=== PATIENT | female | born 1930 | race Caucasian/White ===

== ENCOUNTER 2016-12-19 20:35 | Emergency (ER) | payer OTHER ==
[~2016-12-19] VITALS: Ht 152.4 cm; Wt 74.2 kg
[~2016-12-19 20:35] MED LIST: AMLO10TA4 PO; CALCTAB7 PO; CHLO10CA6 PO; DTRSR10 PO; LISI20TA3 PO; NVLGI7030 SC; NVLGI7030 SQ; PANT40TA PO; SUCR5SUS PO; TIMO0.5S2 OPL; TRIA0.1C55 TD; ZCRUNK PO
[2016-12-19 20:40] VITALS: TEMP 36.7; Ht 152.4 cm; Wt 74.2 kg
[2016-12-19] MEDS ORDERED: XYLOCAINE 1%/SOD BICARB 20 ML VIAL INFIL STA (20:50)
[2016-12-19] MEDS ORDERED: OMEP40CA41 PO (21:28)
[2016-12-19] MEDS ORDERED: INSU70IN2 SQ (21:30)
[2016-12-19] MEDS ORDERED: SIMV10TA2 PO (21:31)
[2016-12-19] MEDS ORDERED: AMLO2.5T PO (21:32)
[2016-12-19] MEDS ORDERED: CARV6.252 PO (21:33)
[2016-12-19] MEDS ORDERED: FURO-85 PO (21:34)
[2016-12-19] MEDS ORDERED: CALC0.2510 PO (21:36)
[2016-12-19] MEDS ORDERED: DTRSR/10 PO (21:36)
[2016-12-19] MEDS ORDERED: ASPI81TA28 PO (21:37)
--- NOTE | 2016-12-19 21:37 | DIAGNOSTIC IMAGING REPORT ---
HEAD WITHOUT CONTRAST (CT) CLINICAL HISTORY: 86 years-old Female with Fall, right ear pain. Acute right or pain status post fall. Initial exam. TECHNIQUE: Multiple axial CT images of the head were obtained without contrast. A dose lowering technique was utilized adhering to the principles of ALARA. COMPARISON: CT cervical spine of same day. FINDINGS: No acute intracranial hemorrhage, midline shift, mass, large territorial ischemia or abnormal extra-axial collection. Moderate cerebral atrophy with ex vacuo ventriculomegaly. Patchy periventricular white matter low-attenuation suggests chronic microvascular ischemic changes. The calvarium is intact. Mastoid air cells are clear. 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 There are postsurgical changes of the bilateral globes. IMPRESSION: 1. No acute intracranial abnormality identified. 2. Atrophy with background chronic microvascular ischemic changes. 3. 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 The above report was generated using voice recognition software. It may contain grammatical, syntax or spelling errors. Electronically signed by: Desmond Jovel M.D. 12/19/2016 9:35 PM Dictated Date/Time: 12/19/2016 9:32 PM
[2016-12-19] MEDS ORDERED: CHOL1000 PO (21:38)
--- NOTE | 2016-12-19 22:00 | DIAGNOSTIC IMAGING REPORT ---
CERVICAL SPINE W/O CT DOSE: 1082.91 mGy.cm CLINICAL HISTORY: 86 years-old Female with Fall, right ear pain. Acute right or pain status post fall. Initial exam. COMPARISON: CT head of same day. TECHNIQUE: Multiple axial CT images of the cervical spine were obtained without contrast. A dose lowering technique was utilized adhering to the principles of ALARA. FINDINGS: There is no acute cervical spine fracture or subluxation identified. Bones are moderately demineralized with severe multilevel degenerative changes including advanced facet arthropathy, intervertebral disc space narrowing and exuberant marginal endplate spurring. Posterior disc osteophyte complex formation is seen at several levels, most prominently at C4-C5, C5-C6 and C6-C7. 2 mm anterolisthesis C2 on C3 and 3 mm anterolisthesis C3 on C4 likely on a degenerative basis secondary to severe facet disease. Calcifications adjacent to the posterior epidural space noted at C4-C5 may be from remote injury. Central canal stenosis is moderate at C5-C6 with severe right foraminal narrowing also seen at this interspace. Central canal and foramina are not well assessed by CT. There is straightening of the normal cervical lordosis. There is convex left curvature of the cervical spine. Thyroid is heterogeneous with an apparent partially calcified 1.9 x 1.3 cm left thyroid nodule. No pneumothorax. There is atherosclerotic plaquing of the bilateral carotid bulbs, extensive. IMPRESSION: 1. No acute cervical spine fracture or subluxation. 2. 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 3. Partially calcified left thyroid nodule, 1.9 cm. The above report was generated using voice recognition software. It may contain grammatical, syntax or spelling errors. Electronically signed by: Desmond Jovel M.D. 12/19/2016 9:58 PM Dictated Date/Time: 12/19/2016 9:51 PM
--- NOTE | 2016-12-19 22:26 | EMERGENCY ROOM VISIT NOTE ---
ED Visit Note First contact with patient: 20:45 Chief Complaint: "Fall, laceration to right ear". History of Present Illness: This patient is a 86-year-old female who presents to the Emergency Department via private vehicle for evaluation of their right earlobe laceration. Patient sustained the laceration while standing from a sitting position today, when she notes she lost her balance and fell backwards. She denies any dizziness, but feels as though she may have stood up and started to walk too quickly. They report a minimal amount of bleeding initially. They report no loss of consciousness. They deny any headache, visual disturbance, nausea, vomiting, or neck pain. Patient rates her current discomfort as a 0/10. Patient's Tetanus status is believed to the currently up- to-date. Medications: As noted below Allergies: None PMH: No pertinent SHx: Patient lives locally ROS: All pertinent positive and negative review of systems are appropriately documented in the History of Present Illness. Physical Exam: VITAL SIGNS - Vital signs and nursing notes were reviewed. Stable. Hypertensive. GENERAL -86-year-old female appearing her stated age. Communicates well with provider and answers questions appropriately. SKIN - There is a 3 cm laceration noted to the inferior earlobe. The edges gape apart with traction. There is minimal active bleeding appreciated. No deep structures including vessels, musculature, or bony structures are appreciated. HEAD - Normocephalic. No Cho's Sign or Raccoon's Eyes. No depressed skull fractures palpable. EYES - PERRL with EOMI bilaterally. Without subconjunctival hemorrhage. No hyphema EARS - No deformities of external structures noted on gross examination bilaterally. No hemotympanum present. No tympanic perforation noted. NOSE - Midline and without cyanosis. No epistaxis or clear watery discharge noted. Septum midline without deviation. No septal hematoma noted. No overlying ecchymosis noted. MOUTH/OROPHARYNX - Without perioral cyanosis. Tongue midline with equal elevation of palate bilaterally. No blood noted in the oropharynx. No tonsillar hypertrophy, erythema, or exudates noted. No dental fractures noted. NECK - FROM assessed. No tenderness to palpation over the cervical spinous processes. No cervical paraspinal muscle tenderness noted. LUNGS - Chest wall symmetric without accessory muscle use, intercostals retractions, or central cyanosis. Normal vesicular breath sounds CTA B/L. No wheezes, rales, or rhonchi appreciated. CARDIAC - RRR with S1/S2. No murmur, rubs, or gallops appreciated. EXTREMITIES - No gross deformities noted of the extremities. +5/5 strength noted in UE/LE bilaterally. NEUROLOGIC - Cranial nerves II through XII grossly intact. Sensory intact to light touch throughout. PSYCH - A&O, and cooperates fully with examiner. Pt is very pleasant and interacts well with examiner. IMAGING: HEAD WITHOUT CONTRAST (CT) CLINICAL HISTORY: 86 years-old Female with Fall, right ear pain. Acute right or pain status post fall. Initial exam. TECHNIQUE: Multiple axial CT images of the head were obtained without contrast. A dose lowering technique was utilized adhering to the principles of ALARA. COMPARISON: CT cervical spine of same day. FINDINGS: No acute intracranial hemorrhage, midline shift, mass, large territorial ischemia or abnormal extra-axial collection. Moderate cerebral atrophy with ex vacuo ventriculomegaly. Patchy periventricular white matter low-attenuation suggests chronic microvascular ischemic changes. The calvarium is intact. Mastoid air cells are clear. 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 There are postsurgical changes of the bilateral globes. IMPRESSION: 1. No acute intracranial abnormality identified. 2. Atrophy with background chronic microvascular ischemic changes. 3. 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 The above report was generated using voice recognition software. It may contain grammatical, syntax or spelling errors. Electronically signed by: Desmond Jovel M.D. 12/19/2016 9:35 PM Dictated Date/Time: 12/19/2016 9:32 PM CERVICAL SPINE W/O CT DOSE: 1082.91 mGy.cm CLINICAL HISTORY: 86 years-old Female with Fall, right ear pain. Acute right or pain status post fall. Initial exam. COMPARISON: CT head of same day. TECHNIQUE: Multiple axial CT images of the cervical spine were obtained without contrast. A dose lowering technique was utilized adhering to the principles of ALARA. FINDINGS: There is no acute cervical spine fracture or subluxation identified. Bones are moderately demineralized with severe multilevel degenerative changes including advanced facet arthropathy, intervertebral disc space narrowing and exuberant marginal endplate spurring. Posterior disc osteophyte complex formation is seen at several levels, most prominently at C4-C5, C5-C6 and C6-C7. 2 mm anterolisthesis C2 on C3 and 3 mm anterolisthesis C3 on C4 likely on a degenerative basis secondary to severe facet disease. Calcifications adjacent to the posterior epidural space noted at C4-C5 may be from remote injury. Central canal stenosis is moderate at C5-C6 with severe right foraminal narrowing also seen at this interspace. Central canal and foramina are not well assessed by CT. There is straightening of the normal cervical lordosis. There is convex left curvature of the cervical spine. Thyroid is heterogeneous with an apparent partially calcified 1.9 x 1.3 cm left thyroid nodule. No pneumothorax. There is atherosclerotic plaquing of the bilateral carotid bulbs, extensive. IMPRESSION: 1. No acute cervical spine fracture or subluxation. 2. 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 3. Partially calcified left thyroid nodule, 1.9 cm. The above report was generated using voice recognition software. It may contain grammatical, syntax or spelling errors. Electronically signed by: Desmond Jovel M.D. 12/19/2016 9:58 PM Dictated Date/Time: 12/19/2016 9:51 PM ED Course: Patient was seen and evaluated by myself as well as attending physician. Patient had no focal neurological deficits. Patient's exam is otherwise unremarkable. Patient reports no headaches, visual disturbances, nausea, vomiting, or over-lethargy. Unfortunately, the patient's mechanism of injury is concerning for intracranial abnormality, therefore CT the head and C-spine were obtained. Results as above. These are negative. Risks and benefits of performing primary wound closure versus no repair were discussed with the patient who verbalizes understanding. Verbal consent was obtained prior to performing the procedure. 4 cc of 1% buffered lidocaine was used to anesthetize the right earlobe laceration. The wound was cleansed and prepped in the typical sterile fashion utilizing normal saline.. The wound was sterilely draped. Once proper anesthetization was established, the wound was further examined and demonstrated no deep involvement. The ear is still vascularized well. The wound was copiously irrigated with normal saline.. The wound was closed using 7 simple, 6-0 nylon sutures with the wound edges being well approximated. Patient tolerated the procedure well. No complications were met. The wound was cleansed and dressed with a Bacitracin dressing. She is to follow -up regarding the CT scan incidental findings. These were copied into her discharge instructions. Patient educated on worrisome symptoms for return visit to the Emergency Department. Patient discharged to home in good condition. In the evaluation and treatment of this patient, the following differential diagnoses were considered: Concussion, Contrecoup Injury, Brain Tumor, Depression, Encephalitis, Hypothyroidism, Meningitis, CVA, TIA, Migraine, Cluster Headache, Intracranial Abnormality, Intracranial Hemorrhage, Subdural Hematoma, Subarachnoid Hemorrhage, Hydrocephalus. Current/Historical Medications Scheduled Amlodipine (Norvasc), 2.5 MG PO DAILY Aspirin (Aspirin Ec), 81 MG PO DAILY Calcitriol (Rocaltrol Cap), 0.25 MCG PO 2XWK Carvedilol (Coreg), 6.25 MG PO BID Cholecalciferol (Vitamin D3), 1,000 UNITS PO DAILY Furosemide (Lasix), 20 MG PO BID Insulin Aspart 70/30 (Novolog Mix 70/30), 24 UNITS SQ QAM Insulin Isophan/Regular (Novolin 70/30), 12 UNITS SQ QPM Omeprazole (Prilosec), 40 MG PO QAM Oxybutynin Chloride (Oxybutynin Chloride ER), 10 MG PO DAILY Simvastatin (Zocor), 10 MG PO QPM Timolol Maleate (Ophth) (Timoptic-Xe 0.5% Oph), 1 DROP OPL DAILY Allergies Coded Allergies: No Known Allergies (Unverified , 06/11/10) Vital Signs Date Time Temp Pulse Resp B/P (MAP) Pulse Ox O2 Delivery O2 Flow Rate FiO2 12/19/16 22:45 82 20 138/78 98 12/19/16 20:40 36.7 86 16 184/75 98 Room Air Departure Information Impression Primary Impression: Fall Additional Impression: Ear lobe laceration Dispostion Home / Self-Care Condition GOOD Referrals Nilo Parks M.D. (PCP) Patient Instructions My [facility] Additional Instructions Discharge Instructions: You have received 7 sutures on your ear. These sutures are NOT dissolvable and WILL need to be removed by a health care provider in 7 days. You can return to the Emergency Department or contact your Primary Care Provider to have the sutures removed. Proper wound care is essential for adequate wound healing and infection prevention. You can shower and clean the wound with soap and water. Do not scour over the wound, pat dry with a towel. Do not submerse the wound (i.e. bathe or dish wash) until the sutures have been removed. You can use an antibiotic ointment with a dressing over the wound for the next 2-3 days. After this time you may leave the wound dry and open to the air. If crust develops over the wound you can use a Q-tip to apply a 1:1 peroxide:water solution to clean the wound. Look for signs of infection of the wound including: increased pain, swelling, foul discharge, streaking, or increased temperature. If any of these are noticed you should return to the Emergency Department for further assessment and treatment. As with any laceration you may have received nerve damage to the surrounding tissues. This damage may or may not be permanent. You should keep the area covered with sunscreen for the first 6 months to 1 year when at risk for exposure to help minimize scarring. You can also use scar reducing creams or Vitamin E oil to help minimize scarring. For pain control, you can use the following sbsz-ecp-buyaitr medicines: - Regular strength (325mg/tab) Tylenol (acetaminophen) 2 tabs every 4-6 hours as needed. Do not exceed 12 tablets in a 24 hour period. Avoid taking more than 3 grams (3000 mg) of Tylenol per day. This includes any other sources of acetaminophen you may take on a regular basis. Return to the emergency department if your symptoms worsen despite treatment course outlined above. Please follow up with your family doctor regarding the results of your scans. HEAD WITHOUT CONTRAST (CT) CLINICAL HISTORY: 86 years-old Female with Fall, right ear pain. Acute right or pain status post fall. Initial exam. TECHNIQUE: Multiple axial CT images of the head were obtained without contrast. A dose lowering technique was utilized adhering to the principles of ALARA. COMPARISON: CT cervical spine of same day. FINDINGS: No acute intracranial hemorrhage, midline shift, mass, large territorial ischemia or abnormal extra-axial collection. Moderate cerebral atrophy with ex vacuo ventriculomegaly. Patchy periventricular white matter low-attenuation suggests chronic microvascular ischemic changes. The calvarium is intact. Mastoid air cells are clear. 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 There are postsurgical changes of the bilateral globes. IMPRESSION: 1. No acute intracranial abnormality identified. 2. Atrophy with background chronic microvascular ischemic changes. 3. 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 The above report was generated using voice recognition software. It may contain grammatical, syntax or spelling errors. Electronically signed by: Desmond Jovel M.D. 12/19/2016 9:35 PM Dictated Date/Time: 12/19/2016 9:32 PM CERVICAL SPINE W/O CT DOSE: 1082.91 mGy.cm CLINICAL HISTORY: 86 years-old Female with Fall, right ear pain. Acute right or pain status post fall. Initial exam. COMPARISON: CT head of same day. TECHNIQUE: Multiple axial CT images of the cervical spine were obtained without contrast. A dose lowering technique was utilized adhering to the principles of ALARA. FINDINGS: There is no acute cervical spine fracture or subluxation identified. Bones are moderately demineralized with severe multilevel degenerative changes including advanced facet arthropathy, intervertebral disc space narrowing and exuberant marginal endplate spurring. Posterior disc osteophyte complex formation is seen at several levels, most prominently at C4-C5, C5-C6 and C6-C7. 2 mm anterolisthesis C2 on C3 and 3 mm anterolisthesis C3 on C4 likely on a degenerative basis secondary to severe facet disease. Calcifications adjacent to the posterior epidural space noted at C4-C5 may be from remote injury. Central canal stenosis is moderate at C5-C6 with severe right foraminal narrowing also seen at this interspace. Central canal and foramina are not well assessed by CT. There is straightening of the normal cervical lordosis. There is convex left curvature of the cervical spine. Thyroid is heterogeneous with an apparent partially calcified 1.9 x 1.3 cm left thyroid nodule. No pneumothorax. There is atherosclerotic plaquing of the bilateral carotid bulbs, extensive. IMPRESSION: 1. No acute cervical spine fracture or subluxation. 2. 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 3. Partially calcified left thyroid nodule, 1.9 cm. The above report was generated using voice recognition software. It may contain grammatical, syntax or spelling errors. Electronically signed by: Desmond Jovel M.D. 12/19/2016 9:58 PM Dictated Date/Time: 12/19/2016 9:51 PM Problem Qualifiers
[2016-12-19 22:45] VITALS: BP 138/78; PULSE 82; O2SAT 98
== END 2016-12-19 22:45 | disposition home or self-care (01) ==
LOC: C.EDB 20:36 → C.EDD 22:45
DX: S01.311A Laceration without foreign body of right ear, initial encounter (principal); W01.0XXA Fall on same level from slipping, tripping and stumbling without subsequent striking against object, initial encounter; Z79.4 Long term (current) use of insulin; Z79.82 Long term (current) use of aspirin; Z79.899 Other long term (current) drug therapy

== ENCOUNTER 2017-04-12 14:24 | Inpatient (IN) | payer OTHER ==
[~2017-04-12] VITALS: Ht 152.4 cm; Wt 77.5 kg
[~2017-04-12 14:24] MED LIST changes: -AMLO10TA4 PO; +AMLO2.5T PO; -CALCTAB7 PO; +CARV6.252 PO; -CHLO10CA6 PO; -DTRSR10 PO; +FURO-85 PO; -LISI20TA3 PO; -NVLGI7030 SC; -PANT40TA PO; -SUCR5SUS PO; -TIMO0.5S2 OPL; -TRIA0.1C55 TD; -ZCRUNK PO
--- NOTE | 2017-04-12 15:56 | EMERGENCY ROOM VISIT NOTE ---
History Report prepared by Sonido: Camilo Garces Under the Supervision of: Merced EscalonaO. First contact with patient: 15:36 Chief Complaint: COUGH Stated Complaint: COUGH,FLUID,DIZZY,SOB Nursing Triage Summary: cough, shortness of breath for the past couple months. 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 She notes clear sputum. She notes new leg swelling and lightheadedness. She notes intermittent chest pain and mild shortness of breath. She notes a history of CHF and kidney problems. She takes a diuretic daily. She regularly sees her PCP. She has a history of arrhythmia. She denies any history of asthma. She denies any fevers. nausea, vomiting, diarrhea, urinary symptoms, and abdominal pain. Pt states she has seen her PCP twice in the last several weeks regarding her worsening symptoms. Denies any change in her diuretic dosing. 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 Review of Systems See above for pertinent positives & negatives. A total of 10 systems reviewed and were otherwise negative. Past Medical & Surgical Medical Problems: (1) Atrial fibrillation (2) CKD (chronic kidney disease), stage III (3) DM type 2 (diabetes mellitus, type 2) (4) Dyslipidemia (5) Ear lobe laceration (6) Fall (7) GERD (gastroesophageal reflux disease) (8) Glaucoma (9) Heart disease (10) HTN (hypertension) (11) Kidney disease Surgical Problems: (1) Hx of tubal ligation Family History Diabetes mellitus Social History Smoking Status: Never Smoker Smokeless Tobacco Use: No Alcohol Use: none Drug Use: none Housing Status: lives with family Occupation Status: unemployed Current/Historical Medications Scheduled Aspirin (Aspirin Ec), 81 MG PO DAILY Calcitriol (Rocaltrol Cap), 0.25 MCG PO 2XWK Cholecalciferol (Vitamin D3), 1,000 UNITS PO DAILY Furosemide (Lasix), 20 MG PO BID Insulin Human Isophan/Regular (Novolin 70/30), 24 UNITS SC UD Insulin Isophan/Regular (Novolin 70/30), 12 UNITS SQ QPM Metoprolol Tartrate (Lopressor) (Lopressor), 37.5 MG PO BID Omeprazole (Prilosec), 40 MG PO QAM Oxybutynin Chloride (Oxybutynin Chloride ER), 10 MG PO DAILY Potassium Ext Rel (Klor-Con), 20 MEQ PO QAM Simvastatin (Zocor), 10 MG PO QPM Timolol Maleate (Ophth) (Timoptic-Xe 0.5% Oph), 1 DROP OPL DAILY Warfarin Sod (Coumadin), 1.25 MG PO QPM Scheduled PRN Chlordiazepoxide (Librium), 5 MG PO Q6 PRN for Anxiety Allergies Coded Allergies: No Known Allergies (Unverified , 04/12/17) Physical Exam Vital Signs Date Time Temp Pulse Resp B/P (MAP) Pulse Ox O2 Delivery O2 Flow Rate FiO2 04/12/17 19:02 Room Air 04/12/17 19:01 104 21 95 04/12/17 19:00 04/12/17 18:31 94 21 04/12/17 18:30 123/101 04/12/17 17:56 154/88 04/12/17 17:26 99 20 163/100 99 Room Air 04/12/17 16:42 97 Room Air 04/12/17 16:42 97 20 137/94 100 Room Air 04/12/17 14:30 36.4 97 18 130/88 97 Room Air Physical Exam GENERAL: alert, well appearing, well nourished, no distress, non-toxic EYE EXAM: normal conjunctiva, PERRL and EOM's grossly intact OROPHARYNX: no exudate, no erythema, lips, buccal mucosa, and tongue normal and mucous membranes are moist NECK: supple, no nuchal rigidity, no adenopathy, non-tender LUNGS: Diminished breath sounds. No wheezes, rales, or rhonchi. Normal chest wall mechanics HEART: Heart beat irregular. no murmurs, S1 normal and S2 normal ABDOMEN: abdomen soft, non-tender, normo-active bowel sounds, no masses, no rebound or guarding. BACK: Back is symmetrical on inspection and there is no deformity, no midline tenderness, no CVA tenderness. SKIN: no rashes and no bruising UPPER EXTREMITIES: upper extremities are grossly normal. LOWER EXTREMITIES: 2+ bilateral edema. NEURO EXAM: Normal sensorium, cranial nerves II-XII grossly intact, normal speech, no gross weakness of arms, no gross weakness of legs. Medical Decision & Procedures ER Provider Diagnostic Interpretation: Radiology results have been interpreted by the radiologist and reviewed by me. CHEST 2 VIEWS ROUTINE CLINICAL HISTORY: Shortness of breath. COMPARISON STUDY: Chest radiograph June 25, 2011. FINDINGS: Lung volumes are normal. There is no pneumothorax. Small right pleural effusion is noted with a trace left pleural effusion. Mild bibasilar opacities are present. Mild cardiomegaly is noted. There is pulmonary vascular congestion with suspected mild pulmonary edema. IMPRESSION: 1. Small right and trace left pleural effusions with bibasilar opacities which favor atelectasis. Radiographic follow-up is recommended. 2. Pulmonary vascular congestion with suspected mild pulmonary edema. Electronically signed by: Michele Sanders M.D. 04/12/2017 6:22 PM Dictated Date/Time: 04/12/2017 6:20 PM Laboratory Results Test 04/12/17 16:32 Immature Granulocyte % (Auto) 0.2 % White Blood Count 8.85 K/uL (4.8-10.8) Red Blood Count 4.11 M/uL (4.2-5.4) Hemoglobin 10.1 g/dL (12.0-16.0) Hematocrit 31.7 % (37-47) Mean Corpuscular Volume 77.1 fL (80-100) Mean Corpuscular Hemoglobin 24.6 pg (25-34) Mean Corpuscular Hemoglobin Concent 31.9 g/dl (32-36) Platelet Count 272 K/uL (130-400) Mean Platelet Volume 9.6 fL (7.4-10.4) Neutrophils (%) (Auto) 80.1 % Lymphocytes (%) (Auto) 9.9 % Monocytes (%) (Auto) 8.1 % Eosinophils (%) (Auto) 1.4 % Basophils (%) (Auto) 0.3 % Neutrophils # (Auto) 7.08 K/uL (1.4-6.5) Lymphocytes # (Auto) 0.88 K/uL (1.2-3.4) Monocytes # (Auto) 0.72 K/uL (0.11-0.59) Eosinophils # (Auto) 0.12 K/uL (0-0.5) Basophils # (Auto) 0.03 K/uL (0-0.2) Immature Granulocyte # (Auto) 0.02 K/uL (0.00-0.02) Total Bilirubin 1.5 mg/dl (0.2-1) Aspartate Amino Transf (AST/SGOT) 14 U/L (15-37) Alanine Aminotransferase (ALT/SGPT) 31 U/L (12-78) Alkaline Phosphatase 96 U/L (45-117) Pro-B-Type Natriuretic Peptide 3623 pg/ml (0-1800) Total Protein 7.0 gm/dl (6.4-8.2) Albumin 3.3 gm/dl (3.4-5.0) Globulin 3.7 gm/dl (2.5-4.0) Albumin/Globulin Ratio 0.9 (0.9-2) Beta-Hydroxybutyric Acid 1.45 mg/dL (0.2-2.81) Laboratory results per my review. Medications Administered Medications (Trade) Dose Ordered Sig/Gustavo Route Start Time Stop Time Status Last Admin Dose Admin Furosemide (Lasix Inj) 40 mg NOW STAT IV 04/12/17 17:43 04/12/17 17:45 DC 04/12/17 17:54 40 MG Insulin Human Regular (novoLIN-R U-100 PER UNIT) 6 units NOW STAT SC 04/12/17 17:58 04/12/17 17:59 DC 04/12/17 18:18 6 UNITS ECG Indication: other (cough) Rate (beats per minute): 92 Rhythm: atrial fibrillation Findings: no acute ischemic change, other (Normal axis. Normal QRS/QTC.) ED Course 1540: The patient was evaluated in room A10. A complete history and physical exam was performed. 1743: Ordered Furosemide 40 mg IV 1758: Ordered Insulin Human Regular 6 units SC 1831: I spoke with Ness Zaldivar PA-C. We discussed the patients case. The patient will be evaluated by the [facility] for further management. 1835: I reassessed the patient at this time. She is resting comfortably. I discussed the results and treatment plan with the patient. I answered all pertaining questions that she had. She expressed understanding and verbalized agreement. The patient will be further evaluated. Medical Decision Prior records/ancillary studies reviewed. Triage Nursing notes reviewed. Additional history obtained from the family. The patient's history was concerning for respiratory difficulties. Differential diagnosis: Etiologies such as infections, reactive airway disease, pneumonia, pneumothorax , COPD, CHF, cardiac ischemia, pulmonary embolism, musculoskeletal, gastrointestinal, as well as others were entertained. Pt likely with worsening acute on chronic CHF. Given additional dose of diuretic here. Pt will need careful diuresis due to CKD. No overt hypoxia, no increased WOB while at rest, other VS stable. Discussed all results with pt and family and they were agreeable with plan. Medication Reconcilliation Current Medication List: was personally reviewed by me Blood Pressure Screening Patient's blood pressure: Elevated blood pressure Blood pressure disposition: Elevated BP felt to be situational Consults Time Called: 1824 Consulting Physician: Ness Zaldivar PA-C Returned Call: 1831 I spoke with Ness Zaldivar PA-C. We discussed the patients case. The patient will be evaluated by the [facility] for further management. Impression Primary Impression: Dyspnea Additional Impressions: CHF (congestive heart failure) Chronic kidney disease Hyperglycemia Lower extremity edema Scribe Attestation The scribe's documentation has been prepared under my direction and personally reviewed by me in its entirety. I confirm that the note above accurately reflects all work, treatment, procedures, and medical decision making performed by me. Departure Information Dispostion Being Evaluated By Hospitalist Referrals Nilo Parks M.D. (PCP) Patient Instructions My [facility] Problem Qualifiers Primary Impression: Dyspnea Dyspnea type: dyspnea on exertion Qualified Codes: R06.09 - Other forms of dyspnea Additional Impressions: CHF (congestive heart failure) Congestive heart failure type: combined Congestive heart failure chronicity: acute on chronic Qualified Codes: I50.43 - Acute on chronic combined systolic (congestive) and diastolic (congestive) heart failure Chronic kidney disease Chronic kidney disease stage: unspecified stage Qualified Codes: N18.9 - Chronic kidney disease, unspecified
[2017-04-12] MEDS ORDERED: METO25TA56 PO (16:00)
[2017-04-12] MEDS ORDERED: CMD25 PO (16:00)
[2017-04-12] MEDS ORDERED: CHLO5CAP19 PO (16:00)
[2017-04-12 16:53] LABS: BASO % 0.3 %; BASO ABS # 0.03 K/uL (0-0.2); EOS % 1.4 %; EOS ABS # 0.12 K/uL (0-0.5); HEMATOCRIT 31.7 % (37-47); HEMOGLOBIN 10.1 g/dL (12.0-16.0); IG# 0.02 K/uL (0.00-0.02); LYMPH % 9.9 %; LYMPH ABS # 0.88 K/uL (1.2-3.4); MEAN CELL VOLUME 77.1 fL (80-100); MEAN CORPUSCULAR HEMOGLOBIN 24.6 pg (25-34); MEAN CORPUSCULAR HGB CONC 31.9 g/dl (32-36); MEAN PLATELET VOLUME 9.6 fL (7.4-10.4); MONO % 8.1 %; MONO ABS # 0.72 K/uL (0.11-0.59); NEUT % 80.1 %; NEUT ABS # 7.08 K/uL (1.4-6.5); PLATELET COUNT 272 K/uL (130-400); RED CELL DISTRIBUTION WIDTH CV 16.4 % (11.5-14.5); RED CELL DISTRIBUTION WIDTH SD 46.3 fL (36.4-46.3); WHITE BLOOD COUNT 8.85 K/uL (4.8-10.8)
[2017-04-12 17:34] LABS: ALBUMIN 3.3 gm/dl (3.4-5.0); ALKALINE PHOSPHATASE 96 U/L (45-117); ALT/SGPT 31 U/L (12-78); AST/SGOT 14 U/L (15-37); BLOOD UREA NITROGEN 34 mg/dl (7-18); CARBON DIOXIDE 24 mmol/L (21-32); CREATININE 1.76 mg/dl (0.60-1.20); GLUCOSE 357 mg/dl (70-99); POTASSIUM 4.4 mmol/L (3.5-5.1); SODIUM 133 mmol/L (136-145)
[2017-04-12] MEDS ORDERED: FUROSEMIDE 40 MG/4 ML VIAL IV STA (17:43)
[2017-04-12] MEDS ORDERED: NovoLIN-R INSULIN PER UNIT CHARGE SC STA (17:58)
--- NOTE | 2017-04-12 18:23 | DIAGNOSTIC IMAGING REPORT ---
CHEST 2 VIEWS ROUTINE CLINICAL HISTORY: Shortness of breath. COMPARISON STUDY: Chest radiograph June 25, 2011. FINDINGS: Lung volumes are normal. There is no pneumothorax. Small right pleural effusion is noted with a trace left pleural effusion. Mild bibasilar opacities are present. Mild cardiomegaly is noted. There is pulmonary vascular congestion with suspected mild pulmonary edema. IMPRESSION: 1. Small right and trace left pleural effusions with bibasilar opacities which favor atelectasis. Radiographic follow-up is recommended. 2. Pulmonary vascular congestion with suspected mild pulmonary edema. Electronically signed by: Michele Sanders M.D. 04/12/2017 6:22 PM Dictated Date/Time: 04/12/2017 6:20 PM
[2017-04-12 18:56] LABS: INR 4.7 (0.9-1.1)
--- NOTE | 2017-04-12 19:11 | NUR ---
admission database completed in ED room A10 with Pt DTR Barbra Chatterjee assisting in answering questions. call ledbetter in reach. awaiting bed assignment.
[2017-04-12] MEDS ORDERED: ONDANSETRON INJ 2 MG/ML 2 ML VIAL IV PRN (19:45)
[2017-04-12] MEDS ORDERED: ACETAMINOPHEN 325 MG TAB PO PRN (19:45)
[2017-04-12] MEDS ORDERED: NITROGLYCERIN 0.4 MG SL PER TAB CHARGE SL PRN (19:45)
--- NOTE | 2017-04-12 20:20 | NUR ---
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
[2017-04-12] MEDS ORDERED: GLUCAGON FOR INJ 1 MG VIAL SQ PRN (21:00)
[2017-04-12] MEDS ORDERED: DEXTROSE 50% 50 ML SYR IV PRN (21:00)
[2017-04-12] MEDS ORDERED: GLUCOSE 10 TABS/TUBE PO PRN (21:00)
[2017-04-12] MEDS ORDERED: GLUCOSE 40% GEL 15 GM TUBE PO PRN (21:00)
[2017-04-12 21:04] VITALS: BP 138/93; PULSE 116; TEMP 36.7; O2SAT 97; BMI 33.4
--- NOTE | 2017-04-12 21:13 | History and Physical ---
History & Physical Date & Time of Service: Apr 12, 2017 at 20:08 Chief Complaint: Cough,Fluid,Dizzy,Sob Primary Care Physician: Nilo Parks M.D. History of Present Illness Source: patient, family, clinic records, hospital records Pt is 86 y/o F with PMH HTN, hypertensive heart disease, hyperlipidemia, insulin dependent DM II, GERD, CKD III presented to ER with c/o increased LE edema, SOB with exertion, non-productive cough x several weeks. Seen by PCP and found to be in a-fib. Her carvedilol was increased to 12.5mg BID, amlodipine was held and lasix 20mg BID and started on coumadin. Pt reports had f /u visit on 04/05 and carvedilol stopped and metoprolol 25mg 1.5 tab BID started. 04/07/17 - INR: 2.7 and is being managed by coumadin clinic. Pt states past couple of days with increased SOB with exertion and increased LE edema. Denies orthopnea or PND. Uses one pillow. Success dizzy this morning. Pt reports intermittent palpitations over past couple of months. She is unsure how long symptoms last. typically occurs with sitting, unsure if associated CP or SOB or dizziness. Intermittent mid chest discomfort x months described as aching occurs typically when sitting, reports usually "relaxes" and pain resolves. Denies associated SOB, dizziness with this. Denies fever/chills, diaphoresis, N/ V/D/C, CHANDLER, syncope, neck pain, hemoptysis, sore throat, choking, otalgia, rhinorrhea, abdominal pain, paresthesias, weakness, extremity weakness, rashes, urinary symptoms. In ER pt afebrile, without leukocytosis, hgb: 10.1 (~baseline), Cr: 1.7 ( baseline ~1.2). Glucose: 357 pt given insulin 6 units. INR: 4.7. BNP: 3623, negative troponin. CXR: small pleural effusions, pulmonary vascular congestion with suspected pulmonary edema. Pt given lasix 40mg IV. Hx echo 06/16/16: EF: 60-64%, normal LV wall motion, mild pulmonary HTN, mild tricuspid regurg, mitral stenosis, aortic regurg, aortic stenosis, moderate mitral regurg. Past Medical/Surgical History Medical Problems: (1) CKD (chronic kidney disease), stage III Status: Chronic (2) DM type 2 (diabetes mellitus, type 2) Status: Chronic (3) Dyslipidemia Status: Chronic (4) Ear lobe laceration Status: Resolved (5) Fall Status: Resolved (6) GERD (gastroesophageal reflux disease) Status: Chronic (7) Glaucoma Status: Chronic (8) Heart disease Status: Chronic (9) HTN (hypertension) Status: Chronic (10) Kidney disease Status: Chronic Surgical Problems: (1) Hx of tubal ligation Status: Resolved Family History Diabetes mellitus Social History Smoking Status: Never Smoker Smokeless Tobacco Use: No Alcohol Use: none Drug Use: none Housing status: lives with family Occupational Status: unemployed Immunizations History of Influenza Vaccine: Yes History of Tetanus Vaccine?: Yes History of Pneumococcal: Yes History of Hepatitis B Vaccine: No Multi-Drug Resistant Organisms History of MDRO: No Allergies Coded Allergies: No Known Allergies (Unverified , 04/12/17) Home Medications Scheduled Aspirin (Aspirin Ec), 81 MG PO DAILY Calcitriol (Rocaltrol Cap), 0.25 MCG PO 2XWK Cholecalciferol (Vitamin D3), 1,000 UNITS PO DAILY Furosemide (Lasix), 20 MG PO BID Insulin Human Isophan/Regular (Novolin 70/30), 24 UNITS SC UD Insulin Isophan/Regular (Novolin 70/30), 12 UNITS SQ QPM Metoprolol Tartrate (Lopressor) (Lopressor), 37.5 MG PO BID Omeprazole (Prilosec), 40 MG PO QAM Oxybutynin Chloride (Oxybutynin Chloride ER), 10 MG PO DAILY Potassium Ext Rel (Klor-Con), 20 MEQ PO QAM Simvastatin (Zocor), 10 MG PO QPM Timolol Maleate (Ophth) (Timoptic-Xe 0.5% Oph), 1 DROP OPL DAILY Warfarin Sod (Coumadin), 1.25 MG PO QPM Scheduled PRN Chlordiazepoxide (Librium), 5 MG PO Q6 PRN for Anxiety Review of Systems Constitutional: No fever, No chills, No sweats, No weight loss, No weakness Eyes: No eye pain, No redness, No discharge ENT: + hearing loss (hard of hearing), No unusual epistaxis, No nasal symptoms , No sore throat, No tinnitus, No trouble swallowing Respiratory: + cough, No sputum, No wheezing, No dyspnea at rest, No hemoptysis Cardiovascular: + problem reported (see HPI) Abdomen: No pain, No nausea, No vomiting, No diarrhea, No constipation, No GI bleeding Musculoskeletal: No joint pain, No muscle pain, No calf pain Genitourinary - Female: No dysuria, No urinary frequency, No urinary urgency, No urinary incontinence, No urinary retention, No hematuria Neurologic: No paralysis, No numbness/tingling Psychiatric: No depression symptoms, No anxiety Endocrine: No excessive thirst, No excessive urination Hematologic / Lymphatic: No abnormal bleeding/bruising, No clotting problems, No night sweats Integumentary: No rash, No itch Physical Exam Vital Signs Date Time Temp Pulse Resp B/P (MAP) Pulse Ox O2 Delivery O2 Flow Rate FiO2 04/12/17 19:54 105 153/84 97 Room Air 04/12/17 19:02 Room Air 04/12/17 19:01 104 21 95 04/12/17 19:00 04/12/17 18:31 94 21 04/12/17 18:30 123/101 04/12/17 17:56 154/88 04/12/17 17:26 99 20 163/100 99 Room Air 04/12/17 16:42 97 Room Air 04/12/17 16:42 97 20 137/94 100 Room Air 04/12/17 14:30 36.4 97 18 130/88 97 Room Air General Appearance: WD/WN, no apparent distress Head: normocephalic, atraumatic Eyes: normal inspection, PERRL, EOMI, sclerae normal ENT: pharynx normal, + pertinent finding (hard of hearing, mucous membranes moist) Neck: supple, no JVD, trachea midline Respiratory/Chest: chest non-tender, no respiratory distress, no accessory muscle use, + crackles (bases) Cardiovascular: + systolic murmur, + irregularly irregular (rate 90's-112) Abdomen/GI: normal bowel sounds, non tender, soft Back: no CVA tenderness Extremities/Musculoskelatal: no calf tenderness, normal capillary refill, non- tender, + pedal edema (2-3+bilaterally) Neurologic/Psych: alert, normal mood/affect, oriented x 3 Skin: normal color, warm/dry, no rash Diagnostics Laboratory Results Results Past 24 Hours Test 04/12/17 16:32 Range/Units White Blood Count 8.85 4.8-10.8 K/uL Red Blood Count 4.11 4.2-5.4 M/uL Hemoglobin 10.1 12.0-16.0 g/dL Hematocrit 31.7 37-47 % Mean Corpuscular Volume 77.1 80-100 fL Mean Corpuscular Hemoglobin 24.6 25-34 pg Mean Corpuscular Hemoglobin Concent 31.9 32-36 g/dl Platelet Count 272 130-400 K/uL Mean Platelet Volume 9.6 7.4-10.4 fL Neutrophils (%) (Auto) 80.1 % Lymphocytes (%) (Auto) 9.9 % Monocytes (%) (Auto) 8.1 % Eosinophils (%) (Auto) 1.4 % Basophils (%) (Auto) 0.3 % Neutrophils # (Auto) 7.08 1.4-6.5 K/uL Lymphocytes # (Auto) 0.88 1.2-3.4 K/uL Monocytes # (Auto) 0.72 0.11-0.59 K/uL Eosinophils # (Auto) 0.12 0-0.5 K/uL Basophils # (Auto) 0.03 0-0.2 K/uL RDW Standard Deviation 46.3 36.4-46.3 fL RDW Coefficient of Variation 16.4 11.5-14.5 % Immature Granulocyte % (Auto) 0.2 % Immature Granulocyte # (Auto) 0.02 0.00-0.02 K/uL Prothrombin Time 47.9 9.0-12.0 SECONDS Prothromb Time International Ratio 4.7 0.9-1.1 Sodium Level 133 136-145 mmol/L Potassium Level 4.4 3.5-5.1 mmol/L Chloride Level 103 98-107 mmol/L Carbon Dioxide Level 24 21-32 mmol/L Anion Gap 6.0 3-11 mmol/L Blood Urea Nitrogen 34 7-18 mg/dl Creatinine 1.76 0.60-1.20 mg/dl Estimated GFR () 30.0 Estimated GFR (Non- 25.9 BUN/Creatinine Ratio 19.3 10-20 Random Glucose 357 70-99 mg/dl Calcium Level 9.0 8.5-10.1 mg/dl Total Bilirubin 1.5 0.2-1 mg/dl Aspartate Amino Transf (AST/SGOT) 14 15-37 U/L Alanine Aminotransferase (ALT/SGPT) 31 12-78 U/L Alkaline Phosphatase 96 45-117 U/L Troponin I < 0.015 0-0.045 ng/ml Pro-B-Type Natriuretic Peptide 3623 0-1800 pg/ml Total Protein 7.0 6.4-8.2 gm/dl Albumin 3.3 3.4-5.0 gm/dl Globulin 3.7 2.5-4.0 gm/dl Albumin/Globulin Ratio 0.9 0.9-2 Beta-Hydroxybutyric Acid 1.45 0.2-2.81 mg/dL Diagnostic Radiology CXR: IMPRESSION: 1. Small right and trace left pleural effusions with bibasilar opacities which favor atelectasis. Radiographic follow-up is recommended. 2. Pulmonary vascular congestion with suspected mild pulmonary edema. EKG EKG: atrial fibrillation, rate 92 Impression Assessment and Plan ACUTE DIASTOLIC HEART FAILURE Pt with increased LE, exertional SOB, cough. CXR: small bilateral pleural effusions, pulmonary vascular congestion. Pt given lasix 40mg IV in ER. Echo 06/2016: EF: 60-64% -lasix 40mg IV -continue po potassium -continue to monitor -echo -cardiology consult -cbc, prp in am ATRIAL FIBRILLATION rate 90's-low 100's. Started on coumadin 03/30/17 by PCP for a-fib with RVR. INR: 4.7 today -hold coumadin tonight -repeat INR tomorrow -continue metoprolol -continue to monitor -trend cardiac enzymes -EKG in am -echo -cardiology consult INSULIN DEPENDENT DM II HA1c 7.4 in 08/2016 -Ha1c in am -hold home 70/30 insulin -NovoLog sliding scale -lantus 7U BID DYSLIPIDEMIA -lipid panel in am -continue simvastatin GERD -continue PPI GLAUCOMA -continue timolol drops DVT PROPHYLAXIS -Coumadin DISPOSITION -admit tele -Full Code as per discussion with pt -Follows with Dr Parks for routine care Pt was seen with Dr Milian. See addendum Attending Addendum: The patient was seen and examined by me in ER Recent SOB,Leg swelling and occasional palpitation Recently diagnosed AF on Coumadin and BB No Chest pain on presentation today O/E No acute distress Hemodynamically stable Chest-occasional crackles at the bases Heart-irregular Abdomen-benign Extremities-2+ edema bilaterally Labs ,EKG and Imaging Studies noted Has CHF -IV Lasix,ECHO,and Cardiology evaluation. Agree with the Assessment and plan. DR Sophia milian Level of Care Telemetry Advanced Directives Existing Living Will: Yes Existing Power of Audio Visual Production Specialist: Yes Resuscitation Status FULL RESUSCITATION VTE Prophylaxis VTE Risk Assessment Done? Y/N: Yes Risk Level: Moderate Given or contraindicated: Warfarin (Coumadin) Additional Copies To Nilo Parks M.D.
[2017-04-12] MEDS: METOPROLOL TARTRATE 25 MG TAB PO SCH (21:35)
[2017-04-12] MEDS: SIMVASTATIN 10 MG TAB PO SCH (21:36)
[2017-04-12] MEDS: INSULIN GLARGINE SOLOSTAR 100 UNITS/ML 3 ML PEN SC SCH (22:19)
[2017-04-12] MEDS: INSULIN ASPART 100 UNITS/ML 3 ML PEN SC SCH (22:20)
[2017-04-12 22:55] LABS: CKMB 1.4 ng/ml (0.5-3.6)
[2017-04-13] VITALS (8 sets, daily range): BP systolic 123–159; BP diastolic 64–97; PULSE 71–120; TEMP 36.3–36.7; O2SAT 92–97; Ht 152.4 cm; Wt 77.5 kg
--- NOTE | 2017-04-13 01:04 | NUR ---
Pt is Alert and Oriented. Asleep in bed at this time. Room air with oxygen saturation of 98%. No Shortness of breath at this time. Pt is A-fib on monitor. Bilateral Lower Extremity Edema with +2 Pitting. Legs elevated. Pt denies any pain at this time. Monitor in place. Call ledbetter within reach. Will continue to monitor.
[2017-04-13 03:57] LABS: HEMATOCRIT 30.2 % (37-47); HEMOGLOBIN 9.9 g/dL (12.0-16.0); MEAN CELL VOLUME 75.9 fL (80-100); MEAN CORPUSCULAR HEMOGLOBIN 24.9 pg (25-34); MEAN CORPUSCULAR HGB CONC 32.8 g/dl (32-36); MEAN PLATELET VOLUME 9.6 fL (7.4-10.4); PLATELET COUNT 243 K/uL (130-400); RED CELL DISTRIBUTION WIDTH CV 16.1 % (11.5-14.5); RED CELL DISTRIBUTION WIDTH SD 45.2 fL (36.4-46.3); WHITE BLOOD COUNT 8.66 K/uL (4.8-10.8)
--- NOTE | 2017-04-13 04:00 | NUR ---
Pt is Alert and Oriented. Asleep in bed at this time. Room air with oxygen saturation of 98%. No Shortness of breath at this time. Pt is A-fib on monitor. CKMB increased from 3.7 to 5.0, BUN decreased from 34 to 32, K decreased from 4.4 to 3.5, and INR decreased from 4.7 to 4.4. Bilateral Lower Extremity Edema with +2 Pitting. Legs elevated. Pt denies any pain at this time. Monitor in place. Call ledbetter within reach. Will continue to monitor.
[2017-04-13 04:12] LABS: INR 4.4 (0.9-1.1)
[2017-04-13 04:22] LABS: CKMB 1.7 ng/ml (0.5-3.6); CREATININE 1.55 mg/dl (0.60-1.20); POTASSIUM 3.5 mmol/L (3.5-5.1)
[2017-04-13 05:09] LABS: HEMOGLOBIN A1C 8.9 % (4.5-5.6)
[2017-04-13] MEDS: INSULIN ASPART 100 UNITS/ML 3 ML PEN SC SCH ×4 (06:28→21:20)
[2017-04-13] MEDS ORDERED: PERFLUTREN LIPID MICROSPHERE (DEFINITY) IV ONE (07:52)
--- NOTE | 2017-04-13 08:00 | NUR ---
A: Resting quietly in bed in no acute distress with eyes closed. Awakens easily for routine nursing care. Initial assessment completed, refer to EMR for details. Remains a-fib on cardiac technologist. Assisted out of bed to high back chair. tolerated well. Appetite good. Discharge remains uncertain. Call ledbetter within easy reach. Will continue to monitor.l
[2017-04-13] MEDS: FUROSEMIDE INJ 40 MG in SYRINGE 0 ML IV SCH (08:30)
[2017-04-13] MEDS ORDERED: OXYBUTYNIN CHLORIDE 5 MG TAB PO SCH (09:00)
[2017-04-13] MEDS: TIMOLOL GFS 0.5% OPH SOLN 74 DROPS/5 ML BTL OPL SCH (09:00)
[2017-04-13] MEDS: METOPROLOL TARTRATE 25 MG TAB PO SCH ×2 (09:00→21:17)
[2017-04-13] MEDS: PANTOprazole SOD 40 MG TAB PO SCH (09:00)
[2017-04-13] MEDS: CHOLECALCIFEROL 1000 INTER.UNIT TAB PO SCH (09:00)
[2017-04-13] MEDS: POTASSIUM CHLORIDE 20 MEQ TABCR PO SCH (09:00)
[2017-04-13] MEDS: OXYBUTYNIN CHLORIDE 5 MG TABCR PO SCH (09:00)
[2017-04-13] MEDS: INSULIN GLARGINE SOLOSTAR 100 UNITS/ML 3 ML PEN SC SCH ×2 (09:00→21:20)
[2017-04-13] MEDS: ASPIRIN 81 MG ECTAB PO SCH (09:00)
--- NOTE | 2017-04-13 11:45 | NUR ---
a: Lantus 7 units administered by Brandie Medina and Charo Domínguez at 0830, not captured by [employer].
--- NOTE | 2017-04-13 12:00 | NUR ---
A: OOB for meals. Tolerates well. Denies any complaints. Will continue to monitor.
--- NOTE | 2017-04-13 12:04 | NUR ---
DIABETES: Pt seen for elevated A1c 8.9%. Case discussed w/ RN Brandie. See [employer] interventions. Addendum: 04/13/17 at 1205 by Jovana Manzano RN Amended: Links added.
[2017-04-13] MEDS ORDERED: COUGH DROP (SUGAR FREE) LOZ 24 LOZ/1 BOX ONE (12:40)
--- NOTE | 2017-04-13 16:00 | NUR ---
A: Offers no complaints. HR reaches 130's when oob to bathroom but then returns to NSR with rest. Asymptomatic. Assessment completed, refer to EMR for details. Dr. Downing visits with pt. New orders noted. Call ledbetter within easy reach. Will continue to monitor.
--- NOTE | 2017-04-13 18:21 | Progress Note ---
Medicine Progress Note Date & Time of Visit: Apr 13, 2017 at 18:08. Subjective Patient doing ok, still has some INGRAM and LE swelling but feels it is slightly improved. No overnight events noted. Tolerating PO. Ambulating in the room without difficulty. No other complaints noted. Objective Last 8 Hrs Date Time Temp Pulse Resp B/P (MAP) Pulse Ox O2 Delivery O2 Flow Rate FiO2 04/13/17 16:00 Room Air 04/13/17 15:40 36.3 95 20 159/79 (105) 95 Room Air 04/13/17 12:00 Room Air 04/13/17 11:21 36.5 88 20 145/83 (103) 95 Room Air Physical Exam: GENERAL: Patient is in no acute distress. HEENT: No acute trauma, normocephalic, mucous membranes moist, no nasal congestion, no scleral icterus, conjunctivae clear. NECK: No stridor, trachea is midline. LUNGS: Clear to auscultation bilaterally, no wheeze, no rhonchi, mild basilar crackles noted HEART: Without murmurs gallops or rubs, irregularly irregular, S1 and S2 auscultated ABDOMEN: Soft, nontender, bowel sounds positive, no hepatosplenomegaly EXTREMITIES: No cyanosis; pitting edema in B/L LE, moving all 4 extremities without difficulty NEUROLOGIC: Oriented x 3, no acute motor or sensory deficits, no focal weakness. SKIN: No rash, no jaundice, no diaphoresis. Laboratory Results: Last 24 Hours Test 04/12/17 19:05 04/12/17 20:54 04/12/17 22:09 04/13/17 03:46 Bedside Glucose 327 mg/dl 299 mg/dl Total Creatine Kinase 38 U/L 34 U/L Creatine Kinase MB 1.4 ng/ml 1.7 ng/ml Creatine Kinase MB Ratio 3.7 5.0 Troponin I < 0.015 ng/ml 0.016 ng/ml Thyroid Stimulating Hormone (TSH) 4.360 uIu/ml White Blood Count 8.66 K/uL Red Blood Count 3.98 M/uL Hemoglobin 9.9 g/dL Hematocrit 30.2 % Mean Corpuscular Volume 75.9 fL Mean Corpuscular Hemoglobin 24.9 pg Mean Corpuscular Hemoglobin Concent 32.8 g/dl RDW Standard Deviation 45.2 fL RDW Coefficient of Variation 16.1 % Platelet Count 243 K/uL Mean Platelet Volume 9.6 fL Prothrombin Time 45.0 SECONDS Prothromb Time International Ratio 4.4 Sodium Level 137 mmol/L Potassium Level 3.5 mmol/L Chloride Level 104 mmol/L Carbon Dioxide Level 26 mmol/L Anion Gap 7.0 mmol/L Blood Urea Nitrogen 32 mg/dl Creatinine 1.55 mg/dl Est Creatinine Clear Calc Drug Dose 24.4 ml/min Estimated GFR () 35.0 Estimated GFR (Non- 30.2 BUN/Creatinine Ratio 20.7 Random Glucose 187 mg/dl Estimated Average Glucose 209 mg/dl Hemoglobin A1c 8.9 % Calcium Level 9.0 mg/dl Triglycerides Level 79 mg/dl Cholesterol Level 75 mg/dl HDL Cholesterol 38 mg/dl LDL Cholesterol, Calculated 21 mg/dl VLDL Cholesterol, Calculated 16 mg/dl Cholesterol/HDL Ratio 2.0 Test 04/13/17 06:21 04/13/17 07:56 04/13/17 11:06 04/13/17 16:17 Bedside Glucose 220 mg/dl 169 mg/dl 263 mg/dl 292 mg/dl Assessment & Plan ACUTE DIASTOLIC HEART FAILURE: -pt presented with increased LE edema, INGRAM, dry cough -CXR: small bilateral pleural effusions, pulmonary vascular congestion -patient was given lasix 40mg IV in ER and this was continued daily Echo 06/2016: EF: 60-64%; repeat pending -monitor and continue potassium supplement -Cardiology consulted -I's and O's, daily weights ATRIAL FIBRILLATION: -rate remains 90's to low 100's -recently diagnosed, started on coumadin and metoprolol 03/30/17 by PCP for a- fib with RVR. -supratherapeutic INR: 4.4 -hold coumadin tonight -repeat INR tomorrow -continue metoprolol -cardiac enzymes negative -TTE: -Cardiology consulted DM TYPE II: INSULIN DEPENDENT -HBA1c: 8.9% -hold home 70/30 insulin -on lantus + novolog correction scale DYSLIPIDEMIA: -lipid panel:Trigly: 79, Total: 75, LDL: 21, HDL: 38 -continue simvastatin GERD: -continue PPI GLAUCOMA: -continue timolol drops Current Inpatient Medications: Current Inpatient Medications Medications (Trade) Dose Ordered Sig/Gustavo Route Start Time Stop Time Status Last Admin Dose Admin Acetaminophen (Tylenol Tab) 650 mg Q4H PRN PO 04/12/17 19:45 05/12/17 19:44 Ondansetron HCl (Zofran Inj) 4 mg Q6H PRN IV 04/12/17 19:45 05/12/17 19:44 Nitroglycerin (Nitrostat Tab) 0.4 mg UD PRN SL 04/12/17 19:45 05/12/17 19:44 Furosemide 40 mg/ Syringe 4 ml @ 4 mls/min DAILY@0900 IV 04/13/17 09:00 05/13/17 08:59 04/13/17 08:30 4 MLS/MIN Aspirin (Ecotrin Tab) 81 mg DAILY PO 04/13/17 09:00 05/13/17 08:59 04/13/17 09:00 81 MG Cholecalciferol (Vitamin D Tab) 1,000 inter.unit DAILY PO 04/13/17 09:00 05/13/17 08:59 04/13/17 09:00 1,000 INTER.UNIT Potassium Chloride (Klor-Con Tab) 20 meq QAM PO 04/13/17 09:00 05/13/17 08:59 04/13/17 09:00 20 MEQ Simvastatin (Zocor Tab) 10 mg QPM PO 04/12/17 21:00 05/12/17 20:59 04/12/17 21:36 10 MG Timolol Maleate (Timoptic-Xe 0.5% Oph Soln) 1 drops DAILY OPL 04/13/17 09:00 05/13/17 08:59 04/13/17 09:00 1 DROPS Pantoprazole Sodium (Protonix Tab) 40 mg QAM PO 04/13/17 09:00 05/13/17 08:59 04/13/17 09:00 40 MG Oxybutynin Chloride (Ditropan-Xl Tab) 10 mg DAILY PO 04/13/17 09:00 05/13/17 08:59 04/13/17 09:00 10 MG Insulin Glargine (Lantus Solostar Pen) 7 units Q12 SC 04/12/17 21:00 05/12/17 20:59 04/12/17 22:19 7 UNITS Insulin Aspart (novoLOG ASPART) SLIDING SCALE If C... ACHS SC 04/12/17 21:00 05/12/17 20:59 04/13/17 16:57 8 UNITS Glucose (Glucose 40% Gel) 15-30 GRAMS 15 GRAMS... UD PRN PO 04/12/17 21:00 05/12/17 20:59 Glucose (Glucose Chew Tab) 4-8 Tablets 4 Tabl... UD PRN PO 04/12/17 21:00 05/12/17 20:59 Dextrose (Dextrose 50% 50ML Syringe) 25-50ML OF 50% DW IV FOR... UD PRN IV 04/12/17 21:00 05/12/17 20:59 Glucagon (Glucagon Inj) 1 mg UD PRN SQ 04/12/17 21:00 05/12/17 20:59 Metoprolol Tartrate (Lopressor Tab) 50 mg BID PO 04/13/17 21:00 05/12/17 20:59
--- NOTE | 2017-04-13 19:26 | CARDIOLOGY CONSULTATION ---
DATE OF CONSULTATION: 04/13/2017 CONSULTATION FOR: [facility]. REASON FOR CONSULTATION: Atrial fibrillation. HISTORY OF PRESENT ILLNESS: This is an elderly 86-year-old female who usually follows with Dr. Yepez through our office. She has a history of hypertension with hypertensive heart disease, paroxysmal atrial fibrillation and chronic diastolic heart failure. Over the holidays here, she has been feeling weak and fatigued. She states that she has noticed some increased lower extremity edema. She became concerned and came to the Emergency Department. She has been given diuresis with a diuretic and she has found improvement after being given the Lasix. She is now in a persistent atrial fibrillation with controlled heart rates. She denies chest pain. She has no orthopnea. ALLERGIES: No known medical allergies. PAST MEDICAL HISTORY: As outlined above, the patient has a history of hypertension with hypertensive heart disease. She has been treated for paroxysmal atrial arrhythmias. She has mild aortic stenosis on her most recent echocardiogram with evidence of left ventricular hypertrophy and an estimated left ventricular ejection fraction of 60%. She is a type 2 diabetic with a history of dyslipidemia. She also has a history of GERD. FAMILY MEDICAL HISTORY: Significant for diabetes. SOCIAL HISTORY: She has a never smoker. REVIEW OF SYSTEMS: A 10-point review of systems is negative except for the history of chief complaint. PHYSICAL EXAMINATION: GENERAL: She is alert and oriented. She is very comfortable lying flat in the bed. VITAL SIGNS: Blood pressure is 150/80, pulse is irregular at 105 beats per minute. She is afebrile. HEENT: She is normocephalic. Pupils are equal and reactive to light. Extraocular muscles are intact bilaterally. NECK: The neck veins are flat. Carotids have good upstrokes bilaterally without bruits. Thyroid is nonpalpable. RESPIRATORY: Breath sounds equal bilaterally and clear to auscultation. CARDIOVASCULAR: Heart has irregular rhythm. Normal S1, S2, no S3, S4. No cardiac rubs or murmurs. GASTROINTESTINAL: Abdomen is soft, nontender without organomegaly. EXTREMITIES: Have minimal edema around the ankles. NEUROLOGIC: Grossly intact. SKIN: Warm to touch. LYMPH NODES: Negative to palpation. LABORATORY DATA: Cardiac markers are negative. IMPRESSION: 1. Acute on chronic diastolic heart failure. 2. Persistent atrial fibrillation. 3. Hypertension. RECOMMENDATIONS: The patient has done well with diuretics. An echocardiogram is pending. I would increase her metoprolol to 50 mg twice daily as her heart rates remain high. We will follow along with you during her hospital stay.
--- NOTE | 2017-04-13 20:00 | NUR ---
A/ID: Patient is alert and oriented x4. Denies pain or SOB. Afib on monitor rate 90-110s. Saline lock intact. VSS. Please see EMR for further assessment documentation. All needs met, call ledbetter within reach before leaving room.
[2017-04-13] MEDS: SIMVASTATIN 10 MG TAB PO SCH (21:17)
[2017-04-14] VITALS (12 sets, daily range): BP systolic 105–153; BP diastolic 59–108; PULSE 97–133; TEMP 36.3–36.9; O2SAT 94–97
--- NOTE | 2017-04-14 00:15 | NUR ---
A: Heart rate sustaining 120-140s, rhythm is afib. Patient is asymptomatic. BP stable. Dr. Flores made aware. Orders received. Otherwise, assessment remains unchanged. Please see EMR for further assessment documentation. All needs met, call ledbetter within reach before leaving room.
[2017-04-14] MEDS ORDERED: METOPROLOL TARTRATE 1 MG/ML VIAL ONE (00:43)
[2017-04-14] MEDS: METOPROLOL TARTRATE 1 MG/ML VIAL IV PRN ×2 (00:54→07:14)
[2017-04-14 01:15] LABS: CALCIUM 8.7 mg/dl (8.5-10.1); CREATININE 1.79 mg/dl (0.60-1.20); POTASSIUM 3.8 mmol/L (3.5-5.1)
--- NOTE | 2017-04-14 04:00 | NUR ---
A: Assessment unchanged. VSS. Please see EMR for further assessment documentation. All needs met, call ledbetter within reach before leaving room.
[2017-04-14 06:11] LABS: HEMATOCRIT 30.5 % (37-47); HEMOGLOBIN 9.5 g/dL (12.0-16.0); MEAN CELL VOLUME 76.8 fL (80-100); MEAN CORPUSCULAR HEMOGLOBIN 23.9 pg (25-34); MEAN CORPUSCULAR HGB CONC 31.1 g/dl (32-36); MEAN PLATELET VOLUME 9.6 fL (7.4-10.4); PLATELET COUNT 242 K/uL (130-400); RED CELL DISTRIBUTION WIDTH CV 16.3 % (11.5-14.5); RED CELL DISTRIBUTION WIDTH SD 45.5 fL (36.4-46.3); WHITE BLOOD COUNT 7.39 K/uL (4.8-10.8)
[2017-04-14 06:20] LABS: INR 2.9 (0.9-1.1)
[2017-04-14 06:48] LABS: CALCIUM 8.9 mg/dl (8.5-10.1); CREATININE 1.67 mg/dl (0.60-1.20); POTASSIUM 4.2 mmol/L (3.5-5.1)
--- NOTE | 2017-04-14 08:00 | NUR ---
Patient alert and oriented sitting in chair eating breakfast. Over night patient was incontinent of two large voids. Patient was bathed this morning bu [employer]. Around 0730 Patient went into afib RVR and was given 2.5mg of IV Lopressor. PO Lopressor given with morning meds. Patient currently back to controlled afib in the 90s. Patient remains asymptomatic with increased HR. BP stable. Patient denies any CP or SOB. VSS. Patient denies any needs at this time. Will continue to monitor.
[2017-04-14] MEDS: OXYBUTYNIN CHLORIDE 5 MG TABCR PO SCH (08:14)
[2017-04-14] MEDS: PANTOprazole SOD 40 MG TAB PO SCH (08:14)
[2017-04-14] MEDS: METOPROLOL TARTRATE 25 MG TAB PO SCH ×2 (08:14→20:41)
[2017-04-14] MEDS: CHOLECALCIFEROL 1000 INTER.UNIT TAB PO SCH (08:15)
[2017-04-14] MEDS: FUROSEMIDE INJ 40 MG in SYRINGE 0 ML IV SCH (08:15)
[2017-04-14] MEDS: ASPIRIN 81 MG ECTAB PO SCH (08:15)
[2017-04-14] MEDS: POTASSIUM CHLORIDE 20 MEQ TABCR PO SCH (08:15)
[2017-04-14] MEDS: INSULIN ASPART 100 UNITS/ML 3 ML PEN SC SCH ×4 (08:22→20:43)
[2017-04-14] MEDS: TIMOLOL GFS 0.5% OPH SOLN 74 DROPS/5 ML BTL OPL SCH (08:23)
[2017-04-14] MEDS: INSULIN GLARGINE SOLOSTAR 100 UNITS/ML 3 ML PEN SC SCH ×2 (08:26→20:44)
--- NOTE | 2017-04-14 08:46 | ECHOCARDIOGRAM REPORT ---
*NOTICE TO RECEIVING REPUBLICAN AGENCY This information is strictly Confidential and protected under [place] law. [place] law prohibits you from making any further disclosure of this information unless further disclosure is expressly permitted by the written consent of the person to whom it pertains or is authorized by law. A general authorization for the release of medical or other information is not sufficient for this purpose. Hospital accepts no responsibility if the information is made available to any other person, INCLUDING THE PATIENT. Interpretation Summary * Name: LAURA PARADA Study Date: 04/13/2017 07:17 AM BP: 155/97 mmHg * Patient Location: [id number].2E\S\E207\S\1 HR: 108 * : 1930 (M/d/yyyy) Gender: Female Height: 60 in * Age: 86 yrs Ethnicity: [place] Weight: 165 lb * Ordering Physician: Ese Donaldson * Referring Physician: Self, Referred * Performed By: Jovana Linton RCS * * Reason For Study: A-FIB * BSA: 1.7 m2 * -- Conclusions -- * The left ventricular cavity is small. * There is severe concentric left ventricular hypertrophy. * Ejection Fraction = 60-65%. * The right ventricular systolic function is normal. * The left atrium is severely dilated. * The right atrium is severely dilated. * Mild to moderate valvular aortic stenosis. * There is severe mitral annular calcification. * There is mild to moderate mitral regurgitation. * There is moderate tricuspid regurgitation. Procedure Details * A complete two-dimensional transthoracic echocardiogram was performed (2D, M-mode, Doppler and color flow Doppler). * The study was technically difficult. * A contrast injection of Definity was performed to improve assessment of LV function. * Contrast was injected into an intravenous site in the right arm. * One vial of Definity ultrasound contrast was diluted in normal saline to a total volume of 10 ml. A total of '2' ml of solution was administered during imaging. * Lot # [id number] of Definity utilized for procedure. * Expiration date 1 JUN 05. * The attending nurse who injected the contrast agent was ANH LEON RN. Left Ventricle * The left ventricular cavity is small. * There is severe concentric left ventricular hypertrophy. * Left ventricular systolic function is normal. * Ejection Fraction = 60-65%. * The left ventricular wall motion is normal. Right Ventricle * The right ventricle is not well visualized. * The right ventricle is grossly normal size. * The right ventricular systolic function is normal. Atria * The left atrium is severely dilated. * The right atrium is severely dilated. * There is no evidence of atrial septal defect, but resolution does not allow assessment for a patent foramen ovale. Mitral Valve * There is severe mitral annular calcification. * The mitral valve leaflets appear thickened, but open well. * There is mild to moderate mitral regurgitation. Tricuspid Valve * The tricuspid valve is not well visualized, but is grossly normal. * There is moderate tricuspid regurgitation. Aortic Valve * The aortic valve is tricuspid. The leaflet thickness if normal. There is no aortic stenosis, and no significant insufficiency. * Mild to moderate valvular aortic stenosis. * There is no significant aortic regurgitation. Pulmonic Valve * The pulmonic valve is not well visualized. Great Vessels * The aortic root and proximal ascending aorta are normal sized. Pericardium/Pleural * There is no pericardial effusion. MMode 2D Measurements and Calculations IVSd 1.2 cm IVSs 1.4 cm LVIDd 3.7 cm LVIDs 2.7 cm LVPWd 1.0 cm LVPWs 1.5 cm IVS/LVPW 1.2 FS 27.7 % EDV(Teich) 58.6 ml ESV(Teich) 26.6 ml EF(Teich) 54.5 % EDV(cubed) 51.2 ml ESV(cubed) 19.3 ml EF(cubed) 62.2 % % IVS thick 16.8 % % LVPW thick 44.9 % LV mass(C)d 134.9 grams LV mass(C)dI 78.5 grams/m\S\2 LV mass(C)s 131.7 grams LV mass(C)sI 76.6 grams/m\S\2 SV(Teich) 32.0 ml SI(Teich) 18.6 ml/m\S\2 SV(cubed) 31.8 ml SI(cubed) 18.5 ml/m\S\2 Ao root diam 2.0 cm Ao root area 3.1 cm\S\2 LA dimension 4.8 cm LA/Ao 2.4 LVOT diam 1.7 cm LVOT area 2.4 cm\S\2 LVAd ap4 24.1 cm\S\2 LVLd ap4 7.2 cm EDV(MOD-sp4) 65.5 ml EDV(sp4-el) 68.8 ml LVAs ap4 14.7 cm\S\2 LVLs ap4 5.4 cm ESV(MOD-sp4) 34.1 ml ESV(sp4-el) 34.3 ml EF(MOD-sp4) 47.9 % EF(sp4-el) 50.2 % LVAd ap2 21.3 cm\S\2 LVLd ap2 6.7 cm EDV(MOD-sp2) 54.1 ml EDV(sp2-el) 57.8 ml LVAs ap2 14.5 cm\S\2 LVLs ap2 5.8 cm ESV(MOD-sp2) 29.8 ml ESV(sp2-el) 30.4 ml EF(MOD-sp2) 44.9 % EF(sp2-el) 47.4 % LVLd %diff -7.37 % EDV(MOD-bp) 61.7 ml LVLs %diff 8.4 % ESV(MOD-bp) 32.6 ml EF(MOD-bp) 47.2 % SV(MOD-sp4) 31.3 ml SI(MOD-sp4) 18.2 ml/m\S\2 SV(MOD-sp2) 24.3 ml SI(MOD-sp2) 14.1 ml/m\S\2 SV(MOD-bp) 29.1 ml SI(MOD-bp) 16.9 ml/m\S\2 SV(sp4-el) 34.5 ml SI(sp4-el) 20.1 ml/m\S\2 SV(sp2-el) 27.4 ml SI(sp2-el) 15.9 ml/m\S\2 Doppler Measurements and Calculations MV E max mireya 186.4 cm/sec MV P1/2t max mireya 212.9 cm/sec MV P1/2t 84.9 msec MVA(P1/2t) 2.6 cm\S\2 MV dec slope 734.4 cm/sec\S\2 MV dec time 0.36 sec Ao V2 max 192.6 cm/sec Ao max PG 14.8 mmHg Ao max PG (full) 11.9 mmHg ATIF(V,A) 1.1 cm\S\2 ATIF(V,D) 1.1 cm\S\2 LV V1 max PG 2.9 mmHg LV V1 max 85.2 cm/sec MR max mireya 550.0 cm/sec MR max PG 121.0 mmHg PA V2 max 84.6 cm/sec PA max PG 2.9 mmHg TR max mireya 318.2 cm/sec
--- NOTE | 2017-04-14 12:00 | NUR ---
Previous assessment unchanged unless noted. Patient resting in bed eating lunch. Insulin sliding scale adjusted per BSG. Patient placed on a fluid restriction of 1500cc/24hr per Dr. Downing. Patient verbalized understanding. PT also ordered for patient. Plans to get the patient up and moving today. VS remain stable. Patient refuses any further needs at this time. Will continue to monitor.
--- NOTE | 2017-04-14 12:22 | PROGRESS NOTE ---
DATE: 04/14/2017 FOLLOWUP VISIT SUBJECTIVE: The patient is an 86-year-old female who usually follows with Dr. Yepez through our office. She has a history of hypertension and hypertensive heart disease with paroxysmal atrial fibrillation and chronic diastolic heart failure. She presented with weakness and fatigue over the holidays. She is in a persistent atrial fibrillation with heart rates in the low 100s. She has been receiving diuresis and feels improvement; however, her I and O indicate that she is consuming a large amount of oral intake. OBJECTIVE: GENERAL: She is alert and oriented. VITAL SIGNS: Blood pressure is 129/76, pulse is irregular at 105 beats per minute. She is afebrile. HEENT: She is normocephalic. Pupils are equal and reactive to light. Extraocular muscles are intact bilaterally. NECK: The neck veins are flat. Carotids have good upstrokes bilaterally without bruits. Thyroid is nonpalpable. RESPIRATORY: Breath sounds equal bilaterally and clear to auscultation. CARDIOVASCULAR: Heart has an irregular rhythm. Normal S1, S2. No S3, S4. No cardiac rubs or murmurs. GASTROINTESTINAL: Abdomen is soft, nontender without organomegaly. EXTREMITIES: Have minimal edema around the ankles. NEUROLOGIC: Grossly intact. SKIN: Warm to touch. LYMPH NODES: Negative to palpation. IMPRESSION: 1. Acute on chronic diastolic heart failure. 2. Persistent atrial fibrillation. 3. Hypertension. RECOMMENDATIONS: The patient should remain on diuretics. I have added a fluid restriction. She remains in persistent atrial fibrillation with elevated heart rates. I will give her a dose of digoxin today. She does have some renal insufficiency and we may have to switch her either to diltiazem or to an every other day dose of the digoxin.
[2017-04-14] MEDS ORDERED: DIGOXIN 0.25 MG TAB PO ONE (12:30)
--- NOTE | 2017-04-14 16:00 | NUR ---
A: Patient resting in bed. Denies any pain or SOB. Afib on the monitor. HR is in the 90's. Low 100's with exertion. One assist with a walker. Call ledbetter is in reach. Family members are at the bedside.
[2017-04-14] MEDS: WARFARIN SOD 1 MG TAB PO SCH (16:03)
--- NOTE | 2017-04-14 17:55 | Progress Note ---
Medicine Progress Note Date & Time of Visit: Apr 14, 2017 at 17:54. Subjective Patient is doing better overall, denies any new complaints, is anxious to go home. Has not been very physically active. HR has remained elevated in 100's. No overnight events noted. Tolerating diuresis. Tolerating PO. Family at the bedside and updated. Objective Last 8 Hrs Date Time Temp Pulse Resp B/P (MAP) Pulse Ox O2 Delivery O2 Flow Rate FiO2 04/14/17 16:00 97 Room Air 04/14/17 15:37 36.9 108 18 105/59 (74) 97 04/14/17 14:26 99 97 04/14/17 12:30 106 04/14/17 12:00 95 Room Air 04/14/17 11:45 36.5 107 19 129/76 (93) 95 Room Air Physical Exam: GENERAL: Patient is in no acute distress. HEENT: No acute trauma, normocephalic, mucous membranes moist, no nasal congestion, no scleral icterus, conjunctivae clear. NECK: No stridor, trachea is midline. LUNGS: Clear to auscultation bilaterally, no wheeze, no rhonchi, mild basilar crackles noted HEART: Without murmurs gallops or rubs, irregularly irregular, S1 and S2 auscultated ABDOMEN: Soft, nontender, bowel sounds positive, no hepatosplenomegaly EXTREMITIES: No cyanosis; pitting edema in B/L LE, moving all 4 extremities without difficulty NEUROLOGIC: Oriented x 3, no acute motor or sensory deficits, no focal weakness. SKIN: No rash, no jaundice, no diaphoresis. Laboratory Results: Last 24 Hours Test 04/13/17 20:20 04/14/17 00:33 04/14/17 05:42 04/14/17 06:54 Bedside Glucose 255 mg/dl 265 mg/dl Sodium Level 135 mmol/L 135 mmol/L Potassium Level 3.8 mmol/L 4.2 mmol/L Chloride Level 102 mmol/L 101 mmol/L Carbon Dioxide Level 28 mmol/L 27 mmol/L Anion Gap 5.0 mmol/L 7.0 mmol/L Blood Urea Nitrogen 31 mg/dl 31 mg/dl Creatinine 1.79 mg/dl 1.67 mg/dl Est Creatinine Clear Calc Drug Dose 21.2 ml/min 22.6 ml/min Estimated GFR () 29.4 32.0 Estimated GFR (Non- 25.4 27.6 BUN/Creatinine Ratio 17.4 18.5 Random Glucose 237 mg/dl 243 mg/dl Calcium Level 8.7 mg/dl 8.9 mg/dl Magnesium Level 1.8 mg/dl White Blood Count 7.39 K/uL Red Blood Count 3.97 M/uL Hemoglobin 9.5 g/dL Hematocrit 30.5 % Mean Corpuscular Volume 76.8 fL Mean Corpuscular Hemoglobin 23.9 pg Mean Corpuscular Hemoglobin Concent 31.1 g/dl RDW Standard Deviation 45.5 fL RDW Coefficient of Variation 16.3 % Platelet Count 242 K/uL Mean Platelet Volume 9.6 fL Prothrombin Time 29.9 SECONDS Prothromb Time International Ratio 2.9 Test 04/14/17 11:26 04/14/17 16:14 Bedside Glucose 332 mg/dl 201 mg/dl Assessment & Plan ACUTE DIASTOLIC HEART FAILURE: -pt presented with increased LE edema, INGRAM, dry cough -CXR: small bilateral pleural effusions, pulmonary vascular congestion -patient was given lasix 40mg IV in ER and this was continued daily -TTE: Report: * -- Conclusions -- * The left ventricular cavity is small. * There is severe concentric left ventricular hypertrophy. * Ejection Fraction = 60-65%. * The right ventricular systolic function is normal. * The left atrium is severely dilated. * The right atrium is severely dilated. * Mild to moderate valvular aortic stenosis. * There is severe mitral annular calcification. * There is mild to moderate mitral regurgitation. * There is moderate tricuspid regurgitation. -monitor and continue potassium supplement -Cardiology consulted -continue I's and O's, daily weights ATRIAL FIBRILLATION: -rate remains 90's to low 100's -recently diagnosed, started on coumadin and metoprolol 03/30/17 by PCP for a- fib with RVR. -supratherapeutic INR: 4.4-->2.9 -will resume coumadin today at lower dose -repeat INR tomorrow -continue metoprolol -cardiac enzymes negative -TTE: as above -Cardiology consulted, patient was given a dose of digoxin today DM TYPE II: INSULIN DEPENDENT -HBA1c: 8.9% -hold home 70/30 insulin -on lantus + novolog correction scale DYSLIPIDEMIA: -lipid panel:Trigly: 79, Total: 75, LDL: 21, HDL: 38 -continue simvastatin GERD: -continue PPI GLAUCOMA: -continue timolol drops Current Inpatient Medications: Current Inpatient Medications Medications (Trade) Dose Ordered Sig/Gustavo Route Start Time Stop Time Status Last Admin Dose Admin Acetaminophen (Tylenol Tab) 650 mg Q4H PRN PO 04/12/17 19:45 05/12/17 19:44 Ondansetron HCl (Zofran Inj) 4 mg Q6H PRN IV 04/12/17 19:45 05/12/17 19:44 Nitroglycerin (Nitrostat Tab) 0.4 mg UD PRN SL 04/12/17 19:45 05/12/17 19:44 Furosemide 40 mg/ Syringe 4 ml @ 4 mls/min DAILY@0900 IV 04/13/17 09:00 05/13/17 08:59 04/14/17 08:15 4 MLS/MIN Aspirin (Ecotrin Tab) 81 mg DAILY PO 04/13/17 09:00 05/13/17 08:59 04/14/17 08:15 81 MG Cholecalciferol (Vitamin D Tab) 1,000 inter.unit DAILY PO 04/13/17 09:00 05/13/17 08:59 04/14/17 08:15 1,000 INTER.UNIT Potassium Chloride (Klor-Con Tab) 20 meq QAM PO 04/13/17 09:00 05/13/17 08:59 04/14/17 08:15 20 MEQ Simvastatin (Zocor Tab) 10 mg QPM PO 04/12/17 21:00 05/12/17 20:59 04/13/17 21:17 10 MG Timolol Maleate (Timoptic-Xe 0.5% Oph Soln) 1 drops DAILY OPL 04/13/17 09:00 05/13/17 08:59 04/14/17 08:23 1 DROPS Pantoprazole Sodium (Protonix Tab) 40 mg QAM PO 04/13/17 09:00 05/13/17 08:59 04/14/17 08:14 40 MG Oxybutynin Chloride (Ditropan-Xl Tab) 10 mg DAILY PO 04/13/17 09:00 05/13/17 08:59 04/14/17 08:14 10 MG Insulin Aspart (novoLOG ASPART) SLIDING SCALE If C... ACHS SC 04/12/17 21:00 05/12/17 20:59 04/14/17 17:00 9 UNITS Glucose (Glucose 40% Gel) 15-30 GRAMS 15 GRAMS... UD PRN PO 04/12/17 21:00 05/12/17 20:59 Glucose (Glucose Chew Tab) 4-8 Tablets 4 Tabl... UD PRN PO 04/12/17 21:00 05/12/17 20:59 Dextrose (Dextrose 50% 50ML Syringe) 25-50ML OF 50% DW IV FOR... UD PRN IV 04/12/17 21:00 05/12/17 20:59 Glucagon (Glucagon Inj) 1 mg UD PRN SQ 04/12/17 21:00 05/12/17 20:59 Metoprolol Tartrate (Lopressor Tab) 50 mg BID PO 04/13/17 21:00 05/12/17 20:59 04/14/17 08:14 50 MG Metoprolol Tartrate (Lopressor Iv) 2.5 mg Q4 PRN IV 04/14/17 00:15 05/14/17 00:14 04/14/17 07:14 2.5 MG Warfarin Sodium (Coumadin Tab) 1 mg DAILY@16 PO 04/14/17 16:00 05/14/17 15:59 04/14/17 16:03 1 MG Insulin Glargine (Lantus Solostar Pen) 11 units Q12 SC 04/14/17 21:00 05/12/17 20:59
--- NOTE | 2017-04-14 20:00 | NUR ---
A: Patient resting in bed. Denies any pain or SOB. Afib on the monitor. HR is controlled. One assist with activity. Call ledbetter is in reach.
[2017-04-14] MEDS: SIMVASTATIN 10 MG TAB PO SCH (20:41)
--- NOTE | 2017-04-14 23:40 | NUR ---
A/ID: Patient is alert and oriented x4. Denies pain or shortness of breath. Bilateral upper lobes are clear, bilateral bases have fine crackles. Room air. VSS. Afib on monitor rate is 90-100s. Radial and pedal pulses palpable bilaterally. +1 bilateral lower extremity edema. Normoactive bowel sounds. Voiding in toilet with periods of stress incontinence reported. Urine has a foul odor. Saline lock intact. Skin intact. Please see EMR for further assessment documentation. Resting comfortably in bed at this time. All needs met before leaving room, call ledbetter in reach.
[2017-04-15] VITALS (9 sets, daily range): BP systolic 139–156; BP diastolic 67–101; PULSE 76–107; TEMP 36.4–37; O2SAT 93–97
--- NOTE | 2017-04-15 04:00 | NUR ---
A: Assessment unchanged. Please see EMR for further assessment documentation. Patient resting comfortably in bed. Call ledbetter in reach.
[2017-04-15 06:14] LABS: INR 2.3 (0.9-1.1)
[2017-04-15] MEDS: METOPROLOL TARTRATE 1 MG/ML VIAL IV PRN (06:20)
[2017-04-15 06:35] LABS: CALCIUM 8.7 mg/dl (8.5-10.1); CREATININE 1.49 mg/dl (0.60-1.20); POTASSIUM 3.6 mmol/L (3.5-5.1)
--- NOTE | 2017-04-15 08:00 | NUR ---
A: Assessment completed. Patient is alert and oriented. Patient oob to chair with assist/walker. Denies any pain or resp issues at rest, does have some shortness of breath with activity. Saline lock wnl. Denies any any needs or concerns at this time. Telemetry in place, afib. Patient does get tachy with ambulation, recovers well at this time. Call ledbetter in reach.Will continue to monitor. See emr assessment
[2017-04-15] MEDS: INSULIN ASPART 100 UNITS/ML 3 ML PEN SC SCH ×4 (08:07→21:28)
[2017-04-15] MEDS: INSULIN GLARGINE SOLOSTAR 100 UNITS/ML 3 ML PEN SC SCH ×2 (08:08→21:29)
[2017-04-15] MEDS: PANTOprazole SOD 40 MG TAB PO SCH (08:09)
[2017-04-15] MEDS: METOPROLOL TARTRATE 25 MG TAB PO SCH ×2 (08:09→21:25)
[2017-04-15] MEDS: CHOLECALCIFEROL 1000 INTER.UNIT TAB PO SCH (08:09)
[2017-04-15] MEDS: OXYBUTYNIN CHLORIDE 5 MG TABCR PO SCH (08:09)
[2017-04-15] MEDS: FUROSEMIDE INJ 40 MG in SYRINGE 0 ML IV SCH (08:09)
[2017-04-15] MEDS: ASPIRIN 81 MG ECTAB PO SCH (08:10)
[2017-04-15] MEDS: POTASSIUM CHLORIDE 20 MEQ TABCR PO SCH (08:10)
[2017-04-15] MEDS: TIMOLOL GFS 0.5% OPH SOLN 74 DROPS/5 ML BTL OPL SCH (08:10)
--- NOTE | 2017-04-15 13:00 | NUR ---
A: Assessment completed. Patient oob all this am for meal. Denies any needs or concerns. Call ledbetter in reach. Will continue to monitor. See emr assessment
[2017-04-15] MEDS ORDERED: BENZONATATE 100MG CAP PO PRN (15:15)
[2017-04-15] MEDS: WARFARIN SOD 1 MG TAB PO SCH (15:53)
--- NOTE | 2017-04-15 16:03 | NUR ---
A: Assessment completed. Patient oob to chair and family at bedside. Denies any needs or concerns. Call ledbetter in reach. Will continue to monitor. See emr assessment
--- NOTE | 2017-04-15 17:14 | DIAGNOSTIC IMAGING REPORT ---
CHEST ONE VIEW PORTABLE CLINICAL HISTORY: 86 years-old Female presenting with worsening cough. TECHNIQUE: Portable upright AP view of the chest was obtained. COMPARISON: 04/12/2017. FINDINGS: Atherosclerosis of aortic arch. Cardiac silhouette mildly enlarged. Persistent bibasilar opacities, right greater than left. Persistent small to moderate right and small left pleural effusions. No pneumothorax. Degenerative changes of the thoracic spine. Overlying external leads degrade evaluation of the right upper quadrant. IMPRESSION: 1. Persistent bibasilar opacities and pleural effusions, right greater than left. This could represent passive atelectasis in the setting of effusions. A component of pulmonary edema cannot be excluded. Electronically signed by: Joe Velásquez M.D. 04/15/2017 5:12 PM Dictated Date/Time: 04/15/2017 5:11 PM
--- NOTE | 2017-04-15 19:22 | Progress Note ---
Medicine Progress Note Date & Time of Visit: Apr 15, 2017 at 19:22. Subjective Patient states she feels ok, just anxious about getting out of the hospital. Her daughter was at the bedside and updated. No overnight events noted. Tolerating PO. States she has a persistent cough which does not seem to be changing and denies any sputum. Objective Last 8 Hrs Date Time Temp Pulse Resp B/P (MAP) Pulse Ox O2 Delivery O2 Flow Rate FiO2 04/15/17 16:00 Room Air 04/15/17 15:21 36.5 96 21 156/75 (102) 97 Room Air 04/15/17 12:00 Room Air 04/15/17 11:52 37.0 90 20 155/67 (96) 96 Room Air Physical Exam: GENERAL: Patient is in no acute distress. HEENT: No acute trauma, normocephalic, mucous membranes moist, no nasal congestion, no scleral icterus, conjunctivae clear. NECK: No stridor, trachea is midline. LUNGS: No wheeze, no rhonchi, mild basilar crackles noted bilaterally HEART: Without murmurs gallops or rubs, irregularly irregular, S1 and S2 auscultated ABDOMEN: Soft, nontender, bowel sounds positive, no hepatosplenomegaly EXTREMITIES: No cyanosis; pitting edema in B/L LE, moving all 4 extremities without difficulty NEUROLOGIC: Oriented x 3, no acute motor or sensory deficits, no focal weakness. SKIN: No rash, no jaundice, no diaphoresis. Laboratory Results: Last 24 Hours Test 04/14/17 20:28 04/15/17 05:42 04/15/17 07:24 04/15/17 11:15 Bedside Glucose 333 mg/dl 310 mg/dl 179 mg/dl Prothrombin Time 23.5 SECONDS Prothromb Time International Ratio 2.3 Sodium Level 135 mmol/L Potassium Level 3.6 mmol/L Chloride Level 101 mmol/L Carbon Dioxide Level 28 mmol/L Anion Gap 6.0 mmol/L Blood Urea Nitrogen 30 mg/dl Creatinine 1.49 mg/dl Est Creatinine Clear Calc Drug Dose 25.3 ml/min Estimated GFR () 36.7 Estimated GFR (Non- 31.7 BUN/Creatinine Ratio 19.8 Random Glucose 282 mg/dl Calcium Level 8.7 mg/dl Test 04/15/17 16:35 Bedside Glucose 87 mg/dl Assessment & Plan ACUTE DIASTOLIC HEART FAILURE: -pt presented with increased LE edema, INGRAM, dry cough -CXR: small bilateral pleural effusions, pulmonary vascular congestion; repeat CXR today shows the same findings -patient was given lasix 40mg IV in ER and this has been continued daily -TTE: Report: * -- Conclusions -- * The left ventricular cavity is small. * There is severe concentric left ventricular hypertrophy. * Ejection Fraction = 60-65%. * The right ventricular systolic function is normal. * The left atrium is severely dilated. * The right atrium is severely dilated. * Mild to moderate valvular aortic stenosis. * There is severe mitral annular calcification. * There is mild to moderate mitral regurgitation. * There is moderate tricuspid regurgitation. -monitor and continue potassium supplement -Cardiology consulted -continue I's and O's, daily weights ATRIAL FIBRILLATION: -rate remains 90's to low 100's which is an improvement over the last few days -recently diagnosed, started on coumadin and metoprolol 03/30/17 by PCP for a- fib with RVR. -supratherapeutic INR: 4.4-->2.9-->2.3 -resumed coumadin at lower than home med dose -repeat INR -continue metoprolol -cardiac enzymes negative -TTE: as above -Cardiology consulted, patient was given a dose of digoxin yesterday DM TYPE II: INSULIN DEPENDENT -HBA1c: 8.9% -hold home 70/30 insulin -on lantus + novolog correction scale DYSLIPIDEMIA: -lipid panel:Trigly: 79, Total: 75, LDL: 21, HDL: 38 -continue simvastatin GERD: -continue PPI GLAUCOMA: -continue timolol drops Current Inpatient Medications: Current Inpatient Medications Medications (Trade) Dose Ordered Sig/Gustavo Route Start Time Stop Time Status Last Admin Dose Admin Acetaminophen (Tylenol Tab) 650 mg Q4H PRN PO 04/12/17 19:45 05/12/17 19:44 Ondansetron HCl (Zofran Inj) 4 mg Q6H PRN IV 04/12/17 19:45 05/12/17 19:44 Nitroglycerin (Nitrostat Tab) 0.4 mg UD PRN SL 04/12/17 19:45 05/12/17 19:44 Furosemide 40 mg/ Syringe 4 ml @ 4 mls/min DAILY@0900 IV 04/13/17 09:00 05/13/17 08:59 04/15/17 08:09 4 MLS/MIN Aspirin (Ecotrin Tab) 81 mg DAILY PO 04/13/17 09:00 05/13/17 08:59 04/15/17 08:10 81 MG Cholecalciferol (Vitamin D Tab) 1,000 inter.unit DAILY PO 04/13/17 09:00 05/13/17 08:59 04/15/17 08:09 1,000 INTER.UNIT Potassium Chloride (Klor-Con Tab) 20 meq QAM PO 04/13/17 09:00 05/13/17 08:59 04/15/17 08:10 20 MEQ Simvastatin (Zocor Tab) 10 mg QPM PO 04/12/17 21:00 05/12/17 20:59 04/14/17 20:41 10 MG Timolol Maleate (Timoptic-Xe 0.5% Oph Soln) 1 drops DAILY OPL 04/13/17 09:00 05/13/17 08:59 04/15/17 08:10 1 DROPS Pantoprazole Sodium (Protonix Tab) 40 mg QAM PO 04/13/17 09:00 05/13/17 08:59 04/15/17 08:09 40 MG Oxybutynin Chloride (Ditropan-Xl Tab) 10 mg DAILY PO 04/13/17 09:00 05/13/17 08:59 04/15/17 08:09 10 MG Insulin Aspart (novoLOG ASPART) SLIDING SCALE If C... ACHS SC 04/12/17 21:00 05/12/17 20:59 04/15/17 16:59 2 UNITS Glucose (Glucose 40% Gel) 15-30 GRAMS 15 GRAMS... UD PRN PO 04/12/17 21:00 05/12/17 20:59 Glucose (Glucose Chew Tab) 4-8 Tablets 4 Tabl... UD PRN PO 04/12/17 21:00 05/12/17 20:59 Dextrose (Dextrose 50% 50ML Syringe) 25-50ML OF 50% DW IV FOR... UD PRN IV 04/12/17 21:00 05/12/17 20:59 Glucagon (Glucagon Inj) 1 mg UD PRN SQ 04/12/17 21:00 05/12/17 20:59 Metoprolol Tartrate (Lopressor Tab) 50 mg BID PO 04/13/17 21:00 05/12/17 20:59 04/15/17 08:09 50 MG Metoprolol Tartrate (Lopressor Iv) 2.5 mg Q4 PRN IV 04/14/17 00:15 05/14/17 00:14 04/15/17 06:20 2.5 MG Warfarin Sodium (Coumadin Tab) 1 mg DAILY@16 PO 04/14/17 16:00 05/14/17 15:59 04/15/17 15:53 1 MG Insulin Glargine (Lantus Solostar Pen) 11 units Q12 SC 04/14/17 21:00 05/12/17 20:59 04/15/17 08:08 11 UNITS Benzonatate (Tessalon Perles Cap) 100 mg TID PRN PO 04/15/17 15:15 05/15/17 15:14
--- NOTE | 2017-04-15 19:36 | NUR ---
A-PT IS AAOX4, SITTING IN CHAIR, MONITOR AFIB, RATE 90-100'S. RESP REG AND EASY, SPO2 96% ON RA, LUNGS W/ FINE CRACKLES IN BASES. EDEMA IN LEGS, CALL BROWN IN REACH.
[2017-04-15] MEDS: SIMVASTATIN 10 MG TAB PO SCH (21:24)
--- NOTE | 2017-04-15 23:27 | NUR ---
A- PT HAS RTB. RESP REG AND EASY. NO CHANGE IN PT STATUS.
[2017-04-16] VITALS (9 sets, daily range): BP systolic 128–169; BP diastolic 65–87; PULSE 86–110; TEMP 36.3–37.1; O2SAT 94–99
--- NOTE | 2017-04-16 04:00 | NUR ---
A- NO CHANGE IN PT STATUS. PT HAS BEEN SLEEPING. MONITOR AFIB. CALL BROWN IN REACH.
[2017-04-16 06:35] LABS: HEMATOCRIT 29.3 % (37-47); HEMOGLOBIN 9.4 g/dL (12.0-16.0); MEAN CELL VOLUME 76.5 fL (80-100); MEAN CORPUSCULAR HEMOGLOBIN 24.5 pg (25-34); MEAN CORPUSCULAR HGB CONC 32.1 g/dl (32-36); MEAN PLATELET VOLUME 9.8 fL (7.4-10.4); PLATELET COUNT 235 K/uL (130-400); RED CELL DISTRIBUTION WIDTH CV 16.1 % (11.5-14.5); RED CELL DISTRIBUTION WIDTH SD 45.2 fL (36.4-46.3); WHITE BLOOD COUNT 8.97 K/uL (4.8-10.8)
[2017-04-16 06:41] LABS: INR 2.5 (0.9-1.1)
[2017-04-16 07:15] LABS: CALCIUM 8.5 mg/dl (8.5-10.1); CREATININE 1.46 mg/dl (0.60-1.20); POTASSIUM 3.1 mmol/L (3.5-5.1)
[2017-04-16] MEDS ORDERED: POTASSIUM CHLORIDE 20 MEQ TABCR PO STA (07:30)
[2017-04-16] MEDS: OXYBUTYNIN CHLORIDE 5 MG TABCR PO SCH (07:36)
[2017-04-16] MEDS: FUROSEMIDE INJ 40 MG in SYRINGE 0 ML IV SCH (07:36)
[2017-04-16] MEDS: TIMOLOL GFS 0.5% OPH SOLN 74 DROPS/5 ML BTL OPL SCH (07:36)
[2017-04-16] MEDS: ASPIRIN 81 MG ECTAB PO SCH (07:36)
[2017-04-16] MEDS: POTASSIUM CHLORIDE 20 MEQ TABCR PO SCH (07:37)
[2017-04-16] MEDS: METOPROLOL TARTRATE 25 MG TAB PO SCH ×2 (07:37→21:59)
[2017-04-16] MEDS: CHOLECALCIFEROL 1000 INTER.UNIT TAB PO SCH (07:38)
[2017-04-16] MEDS: PANTOprazole SOD 40 MG TAB PO SCH (07:38)
[2017-04-16] MEDS: INSULIN GLARGINE SOLOSTAR 100 UNITS/ML 3 ML PEN SC SCH ×2 (07:41→22:03)
--- NOTE | 2017-04-16 08:00 | NUR ---
A: Awake, alert and oriented X4 resting in bed with eyes open. Assisted out of bed to bedside chair without difficulty. Remains a-fib on cafeteria monitor. Feeds self independently. Discharge remains uncertain. Call ledbetter within easy reach. Will continue to monitor.
[2017-04-16] MEDS: INSULIN ASPART 100 UNITS/ML 3 ML PEN SC SCH ×4 (08:24→22:02)
--- NOTE | 2017-04-16 12:00 | NUR ---
A: Ambulates with minimal assist to bathroom. Denies any complaints. Will continue to monitor.
[2017-04-16] MEDS: WARFARIN SOD 1 MG TAB PO SCH (17:23)
--- NOTE | 2017-04-16 18:41 | Progress Note ---
Medicine Progress Note Date & Time of Visit: Apr 16, 2017 at 18:41. Subjective Patient doing ok, complains of a cough that has been ongoing for the last 4-6 weeks following a URI; states the cough is slightly productive but has not changed in weeks. No overnight events noted. Has soreness on her right inner thigh from urine incontinence. No other complaints. Objective Last 8 Hrs Date Time Temp Pulse Resp B/P (MAP) Pulse Ox O2 Delivery O2 Flow Rate FiO2 04/16/17 16:00 Room Air 04/16/17 15:55 36.3 100 22 131/73 (92) 98 Room Air 04/16/17 12: 37.0 110 20 136/80 (98) 94 Room Air 04/16/17 12:00 Room Air Physical Exam: GENERAL: Patient is in no acute distress. HEENT: No acute trauma, normocephalic, mucous membranes moist, no nasal congestion, no scleral icterus, conjunctivae clear. NECK: No stridor, trachea is midline. LUNGS: No wheeze, no rhonchi, mild basilar crackles noted bilaterally HEART: Without murmurs gallops or rubs, irregularly irregular, S1 and S2 auscultated ABDOMEN: Soft, nontender, bowel sounds positive, no hepatosplenomegaly EXTREMITIES: No cyanosis; pitting edema in B/L LE, moving all 4 extremities without difficulty NEUROLOGIC: Oriented x 3, no acute motor or sensory deficits, no focal weakness. SKIN: No jaundice, no diaphoresis. Right inner thigh with red excoriations, no surrounding erythema or drainage Laboratory Results: Last 24 Hours Test 04/15/17 21:09 04/16/17 06:02 04/16/17 06:48 04/16/17 11:48 Bedside Glucose 245 mg/dl 116 mg/dl 192 mg/dl White Blood Count 8.97 K/uL Red Blood Count 3.83 M/uL Hemoglobin 9.4 g/dL Hematocrit 29.3 % Mean Corpuscular Volume 76.5 fL Mean Corpuscular Hemoglobin 24.5 pg Mean Corpuscular Hemoglobin Concent 32.1 g/dl RDW Standard Deviation 45.2 fL RDW Coefficient of Variation 16.1 % Platelet Count 235 K/uL Mean Platelet Volume 9.8 fL Prothrombin Time 25.4 SECONDS Prothromb Time International Ratio 2.5 Sodium Level 136 mmol/L Potassium Level 3.1 mmol/L Chloride Level 100 mmol/L Carbon Dioxide Level 30 mmol/L Anion Gap 6.0 mmol/L Blood Urea Nitrogen 30 mg/dl Creatinine 1.46 mg/dl Est Creatinine Clear Calc Drug Dose 25.7 ml/min Estimated GFR () 37.6 Estimated GFR (Non- 32.5 BUN/Creatinine Ratio 20.8 Random Glucose 97 mg/dl Calcium Level 8.5 mg/dl Test 04/16/17 16:35 Bedside Glucose 120 mg/dl Assessment & Plan ACUTE DIASTOLIC HEART FAILURE: -pt presented with increased LE edema, INGRAM, dry cough -CXR: small bilateral pleural effusions, pulmonary vascular congestion; repeat CXR shows the same findings and mentions possible atelectasis -patient was given lasix 40mg IV in ER and this has been continued daily -TTE: Report: * -- Conclusions -- * The left ventricular cavity is small. * There is severe concentric left ventricular hypertrophy. * Ejection Fraction = 60-65%. * The right ventricular systolic function is normal. * The left atrium is severely dilated. * The right atrium is severely dilated. * Mild to moderate valvular aortic stenosis. * There is severe mitral annular calcification. * There is mild to moderate mitral regurgitation. * There is moderate tricuspid regurgitation. -monitor and continue potassium supplement -Cardiology consulted -continue I's and O's, daily weights ATRIAL FIBRILLATION: -rate remains 90's to low 100's which is an improvement over the last few days -recently diagnosed, started on coumadin and metoprolol 03/30/17 by PCP for a- fib with RVR. -supratherapeutic INR: 4.4-->2.9-->2.3-->2.5 -resumed coumadin at lower than home med dose -monitor INR -continue metoprolol -cardiac enzymes negative -TTE: as above -Cardiology consulted, patient was given a dose of digoxin x1, but overall HR better controlled and thus no plans to continue the digoxin for now DM TYPE II: INSULIN DEPENDENT -HBA1c: 8.9% -hold home 70/30 insulin -on lantus + novolog correction scale DYSLIPIDEMIA: -lipid panel:Trigly: 79, Total: 75, LDL: 21, HDL: 38 -continue simvastatin GERD: -continue PPI GLAUCOMA: -continue timolol drops Current Inpatient Medications: Current Inpatient Medications Medications (Trade) Dose Ordered Sig/Gustavo Route Start Time Stop Time Status Last Admin Dose Admin Acetaminophen (Tylenol Tab) 650 mg Q4H PRN PO 04/12/17 19:45 05/12/17 19:44 Ondansetron HCl (Zofran Inj) 4 mg Q6H PRN IV 04/12/17 19:45 05/12/17 19:44 Nitroglycerin (Nitrostat Tab) 0.4 mg UD PRN SL 04/12/17 19:45 05/12/17 19:44 Aspirin (Ecotrin Tab) 81 mg DAILY PO 04/13/17 09:00 05/13/17 08:59 04/16/17 07:36 81 MG Cholecalciferol (Vitamin D Tab) 1,000 inter.unit DAILY PO 04/13/17 09:00 05/13/17 08:59 04/16/17 07:38 1,000 INTER.UNIT Potassium Chloride (Klor-Con Tab) 20 meq QAM PO 04/13/17 09:00 05/13/17 08:59 04/16/17 07:37 20 MEQ Simvastatin (Zocor Tab) 10 mg QPM PO 04/12/17 21:00 05/12/17 20:59 04/15/17 21:24 10 MG Timolol Maleate (Timoptic-Xe 0.5% Oph Soln) 1 drops DAILY OPL 04/13/17 09:00 05/13/17 08:59 04/16/17 07:36 1 DROPS Pantoprazole Sodium (Protonix Tab) 40 mg QAM PO 04/13/17 09:00 05/13/17 08:59 04/16/17 07:38 40 MG Oxybutynin Chloride (Ditropan-Xl Tab) 10 mg DAILY PO 04/13/17 09:00 05/13/17 08:59 04/16/17 07:36 10 MG Insulin Aspart (novoLOG ASPART) SLIDING SCALE If C... ACHS SC 04/12/17 21:00 05/12/17 20:59 04/16/17 17:25 6 UNITS Glucose (Glucose 40% Gel) 15-30 GRAMS 15 GRAMS... UD PRN PO 04/12/17 21:00 05/12/17 20:59 Glucose (Glucose Chew Tab) 4-8 Tablets 4 Tabl... UD PRN PO 04/12/17 21:00 05/12/17 20:59 Dextrose (Dextrose 50% 50ML Syringe) 25-50ML OF 50% DW IV FOR... UD PRN IV 04/12/17 21:00 05/12/17 20:59 Glucagon (Glucagon Inj) 1 mg UD PRN SQ 04/12/17 21:00 05/12/17 20:59 Metoprolol Tartrate (Lopressor Tab) 50 mg BID PO 04/13/17 21:00 05/12/17 20:59 04/16/17 07:37 50 MG Metoprolol Tartrate (Lopressor Iv) 2.5 mg Q4 PRN IV 04/14/17 00:15 05/14/17 00:14 04/15/17 06:20 2.5 MG Warfarin Sodium (Coumadin Tab) 1 mg DAILY@16 PO 04/14/17 16:00 05/14/17 15:59 04/16/17 17:23 1 MG Insulin Glargine (Lantus Solostar Pen) 11 units Q12 SC 04/14/17 21:00 05/12/17 20:59 04/16/17 07:41 11 UNITS Benzonatate (Tessalon Perles Cap) 100 mg TID PRN PO 04/15/17 15:15 05/15/17 15:14 04/16/17 07:37 100 MG Furosemide (Lasix Tab) 40 mg QAM PO 04/17/17 09:00 05/17/17 08:59
--- NOTE | 2017-04-16 20:00 | NUR ---
A- PT IN CHAIR, 1 ASSIST W/ WALKER TO BED. PT IS AAOX4. MONITOR AFIB. RESP REG AND EASY. NO C/O SOB. SPO2 99% ON RA. ABD IS SOFT W/ + BS. JAMIE CARE DONE AND DEPENDS CHANGED. PT HAS STONG ODOR. INC OF URINE. PT EXCORIATED B/T LEGS - PROTECTIVE #3 OINTMENT APPLIED. CALL BROWN IN REACH.
[2017-04-16] MEDS: SIMVASTATIN 10 MG TAB PO SCH (21:58)
[2017-04-17] VITALS (7 sets, daily range): BP systolic 124–155; BP diastolic 63–86; PULSE 89–121; TEMP 36.6–37.1; O2SAT 94–99
--- NOTE | 2017-04-17 05:33 | NUR ---
A- 0001 NO CHANGE IN PT STATUS. PT HAS BEEN RESTING QUIETLY. MONITOR AFIB, [id number]. RESP REG AND EASY. CALL BROWN IN REACH. 0500 PT UP TO BR W/ 1 ASSIST AND WALKER. MONITOR AFIB. RESP REG AND EASY. DEPENDS CHANGED. SKIN CARE DONE. URINE VERY STRONG SMELLING. CALL BROWN IN REACH.
[2017-04-17 07:00] LABS: CALCIUM 8.5 mg/dl (8.5-10.1); CREATININE 1.6 mg/dl (0.60-1.20); POTASSIUM 4.4 mmol/L (3.5-5.1)
[2017-04-17] MEDS: CHOLECALCIFEROL 1000 INTER.UNIT TAB PO SCH (07:51)
[2017-04-17] MEDS: ASPIRIN 81 MG ECTAB PO SCH (07:51)
[2017-04-17] MEDS: PANTOprazole SOD 40 MG TAB PO SCH (07:51)
[2017-04-17] MEDS: OXYBUTYNIN CHLORIDE 5 MG TABCR PO SCH (07:51)
[2017-04-17] MEDS: FUROSEMIDE 40 MG TAB PO SCH (07:52)
[2017-04-17] MEDS: POTASSIUM CHLORIDE 20 MEQ TABCR PO SCH (07:52)
[2017-04-17] MEDS: METOPROLOL TARTRATE 25 MG TAB PO SCH ×2 (07:52→22:11)
[2017-04-17] MEDS: TIMOLOL GFS 0.5% OPH SOLN 74 DROPS/5 ML BTL OPL SCH (07:53)
[2017-04-17] MEDS: INSULIN ASPART 100 UNITS/ML 3 ML PEN SC SCH ×4 (07:56→22:15)
[2017-04-17] MEDS: INSULIN GLARGINE SOLOSTAR 100 UNITS/ML 3 ML PEN SC SCH ×2 (07:56→22:15)
[2017-04-17] MEDS: WARFARIN SOD 1 MG TAB PO SCH (16:35)
--- NOTE | 2017-04-17 18:09 | Progress Note ---
Medicine Progress Note Date & Time of Visit: Apr 17, 2017 at 18:06. Subjective Patient denies any new complaints; reports her right inner thigh is still swollen and sore. She denies worsening cough or SOB. She states she has been able to ambulate in her room without difficulty. No overnight events noted. Anxious to go home. Objective Last 8 Hrs Date Time Temp Pulse Resp B/P (MAP) Pulse Ox O2 Delivery O2 Flow Rate FiO2 04/17/17 16:00 Room Air 04/17/17 15:21 36.6 99 16 131/63 (85) 94 Room Air 04/17/17 12:00 Room Air 04/17/17 11:10 36.6 89 20 138/78 (98) 98 Room Air Physical Exam: GENERAL: Patient is in no acute distress. HEENT: No acute trauma, normocephalic, mucous membranes moist, no nasal congestion, no scleral icterus, conjunctivae clear. NECK: No stridor, trachea is midline. LUNGS: No wheeze, no rhonchi, mild basilar crackles noted bilaterally worse on the left HEART: Without murmurs gallops or rubs, irregularly irregular, S1 and S2 auscultated ABDOMEN: Soft, nontender, bowel sounds positive, no hepatosplenomegaly EXTREMITIES: No cyanosis; pitting edema in B/L LE, moving all 4 extremities without difficulty NEUROLOGIC: Oriented x 3, no acute motor or sensory deficits, no focal weakness. SKIN: No jaundice, no diaphoresis. Right inner thigh with red excoriations, + surrounding erythema, no drainage Laboratory Results: Last 24 Hours Test 04/16/17 21:18 04/17/17 06:08 04/17/17 06:24 04/17/17 11:54 Bedside Glucose 210 mg/dl 132 mg/dl 208 mg/dl Sodium Level 136 mmol/L Potassium Level 4.4 mmol/L Chloride Level 102 mmol/L Carbon Dioxide Level 31 mmol/L Anion Gap 3.0 mmol/L Blood Urea Nitrogen 29 mg/dl Creatinine 1.60 mg/dl Est Creatinine Clear Calc Drug Dose 23.5 ml/min Estimated GFR () 33.7 Estimated GFR (Non- 29.1 BUN/Creatinine Ratio 17.9 Random Glucose 134 mg/dl Calcium Level 8.5 mg/dl Test 04/17/17 16:31 Bedside Glucose 113 mg/dl Assessment & Plan ACUTE DIASTOLIC HEART FAILURE: -pt presented with increased LE edema, INGRAM, dry cough -CXR: small bilateral pleural effusions, pulmonary vascular congestion; repeat CXR shows the same findings and mentions possible atelectasis -patient was given lasix 40mg IV in ER and this has been continued daily and today was switched to PO -TTE: Report: * -- Conclusions -- * The left ventricular cavity is small. * There is severe concentric left ventricular hypertrophy. * Ejection Fraction = 60-65%. * The right ventricular systolic function is normal. * The left atrium is severely dilated. * The right atrium is severely dilated. * Mild to moderate valvular aortic stenosis. * There is severe mitral annular calcification. * There is mild to moderate mitral regurgitation. * There is moderate tricuspid regurgitation. -monitor and continue potassium supplement -Cardiology consulted -continue I's and O's, daily weights ATRIAL FIBRILLATION: -rate remains 90's to low 100's which is an improvement over the last few days -recently diagnosed, started on coumadin and metoprolol 03/30/17 by PCP for a- fib with RVR. -supratherapeutic INR: 4.4-->2.9-->2.3-->2.5 -resumed coumadin at lower than home med dose -monitor INR -continue metoprolol -cardiac enzymes negative -TTE: as above -Cardiology consulted, patient was given a dose of digoxin x1, but overall HR better controlled and thus no plans to continue the digoxin for now DM TYPE II: INSULIN DEPENDENT -HBA1c: 8.9% -hold home 70/30 insulin -on lantus + novolog correction scale DYSLIPIDEMIA: -lipid panel:Trigly: 79, Total: 75, LDL: 21, HDL: 38 -continue simvastatin RIGHT THIGH CELLULITIS: -will start patient on doxycycline -possibly worse from irritation from urine GERD: -continue PPI GLAUCOMA: -continue timolol drops Current Inpatient Medications: Current Inpatient Medications Medications (Trade) Dose Ordered Sig/Gustavo Route Start Time Stop Time Status Last Admin Dose Admin Acetaminophen (Tylenol Tab) 650 mg Q4H PRN PO 04/12/17 19:45 05/12/17 19:44 Ondansetron HCl (Zofran Inj) 4 mg Q6H PRN IV 04/12/17 19:45 05/12/17 19:44 Nitroglycerin (Nitrostat Tab) 0.4 mg UD PRN SL 04/12/17 19:45 05/12/17 19:44 Aspirin (Ecotrin Tab) 81 mg DAILY PO 04/13/17 09:00 05/13/17 08:59 04/17/17 07:51 81 MG Cholecalciferol (Vitamin D Tab) 1,000 inter.unit DAILY PO 04/13/17 09:00 05/13/17 08:59 04/17/17 07:51 1,000 INTER.UNIT Potassium Chloride (Klor-Con Tab) 20 meq QAM PO 04/13/17 09:00 05/13/17 08:59 04/17/17 07:52 20 MEQ Simvastatin (Zocor Tab) 10 mg QPM PO 04/12/17 21:00 05/12/17 20:59 04/16/17 21:58 10 MG Timolol Maleate (Timoptic-Xe 0.5% Oph Soln) 1 drops DAILY OPL 04/13/17 09:00 05/13/17 08:59 04/17/17 07:53 1 DROPS Pantoprazole Sodium (Protonix Tab) 40 mg QAM PO 04/13/17 09:00 05/13/17 08:59 04/17/17 07:51 40 MG Oxybutynin Chloride (Ditropan-Xl Tab) 10 mg DAILY PO 04/13/17 09:00 05/13/17 08:59 04/17/17 07:51 10 MG Insulin Aspart (novoLOG ASPART) SLIDING SCALE If C... ACHS SC 04/12/17 21:00 05/12/17 20:59 04/17/17 12:30 10 UNITS Glucose (Glucose 40% Gel) 15-30 GRAMS 15 GRAMS... UD PRN PO 04/12/17 21:00 05/12/17 20:59 Glucose (Glucose Chew Tab) 4-8 Tablets 4 Tabl... UD PRN PO 04/12/17 21:00 05/12/17 20:59 Dextrose (Dextrose 50% 50ML Syringe) 25-50ML OF 50% DW IV FOR... UD PRN IV 04/12/17 21:00 05/12/17 20:59 Glucagon (Glucagon Inj) 1 mg UD PRN SQ 04/12/17 21:00 05/12/17 20:59 Metoprolol Tartrate (Lopressor Tab) 50 mg BID PO 04/13/17 21:00 05/12/17 20:59 04/17/17 07:52 50 MG Metoprolol Tartrate (Lopressor Iv) 2.5 mg Q4 PRN IV 04/14/17 00:15 05/14/17 00:14 04/15/17 06:20 2.5 MG Warfarin Sodium (Coumadin Tab) 1 mg DAILY@16 PO 04/14/17 16:00 05/14/17 15:59 04/17/17 16:35 1 MG Insulin Glargine (Lantus Solostar Pen) 11 units Q12 SC 04/14/17 21:00 05/12/17 20:59 04/17/17 07:56 11 UNITS Benzonatate (Tessalon Perles Cap) 100 mg TID PRN PO 04/15/17 15:15 05/15/17 15:14 04/16/17 07:37 100 MG Furosemide (Lasix Tab) 40 mg QAM PO 04/17/17 09:00 05/17/17 08:59 04/17/17 07:52 40 MG Doxycycline Hyclate (Vibramycin Cap) 100 mg BID PO 04/17/17 21:00 04/27/17 20:59
--- NOTE | 2017-04-17 18:09 | NUR ---
Pt is resting quietly with no complaints. A-fib on monitor. Rates in the low 100's. Call ledbetter within reach. Will continue to monitor.
[2017-04-17] MEDS: SIMVASTATIN 10 MG TAB PO SCH (22:11)
[2017-04-17] MEDS: DOXYCYCLINE HYCLATE 100 MG CAP PO SCH (22:12)
[2017-04-18] VITALS (7 sets, daily range): BP systolic 117–171; BP diastolic 76–106; PULSE 97–133; TEMP 36.4–37.3; O2SAT 93–98
--- NOTE | 2017-04-18 00:25 | NUR ---
A: Nursing assessment complete along with recent VS check. Incont of large amt strong smelling urine. Pericare provided and sensicare applied to right upper thigh. Fine crackles heard right lower lung field. O2 sat 93% on RA. Encouraged use of triflo and pt demonstrates up to 500. A-fib on the monitor with HR in the 120-130's. BP 138/106. IV lopressor 2.5 admin per prn order. Callbell is within reach and bed alarm activated for safety.
[2017-04-18] MEDS: METOPROLOL TARTRATE 1 MG/ML VIAL IV PRN (00:36)
--- NOTE | 2017-04-18 01:30 | NUR ---
A: HR now in the 100's. BP check with manual cuff is now 144/78.
[2017-04-18 06:35] LABS: HEMATOCRIT 30.6 % (37-47); HEMOGLOBIN 9.7 g/dL (12.0-16.0); MEAN CELL VOLUME 76.7 fL (80-100); MEAN CORPUSCULAR HEMOGLOBIN 24.3 pg (25-34); MEAN CORPUSCULAR HGB CONC 31.7 g/dl (32-36); MEAN PLATELET VOLUME 9.5 fL (7.4-10.4); PLATELET COUNT 259 K/uL (130-400); RED CELL DISTRIBUTION WIDTH CV 16.2 % (11.5-14.5); RED CELL DISTRIBUTION WIDTH SD 45.3 fL (36.4-46.3); WHITE BLOOD COUNT 7.34 K/uL (4.8-10.8)
[2017-04-18 06:44] LABS: INR 1.7 (0.9-1.1)
[2017-04-18 07:08] LABS: CALCIUM 8.7 mg/dl (8.5-10.1); CREATININE 1.51 mg/dl (0.60-1.20); POTASSIUM 3.8 mmol/L (3.5-5.1)
[2017-04-18] MEDS: OXYBUTYNIN CHLORIDE 5 MG TABCR PO SCH (07:47)
[2017-04-18] MEDS: CHOLECALCIFEROL 1000 INTER.UNIT TAB PO SCH (07:47)
[2017-04-18] MEDS: ASPIRIN 81 MG ECTAB PO SCH (07:48)
[2017-04-18] MEDS: POTASSIUM CHLORIDE 20 MEQ TABCR PO SCH (07:48)
[2017-04-18] MEDS: DOXYCYCLINE HYCLATE 100 MG CAP PO SCH (07:48)
[2017-04-18] MEDS: PANTOprazole SOD 40 MG TAB PO SCH (07:48)
[2017-04-18] MEDS: METOPROLOL TARTRATE 25 MG TAB PO SCH (07:48)
[2017-04-18] MEDS: TIMOLOL GFS 0.5% OPH SOLN 74 DROPS/5 ML BTL OPL SCH (07:49)
[2017-04-18] MEDS: FUROSEMIDE 40 MG TAB PO SCH (07:49)
[2017-04-18] MEDS: INSULIN ASPART 100 UNITS/ML 3 ML PEN SC SCH ×2 (07:52→11:39)
[2017-04-18] MEDS: INSULIN GLARGINE SOLOSTAR 100 UNITS/ML 3 ML PEN SC SCH (07:53)
--- NOTE | 2017-04-18 08:00 | NUR ---
A/ID: Patient sitting in chair at bedside. Denies c/o pain. Awake, alert, and oriented x4. Assessment complete, see EMR for details. Patient is admitted from home. Discharge plan is uncertain at present, but plan is likely to return home upon discharge. PT/OT are following, though patient has refused both services over the past several days. Patient ambulates in the room with a rolling walker and supervision assist. Case Management following for discharge needs. Atrial fibrillation on monitor. Hypertensive BP of 171/105 this morning. Medicated with ordered morning medications. Vital signs otherwise stable. Call ledbetter in reach.
[2017-04-18] MEDS ORDERED: CEFTRIAXONE SOD INJ 1 GM in DEXTROSE 5% ADD-VANTAGE 50ML 50 ML IV ONE (10:00)
[2017-04-18] MEDS ORDERED: DXY100 PO (11:49)
[2017-04-18] MEDS ORDERED: BENZ100C7 PO (11:49)
[2017-04-18] MEDS ORDERED: LPR25 PO (11:49)
--- NOTE | 2017-04-18 11:56 | NUR ---
case management note. social service for D/C planning LOS >5 days. met with pt at bedside. pt is A&O and states she lives with her son, Mando in a 2 story house. She states there are 12 BLUE. She uses a cane and walker with ambulation. she does not drive and her children provide transportation. She is independent with ADl's. Role of caser in explained. pt states she is planning to return home at D/C. She states she might be interested in having a nurse visit her to help with her medications. offered to set up HH services for pt but pt states she needs to talk with her family about it first. offered to call pts family to discuss HH but pt states "no". She states she will talk with them and let CM know if she has any needs. case management to follow. Addendum: 04/18/17 at 1418 by Phuong Velázquez SERV received a call from physician stating pt is for D/C today and she would like pt to have for nursing and therapy. spoke with pt again at bedside and she is agreeable to HH and gives permission to talk with Mando or Carey regarding D/C planning. call to Mando at number provided by pt, [phone], but no answer and mailbox is full. call to Carey to discuss D/C planning. She is agreeable with HH. list of options provided and she would like a referral to [facility]. with permission referral completed and info with D/C instructions faxed by assistant field hockey coach/
--- NOTE | 2017-04-18 12:00 | NUR ---
A: Patient sitting in chair at bedside. Physical assessment unchanged. Patient to be discharged this afternoon per conversation with Dr. Brantley. Patient verbalizes understanding and agreement with this. Atrial fibrillation on monitor. VSS. Side rails up x2, call ledbetter in reach.
--- NOTE | 2017-04-18 12:02 | Discharge Instructions ---
Discharge Instructions Date of Service Apr 18, 2017. Admission Reason for Admission: Atrial Fibrillation, Chf Discharge Discharge Diagnosis / Problem: Atrial fibrillation, CHF exacerbation, UTI Discharge Goals Goal(s): Therapeutic intervention Activity Recommendations Activity Limitations: resume your previous activity . Instructions / Follow-Up Instructions / Follow-Up Please see Dr. Hayes on April 25 at 1:05PM (were unable to get an appointment with Dr. Parks due to his full schedule) Current Hospital Diet Patient's current hospital diet: Diabetes Type 2 Diet, AHA Diet (Heart Healthy) Discharge Diet Recommended Diet: AHA Diet (Heart Healthy), Diabetes Type 2 Diet Pending Studies Studies pending at discharge: yes List of pending studies: Urine culture Laboratory Results Hemoglobin A1c Test 04/13/17 03:46 Range/Units Estimated Average Glucose 209 mg/dl Hemoglobin A1c 8.9 H 4.5-5.6 % Lipid Panel Test 04/13/17 03:46 Range/Units Triglycerides Level 79 0-150 mg/dl Cholesterol Level 75 0-200 mg/dl HDL Cholesterol 38 mg/dl Cholesterol/HDL Ratio 2.0 LDL Cholesterol, Calculated 21 mg/dl Medical Emergencies . Who to Call and When: Medical Emergencies: If at any time you feel your situation is an emergency, please call 911 immediately. . Non-Emergent Contact Non-Emergency issues call your: Primary Care Provider . . "Provider Documentation" section prepared by Sophie Brantley. . VTE Core Measure Inpt VTE Proph given/why not?: Warfarin (Coumadin)
[2017-04-18] MEDS ORDERED: CEFP200T14 PO (12:04)
--- NOTE | 2017-04-18 12:18 | Discharge Summary ---
Discharge Summary Date of Service Apr 18, 2017. Discharge Summary Admission Date: Apr 12, 2017 at 19:34 Discharge Date: Apr 18, 2017 Discharge Disposition: Home with services Principal Diagnosis: CHF exacerbation, UTI, A fib with RVR Consultations: Cardiology Medication Reconciliation New Medications: Benzonatate (Benzonatate) 100 Mg Cap 100 MG PO TID PRN for Cough, #30 CAP Doxycycline Hyclate (Doxycycline Hyclate) 100 Mg Cap 100 MG PO BID for 10 Days, #20 CAP Metoprolol Tartrate (Lopressor) 25 Mg Tab 50 MG PO BID, #60 TAB Continued Medications: Aspirin (Aspirin Ec) 81 Mg Tab 81 MG PO DAILY Calcitriol (Rocaltrol Cap) 0.25 Mcg Cap 0.25 MCG PO 2XWK Chlordiazepoxide (Librium) 5 Mg Cap 5 MG PO Q6 PRN for Anxiety, CAP Cholecalciferol (Vitamin D3) 1,000 Unit Tab 1000 UNITS PO DAILY Furosemide (Lasix) 20 Mg Tab 20 MG PO BID Insulin Human Isophan/Regular (Novolin 70/30) Inj 24 UNITS SC UD, BTL inject 24 units SC prior to breakfast Insulin Isophan/Regular (Novolin 70/30) Susp 12 UNITS SQ QPM Omeprazole (Prilosec) 40 Mg Cap 40 MG PO QAM Oxybutynin Chloride (Oxybutynin Chloride ER) 10 Mg Tabcr 10 MG PO DAILY Potassium Ext Rel (Klor-Con) 20 Meq Tabcr 20 MEQ PO QAM, TAB Simvastatin (Zocor) 10 Mg Tab 10 MG PO QPM Timolol Maleate (Ophth) (Timoptic-Xe 0.5% Oph) 0.5 % Piedad 1 DROP OPL DAILY Warfarin Sod (Coumadin) 2.5 Mg Tab 1.25 MG PO QPM Discontinued Medications: Metoprolol Tartrate (Lopressor) (Lopressor) 25 Mg Tab 37.5 MG PO BID, TAB Admission Information HPI (per Admitting provider): Pt is 86 y/o F with PMH HTN, hypertensive heart disease, hyperlipidemia, insulin dependent DM II, GERD, CKD III presented to ER with c/o increased LE edema, SOB with exertion, non-productive cough x several weeks. Seen by PCP and found to be in a-fib. Her carvedilol was increased to 12.5mg BID, amlodipine was held and lasix 20mg BID and started on coumadin. Pt reports had f /u visit on 04/05 and carvedilol stopped and metoprolol 25mg 1.5 tab BID started. 04/07/17 - INR: 2.7 and is being managed by coumadin clinic. Pt states past couple of days with increased SOB with exertion and increased LE edema. Denies orthopnea or PND. Uses one pillow. [place] dizzy this morning. Pt reports intermittent palpitations over past couple of months. She is unsure how long symptoms last. typically occurs with sitting, unsure if associated CP or SOB or dizziness. Intermittent mid chest discomfort x months described as aching occurs typically when sitting, reports usually "relaxes" and pain resolves. Denies associated SOB, dizziness with this. Denies fever/chills, diaphoresis, N/ V/D/C, CHANDLER, syncope, neck pain, hemoptysis, sore throat, choking, otalgia, rhinorrhea, abdominal pain, paresthesias, weakness, extremity weakness, rashes, urinary symptoms. In ER pt afebrile, without leukocytosis, hgb: 10.1 (~baseline), Cr: 1.7 ( baseline ~1.2). Glucose: 357 pt given insulin 6 units. INR: 4.7. BNP: 3623, negative troponin. CXR: small pleural effusions, pulmonary vascular congestion with suspected pulmonary edema. Pt given lasix 40mg IV. Hx echo 06/16/16: EF: 60-64%, normal LV wall motion, mild pulmonary HTN, mild tricuspid regurg, mitral stenosis, aortic regurg, aortic stenosis, moderate mitral regurg. Physical Exam (per Admitting): General Appearance: WD/WN, no apparent distress Head: normocephalic, atraumatic Eyes: normal inspection, PERRL, EOMI, sclerae normal ENT: pharynx normal, + pertinent finding Neck: supple, no JVD, trachea midline Respiratory/Chest: chest non-tender, no respiratory distress, no accessory muscle use, + crackles Cardiovascular: + systolic murmur, + irregularly irregular Abdomen/GI: normal bowel sounds, non tender, soft Back: no CVA tenderness Extremities/Musculoskelatal: no calf tenderness, normal capillary refill, non-tender, + pedal edema Neurologic/Psych: alert, normal mood/affect, oriented x 3 Skin: normal color, warm/dry, no rash Hospital Course ACUTE DIASTOLIC HEART FAILURE: -pt presented with increased LE edema, INGRAM, dry cough -CXR: small bilateral pleural effusions, pulmonary vascular congestion; repeat CXR shows the same findings and mentions possible atelectasis -patient was given lasix 40mg IV in ER and this has been continued daily and today was switched to PO yesterday -TTE: Report: * -- Conclusions -- * The left ventricular cavity is small. * There is severe concentric left ventricular hypertrophy. * Ejection Fraction = 60-65%. * The right ventricular systolic function is normal. * The left atrium is severely dilated. * The right atrium is severely dilated. * Mild to moderate valvular aortic stenosis. * There is severe mitral annular calcification. * There is mild to moderate mitral regurgitation. * There is moderate tricuspid regurgitation. -monitor and continue potassium supplement -Cardiology consulted -continue I's and O's, daily weights ATRIAL FIBRILLATION: -rate remains 90's to low 100's which is an improvement over the last few days -recently diagnosed, started on coumadin and metoprolol 03/30/17 by PCP for a- fib with RVR. -supratherapeutic INR: 4.4-->2.9-->2.3-->2.5--> now 1.7 -resumed coumadin at lower than home med dose, will resume home dose at discharge -monitor INR -continue metoprolol -cardiac enzymes negative -TTE: as above -Cardiology consulted, patient was given a dose of digoxin x1, but overall HR better controlled and thus no plans to continue the digoxin for now DM TYPE II: INSULIN DEPENDENT -HBA1c: 8.9% -hold home 70/30 insulin -on lantus + novolog correction scale DYSLIPIDEMIA: -lipid panel:Trigly: 79, Total: 75, LDL: 21, HDL: 38 -continue simvastatin RIGHT THIGH CELLULITIS: -will start patient on doxycycline -possibly worse from irritation from urine GERD: -continue PPI GLAUCOMA: -continue timolol drops UTI: -start ceftriaxone -asymptomatic, afebrile PHYSICAL EXAM: GENERAL: Patient is in no acute distress. HEENT: No acute trauma, normocephalic, mucous membranes moist, no nasal congestion, no scleral icterus, conjunctivae clear. NECK: No stridor, trachea is midline. LUNGS: No wheeze, no rhonchi, mild basilar crackles noted bilaterally worse on the left HEART: Without murmurs gallops or rubs, irregularly irregular, S1 and S2 auscultated ABDOMEN: Soft, nontender, bowel sounds positive, no hepatosplenomegaly EXTREMITIES: No cyanosis; pitting edema in B/L LE, moving all 4 extremities without difficulty NEUROLOGIC: Oriented x 3, no acute motor or sensory deficits, no focal weakness. SKIN: No jaundice, no diaphoresis. Right inner thigh with red excoriations, decreased erythema, no drainage Total time spent on discharge = 37 This includes examination of the patient, discharge planning, medication reconciliation, and communication with other providers. Discharge Instructions See patient instructions
--- NOTE | 2017-04-18 15:25 | NUR ---
A: Patient discharged to home with her son at this time. Plan is for discharge to home with home health services. Discharge teaching and instructions provided. All questions answered. Patient and family verbalize understanding of discharge instructions. Prescriptions were transmitted to pharmacy by the provider. Saline lock discontinued, tip intact. 2x2 and pressure dressing applied. Telemetry discontinued. Patient denies any complaints and verbalizes readiness to be discharged. Patient stable at time of discharge.
[2017-06-10] MEDS ORDERED: POTA-639 PO (16:00)
[2017-06-16] MEDS ORDERED: METO-551 PO (15:56)
[2017-06-16] MEDS ORDERED: CEFD300C3 PO (15:56)
[2017-06-18] MEDS ORDERED: AMOX875T PO (01:27)
[2017-06-19] MEDS ORDERED: INSU100I SQ (01:40)
[2017-06-22] MEDS ORDERED: LORA-741 PO (01:34)
[2017-06-24] MEDS ORDERED: IPRA-64 INH (01:35)
[2017-06-30] MEDS ORDERED: LSX40 PO (13:22)
[2017-06-30] MEDS ORDERED: TPRSR50 PO (13:22)
[2017-06-30] MEDS ORDERED: MCRK20 PO (13:22)
[2017-07-27] MEDS ORDERED: LORA-741 PO ×2 (22:25→23:34)
[2017-07-27] MEDS ORDERED: METO50TA8 PO ×2 (22:25→23:26)
[2017-08-15] MEDS ORDERED: KFL/250 PO (14:03)
[2017-08-29] MEDS ORDERED: DOXY-300 PO (14:57)
[2017-08-31] MEDS ORDERED: METO50TA8 PO (13:38)
[2017-09-10] MEDS ORDERED: ELQ25 PO ×2 (11:24→11:26)
[2017-09-10] MEDS ORDERED: SNTO30 EXT ×2 (11:24→11:26)
[2017-09-10] MEDS ORDERED: LINE1TAB2 PO ×2 (11:24→11:26)
[2017-09-10] MEDS ORDERED: LCTX PO ×2 (11:24→11:26)
[2017-09-10] MEDS ORDERED: FRRS300 PO ×2 (11:24→11:26)
[2017-09-10] MEDS ORDERED: CPR500 PO ×2 (11:24→11:26)
[2017-09-10] MEDS ORDERED: RISP-99 PO ×2 (11:24→11:26)
[2017-09-10] MEDS ORDERED: WARF1TAB PO (12:57)
[2017-09-10] MEDS ORDERED: LPT40 PO (13:03)
[2017-09-15] MEDS ORDERED: METO-217 PO ×2 (13:38→16:14)
[2017-09-15] MEDS ORDERED: ATOR-24 PO (16:14)
[2017-09-15] MEDS ORDERED: FERR1TAB62 PO (16:14)
[2017-09-15] MEDS ORDERED: SNTONWC EXT (16:14)
[2017-09-15] MEDS ORDERED: LCTX PO (16:14)
[2017-09-15] MEDS ORDERED: NUTR-7 PO (16:14)
[2017-09-15] MEDS ORDERED: RISP0.5T10 PO (16:17)
[2017-09-15] MEDS ORDERED: WARF4TAB44 PO (16:18)
[2017-09-15] MEDS ORDERED: OXYC-57 PO (17:33)
[2017-09-15] MEDS ORDERED: OMEP40CA41 PO (21:28)
[2017-09-15] MEDS ORDERED: CALC0.2510 PO (21:36)
[2017-09-15] MEDS ORDERED: DTRSR/10 PO (21:36)
[2017-09-15] MEDS ORDERED: CHOL1000 PO (21:38)
[2017-09-15] MEDS ORDERED: MCRK20 PO (22:25)
[2017-09-15] MEDS ORDERED: INSDGI SQ (22:25)
[2017-09-15] MEDS ORDERED: TIMO0.5S2 OPL (22:25)
[2017-09-15] MEDS ORDERED: ACET-1256 PO (22:25)
[2017-09-15] MEDS ORDERED: FURO80TA63 PO (22:25)
[2017-09-15] MEDS ORDERED: FRS/40 PO (22:25)
[2017-09-15] MEDS ORDERED: CALC500T72 PO (22:25)
[2017-09-15] MEDS ORDERED: LORA-741 PO (23:43)
[2017-09-21] MEDS ORDERED: CPR500 PO (13:06)
[2017-09-21] MEDS ORDERED: LINE1TAB2 PO (13:06)
[2017-10-11] MEDS ORDERED: RXNS10 PO (15:44)
[2017-10-11] MEDS ORDERED: DRGTP25 TD (15:52)
[2017-10-11] MEDS ORDERED: LORA-741 PO (15:52)
== END 2017-04-18 15:30 | disposition home health service (06) | DRG 292 ==
LOC: C.EDB 14:25 → C.2E 19:34 → ENRESERV 19:43 → CANRESERV 19:43 → ENRESERV 19:52
PROVIDERS: ADMIT Internal Medicine; ATTEND Internal Medicine
DX: I50.31 Acute diastolic (congestive) heart failure (principal); I13.0 Hypertensive heart and chronic kidney disease with heart failure and stage 1 through stage 4 chronic kidney disease, or unspecified chronic kidney disease; L03.115 Cellulitis of right lower limb; Z83.3 Family history of diabetes mellitus; Z79.82 Long term (current) use of aspirin; E78.5 Hyperlipidemia, unspecified; E11.22 Type 2 diabetes mellitus with diabetic chronic kidney disease; N18.3 Chronic kidney disease, stage 3 (moderate); Z79.4 Long term (current) use of insulin; Z79.01 Long term (current) use of anticoagulants; I48.91 Unspecified atrial fibrillation; K21.9 Gastro-esophageal reflux disease without esophagitis; H40.9 Unspecified glaucoma

== ENCOUNTER 2017-04-30 22:55 | Emergency (ER) | payer OTHER ==
[~2017-04-30] VITALS: Ht 152.4 cm; Wt 68.0 kg
[~2017-04-30 22:55] MED LIST changes: -AMLO2.5T PO; +ASPI81TA28 PO; +BENZ100C7 PO; +CALC0.2510 PO; -CARV6.252 PO; +CHLO5CAP19 PO; +CHOL1000 PO; +CMD25 PO; +DTRSR/10 PO; +DXY100 PO; +INSU70IN2 SC; +INSU70IN2 SQ; +LPR25 PO; -NVLGI7030 SQ; +OMEP40CA41 PO; +POTA20TA16 PO; +SIMV10TA2 PO; +TIMO0.5S2 OPL
[2017-04-30 23:04] VITALS: TEMP 36.3; Ht 152.4 cm; Wt 68.0 kg
[2017-04-30] MEDS ORDERED: OXYMETAZOLINE HCL 0.05% NA SPR 15 ML BTL ONE (23:15)
--- NOTE | 2017-04-30 23:37 | EMERGENCY ROOM VISIT NOTE ---
History Report prepared by Sonido: Kiara Kimball Under the Supervision of: Merced EscalonaO. First contact with patient: 23:23 Chief Complaint: NOSE BLEED (MINOR) Stated Complaint: NOSE BLEED History of Present Illness The patient is a 86 year old female who presents to the Emergency Room with complaints of an episode of a nose bleed beginning this morning. The patient reports her bleeding stopped this afternoon. She states her nose started bleeding again this evening after she took a shower. She denies having a nose bleed like this before. She denies tasting any blood or blowing her nose more often. The patient is on a Coumadin. The patient is receiving in home nursing care. Per family, the patient was supposed to have her blood thinner reduced by in home nursing because they report her "level was too high". The patient was put on Coumadin two weeks ago for atrial fibrillation. She denies any other bleeding. The patient has oil heat at her home. Pt denies headache, change in vision, fevers, chest pain, shortness of breath, nausea, vomiting, diarrhea, pain with urination, and melena. Results obtained from outpatient labs on April 27: INR 3.7 Source of History: patient Onset: this morning Position: nose Quality: other (bleed) Timing: other (episode) Associated Symptoms: No nausea, No abdominal pain Review of Systems See HPI for pertinent positives & negatives. A total of 10 systems reviewed and were otherwise negative. Past Medical & Surgical Medical Problems: (1) Atrial fibrillation (2) CKD (chronic kidney disease), stage III (3) DM type 2 (diabetes mellitus, type 2) (4) Dyslipidemia (5) Ear lobe laceration (6) Fall (7) GERD (gastroesophageal reflux disease) (8) Glaucoma (9) Heart disease (10) HTN (hypertension) (11) Kidney disease Surgical Problems: (1) Hx of tubal ligation Family History Diabetes mellitus Social History Smoking Status: Never Smoker Alcohol Use: none Drug Use: none Housing Status: lives with family Occupation Status: unemployed Current/Historical Medications Scheduled Aspirin (Aspirin Ec), 81 MG PO DAILY Calcitriol (Rocaltrol Cap), 0.25 MCG PO 2XWK Cholecalciferol (Vitamin D3), 1,000 UNITS PO DAILY Furosemide (Lasix), 20 MG PO BID Insulin Human Isophan/Regular (Novolin 70/30), 24 UNITS SC UD Insulin Isophan/Regular (Novolin 70/30), 12 UNITS SQ QPM Metoprolol Tartrate (Lopressor), 50 MG PO BID Omeprazole (Prilosec), 40 MG PO QAM Oxybutynin Chloride (Oxybutynin Chloride ER), 10 MG PO DAILY Potassium Ext Rel (Klor-Con), 20 MEQ PO QAM Simvastatin (Zocor), 10 MG PO QPM Timolol Maleate (Ophth) (Timoptic-Xe 0.5% Oph), 1 DROP OPL DAILY Warfarin Sod (Coumadin), 1.25 MG PO QPM Scheduled PRN Chlordiazepoxide (Librium), 5 MG PO Q6 PRN for Anxiety Allergies Coded Allergies: No Known Allergies (Unverified , 05/01/17) Physical Exam Vital Signs Date Time Temp Pulse Resp B/P (MAP) Pulse Ox O2 Delivery O2 Flow Rate FiO2 05/01/17 00:55 82 16 158/95 100 04/30/17 23:04 36.3 92 18 124/69 96 Room Air Physical Exam GENERAL: alert, well appearing, well nourished, no distress, non-toxic EYE EXAM: normal conjunctiva, PERRL and EOM's grossly intact OROPHARYNX: Scant blood in posterior pharynx, no exudate, no erythema, lips, buccal mucosa, and tongue normal and mucous membranes are moist NECK: supple, no nuchal rigidity, no adenopathy, non-tender LUNGS: Clear to auscultation. Normal chest wall mechanics HEART: irregular rhythm, no murmurs, S1 normal and S2 normal ABDOMEN: abdomen soft, non-tender, normo-active bowel sounds, no masses, no rebound or guarding. BACK: Back is symmetrical on inspection and there is no deformity, no midline tenderness, no CVA tenderness. SKIN: no rashes and no bruising UPPER EXTREMITIES: upper extremities are grossly normal. LOWER EXTREMITIES: No pitting edema. NEURO EXAM: Normal sensorium, cranial nerves II-XII grossly intact, normal speech, no gross weakness of arms, no gross weakness of legs. Medical Decision & Procedures Medications Administered Medications (Trade) Dose Ordered Sig/Gustavo Route Start Time Stop Time Status Last Admin Dose Admin Oxymetazoline HCl (Afrin 0.05% Nasal [place]) 75 sprays STK-MED ONCE .ROUTE 04/30/17 23:15 04/30/17 23:16 DC 04/30/17 23:22 75 SPRAYS ED Course 2315: Ordered Oxymetazoline HCl 75 sprays .ROUTE. 2328: The patient was evaluated in room C8. A complete history and physical exam was performed. 0004: Right nare medial mucosa wall small area of persistent oozing noted silver nitrate stick was used to perform chemical cautery 0034: The patient is resting comfortably. She has no more active bleeding. 0047: Upon reevaluation, the patient is feeling better. I discussed the findings and the treatment plan with the patient. She verbalizes agreement and understanding. The patient was discharged home. Medical Decision Differential diagnosis: Etiologies such as anterior epistaxis, coagulopathy, traumatic injury, fracture , septal hematoma, posterior epistaxis as well as other pathologies were entertained. Patient well-appearing here despite complaints. Epistaxis controlled, no orthostatic symptoms and vital signs stable. Likely given dry heat, as well as recent initiation of Coumadin led to increased risk of a nosebleed. Discussed with patient her recent INR, they were already given recommendations to adjust Coumadin dosing. Discussed close follow-up regarding a repeat INR. Discussed symptoms to watch and return for, she verbalized understanding was agreeable with plan. Medication Reconcilliation Current Medication List: was personally reviewed by me Blood Pressure Screening Patient's blood pressure: Normal blood pressure Impression Primary Impression: Epistaxis Additional Impression: Supratherapeutic INR Scribe Attestation The scribe's documentation has been prepared under my direction and personally reviewed by me in its entirety. I confirm that the note above accurately reflects all work, treatment, procedures, and medical decision making performed by me. Departure Information Dispostion Home / Self-Care Referrals Nilo Parks M.D. (PCP) Forms HOME CARE DOCUMENTATION FORM, IMPORTANT VISIT INFORMATION, WORK / SCHOOL INSTRUCTIONS Patient Instructions [facility] [employer] Additional Instructions Please avoid blowing your nose for at least 24 hours. If your nose bleeds again , please use the nasal clamp, sit upright, you may try an ice pack to the bridge of your nose also. Please take your medicines as prescribed. Your INR ( coumadin number) tonight was 3.7. This is slightly elevated as they want your number to be between 2 and 3. Please make the changes recommended to you regarding your coumadin dosing. If you have any recurrent bleeding that doesn' t stop, develop headaches, dizziness, vomiting, notice blood from any other source, or you have any other new or concerning symptoms, please return to the emergency room. Problem Qualifiers
[2017-05-01 00:55] VITALS: BP 158/95; PULSE 82; O2SAT 100
== END 2017-05-01 00:55 | disposition home or self-care (01) ==
LOC: C.EDB 22:56 → C.EDC 05-01 00:55
DX: R04.0 Epistaxis (principal); R79.1 Abnormal coagulation profile; I48.91 Unspecified atrial fibrillation; I12.9 Hypertensive chronic kidney disease with stage 1 through stage 4 chronic kidney disease, or unspecified chronic kidney disease; E11.22 Type 2 diabetes mellitus with diabetic chronic kidney disease; N18.3 Chronic kidney disease, stage 3 (moderate); E78.5 Hyperlipidemia, unspecified; K21.9 Gastro-esophageal reflux disease without esophagitis; H40.9 Unspecified glaucoma; Z79.01 Long term (current) use of anticoagulants; Z79.82 Long term (current) use of aspirin; Z79.4 Long term (current) use of insulin; Z83.3 Family history of diabetes mellitus

== ENCOUNTER 2017-06-10 16:08 | Inpatient (IN) | payer OTHER ==
[~2017-06-10] VITALS: Ht 162.6 cm; Wt 82.4 kg
[~2017-06-10 16:08] MED LIST changes: -ASPI81TA28 PO; -BENZ100C7 PO; -CALC0.2510 PO; -CHOL1000 PO; -DTRSR/10 PO; -DXY100 PO; -INSU70IN2 SC; -INSU70IN2 SQ; -OMEP40CA41 PO; -SIMV10TA2 PO; -TIMO0.5S2 OPL
[2017-06-10] MEDS ORDERED: SODIUM CHLORIDE 0.9% 1000ML 1,000 ML IV ONE (16:30)
[2017-06-10] MEDS ORDERED: PIPERACILLIN/TAZOBACTAM 4.5 GM/100ML D5W IV STA (16:46)
[2017-06-10] MEDS ORDERED: DAPTOmycin IV 500 MG in SODIUM CHLORIDE 0.9% 50ML 50 ML IV STA (16:46)
--- NOTE | 2017-06-10 16:58 | EMERGENCY ROOM VISIT NOTE ---
ED Visit Note First contact with patient: 16:12 The patient was seen and examined with Valentin Rojas PA-C. I agree with the history, physical and findings. Please see the note for disposition and details. The patient has a right leg cellulitis. Ultrasound did not reveal any deep tissue. She does not have any pulmonary symptoms. Head CT was unremarkable. Chest x-ray showed some question of atelectasis. The patient's blood work shows a leukocytosis and lactic acidosis. She was hydrated with normal saline. She did well with this. The patient Zosyn and daptomycin for sepsis coverage from a skin source. She was given supplemental oxygen. Her blood pressure improved. She will need Further management in the hospital. [facility] The patient was evaluated in the Emergency Room for further management.
[2017-06-10] MEDS ORDERED: SODIUM CHLORIDE 0.9% 1000ML 1,000 ML IV STA (17:15)
[2017-06-10] MEDS ORDERED: METO-551 PO ×2 (17:42)
[2017-06-10] MEDS ORDERED: FURO-85 PO ×2 (17:42)
[2017-06-10] MEDS ORDERED: FERRTAB18 PO (17:42)
[2017-06-10 18:04] LABS: BASO % 0.1 %; BASO ABS # 0.01 K/uL (0-0.2); EOS % 0.2 %; EOS ABS # 0.02 K/uL (0-0.5); HEMATOCRIT 34.4 % (37-47); HEMOGLOBIN 10.9 g/dL (12.0-16.0); IG# 0.05 K/uL (0.00-0.02); LYMPH % 5.3 %; MEAN CELL VOLUME 70.3 fL (80-100); MEAN CORPUSCULAR HEMOGLOBIN 22.3 pg (25-34); MEAN CORPUSCULAR HGB CONC 31.7 g/dl (32-36); MEAN PLATELET VOLUME 9.5 fL (7.4-10.4); MONO % 8.7 %; MONO ABS # 1.14 K/uL (0.11-0.59); NEUT % 85.3 %; NEUT ABS # 11.25 K/uL (1.4-6.5); PLATELET COUNT 278 K/uL (130-400); RED CELL DISTRIBUTION WIDTH CV 20.3 % (11.5-14.5); RED CELL DISTRIBUTION WIDTH SD 47.1 fL (36.4-46.3); WHITE BLOOD COUNT 13.17 K/uL (4.8-10.8)
[2017-06-10] MEDS ORDERED: WARF4TAB44 PO (18:16)
[2017-06-10 18:25] LABS: PTT PATIENT 41.9 SECONDS (21.0-31.0)
--- NOTE | 2017-06-10 18:27 | DIAGNOSTIC IMAGING REPORT ---
CT HEAD WITHOUT CONTRAST (CT) CLINICAL HISTORY: Weakness, sepsis. COMPARISON STUDY: 12/19/2016 TECHNIQUE: Axial CT of the brain is performed from the vertex to the skull base. IV contrast was not administered for this examination. A dose lowering technique was utilized adhering to the principles of ALARA. CT DOSE: 537.48 mGy.cm FINDINGS: No intra or extra-axial mass lesions are visualized. There is no CT evidence of acute cortical infarction. There is no evidence of midline shift. There is no acute hemorrhage. No calvarial fractures are visualized. There are patchy white matter hypodensities likely on a small vessel basis. There is mild ventricular dilatation, finding which is felt to be secondary to volume loss There is no evidence of acute sinusitis. 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 IMPRESSION: No acute intracranial findings Electronically signed by: Martínez Layton M.D. 06/10/2017 6:25 PM Dictated Date/Time: 06/10/2017 6:24 PM
[2017-06-10 18:32] LABS: ALBUMIN 2.3 gm/dl (3.4-5.0); CALCIUM 8.6 mg/dl (8.5-10.1); CREATININE 2.3 mg/dl (0.60-1.20)
[2017-06-10 18:34] LABS: PHOSPHORUS 3.8 mg/dl (2.5-4.9); TOTAL PROTEIN 6.7 gm/dl (6.4-8.2)
[2017-06-10 18:39] LABS: INR 3.6 (0.9-1.1)
[2017-06-10 18:41] LABS: INFLUENZA A PCR Neg for Influ A (NEG); INFLUENZA B PCR Neg for Influ B (NEG)
--- NOTE | 2017-06-10 18:44 | DIAGNOSTIC IMAGING REPORT ---
CHEST ONE VIEW PORTABLE CLINICAL HISTORY: Sepsis COMPARISON STUDY: 04/15/2017 FINDINGS: The heart is mildly enlarged. There are persistent but decreasing bilateral pleural effusions. There are persistent right basilar airspace opacities.[ IMPRESSION: Persistent but decreasing bilateral pleural effusions. Associated right basilar airspace opacities, likely atelectatic although a superimposed pneumonia could appear similar. Electronically signed by: Martínez Layton M.D. 06/10/2017 6:43 PM Dictated Date/Time: 06/10/2017 6:42 PM
--- NOTE | 2017-06-10 19:26 | DIAGNOSTIC IMAGING REPORT ---
ULTRASOUND R VENOUS DOPP LOWER EXT UNILAT CLINICAL HISTORY: RLE pain, cellulitis, wound inner thigh/inguinal fold COMPARISON STUDY: No previous studies for comparison. FINDINGS: Real-time and color flow Doppler imaging were performed. Flow was seen within the femoral, popliteal and calf veins with no intraluminal thrombus demonstrated. The saphenous vein is patent. IMPRESSION: No evidence of right lower extremity DVT. Electronically signed by: Martínez Layton M.D. 06/10/2017 7:25 PM Dictated Date/Time: 06/10/2017 7:24 PM
[2017-06-10] MEDS ORDERED: VANCOMYCIN INJ 1,000 MG in SODIUM CHLORIDE 0.9% 250ML 250 ML IV STA (19:33)
[2017-06-10] MEDS ORDERED: DEXTROSE 50% 50 ML SYR IV PRN (19:45)
[2017-06-10] MEDS ORDERED: ACETAMINOPHEN 325 MG TAB PO PRN (19:45)
[2017-06-10] MEDS ORDERED: GLUCOSE 10 TABS/TUBE PO PRN (19:45)
[2017-06-10] MEDS ORDERED: POLYETHYLENE (MIRALAX) 17 GM PACK PO PRN (19:45)
[2017-06-10] MEDS ORDERED: GLUCOSE 40% GEL 15 GM TUBE PO PRN (19:45)
[2017-06-10] MEDS ORDERED: GLUCAGON FOR INJ 1 MG VIAL SQ PRN (19:45)
[2017-06-10] MEDS ORDERED: VANCOMYCIN CONSULT ACTIVE PRN (19:45)
[2017-06-10] MEDS ORDERED: ONDANSETRON INJ 2 MG/ML 2 ML VIAL IV PRN (19:45)
[2017-06-10] MEDS ORDERED: ACETAMINOPHEN 500 MG TAB PO STA (19:59)
[2017-06-10] MEDS ORDERED: PIPERACILL/TAZOBAC CONSULT ACTIVE PRN (20:00)
[2017-06-10] MEDS ORDERED: INSU70IN2 SC (20:03)
--- NOTE | 2017-06-10 20:33 | History and Physical ---
History & Physical Date & Time of Service: Jun 10, 2017 at 20:10 Chief Complaint: R Knee Pain Primary Care Physician: Nilo Parks M.D. History of Present Illness Source: patient, family, clinic records, hospital records 87 yo diabetic F with chronic R knee pain presents with worsening pain in her R leg, generalized weakness and malaise. Per family she was mobile and more independent until around one month ago when she underwent a physical therapy, became very tired, and began to appear more weak. The patient is alert and appropriate and is not in respiratory distress. she denies any coughing, fevers , or chills. She denies abdominal pain, diarrhea, painful urination. She has been reportedly eating and drinking well per family members who have been trying to care for her. Today they were trying to help clean her up and her daughter reported that she slid nontraumatically to the floor and was unable to be moved both because she was heavy but also because her R leg was hurting her too much. The patient and family both deny any redness in her R leg until today and state there is some swelling present. On exam there is a small coin- sized area of epidermal skin loss without any drainage. This area is in her medial upper thigh and is erythematous and painful to the touch. She also has some erythema in her inguinal regions bilaterally within the skin folds. Workup in the ER includes a normal head CT, CXR revealing persistent pleural effusions that have improved from prior imaging studies and a possible superimposed infiltrate, and there is no DVT in her leg on ultrasound. EKG revealed afib with RVR in the 130s with her heart rate improving after 2L of IVF. She also had a BP in the 60s systolic which also responded well to IVF. She was given broad spectrum antibiotics. Her WBC count was 13K, lactate was around 6 and she was found to have an MARGOT on labs. Past Medical/Surgical History Medical Problems: (1) Afib Status: Chronic (2) Anticoagulated on warfarin Status: Chronic (3) Aortic stenosis Status: Chronic (4) Bacon esophagus Status: Chronic (5) Chronic diastolic (congestive) heart failure Status: Chronic (6) CKD (chronic kidney disease), stage III Status: Chronic (7) DM type 2 (diabetes mellitus, type 2) Status: Chronic (8) Dyslipidemia Status: Chronic (9) Ear lobe laceration Status: Resolved (10) Fall Status: Resolved (11) GERD (gastroesophageal reflux disease) Status: Chronic (12) Glaucoma Status: Chronic (13) Heart disease Status: Chronic (14) HTN (hypertension) Status: Chronic (15) Kidney disease Status: Chronic (16) T2DM (type 2 diabetes mellitus) Status: Chronic Surgical Problems: (1) Hx of tubal ligation Status: Resolved Family History Diabetes mellitus Social History Smoking Status: Never Smoker Smokeless Tobacco Use: No Alcohol Use: none Drug Use: none Housing status: lives with family Occupational Status: unemployed Immunizations History of Influenza Vaccine: Yes History of Tetanus Vaccine?: Yes History of Pneumococcal: Yes History of Hepatitis B Vaccine: No Multi-Drug Resistant Organisms History of MDRO: No Allergies Coded Allergies: No Known Allergies (Unverified , 05/01/17) Home Medications Scheduled Aspirin (Aspirin Ec), 81 MG PO DAILY Calcitriol (Rocaltrol Cap), 0.25 MCG PO 2XWK Cholecalciferol (Vitamin D3), 1,000 INTER.UNIT PO DAILY Furosemide (Lasix), 40 MG PO QAM Furosemide (Lasix), 20 MG PO AFTERNOON Insulin Human Isophan/Regular (Novolin 70/30), 24 UNITS SC QAM Insulin Isophan/Regular (Novolin 70/30), 12 UNITS SQ QPM Iron-Vitamin C (Vitron-C), 1 TAB PO DAILY Metoprolol Tartrate (Lopressor), 75 MG PO QAM Metoprolol Tartrate (Lopressor), 50 MG PO QPM Omeprazole (Prilosec), 40 MG PO QAM Oxybutynin Chloride (Oxybutynin Chloride ER), 10 MG PO DAILY Potassium Ext Rel (Klor-Con), 20 MEQ PO QAM Simvastatin (Zocor), 10 MG PO HS Timolol Maleate (Ophth) (Timoptic-Xe 0.5% Oph), 1 DROP OPL DAILY Warfarin Sodium (Warfarin Sodium), 1 MG PO QPM Review of Systems At least ten systems were reviewed and negative except as indicated in HPI Physical Exam Vital Signs Date Time Temp Pulse Resp B/P (MAP) Pulse Ox O2 Delivery O2 Flow Rate FiO2 06/10/17 19:59 85 Non-Rebreather 15.0 06/10/17 19:57 97 20 93/56 75 Room Air 06/10/17 18:38 108 18 94/73 2/24/18 18:15 108/61 06/10/17 17:03 117 98/76 06/10/17 16:59 118 104/70 Room Air 06/10/17 16:52 126 06/10/17 16:47 104/70 06/10/17 16:30 114 28 57/38 06/10/17 16:15 36.4 128 32 87/69 Room Air General Appearance: + mild distress (from pain), + obese Head: normocephalic, atraumatic, + pertinent finding (missing teeth) Eyes: normal inspection, sclerae normal ENT: hearing grossly normal Neck: no JVD, trachea midline Respiratory/Chest: lungs clear, normal breath sounds, no respiratory distress, no accessory muscle use Cardiovascular: no edema, no murmur, normal peripheral pulses, + tachycardia, + irregularly irregular Abdomen/GI: normal bowel sounds, non tender, soft Genitourinary - Female: + pertinent finding (inguinal area seen to have erythema in skin folds, but pt would not allow full evaluation 2/2 pain) Back: + pertinent finding (could not evaluate her back as she was in too much pain) Extremities/Musculoskelatal: no pedal edema, + pertinent finding (restriction flexion/extension of her knees, no knee effusions, medial upper R thigh erythematous with small epidermal level abrasion like a rug burn, RLE with warmth and erythema to mid calhoun, skin normal on LLE.) Neurologic/Psych: 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, alert, normal mood/affect, oriented x 3 Skin: normal color, + pertinent finding (skin findings as above) Diagnostics Laboratory Results 06/10/17 17:48 Red Blood Count 4.89, Mean Corpuscular Volume 70.3, Mean Corpuscular Hemoglobin 22.3, Mean Corpuscular Hemoglobin Concent 31.7, Mean Platelet Volume 9.5, Neutrophils (%) (Auto) 85.3, Lymphocytes (%) (Auto) 5.3, Monocytes (%) (Auto) 8.7, Eosinophils (%) (Auto) 0.2, Basophils (%) (Auto) 0.1, Neutrophils # (Auto) 11.25, Lymphocytes # (Auto) 0.70, Monocytes # (Auto) 1.14, Eosinophils # (Auto) 0.02, Basophils # (Auto) 0.01 06/10/17 17:48 Test 06/10/17 17:06 06/10/17 17:45 06/10/17 17:48 06/10/17 19:43 Bedside Lactic Acid Venous 6.84 mmol/L (0.90-1.70) Influenza Type A (RT-PCR) Neg for Influ A (NEG) Influenza Type B (RT-PCR) Neg for Influ B (NEG) White Blood Count 13.17 K/uL (4.8-10.8) Red Blood Count 4.89 M/uL (4.2-5.4) Hemoglobin 10.9 g/dL (12.0-16.0) Hematocrit 34.4 % (37-47) Mean Corpuscular Volume 70.3 fL (80-100) Mean Corpuscular Hemoglobin 22.3 pg (25-34) Mean Corpuscular Hemoglobin Concent 31.7 g/dl (32-36) Platelet Count 278 K/uL (130-400) Mean Platelet Volume 9.5 fL (7.4-10.4) Neutrophils (%) (Auto) 85.3 % Lymphocytes (%) (Auto) 5.3 % Monocytes (%) (Auto) 8.7 % Eosinophils (%) (Auto) 0.2 % Basophils (%) (Auto) 0.1 % Neutrophils # (Auto) 11.25 K/uL (1.4-6.5) Lymphocytes # (Auto) 0.70 K/uL (1.2-3.4) Monocytes # (Auto) 1.14 K/uL (0.11-0.59) Eosinophils # (Auto) 0.02 K/uL (0-0.5) Basophils # (Auto) 0.01 K/uL (0-0.2) RDW Standard Deviation 47.1 fL (36.4-46.3) RDW Coefficient of Variation 20.3 % (11.5-14.5) Immature Granulocyte % (Auto) 0.4 % Immature Granulocyte # (Auto) 0.05 K/uL (0.00-0.02) Hypochromasia PRESENT Anisocytosis PRESENT Echinocytes 1+ Erythrocyte Sedimentation Rate 57 mm/hr (0-21) Prothrombin Time 36.9 SECONDS (9.0-12.0) Prothromb Time International Ratio 3.6 (0.9-1.1) Activated Partial Thromboplast Time 41.9 SECONDS (21.0-31.0) Partial Thromboplastin Ratio 1.6 Anion Gap 11.0 mmol/L (3-11) Est Creatinine Clear Calc Drug Dose 18.3 ml/min Estimated GFR () 21.6 Estimated GFR (Non- 18.6 BUN/Creatinine Ratio 22.7 (10-20) Calcium Level 8.6 mg/dl (8.5-10.1) Phosphorus Level 3.8 mg/dl (2.5-4.9) Magnesium Level 2.4 mg/dl (1.8-2.4) Total Bilirubin 1.7 mg/dl (0.2-1) Aspartate Amino Transf (AST/SGOT) 33 U/L (15-37) Alanine Aminotransferase (ALT/SGPT) 21 U/L (12-78) Alkaline Phosphatase 114 U/L (45-117) C-Reactive Protein 15.50 mg/dl (0-0.29) Total Protein 6.7 gm/dl (6.4-8.2) Albumin 2.3 gm/dl (3.4-5.0) Globulin 4.4 gm/dl (2.5-4.0) Albumin/Globulin Ratio 0.5 (0.9-2) Procalcitonin 3.10 ng/ml (0-0.5) Test 06/10/17 20:02 Date/Time Source Procedure Growth Status 06/10/17 17:18 Blood Blood Culture Pending Received 06/10/17 16:40 Ulcer Thigh , Right Gram Stain Pending Received 06/10/17 16:40 Ulcer Thigh , Right Wound Culture Pending Received Results Past 24 Hours Test 06/10/17 17:06 06/10/17 17:45 06/10/17 17:48 06/10/17 19:43 Range/Units Bedside Lactic Acid Venous 6.84 0.90-1.70 mmol/L Influenza Type A (RT-PCR) Neg for Influ A NEG Influenza Type B (RT-PCR) Neg for Influ B NEG White Blood Count 13.17 4.8-10.8 K/uL Red Blood Count 4.89 4.2-5.4 M/uL Hemoglobin 10.9 12.0-16.0 g/dL Hematocrit 34.4 37-47 % Mean Corpuscular Volume 70.3 80-100 fL Mean Corpuscular Hemoglobin 22.3 25-34 pg Mean Corpuscular Hemoglobin Concent 31.7 32-36 g/dl Platelet Count 278 130-400 K/uL Mean Platelet Volume 9.5 7.4-10.4 fL Neutrophils (%) (Auto) 85.3 % Lymphocytes (%) (Auto) 5.3 % Monocytes (%) (Auto) 8.7 % Eosinophils (%) (Auto) 0.2 % Basophils (%) (Auto) 0.1 % Neutrophils # (Auto) 11.25 1.4-6.5 K/uL Lymphocytes # (Auto) 0.70 1.2-3.4 K/uL Monocytes # (Auto) 1.14 0.11-0.59 K/uL Eosinophils # (Auto) 0.02 0-0.5 K/uL Basophils # (Auto) 0.01 0-0.2 K/uL RDW Standard Deviation 47.1 36.4-46.3 fL RDW Coefficient of Variation 20.3 11.5-14.5 % Immature Granulocyte % (Auto) 0.4 % Immature Granulocyte # (Auto) 0.05 0.00-0.02 K/uL Hypochromasia PRESENT Anisocytosis PRESENT Echinocytes 1+ Erythrocyte Sedimentation Rate 57 0-21 mm/hr Prothrombin Time 36.9 9.0-12.0 SECONDS Prothromb Time International Ratio 3.6 0.9-1.1 Activated Partial Thromboplast Time 41.9 21.0-31.0 SECONDS Partial Thromboplastin Ratio 1.6 Sodium Level 130 136-145 mmol/L Potassium Level 5.0 3.5-5.1 mmol/L Chloride Level 100 98-107 mmol/L Carbon Dioxide Level 19 21-32 mmol/L Anion Gap 11.0 3-11 mmol/L Blood Urea Nitrogen 52 7-18 mg/dl Creatinine 2.30 0.60-1.20 mg/dl Est Creatinine Clear Calc Drug Dose 18.3 ml/min Estimated GFR () 21.6 Estimated GFR (Non- 18.6 BUN/Creatinine Ratio 22.7 10-20 Random Glucose 138 70-99 mg/dl Calcium Level 8.6 8.5-10.1 mg/dl Phosphorus Level 3.8 2.5-4.9 mg/dl Magnesium Level 2.4 1.8-2.4 mg/dl Total Bilirubin 1.7 0.2-1 mg/dl Aspartate Amino Transf (AST/SGOT) 33 15-37 U/L Alanine Aminotransferase (ALT/SGPT) 21 12-78 U/L Alkaline Phosphatase 114 45-117 U/L C-Reactive Protein 15.50 0-0.29 mg/dl Total Protein 6.7 6.4-8.2 gm/dl Albumin 2.3 3.4-5.0 gm/dl Globulin 4.4 2.5-4.0 gm/dl Albumin/Globulin Ratio 0.5 0.9-2 Procalcitonin 3.10 0-0.5 ng/ml Test 06/10/17 20:02 Range/Units Microbiology Results 06/10/17 Blood Culture, Received Pending 06/10/17 Blood Culture, Received Pending 06/10/17 Gram Stain, Received Pending 06/10/17 Wound Culture, Received Pending Diagnostic Radiology ULTRASOUND R VENOUS DOPP LOWER EXT UNILAT CLINICAL HISTORY: RLE pain, cellulitis, wound inner thigh/inguinal fold COMPARISON STUDY: No previous studies for comparison. FINDINGS: Real-time and color flow Doppler imaging were performed. Flow was seen within the femoral, popliteal and calf veins with no intraluminal thrombus demonstrated. The saphenous vein is patent. IMPRESSION: No evidence of right lower extremity DVT. CHEST ONE VIEW PORTABLE CLINICAL HISTORY: Sepsis COMPARISON STUDY: 04/15/2017 FINDINGS: The heart is mildly enlarged. There are persistent but decreasing bilateral pleural effusions. There are persistent right basilar airspace opacities.[ IMPRESSION: Persistent but decreasing bilateral pleural effusions. Associated right basilar airspace opacities, likely atelectatic although a superimposed pneumonia could appear similar. CT HEAD WITHOUT CONTRAST (CT) CLINICAL HISTORY: Weakness, sepsis. COMPARISON STUDY: 12/19/2016 TECHNIQUE: Axial CT of the brain is performed from the vertex to the skull base. IV contrast was not administered for this examination. A dose lowering technique was utilized adhering to the principles of ALARA. CT DOSE: 537.48 mGy.cm FINDINGS: No intra or extra-axial mass lesions are visualized. There is no CT evidence of acute cortical infarction. There is no evidence of midline shift. There is no acute hemorrhage. No calvarial fractures are visualized. There are patchy white matter hypodensities likely on a small vessel basis. There is mild ventricular dilatation, finding which is felt to be secondary to volume loss There is no evidence of acute sinusitis. 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 IMPRESSION: No acute intracranial findings EKG afib w RVR, 126 Impression Assessment and Plan 87 yo F with apparent sepsis 2/2 cellulitis of the R leg. 1. Sepsis 2/2 RLE cellulitis. Workup not complete for other sources including urine. Responded well to IVF resuscitation. Received broad spectrum abx in the ER. HR came down and BP improved to the one-teens. Continuing with Vanc and Zosyn. Holding on further IVF in the setting of known bilateral pleural effusions, h/o CHF and aortic stenosis. Repeat labwork in a few hours. Pt already starting to appear improved. Will monitor closely on telemetry. 2. DMII-ISS/glargine with carb coverage 3. Atrial fibrillation with RVR-HR improved with IVF. Will cont home dose metoprolol, coumadin on hold with supretherapeutic INR at 3.6. 4. MARGOT in CKD III-cont calcitriol twice weekly per home regimen. Reassess after IVF 5. Chronic diastolic heart failure-compensated, holding diuretic in setting of sepsis 6. Hyponatremia-reassess after IVF 7. Anemia-stable at her baseline. No evidence of bleeding or need for transfusion at this time. 9. Leukocytosis likely 2/2 stress or infection 10. Lactic acidosis-likely 2/2 sepsis. Reassess after initial resuscitation efforts. DVT proph-coumadin Full Code per my discussion with her on admission. Family was present including her daughter who is POA. All questions and concerns by family were addressed. Dispo-to telemetry. DO Ness [facility] Hospitalist Level of Care Telemetry Resuscitation Status FULL RESUSCITATION VTE Prophylaxis Given or contraindicated: Warfarin (Coumadin)
[2017-06-10] MEDS ORDERED: TIMO0.5S2 OPL (20:55)
[2017-06-10] MEDS ORDERED: OMEP40CA41 PO (21:28)
[2017-06-10] MEDS ORDERED: INSU70IN2 SQ (21:30)
[2017-06-10] MEDS ORDERED: SIMV10TA2 PO (21:31)
[2017-06-10] MEDS ORDERED: DTRSR/10 PO (21:36)
[2017-06-10] MEDS ORDERED: CALC0.2510 PO (21:36)
[2017-06-10] MEDS ORDERED: ASPI81TA28 PO (21:37)
[2017-06-10] MEDS ORDERED: CHOL1000 PO (21:38)
[2017-06-10] MEDS ORDERED: NURSING DECISION MEDICATION ORDER SCH (22:00)
[2017-06-10] MEDS ORDERED: MICONAZOLE NITRATE POWDER 43 GM EXT PRN (22:00)
[2017-06-10 22:35] VITALS: BP 97/67; PULSE 87; TEMP 36.5; O2SAT 95; BMI 31.2
[2017-06-10 23:02] LABS: CALCIUM 8.5 mg/dl (8.5-10.1); CREATININE 2.25 mg/dl (0.60-1.20); POTASSIUM 4.6 mmol/L (3.5-5.1)
[2017-06-10 23:59] VITALS: BP 98/64; PULSE 90; TEMP 36.3; O2SAT 93
[2017-06-11] VITALS (13 sets, daily range): BP systolic 96–104; BP diastolic 52–65; PULSE 86–97; TEMP 34.5–36.4; O2SAT 94–100; BMI 31.2
[2017-06-11] MEDS ORDERED: PIPERACILL/TAZOBAC IV 4.5 GM in DEXTROSE 5% 100ML 100 ML IV SCH ×2
[2017-06-11] MEDS ORDERED: VANCOMYCIN INJ 1,750 MG in SODIUM CHLORIDE 0.9% 500ML 500 ML IV SCH ×2
[2017-06-11] MEDS: METOPROLOL TARTRATE 50 MG TAB PO SCH ×3 (00:09→21:09)
[2017-06-11] MEDS: INSULIN ASPART 100 UNITS/ML 3 ML PEN SC SCH ×5 (00:11→21:00)
[2017-06-11] MEDS: PIPERACILL/TAZOBAC IV 3.375 GM in DEXTROSE 5% 100ML IV SCH ×3 (00:11→23:53)
[2017-06-11] MEDS: INSULIN GLARGINE SOLOSTAR 100 UNITS/ML 3 ML PEN SC SCH ×3 (00:13→21:08)
--- NOTE | 2017-06-11 00:46 | EMERGENCY ROOM VISIT NOTE ---
History First contact with patient: 16:12 Chief Complaint: KNEEPAIN Stated Complaint: R KNEE PAIN History of Present Illness The patient is a 87 year old female who presents to the Emergency Room via ambulance for evaluation of right lower extremity pain and skin wounds of the medial right thigh and right groin region. The patient has a history of diabetes, atrial fibrillation on Coumadin, and lymphadenopathy. The patient lives with her son, and the son reports that she has been complaining or right lower extremity pain for the past month. As the family was bathing her this morning, she slid out of her chair. The family then noticed redness of her right inner thigh and right groin region. They applied Vaseline to both wounds. When they were unable to get her diaper back on and off of the floor, they called 911. The patient currently rates her pain a 10 out of 10. The son does not feel that she is altered. The family denies any other recent illnesses with the patient. PCP is Dr. Parks. Review of Systems HEENT: Denies dizziness, visual problems, hearing loss, tinnitus. Denies difficulty swallowing or oral lesions. PULMONARY: Denies cough, shortness of breath, sputum production or hemoptysis. CARDIOVASCULAR: Denies chest pain, palpitations, dyspnea on exertion, orthopnea or peripheral edema. GASTROINTESTINAL: Denies diarrhea, constipation, nausea, vomiting, or abdominal pain. GENITOURINARY: Denies dysuria, frequency, urgency or nocturia. NEUROLOGIC: Denies history of epilepsy, CVA, TIA or chronic headaches. MUSCULOSKELETAL: Reports history of right knee arthritis. SKIN: History of lymphedema. PSYCHIATRIC: Denies history of depression or mental illness. ENDOCRINE: History of diabetes. Past Medical/Surgical History Medical Problems: (1) Afib (2) Anticoagulated on warfarin (3) Aortic stenosis (4) Atrial fibrillation (5) Bacon esophagus (6) Chronic diastolic (congestive) heart failure (7) CKD (chronic kidney disease), stage III (8) DM type 2 (diabetes mellitus, type 2) (9) Dyslipidemia (10) Ear lobe laceration (11) Fall (12) GERD (gastroesophageal reflux disease) (13) Glaucoma (14) Heart disease (15) HTN (hypertension) (16) Kidney disease (17) Sepsis (18) T2DM (type 2 diabetes mellitus) Surgical Problems: (1) Hx of tubal ligation Family History Diabetes mellitus Social History Smoking Status: Never Smoker Alcohol Use: none Drug Use: none Housing Status: lives with family Occupation Status: unemployed Current/Historical Medications Scheduled Aspirin (Aspirin Ec), 81 MG PO DAILY Calcitriol (Rocaltrol Cap), 0.25 MCG PO 2XWK Cholecalciferol (Vitamin D3), 1,000 INTER.UNIT PO DAILY Furosemide (Lasix), 40 MG PO QAM Furosemide (Lasix), 20 MG PO AFTERNOON Insulin Human Isophan/Regular (Novolin 70/30), 24 UNITS SC QAM Insulin Isophan/Regular (Novolin 70/30), 12 UNITS SQ QPM Iron-Vitamin C (Vitron-C), 1 TAB PO DAILY Metoprolol Tartrate (Lopressor), 75 MG PO QAM Metoprolol Tartrate (Lopressor), 50 MG PO QPM Omeprazole (Prilosec), 40 MG PO QAM Oxybutynin Chloride (Oxybutynin Chloride ER), 10 MG PO DAILY Potassium Ext Rel (Klor-Con), 20 MEQ PO QAM Simvastatin (Zocor), 10 MG PO HS Timolol Maleate (Ophth) (Timoptic-Xe 0.5% Oph), 1 DROP OPL DAILY Warfarin Sodium (Warfarin Sodium), 1 MG PO QPM Physical Exam Vital Signs Date Time Temp Pulse Resp B/P (MAP) Pulse Ox O2 Delivery O2 Flow Rate FiO2 06/10/17 20:50 100 06/10/17 20:42 96 17 107/53 100 Nasal Cannula 5.0 06/10/17 19:59 85 Non-Rebreather 15.0 06/10/17 19:57 97 20 93/56 75 Room Air 06/10/17 18:38 108 18 94/73 06/10/17 18:15 108/61 06/10/17 17:03 117 98/76 06/10/17 16:59 118 104/70 Room Air 06/10/17 16:52 126 06/10/17 16:47 104/70 06/10/17 16:30 114 28 57/38 06/10/17 16:15 36.4 128 32 87/69 Room Air Physical Exam CONSTITUTIONAL: Healthy and well nourished. Alert and oriented X 3 with positive affect. Patient appears in moderate discomfort. HEENT: Normocephalic, atraumatic. Pupils equal, round and reactive. Ears and nares are clear. No scleral icterus or conjunctival injection/pallor. OROPHARYNX: Mucous membranes are dry. No tonsillar hypertrophy or exudates. NECK: Full active range of motion without discomfort. No nuchal rigidity or meningeal signs. RESPIRATORY: Clear to auscultation bilaterally with no wheezing, crackles, rhonchi or stridor. CARDIOVASCULAR: The cardiac with no murmurs, rubs or gallops. GASTROINTESTINAL: Bowel sounds present in all quadrants. Soft and nontender to palpation. MUSCULOSKELETAL: Full range of motion of all joints without discomfort. Examination of the lower extremity shows moderate edema bilaterally. Patient has a negative logroll of the right hip. She has no other focal tenderness to palpation through the medial or lateral joint lines of the knee. Further range of motion of the knee was deferred because of patient discomfort. INTEGUMENTARY: Examination shows open draining wounds over the right medial thigh and right inguinal region. No purulence or underlying fluctuance noted. HEMATOLOGIC: No ecchymosis or petechiae noted. NEUROLOGIC: No focal neurologic deficits noted. Medical Decision & Procedures ER Provider Diagnostic Interpretation: My interpretation of an ECG shows atrial fibrillation with a ventricular rate of 126 bpm. Left axis deviation and low voltage QRS is noted. My interpretation of a portable chest x-ray shows pleural effusions without pneumothorax. Radiologist report is as follows: CHEST ONE VIEW PORTABLE CLINICAL HISTORY: Sepsis COMPARISON STUDY: 04/15/2017 FINDINGS: The heart is mildly enlarged. There are persistent but decreasing bilateral pleural effusions. There are persistent right basilar airspace opacities.[ IMPRESSION: Persistent but decreasing bilateral pleural effusions. Associated right basilar airspace opacities, likely atelectatic although a superimposed pneumonia could appear similar. Venous ultrasound of the right lower extremity is negative for deep vein thrombosis. Radiologist report is as follows: ULTRASOUND R VENOUS DOPP LOWER EXT UNILAT CLINICAL HISTORY: RLE pain, cellulitis, wound inner thigh/inguinal fold COMPARISON STUDY: No previous studies for comparison. FINDINGS: Real-time and color flow Doppler imaging were performed. Flow was seen within the femoral, popliteal and calf veins with no intraluminal thrombus demonstrated. The saphenous vein is patent. IMPRESSION: No evidence of right lower extremity DVT. Laboratory Results 06/10/17 17:48 Red Blood Count 4.89, Mean Corpuscular Volume 70.3, Mean Corpuscular Hemoglobin 22.3, Mean Corpuscular Hemoglobin Concent 31.7, Mean Platelet Volume 9.5, Neutrophils (%) (Auto) 85.3, Lymphocytes (%) (Auto) 5.3, Monocytes (%) (Auto) 8.7, Eosinophils (%) (Auto) 0.2, Basophils (%) (Auto) 0.1, Neutrophils # (Auto) 11.25, Lymphocytes # (Auto) 0.70, Monocytes # (Auto) 1.14, Eosinophils # (Auto) 0.02, Basophils # (Auto) 0.01 Test 06/10/17 17:06 06/10/17 17:45 06/10/17 17:48 06/10/17 20:29 Bedside Lactic Acid Venous 6.84 mmol/L (0.90-1.70) Influenza Type A (RT-PCR) Neg for Influ A (NEG) Influenza Type B (RT-PCR) Neg for Influ B (NEG) White Blood Count 13.17 K/uL (4.8-10.8) Red Blood Count 4.89 M/uL (4.2-5.4) Hemoglobin 10.9 g/dL (12.0-16.0) Hematocrit 34.4 % (37-47) Mean Corpuscular Volume 70.3 fL (80-100) Mean Corpuscular Hemoglobin 22.3 pg (25-34) Mean Corpuscular Hemoglobin Concent 31.7 g/dl (32-36) Platelet Count 278 K/uL (130-400) Mean Platelet Volume 9.5 fL (7.4-10.4) Neutrophils (%) (Auto) 85.3 % Lymphocytes (%) (Auto) 5.3 % Monocytes (%) (Auto) 8.7 % Eosinophils (%) (Auto) 0.2 % Basophils (%) (Auto) 0.1 % Neutrophils # (Auto) 11.25 K/uL (1.4-6.5) Lymphocytes # (Auto) 0.70 K/uL (1.2-3.4) Monocytes # (Auto) 1.14 K/uL (0.11-0.59) Eosinophils # (Auto) 0.02 K/uL (0-0.5) Basophils # (Auto) 0.01 K/uL (0-0.2) RDW Standard Deviation 47.1 fL (36.4-46.3) RDW Coefficient of Variation 20.3 % (11.5-14.5) Immature Granulocyte % (Auto) 0.4 % Immature Granulocyte # (Auto) 0.05 K/uL (0.00-0.02) Hypochromasia PRESENT Anisocytosis PRESENT Echinocytes 1+ Erythrocyte Sedimentation Rate 57 mm/hr (0-21) Prothrombin Time 36.9 SECONDS (9.0-12.0) Prothromb Time International Ratio 3.6 (0.9-1.1) Activated Partial Thromboplast Time 41.9 SECONDS (21.0-31.0) Partial Thromboplastin Ratio 1.6 Phosphorus Level 3.8 mg/dl (2.5-4.9) Total Bilirubin 1.7 mg/dl (0.2-1) Aspartate Amino Transf (AST/SGOT) 33 U/L (15-37) Alanine Aminotransferase (ALT/SGPT) 21 U/L (12-78) Alkaline Phosphatase 114 U/L (45-117) C-Reactive Protein 15.50 mg/dl (0-0.29) Total Protein 6.7 gm/dl (6.4-8.2) Albumin 2.3 gm/dl (3.4-5.0) Globulin 4.4 gm/dl (2.5-4.0) Albumin/Globulin Ratio 0.5 (0.9-2) Procalcitonin 3.10 ng/ml (0-0.5) Lactic Acid Level 3.6 mmol/L (0.4-2.0) The above labs were reviewed. Bedside lactate is markedly elevated at 6.84. The CBC is 0.17 sodium is 1:30. Creatinine 2.3. Influenza screen is negative. INR is 3.6. Sedimentation rate and CRP are elevated. LFTs are normal. Pro calcitonin is 3.1. Blood cultures 2 were collected and are pending. Surface wound cultures and gram stains were also ordered and pending. Medications Administered Medications (Trade) Dose Ordered Sig/Gustavo Route Start Time Stop Time Status Last Admin Dose Admin Sodium Chloride 1,000 ml @ 999 mls/hr Q1H1M ONCE IV 06/10/17 16:30 06/10/17 17:30 DC 06/10/17 16:30 999 MLS/HR Piperacillin Sod/ Tazobactam Sod (Zosyn Iv) 4.5 gm ONE STAT IV 06/10/17 16:46 06/10/17 16:50 DC 06/10/17 17:28 4.5 GM Daptomycin 500 mg/ Sodium Chloride 60 ml @ 100 mls/hr ONE STAT IV 06/10/17 16:46 06/10/17 17:21 DC 06/10/17 17:28 100 MLS/HR Sodium Chloride 1,000 ml @ 999 mls/hr Q1H1M STAT IV 06/10/17 17:15 06/10/17 18:15 DC 06/10/17 17:15 999 MLS/HR Insulin Glargine (Lantus Solostar Pen) 14 units Q12 SC 06/10/17 21:00 07/10/17 20:59 06/11/17 00:13 14 UNITS Acetaminophen (Tylenol Tab) 1,000 mg NOW STAT PO 06/10/17 19:59 06/10/17 20:00 DC 06/10/17 20:16 1,000 MG ED Course Patient history and physical exam were performed. Nurse's notes were reviewed. History was collected through 2 daughters and son who were present. Vital signs were reviewed. The patient was initially afebrile. She was hypotensive and tachycardic with a blood pressure of 87/69 and pulse rate of 128. Respiratory rate was 32. Initial oral temperature was difficult with capillary refill greater than 3 seconds of bilateral fingers as well. Upon recheck of vital signs, her blood pressure was 57/38. Recheck in 15 minutes showed a rebounding pressure 104/70. In the meantime, IV access was established, and the patient was ordered 2 L of normal saline per sepsis protocol. The patient was placed on ec teacher. The patient was initially administered O2 via nonrebreather, then was initially switched to nasal cannula. ECG shows atrial fibrillation with a rapid ventricular response. Portable chest x-ray shows bibasilar atelectasis, although pneumonia cannot be ruled out. Venous ultrasound of the right lower extremity was also normal. Bedside lactate was elevated at 6.84. The patient was administered IV Zosyn and daptomycin as quickly as possible once lactate level was collected. Labs were reviewed to also show hyponatremia and acute kidney injury. The patient does have a history of stage III chronic kidney disease. The patient was also seen and examined by Dr. Willis, ED attending physician , who agrees with hospitalist consultation and admission. The case was then discussed with Dr. Hernandez, [facility] hospitalist. Please see their dictation for further treatment and final disposition. Medical Decision I suspect the patient is septic secondary to right lower extremity cellulitis. Further workup to rule out urinary tract infection and blood cultures are currently pending. The patient was treated with Dermabond spectrum antibiotics. The patient was also aggressively hydrated with IV fluids. The patient did have improvement of her tachycardia and hypotension with IV hydration. The patient will need to be hydrated carefully with her history of CHF. [place] Drug Monitoring Program Search Results: patient reviewed within database Medication Reconcilliation Current Medication List: was personally reviewed by nm Blood Pressure Screening Patient's blood pressure: Low blood pressure Impression Primary Impression: Sepsis Additional Impressions: Cellulitis of right lower extremity Acute kidney injury superimposed on CKD Atrial fibrillation with rapid ventricular response Critical Care I have personally spent greater than 30 minutes of critical care time in the direct management of this patient. This includes bedside care, interpretation of diagnostic studies, and testing, discussion with consultants, patient, and family members, and other required patient management activities. This 30 minutes is in excess of all separately billable procedures. Blood pressure was labile while in the emergency department. The patient was aggressively hydrated with normal saline. The patient did not require further aggressive O2 supplementation. She had no adverse events while in the emergency department. Departure Information Referrals Nilo Parks M.D. (PCP) Patient Instructions My [facility] Problem Qualifiers Primary Impression: Sepsis Sepsis type: sepsis due to unspecified organism Qualified Codes: A41.9 - Sepsis, unspecified organism
[2017-06-11 07:00] LABS: BASO % 0.2 %; BASO ABS # 0.02 K/uL (0-0.2); EOS % 0.2 %; EOS ABS # 0.02 K/uL (0-0.5); HEMATOCRIT 30.6 % (37-47); HEMOGLOBIN 9.5 g/dL (12.0-16.0); IG# 0.05 K/uL (0.00-0.02); LYMPH % 6.7 %; LYMPH ABS # 0.85 K/uL (1.2-3.4); MEAN CORPUSCULAR HEMOGLOBIN 21.7 pg (25-34); MEAN PLATELET VOLUME 9.2 fL (7.4-10.4); MONO ABS # 0.76 K/uL (0.11-0.59); NEUT % 86.5 %; NEUT ABS # 10.93 K/uL (1.4-6.5); PLATELET COUNT 218 K/uL (130-400); RED CELL DISTRIBUTION WIDTH SD 47.5 fL (36.4-46.3); WHITE BLOOD COUNT 12.63 K/uL (4.8-10.8)
[2017-06-11 07:19] LABS: INR 3.6 (0.9-1.1)
--- NOTE | 2017-06-11 07:32 | DIAGNOSTIC IMAGING REPORT ---
CHEST ONE VIEW PORTABLE CLINICAL HISTORY: sepsis, poss developing pneumonia on initial CXR COMPARISON STUDY: 06/10/2017 FINDINGS: The cardiac and mediastinal contours remain stable. There is calcification within the mitral valve annulus. There is elevation of the interstitium consistent with mild pulmonary vascular congestion/fluid overload. There is a small right pleural effusion. Right basilar airspace opacities, are likely atelectatic.[ A trace left pleural effusion is also suspected IMPRESSION: 1. Radiographic evidence of mild pulmonary vascular congestion/fluid overload 2. Small bilateral pleural effusions right greater than left 3. Stable right basal airspace opacities, likely atelectatic Electronically signed by: Martínez Layton M.D. 06/11/2017 7:31 AM Dictated Date/Time: 06/11/2017 7:29 AM
[2017-06-11 07:34] LABS: CREATININE 2.35 mg/dl (0.60-1.20); POTASSIUM 5.1 mmol/L (3.5-5.1)
[2017-06-11] MEDS: ASPIRIN 81 MG ECTAB PO SCH (07:58)
[2017-06-11] MEDS: CHOLECALCIFEROL 1000 INTER.UNIT TAB PO SCH (08:01)
[2017-06-11] MEDS: PANTOprazole SOD 40 MG TAB PO SCH (08:02)
[2017-06-11] MEDS ORDERED: SODIUM CHLORIDE 0.9% 1000ML 1,000 ML IV SCH (08:15)
[2017-06-11] MEDS ORDERED: SODIUM CHLORIDE 0.9% 500ML 500 ML IV ONE (09:00)
--- NOTE | 2017-06-11 12:29 | Pharmacy Progress Note ---
Pharmacy Antibiotic Consult Date of Service: Jun 11, 2017. Pharmacy Dosing Scope Pharmacy is consulted to initiate Vancomycin and Zosyn IV dosing therapy, order appropriate labs and adjust drug dose/frequency. Subjective The patient is a 87 year old female admitted on Jun 10, 2017 at 21:19. Objective Height (Feet): 5 Height (Inches): 4.00 Weight (Kilograms): 82.400 Lab Results (24hrs): Test 06/10/17 17:06 06/10/17 17:45 06/10/17 17:48 06/10/17 22:24 Bedside Lactic Acid Venous 6.84 mmol/L (0.90-1.70) Influenza Type A (RT-PCR) Neg for Influ A (NEG) Influenza Type B (RT-PCR) Neg for Influ B (NEG) White Blood Count 13.17 K/uL (4.8-10.8) Red Blood Count 4.89 M/uL (4.2-5.4) Hemoglobin 10.9 g/dL (12.0-16.0) Hematocrit 34.4 % (37-47) Mean Corpuscular Volume 70.3 fL (80-100) Mean Corpuscular Hemoglobin 22.3 pg (25-34) Mean Corpuscular Hemoglobin Concent 31.7 g/dl (32-36) Platelet Count 278 K/uL (130-400) Mean Platelet Volume 9.5 fL (7.4-10.4) Neutrophils (%) (Auto) 85.3 % Lymphocytes (%) (Auto) 5.3 % Monocytes (%) (Auto) 8.7 % Eosinophils (%) (Auto) 0.2 % Basophils (%) (Auto) 0.1 % Neutrophils # (Auto) 11.25 K/uL (1.4-6.5) Lymphocytes # (Auto) 0.70 K/uL (1.2-3.4) Monocytes # (Auto) 1.14 K/uL (0.11-0.59) Eosinophils # (Auto) 0.02 K/uL (0-0.5) Basophils # (Auto) 0.01 K/uL (0-0.2) RDW Standard Deviation 47.1 fL (36.4-46.3) RDW Coefficient of Variation 20.3 % (11.5-14.5) Immature Granulocyte % (Auto) 0.4 % Immature Granulocyte # (Auto) 0.05 K/uL (0.00-0.02) Hypochromasia PRESENT Anisocytosis PRESENT Echinocytes 1+ Erythrocyte Sedimentation Rate 57 mm/hr (0-21) Prothrombin Time 36.9 SECONDS (9.0-12.0) Prothromb Time International Ratio 3.6 (0.9-1.1) Activated Partial Thromboplast Time 41.9 SECONDS (21.0-31.0) Partial Thromboplastin Ratio 1.6 Phosphorus Level 3.8 mg/dl (2.5-4.9) Magnesium Level 2.4 mg/dl (1.8-2.4) 2.1 mg/dl (1.8-2.4) Total Bilirubin 1.7 mg/dl (0.2-1) Aspartate Amino Transf (AST/SGOT) 33 U/L (15-37) Alanine Aminotransferase (ALT/SGPT) 21 U/L (12-78) Alkaline Phosphatase 114 U/L (45-117) C-Reactive Protein 15.50 mg/dl (0-0.29) Total Protein 6.7 gm/dl (6.4-8.2) Albumin 2.3 gm/dl (3.4-5.0) Globulin 4.4 gm/dl (2.5-4.0) Albumin/Globulin Ratio 0.5 (0.9-2) Procalcitonin 3.10 ng/ml (0-0.5) Venous Blood pH 7.36 (7.36-7.41) Venous Blood Partial Pressure CO2 36 mmHg (38.0-50.0) Venous Blood Partial Pressure O2 40 mmHg Venous Blood HCO3 20 mmol/L Venous Blood Oxygen Saturation 68.7 % Venous Blood Base Excess -5.1 mEq/L Sodium Level 133 mmol/L (136-145) Potassium Level 4.6 mmol/L (3.5-5.1) Chloride Level 102 mmol/L (98-107) Carbon Dioxide Level 21 mmol/L (21-32) Anion Gap 10.0 mmol/L (3-11) Blood Urea Nitrogen 54 mg/dl (7-18) Creatinine 2.25 mg/dl (0.60-1.20) Est Creatinine Clear Calc Drug Dose 18.6 ml/min Estimated GFR () 22.2 Estimated GFR (Non- 19.1 BUN/Creatinine Ratio 24.0 (10-20) Random Glucose 147 mg/dl (70-99) Calcium Level 8.5 mg/dl (8.5-10.1) Test 06/10/17 23:20 06/11/17 06:41 06/11/17 07:11 06/11/17 11:09 Urine Color DK YELLOW Urine Appearance CLOUDY (CLEAR) Urine pH 5.0 (4.5-7.5) Urine Specific [place] 1.015 (1.000-1.030) Urine Protein TRACE (NEG) Urine Glucose (UA) NEG (NEG) Urine Ketones NEG (NEG) Urine Occult Blood NEG (NEG) Urine Nitrite NEG (NEG) Urine Bilirubin NEG (NEG) Urine Urobilinogen NEG (NEG) Urine Leukocyte Esterase MODERATE (NEG) Urine WBC (Auto) 5-10 /hpf (0-5) Urine RBC (Auto) 0-4 /hpf (0-4) Urine Hyaline Casts (Auto) 10-30 /lpf (0-5) Urine Epithelial Cells (Auto) >30 /lpf (0-5) Urine Bacteria (Auto) 3+ (NEG) Urine Renal Epithelial Cells /lpf (0-5) White Blood Count 12.63 K/uL (4.8-10.8) Red Blood Count 4.37 M/uL (4.2-5.4) Hemoglobin 9.5 g/dL (12.0-16.0) Hematocrit 30.6 % (37-47) Mean Corpuscular Volume 70.0 fL (80-100) Mean Corpuscular Hemoglobin 21.7 pg (25-34) Mean Corpuscular Hemoglobin Concent 31.0 g/dl (32-36) Platelet Count 218 K/uL (130-400) Mean Platelet Volume 9.2 fL (7.4-10.4) Neutrophils (%) (Auto) 86.5 % Lymphocytes (%) (Auto) 6.7 % Monocytes (%) (Auto) 6.0 % Eosinophils (%) (Auto) 0.2 % Basophils (%) (Auto) 0.2 % Neutrophils # (Auto) 10.93 K/uL (1.4-6.5) Lymphocytes # (Auto) 0.85 K/uL (1.2-3.4) Monocytes # (Auto) 0.76 K/uL (0.11-0.59) Eosinophils # (Auto) 0.02 K/uL (0-0.5) Basophils # (Auto) 0.02 K/uL (0-0.2) RDW Standard Deviation 47.5 fL (36.4-46.3) RDW Coefficient of Variation 20.0 % (11.5-14.5) Immature Granulocyte % (Auto) 0.4 % Immature Granulocyte # (Auto) 0.05 K/uL (0.00-0.02) Hypochromasia PRESENT Anisocytosis PRESENT Microcytosis PRESENT Echinocytes 1+ Prothrombin Time 36.7 SECONDS (9.0-12.0) Prothromb Time International Ratio 3.6 (0.9-1.1) Sodium Level 134 mmol/L (136-145) Potassium Level 5.1 mmol/L (3.5-5.1) Chloride Level 103 mmol/L (98-107) Carbon Dioxide Level 23 mmol/L (21-32) Anion Gap 8.0 mmol/L (3-11) Blood Urea Nitrogen 57 mg/dl (7-18) Creatinine 2.35 mg/dl (0.60-1.20) Est Creatinine Clear Calc Drug Dose 17.9 ml/min Estimated GFR () 21.0 Estimated GFR (Non- 18.1 BUN/Creatinine Ratio 24.3 (10-20) Random Glucose 187 mg/dl (70-99) Lactic Acid Level 2.6 mmol/L (0.4-2.0) Calcium Level 8.0 mg/dl (8.5-10.1) Bedside Glucose 202 mg/dl (70-90) 183 mg/dl (70-90) Test 06/11/17 11:41 Lactic Acid Level 2.0 mmol/L (0.4-2.0) Assessment & Plan Assessment 87 year old female with sepsis secondary to cellulitis of R leg. PMH: CKD stage III, DM, HTN, A fib, Bacon's esophagus * Recent admission in 05/04: treated with doxycycline for cellulitis and Rocephin for UTI. * Blood and urine cultures pending * Ulcer culture growing Gram + bacilli, preliminary * Baseline Scr ~1.5, currently at 2.3 Plan Vancomycin * Loading dose of 1750mg (21mg/kg) x 1. * Estimated T1/2 of 38 hours * Random level ordered for 06/12 with am labs. * Goal trough level for sepsis/cellulitis: 15-20 mcg/mL Zosyn * 4.5 gm loading dose in ER * 3.375 gm IV q 12 hours for crcl less than 20 mL/min Also received daptomycin 500mg IV x 1 in the ER on 06/10. Pharmacy will continue to follow and will adjust dose/frequency as necessary. Thank you
--- NOTE | 2017-06-11 15:06 | Progress Note ---
Medicine Progress Note Date & Time of Visit: Jun 11, 2017 at 12:09. Subjective 87 yo F with apparent sepsis 2/2 cellulitis of the R leg. On further exam she was found to have multiple areas of Stg II ulcerations on her sacral region when cleaned up on admission-these wounds reportedly had fecal matter and urine around them. She was also found to have a possible UTI. She has been resuscitated with a normal lactate and improvement in her hemodynamic stability , and is clinically better overall. She denies any pain in her legs and states that she doesn't feel weak or in pain,however, she has not been out of bed yet to test her strength. She denies any SOB or chest pain and reports eating very well today and is still hungry. Wilson catheter remains in place for now. Family was at bedside and all questions and concerns were answered. They request an inpatient Ortho consult to address her knee issues. Objective Last 8 Hrs Date Time Temp Pulse Resp B/P (MAP) Pulse Ox O2 Delivery O2 Flow Rate FiO2 06/11/17 11:39 35.7 92 19 99/52 (68) 94 Nasal Cannula 2.0 06/11/17 08:00 Nasal Cannula 3.0 06/11/17 07:46 36.3 89 19 98/61 (73) 94 Nasal Cannula 3.0 06/11/17 06:39 35.5 06/11/17 06:07 35.1 06/11/17 05:40 35.0 06/11/17 05:18 35.0 06/11/17 04:45 34.9 Physical Exam: GEN: obese, in no acute distress, alert and appropriate. Wilson in place. HEENT: NC/AT, normal sclerae, MMM, NC in place. CARDIO: reg rate, S1/2 heard without m/g/r LUNGS: CTA bilaterally, no crackles, rales or wheezes, good diaphragmatic excursion ABD: soft, non-tender, non-distended, no rebound or guarding, +BS BACK: sacral decub Stg II with multiple spots for breakdown and surrounding boggy and ecchymotic coloring to surrounding tissue. EXTREMITY: RP and DP palpable 2+ bilat, no LE swelling or edema, extremities are warm and well-perfused. LLE with improved redness and pain. Knees are not swollen or tender but have decreased ROM. NEURO: CN 2-12 grossly intact, sensation intact throughout MUSC: moves all extremities equally, limited exam as patient has limited ability to move around bed 2/2 weakness. SKIN: warm and dry and wounds as above including a small superficial abrasion on upper medial thigh on L. Laboratory Results: 06/11/17 06:41 Red Blood Count 4.37, Mean Corpuscular Volume 70.0, Mean Corpuscular Hemoglobin 21.7, Mean Corpuscular Hemoglobin Concent 31.0, Mean Platelet Volume 9.2, Neutrophils (%) (Auto) 86.5, Lymphocytes (%) (Auto) 6.7, Monocytes (%) (Auto) 6.0, Eosinophils (%) (Auto) 0.2, Basophils (%) (Auto) 0.2, Neutrophils # (Auto) 10.93, Lymphocytes # (Auto) 0.85, Monocytes # (Auto) 0.76, Eosinophils # (Auto) 0.02, Basophils # (Auto) 0.02 06/11/17 06:41 Test 06/10/17 17:06 06/10/17 17:45 06/10/17 17:48 06/10/17 22:24 Bedside Lactic Acid Venous 6.84 mmol/L (0.90-1.70) Influenza Type A (RT-PCR) Neg for Influ A (NEG) Influenza Type B (RT-PCR) Neg for Influ B (NEG) Erythrocyte Sedimentation Rate 57 mm/hr (0-21) Activated Partial Thromboplast Time 41.9 SECONDS (21.0-31.0) Partial Thromboplastin Ratio 1.6 Phosphorus Level 3.8 mg/dl (2.5-4.9) Total Bilirubin 1.7 mg/dl (0.2-1) Aspartate Amino Transf (AST/SGOT) 33 U/L (15-37) Alanine Aminotransferase (ALT/SGPT) 21 U/L (12-78) Alkaline Phosphatase 114 U/L (45-117) C-Reactive Protein 15.50 mg/dl (0-0.29) Total Protein 6.7 gm/dl (6.4-8.2) Albumin 2.3 gm/dl (3.4-5.0) Globulin 4.4 gm/dl (2.5-4.0) Albumin/Globulin Ratio 0.5 (0.9-2) Procalcitonin 3.10 ng/ml (0-0.5) Venous Blood pH 7.36 (7.36-7.41) Venous Blood Partial Pressure CO2 36 mmHg (38.0-50.0) Venous Blood Partial Pressure O2 40 mmHg Venous Blood HCO3 20 mmol/L Venous Blood Oxygen Saturation 68.7 % Venous Blood Base Excess -5.1 mEq/L Magnesium Level 2.1 mg/dl (1.8-2.4) Test 06/10/17 23:20 06/11/17 06:41 06/11/17 11:09 06/11/17 11:41 Urine Color DK YELLOW Urine Appearance CLOUDY (CLEAR) Urine pH 5.0 (4.5-7.5) Urine Specific [place] 1.015 (1.000-1.030) Urine Protein TRACE (NEG) Urine Glucose (UA) NEG (NEG) Urine Ketones NEG (NEG) Urine Occult Blood NEG (NEG) Urine Nitrite NEG (NEG) Urine Bilirubin NEG (NEG) Urine Urobilinogen NEG (NEG) Urine Leukocyte Esterase MODERATE (NEG) Urine WBC (Auto) 5-10 /hpf (0-5) Urine RBC (Auto) 0-4 /hpf (0-4) Urine Hyaline Casts (Auto) 10-30 /lpf (0-5) Urine Epithelial Cells (Auto) >30 /lpf (0-5) Urine Bacteria (Auto) 3+ (NEG) Urine Renal Epithelial Cells /lpf (0-5) White Blood Count 12.63 K/uL (4.8-10.8) Red Blood Count 4.37 M/uL (4.2-5.4) Hemoglobin 9.5 g/dL (12.0-16.0) Hematocrit 30.6 % (37-47) Mean Corpuscular Volume 70.0 fL (80-100) Mean Corpuscular Hemoglobin 21.7 pg (25-34) Mean Corpuscular Hemoglobin Concent 31.0 g/dl (32-36) Platelet Count 218 K/uL (130-400) Mean Platelet Volume 9.2 fL (7.4-10.4) Neutrophils (%) (Auto) 86.5 % Lymphocytes (%) (Auto) 6.7 % Monocytes (%) (Auto) 6.0 % Eosinophils (%) (Auto) 0.2 % Basophils (%) (Auto) 0.2 % Neutrophils # (Auto) 10.93 K/uL (1.4-6.5) Lymphocytes # (Auto) 0.85 K/uL (1.2-3.4) Monocytes # (Auto) 0.76 K/uL (0.11-0.59) Eosinophils # (Auto) 0.02 K/uL (0-0.5) Basophils # (Auto) 0.02 K/uL (0-0.2) RDW Standard Deviation 47.5 fL (36.4-46.3) RDW Coefficient of Variation 20.0 % (11.5-14.5) Immature Granulocyte % (Auto) 0.4 % Immature Granulocyte # (Auto) 0.05 K/uL (0.00-0.02) Hypochromasia PRESENT Anisocytosis PRESENT Microcytosis PRESENT Echinocytes 1+ Prothrombin Time 36.7 SECONDS (9.0-12.0) Prothromb Time International Ratio 3.6 (0.9-1.1) Anion Gap 8.0 mmol/L (3-11) Est Creatinine Clear Calc Drug Dose 17.9 ml/min Estimated GFR () 21.0 Estimated GFR (Non- 18.1 BUN/Creatinine Ratio 24.3 (10-20) Calcium Level 8.0 mg/dl (8.5-10.1) Bedside Glucose 183 mg/dl (70-90) Lactic Acid Level 2.0 mmol/L (0.4-2.0) Date/Time Source Procedure Growth Status 06/10/17 17:18 Blood Blood Culture Pending Received 06/10/17 23:20 Urine,Catheterized Urine Culture Pending Received 06/10/17 16:40 Ulcer Thigh , Right Gram Stain - Final Resulted 06/10/17 16:40 Ulcer Thigh , Right Wound Culture - Preliminary PIN-POINT GROWTH PRESENT, REINCUBATING. Resulted Last 24 Hours Test 06/10/17 17:06 06/10/17 17:45 06/10/17 17:48 06/10/17 20:29 Bedside Lactic Acid Venous 6.84 mmol/L Influenza Type A (RT-PCR) Neg for Influ A Influenza Type B (RT-PCR) Neg for Influ B White Blood Count 13.17 K/uL Red Blood Count 4.89 M/uL Hemoglobin 10.9 g/dL Hematocrit 34.4 % Mean Corpuscular Volume 70.3 fL Mean Corpuscular Hemoglobin 22.3 pg Mean Corpuscular Hemoglobin Concent 31.7 g/dl Platelet Count 278 K/uL Mean Platelet Volume 9.5 fL Neutrophils (%) (Auto) 85.3 % Lymphocytes (%) (Auto) 5.3 % Monocytes (%) (Auto) 8.7 % Eosinophils (%) (Auto) 0.2 % Basophils (%) (Auto) 0.1 % Neutrophils # (Auto) 11.25 K/uL Lymphocytes # (Auto) 0.70 K/uL Monocytes # (Auto) 1.14 K/uL Eosinophils # (Auto) 0.02 K/uL Basophils # (Auto) 0.01 K/uL RDW Standard Deviation 47.1 fL RDW Coefficient of Variation 20.3 % Immature Granulocyte % (Auto) 0.4 % Immature Granulocyte # (Auto) 0.05 K/uL Hypochromasia PRESENT Anisocytosis PRESENT Echinocytes 1+ Erythrocyte Sedimentation Rate 57 mm/hr Prothrombin Time 36.9 SECONDS Prothromb Time International Ratio 3.6 Activated Partial Thromboplast Time 41.9 SECONDS Partial Thromboplastin Ratio 1.6 Sodium Level 130 mmol/L Potassium Level 5.0 mmol/L Chloride Level 100 mmol/L Carbon Dioxide Level 19 mmol/L Anion Gap 11.0 mmol/L Blood Urea Nitrogen 52 mg/dl Creatinine 2.30 mg/dl Est Creatinine Clear Calc Drug Dose 18.3 ml/min Estimated GFR () 21.6 Estimated GFR (Non- 18.6 BUN/Creatinine Ratio 22.7 Random Glucose 138 mg/dl Calcium Level 8.6 mg/dl Phosphorus Level 3.8 mg/dl Magnesium Level 2.4 mg/dl Total Bilirubin 1.7 mg/dl Aspartate Amino Transf (AST/SGOT) 33 U/L Alanine Aminotransferase (ALT/SGPT) 21 U/L Alkaline Phosphatase 114 U/L C-Reactive Protein 15.50 mg/dl Total Protein 6.7 gm/dl Albumin 2.3 gm/dl Globulin 4.4 gm/dl Albumin/Globulin Ratio 0.5 Procalcitonin 3.10 ng/ml Lactic Acid Level 3.6 mmol/L Test 06/10/17 22:24 06/10/17 22:26 06/10/17 23:20 06/11/17 06:41 Venous Blood pH 7.36 Venous Blood Partial Pressure CO2 36 mmHg Venous Blood Partial Pressure O2 40 mmHg Venous Blood HCO3 20 mmol/L Venous Blood Oxygen Saturation 68.7 % Venous Blood Base Excess -5.1 mEq/L Sodium Level 133 mmol/L 134 mmol/L Potassium Level 4.6 mmol/L 5.1 mmol/L Chloride Level 102 mmol/L 103 mmol/L Carbon Dioxide Level 21 mmol/L 23 mmol/L Anion Gap 10.0 mmol/L 8.0 mmol/L Blood Urea Nitrogen 54 mg/dl 57 mg/dl Creatinine 2.25 mg/dl 2.35 mg/dl Est Creatinine Clear Calc Drug Dose 18.6 ml/min 17.9 ml/min Estimated GFR () 22.2 21.0 Estimated GFR (Non- 19.1 18.1 BUN/Creatinine Ratio 24.0 24.3 Random Glucose 147 mg/dl 187 mg/dl Calcium Level 8.5 mg/dl 8.0 mg/dl Magnesium Level 2.1 mg/dl Bedside Glucose 138 mg/dl Urine Color DK YELLOW Urine Appearance CLOUDY Urine pH 5.0 Urine Specific [place] 1.015 Urine Protein TRACE Urine Glucose (UA) NEG Urine Ketones NEG Urine Occult Blood NEG Urine Nitrite NEG Urine Bilirubin NEG Urine Urobilinogen NEG Urine Leukocyte Esterase MODERATE Urine WBC (Auto) 5-10 /hpf Urine RBC (Auto) 0-4 /hpf Urine Hyaline Casts (Auto) 10-30 /lpf Urine Epithelial Cells (Auto) >30 /lpf Urine Bacteria (Auto) 3+ Urine Renal Epithelial Cells /lpf White Blood Count 12.63 K/uL Red Blood Count 4.37 M/uL Hemoglobin 9.5 g/dL Hematocrit 30.6 % Mean Corpuscular Volume 70.0 fL Mean Corpuscular Hemoglobin 21.7 pg Mean Corpuscular Hemoglobin Concent 31.0 g/dl Platelet Count 218 K/uL Mean Platelet Volume 9.2 fL Neutrophils (%) (Auto) 86.5 % Lymphocytes (%) (Auto) 6.7 % Monocytes (%) (Auto) 6.0 % Eosinophils (%) (Auto) 0.2 % Basophils (%) (Auto) 0.2 % Neutrophils # (Auto) 10.93 K/uL Lymphocytes # (Auto) 0.85 K/uL Monocytes # (Auto) 0.76 K/uL Eosinophils # (Auto) 0.02 K/uL Basophils # (Auto) 0.02 K/uL RDW Standard Deviation 47.5 fL RDW Coefficient of Variation 20.0 % Immature Granulocyte % (Auto) 0.4 % Immature Granulocyte # (Auto) 0.05 K/uL Hypochromasia PRESENT Anisocytosis PRESENT Microcytosis PRESENT Echinocytes 1+ Prothrombin Time 36.7 SECONDS Prothromb Time International Ratio 3.6 Lactic Acid Level 2.6 mmol/L Test 06/11/17 07:11 06/11/17 11:09 06/11/17 11:41 Bedside Glucose 202 mg/dl 183 mg/dl Date/Time Source Procedure Growth Status 06/10/17 17:18 Blood Blood Culture Pending Received 06/10/17 16:59 Blood Blood Culture Pending Received 06/10/17 23:20 Urine,Catheterized Urine Culture Pending Received 06/10/17 16:40 Ulcer Thigh , Right Gram Stain - Final Resulted 06/10/17 16:40 Ulcer Thigh , Right Wound Culture Pending Resulted Assessment & Plan 87 yo F with apparent sepsis 2/2 cellulitis of the R leg. On further exam she was found to have multiple areas of Stg II ulcerations on her sacral region when cleaned up on admission-these wounds reportedly had fecal matter and urine around them. She was also found to have a possible UTI. She has been resuscitated with a normal lactate and improvement in her hemodynamic stability , and is clinically better overall. She denies any pain in her legs and states that she doesn't feel weak or in pain,however, she has not been out of bed yet to test her strength. She denies any SOB or chest pain and reports eating very well today and is still hungry. Wilson catheter remains in place for now. Family was at bedside and all questions and concerns were answered. They request an inpatient Ortho consult to address her knee issues. 1. Sepsis-etiologies include but are not limited to UTI, infected sacral wound or LLE cellulitis. Resuscitated. Cont broad spectrum abx until cultures return tomorrow. Awaiting wound care nurse evaluation and recs for sacral decub as well as PT/OT evaluations. Telemetry reviewed and afib overnight with normal heart rate in the 80s. 2. DMII-ISS/glargine with carb coverage. At goal. Cont current coverage. 3. Atrial fibrillation with RVR-HR stable overnight. Will cont home dose metoprolol, coumadin on hold with supratherapeutic INR at 3.6. 4. MARGOT in CKD III-cont calcitriol twice weekly per home regimen. Persistently elevated creatinine. Cont to monitor PRP and treat UTI. 5. Chronic diastolic heart failure-compensated, holding diuretic in setting of sepsis. Some IVF given this morning. Will consider restarting diuretic in am based on volume assessment. 6. Hyponatremia-improved with IVF resuscitation. 7. Anemia-stable at her baseline. No evidence of bleeding or need for transfusion at this time. Poss some hemodilution effect from IVF administration overnight. 9. Leukocytosis likely 2/2 stress or infection-not increased, cont to monitor. 10. Lactic acidosis-likely 2/2 sepsis. resolved. 11. Stage II sacral decubiti-POA. Covered with Optifoam, wound care consulted. 12. L knee pain-family requesting Ortho evaluation of knee while admitted. Pt not yet assessed by PT/OT but this is pending. Denies pain in the knee at this time. DVT proph-coumadin Full Code per my discussion with her on admission. Family was present including her daughter who is POA. All questions and concerns by family were addressed. Dispo-cont telemetry monitoring. She will need senior living wound care for her sacral decub and PT/OT assessment to ensure that she is safe to go home. Ofelia Sims DO [facility] Hospitalist Current Inpatient Medications: Current Inpatient Medications Medications (Trade) Dose Ordered Sig/Gustavo Route Start Time Stop Time Status Last Admin Dose Admin Miscellaneous Information (Consult) 1 ea UD PRN N/A 06/10/17 19:45 07/10/17 19:44 Acetaminophen (Tylenol Tab) 650 mg Q4H PRN PO 06/10/17 19:45 07/10/17 19:44 Ondansetron HCl (Zofran Inj) 4 mg Q6H PRN IV 06/10/17 19:45 07/10/17 19:44 Polyethylene (Miralax Powder Packet) 17 gm DAILY PRN PO 06/10/17 19:45 07/10/17 19:44 Insulin Glargine (Lantus Solostar Pen) 14 units Q12 SC 06/10/17 21:00 07/10/17 20:59 06/11/17 08:05 14 UNITS Insulin Aspart (novoLOG ASPART) SLIDING SCALE If C... ACHS SC 06/10/17 21:00 07/10/17 20:59 06/11/17 08:00 4 UNITS Glucose (Glucose 40% Gel) 15-30 GRAMS 15 GRAMS... UD PRN PO 06/10/17 19:45 07/10/17 19:44 Glucose (Glucose Chew Tab) 4-8 Tablets 4 Tabl... UD PRN PO 06/10/17 19:45 07/10/17 19:44 Dextrose (Dextrose 50% 50ML Syringe) 25-50ML OF 50% DW IV FOR... UD PRN IV 06/10/17 19:45 07/10/17 19:44 Glucagon (Glucagon Inj) 1 mg UD PRN SQ 06/10/17 19:45 07/10/17 19:44 Miscellaneous Information (Consult) 1 ea UD PRN N/A 06/10/17 20:00 07/10/17 19:59 Aspirin (Ecotrin Tab) 81 mg DAILY PO 06/11/17 09:00 07/11/17 08:59 06/11/17 07:58 81 MG Calcitriol (Rocaltrol Cap) 0.25 mcg MoTh@0900 PO 06/12/17 09:00 07/12/17 08:59 Cholecalciferol (Vitamin D Tab) 1,000 inter.unit DAILY PO 06/11/17 09:00 07/11/17 08:59 06/11/17 08:01 1,000 INTER.UNIT Metoprolol Tartrate (Lopressor Tab) 50 mg QPM PO 06/10/17 21:00 07/10/17 20:59 Metoprolol Tartrate (Lopressor Tab) 75 mg QAM PO 06/11/17 09:00 07/11/17 08:59 06/11/17 08:01 75 MG Pantoprazole Sodium (Protonix Tab) 40 mg QAM PO 06/11/17 09:00 07/11/17 08:59 06/11/17 08:02 40 MG Piperacillin Sod/ Tazobactam Sod 3.375 gm/Dextrose 115 ml @ 28.75 mls/ hr Q12H IV 06/11/17 00:00 06/25/17 00:00 06/11/17 00:11 28.75 MLS/HR Miconazole Nitrate (Desenex Powder) 1 appln PRN PRN EXT 06/10/17 22:00 07/10/17 21:59 Sodium Chloride 500 ml @ 125 mls/hr Q4H ONCE IV 06/11/17 09:00 06/11/17 12:59 06/11/17 10:13 125 MLS/HR
[2017-06-12 00:02] VITALS: BP 90/62; PULSE 92; TEMP 36.3; O2SAT 97
[2017-06-12 04:16] VITALS: BP 111/72; PULSE 88; TEMP 36.4; O2SAT 98
[2017-06-12 07:08] LABS: HEMOGLOBIN A1C 10.3 % (4.5-5.6)
[2017-06-12 07:25] VITALS: BP 93/49; PULSE 101; TEMP 36.3; O2SAT 100
[2017-06-12] MEDS: METOPROLOL TARTRATE 50 MG TAB PO SCH ×2 (07:39→20:54)
[2017-06-12] MEDS: PANTOprazole SOD 40 MG TAB PO SCH (07:40)
[2017-06-12] MEDS: CHOLECALCIFEROL 1000 INTER.UNIT TAB PO SCH (07:40)
[2017-06-12] MEDS: CALCITRIOL 0.25 MCG CAP PO SCH (07:40)
[2017-06-12] MEDS: ASPIRIN 81 MG ECTAB PO SCH (07:40)
[2017-06-12 07:49] LABS: HEMATOCRIT 31.7 % (37-47); HEMOGLOBIN 9.8 g/dL (12.0-16.0); MEAN CELL VOLUME 70.9 fL (80-100); MEAN CORPUSCULAR HEMOGLOBIN 21.9 pg (25-34); MEAN CORPUSCULAR HGB CONC 30.9 g/dl (32-36); MEAN PLATELET VOLUME 9.3 fL (7.4-10.4); PLATELET COUNT 246 K/uL (130-400); RED CELL DISTRIBUTION WIDTH CV 20.5 % (11.5-14.5); RED CELL DISTRIBUTION WIDTH SD 48.8 fL (36.4-46.3); WHITE BLOOD COUNT 9.92 K/uL (4.8-10.8)
[2017-06-12 07:56] LABS: INR 3.1 (0.9-1.1)
[2017-06-12 08:16] LABS: CALCIUM 8.2 mg/dl (8.5-10.1); CREATININE 2.04 mg/dl (0.60-1.20); POTASSIUM 4.5 mmol/L (3.5-5.1)
[2017-06-12] MEDS: INSULIN GLARGINE SOLOSTAR 100 UNITS/ML 3 ML PEN SC SCH ×2 (08:39→20:57)
[2017-06-12] MEDS: INSULIN ASPART 100 UNITS/ML 3 ML PEN SC SCH ×4 (08:39→20:55)
[2017-06-12] MEDS ORDERED: VANCOMYCIN INJ 1,250 MG in SODIUM CHLORIDE 0.9% 250ML 250 ML IV SCH (10:00)
[2017-06-12 11:42] VITALS: BP 105/61; PULSE 51; TEMP 36.3; O2SAT 93
--- NOTE | 2017-06-12 12:01 | Clinical Documentation Query ---
CLINICAL DOCUMENTATION QUERY In your clinical opinion is this patient being managed for: (x ) Acute hypoxic respiratory failure in setting of severe sepsis treated and resolved with O2 and fluid resuscitation. ( ) Not Agree ( ) Other explanation of clinical findings (Please Explain) ( ) Unable to determine (Please Define) ( ) Need to Discuss The medical record reflects the following clinical findings, treatment, and risk factors. Clinical Indicators: Moderate distress per ED assessment. Presented tachycardic 128, tachypneic 32, and hypoxic 75% on RA. Treatment: O2 via NRM, multiple IV boluses, IV Vanco, IV Zosyn, IV Daptomycin, Risk Factors: Age, sepsis, Please clarify and document your clinical opinion in the progress notes and discharge summary. Terms such as "probable", "suspected", "likely", "questionable", "possible", or "still to be ruled out" are acceptable. IF IN AGREEMENT, YOU MUST DOCUMENT ABOVE DIAGNOSTIC STATEMENT IN DAILY PROGRESS NOTES AND DISCHARGE SUMMARY. This document is not part of the patient's record. Thank You, Marcus Mackay, RN [phone]
[2017-06-12 12:45] VITALS: Ht 162.6 cm; Wt 82.4 kg
[2017-06-12] MEDS: PIPERACILL/TAZOBAC IV 3.375 GM in DEXTROSE 5% 100ML IV SCH ×2 (12:51→23:29)
--- NOTE | 2017-06-12 14:47 | DIAGNOSTIC IMAGING REPORT ---
R KNEE 1 OR 2 VIEWS ROUTINE HISTORY: 87 years-old Female right knee pain acute right-sided knee pain COMPARISON: Right knee radiographs 06/11/2010 TECHNIQUE: 2 views of the right knee FINDINGS: There is progressively worsened degenerative changes about the medial compartment where there is now severe joint space narrowing. Mild to moderate lateral compartment with moderate patellofemoral osteoarthritis. Hechf-jf-bvipenrv joint effusion. Marginal spurring involves the tibial spines. No acute fracture or dislocation. Peripheral vascular disease. IMPRESSION: 1. Progressively worsened degenerative changes about the medial compartment where there is now severe disease. 2. Ycndk-[id number] joint effusion without acute fracture or dislocation. 3. Peripheral vascular disease. The above report was generated using voice recognition software. It may contain grammatical, syntax or spelling errors. Electronically signed by: Desmond Jovel M.D. 06/12/2017 2:45 PM Dictated Date/Time: 06/12/2017 2:43 PM
[2017-06-12 15:09] VITALS: BP 107/72; PULSE 87; TEMP 36.3; O2SAT 97
--- NOTE | 2017-06-12 15:57 | Orthopedic Consultation ---
Orthopedic Consultation Date of Consultation: Jun 12, 2017. Attending Physician: Ofelia Sims DO Reason for Consultation: Chronic right knee pain History of Present Illness Patient here for diagnosis of sepsis and we are consult for chronic right knee pain. Patient has had an injection in the past doesn't remember who. Patient tells me she really has no pain this point in time but when she is walking she does have pain but again has been going on for years nothing new. Past Medical/Surgical History Medical Problems: (1) Acute kidney injury superimposed on CKD Status: Acute (2) Atrial fibrillation with rapid ventricular response Status: Acute (3) Cellulitis of right lower extremity Status: Acute (4) CHF (congestive heart failure) Status: Acute (5) Chronic kidney disease Status: Acute (6) Dyspnea Status: Acute (7) Epistaxis Status: Acute (8) Fall Status: Acute (9) Hyperglycemia Status: Acute (10) Lower extremity edema Status: Acute (11) Supratherapeutic INR Status: Acute Family History Diabetes mellitus Social History Smoking Status: Never Smoker Smokeless Tobacco Use: No Alcohol Use: none Drug Use: none Housing Status: lives with family Occupation Status: unemployed Allergies Coded Allergies: No Known Allergies (Unverified , 05/01/17) Home Medications Scheduled Aspirin (Aspirin Ec), 81 MG PO DAILY Calcitriol (Rocaltrol Cap), 0.25 MCG PO 2XWK Cholecalciferol (Vitamin D3), 1,000 INTER.UNIT PO DAILY Furosemide (Lasix), 40 MG PO QAM Furosemide (Lasix), 20 MG PO AFTERNOON Insulin Human Isophan/Regular (Novolin 70/30), 24 UNITS SC QAM Insulin Isophan/Regular (Novolin 70/30), 12 UNITS SQ QPM Iron-Vitamin C (Vitron-C), 1 TAB PO DAILY Metoprolol Tartrate (Lopressor), 75 MG PO QAM Metoprolol Tartrate (Lopressor), 50 MG PO QPM Omeprazole (Prilosec), 40 MG PO QAM Oxybutynin Chloride (Oxybutynin Chloride ER), 10 MG PO DAILY Potassium Ext Rel (Klor-Con), 20 MEQ PO QAM Simvastatin (Zocor), 10 MG PO HS Timolol Maleate (Ophth) (Timoptic-Xe 0.5% Oph), 1 DROP OPL DAILY Warfarin Sodium (Warfarin Sodium), 1 MG PO QPM Current Inpatient Medications Current Inpatient Medications Medications (Trade) Dose Ordered Sig/Gustavo Route Start Time Stop Time Status Last Admin Dose Admin Miscellaneous Information (Consult) 1 ea UD PRN N/A 06/10/17 19:45 07/10/17 19:44 Acetaminophen (Tylenol Tab) 650 mg Q4H PRN PO 06/10/17 19:45 07/10/17 19:44 Ondansetron HCl (Zofran Inj) 4 mg Q6H PRN IV 06/10/17 19:45 07/10/17 19:44 Polyethylene (Miralax Powder Packet) 17 gm DAILY PRN PO 06/10/17 19:45 07/10/17 19:44 Insulin Glargine (Lantus Solostar Pen) 14 units Q12 SC 06/10/17 21:00 07/10/17 20:59 06/12/17 08:39 14 UNITS Insulin Aspart (novoLOG ASPART) SLIDING SCALE If C... ACHS SC 06/10/17 21:00 07/10/17 20:59 06/12/17 12:56 1 UNITS Glucose (Glucose 40% Gel) 15-30 GRAMS 15 GRAMS... UD PRN PO 06/10/17 19:45 07/10/17 19:44 Glucose (Glucose Chew Tab) 4-8 Tablets 4 Tabl... UD PRN PO 06/10/17 19:45 07/10/17 19:44 Dextrose (Dextrose 50% 50ML Syringe) 25-50ML OF 50% DW IV FOR... UD PRN IV 06/10/17 19:45 07/10/17 19:44 Glucagon (Glucagon Inj) 1 mg UD PRN SQ 06/10/17 19:45 07/10/17 19:44 Miscellaneous Information (Consult) 1 ea UD PRN N/A 06/10/17 20:00 07/10/17 19:59 Aspirin (Ecotrin Tab) 81 mg DAILY PO 06/11/17 09:00 07/11/17 08:59 06/12/17 07:40 81 MG Calcitriol (Rocaltrol Cap) 0.25 mcg MoTh@0900 PO 06/12/17 09:00 07/12/17 08:59 06/12/17 07:40 0.25 MCG Cholecalciferol (Vitamin D Tab) 1,000 inter.unit DAILY PO 06/11/17 09:00 07/11/17 08:59 06/12/17 07:40 1,000 INTER.UNIT Metoprolol Tartrate (Lopressor Tab) 50 mg QPM PO 06/10/17 21:00 07/10/17 20:59 06/11/17 21:09 50 MG Metoprolol Tartrate (Lopressor Tab) 75 mg QAM PO 06/11/17 09:00 07/11/17 08:59 06/12/17 07:39 75 MG Pantoprazole Sodium (Protonix Tab) 40 mg QAM PO 06/11/17 09:00 07/11/17 08:59 06/12/17 07:40 40 MG Piperacillin Sod/ Tazobactam Sod 3.375 gm/Dextrose 115 ml @ 28.75 mls/ hr Q12H IV 06/11/17 00:00 06/25/17 00:00 06/12/17 12:51 28.75 MLS/HR Miconazole Nitrate (Desenex Powder) 1 appln PRN PRN EXT 06/10/17 22:00 07/10/17 21:59 Physical Exam Date Time Temp Pulse Resp B/P (MAP) Pulse Ox O2 Delivery O2 Flow Rate FiO2 06/12/17 15:09 36.3 87 18 107/72 (84) 97 Room Air 06/12/17 12:00 Room Air 06/12/17 11:42 36.3 51 18 105/61 (76) 93 Nasal Cannula 2.0 06/12/17 08:00 Room Air 06/12/17 07:25 36.3 101 19 93/49 (64) 100 06/12/17 04:16 36.4 88 16 111/72 (85) 98 06/12/17 04:00 Room Air 06/12/17 00:02 36.3 92 18 90/62 (71) 97 Room Air 06/11/17 23:59 Room Air 06/11/17 20:00 98 Room Air 06/11/17 19:24 36.3 97 21 104/65 (78) 98 Nasal Cannula 2.0 General Appearance: WD/WN, no apparent distress Extremities/Musculoskelatal: + pertinent finding (pain with range of motion of the right knee and crepitation.) Laboratory Results Last 24 Hours Test 06/11/17 16:05 06/11/17 19:47 06/12/17 06:52 06/12/17 07:05 Bedside Glucose 170 mg/dl 152 mg/dl 79 mg/dl White Blood Count 9.92 K/uL Red Blood Count 4.47 M/uL Hemoglobin 9.8 g/dL Hematocrit 31.7 % Mean Corpuscular Volume 70.9 fL Mean Corpuscular Hemoglobin 21.9 pg Mean Corpuscular Hemoglobin Concent 30.9 g/dl RDW Standard Deviation 48.8 fL RDW Coefficient of Variation 20.5 % Platelet Count 246 K/uL Mean Platelet Volume 9.3 fL Prothrombin Time 31.5 SECONDS Prothromb Time International Ratio 3.1 Sodium Level 132 mmol/L Potassium Level 4.5 mmol/L Chloride Level 101 mmol/L Carbon Dioxide Level 22 mmol/L Anion Gap 8.0 mmol/L Blood Urea Nitrogen 51 mg/dl Creatinine 2.04 mg/dl Est Creatinine Clear Calc Drug Dose 20.6 ml/min Estimated GFR () 25.0 Estimated GFR (Non- 21.5 BUN/Creatinine Ratio 24.9 Random Glucose 68 mg/dl Calcium Level 8.2 mg/dl Random Vancomycin Level 11.7 mcg/ml Test 06/12/17 11:15 Bedside Glucose 133 mg/dl Assessment & Plan #1 patient with severe osteoarthritis right knee. Patient will be a great candidate for a knee injection however not while she is in the hospital with sepsis. She can follow up her office in about 2 weeks for possible injection. We will sign off for now.
[2017-06-12 16:30] VITALS: BP 107/72; PULSE 87; TEMP 36.3; O2SAT 97
--- NOTE | 2017-06-12 17:46 | Pharmacy Progress Note ---
Pharmacy Abx Dose Short Note Date of Service Jun 12, 2017. Assessment & Plan Assessment 87 year old female receiving vancomycin and Zosyn for treatment of sepsis secondary to cellulitis of right leg. Day # 3 of antimicrobial therapy. Plan Vancomycin * Trough level of 11.7 mcg/mL following a 21mg/kg load is subtherapeutic, indicating that another dose is warranted. * CrCl~20ml/min so am hesitant to order scheduled dosing. Ordered 1 dose of 1250mg this AM with another random tomorrow am. * Goal trough level : 15 to 20 mcg/mL * Trough or random level ordered for: 06/13 with am labs. If Creatinine clearance is steady or improves tomorrow, will advance Zosyn to q 8 hour dosing. Pharmacy will continue to follow and will adjust dose/frequency as necessary. Thank you.
[2017-06-12] MEDS ORDERED: WARFARIN SOD 1 MG TAB PO ONE (18:31)
--- NOTE | 2017-06-12 18:36 | Progress Note ---
Medicine Progress Note Date & Time of Visit: Jun 12, 2017 at 12:06. Subjective 87 yo F with apparent sepsis 2/2 cellulitis of the R leg. On further exam she was found to have multiple areas of Stg II ulcerations on her sacral region when cleaned up on admission-these wounds reportedly had fecal matter and urine around them. She was also found to have a UTI. She has been resuscitated with a normal lactate and improvement in her hemodynamic stability, and is clinically better overall. She denies any pain in her legs and states that she doesn't feel weak or in pain, however, her L knee is painful to touch. She denies any SOB or chest pain and reports eating very well today and is still hungry. Wilson catheter remains in place for now. No other complaints Objective Last 8 Hrs Date Time Temp Pulse Resp B/P (MAP) Pulse Ox O2 Delivery O2 Flow Rate FiO2 06/12/17 11:42 36.3 51 18 105/61 (76) 93 Nasal Cannula 2.0 06/12/17 08:00 Room Air 06/12/17 07:25 36.3 101 19 93/49 (64) 100 06/12/17 04:16 36.4 88 16 111/72 (85) 98 Physical Exam: GEN: obese, in no acute distress, alert and appropriate. Wilson in place. HEENT: NC/AT, normal sclerae, MMM, NC in place. CARDIO: reg rate, S1/2 heard without m/g/r LUNGS: CTA bilaterally, no crackles, rales or wheezes, good diaphragmatic excursion ABD: soft, non-tender, non-distended, no rebound or guarding, +BS BACK: sacral decub Stg II with multiple spots for breakdown and surrounding boggy and ecchymotic coloring to surrounding tissue (not seen today by me) EXTREMITY: RP and DP palpable 2+ bilat, no LE swelling or edema, extremities are warm and well-perfused. LLE with improved redness and pain. Knees are not swollen or tender but have decreased ROM. NEURO: CN 2-12 grossly intact, sensation intact throughout MUSC: moves all extremities equally, limited exam as patient has limited ability to move around bed 2/2 weakness. SKIN: warm and dry and wounds as above including a small superficial abrasion on upper medial thigh on L. Laboratory Results: 06/12/17 07:05 06/12/17 07:05 Test 06/10/17 17:06 06/10/17 17:45 06/10/17 17:48 06/10/17 22:24 Bedside Lactic Acid Venous 6.84 mmol/L (0.90-1.70) Influenza Type A (RT-PCR) Neg for Influ A (NEG) Influenza Type B (RT-PCR) Neg for Influ B (NEG) Erythrocyte Sedimentation Rate 57 mm/hr (0-21) Activated Partial Thromboplast Time 41.9 SECONDS (21.0-31.0) Partial Thromboplastin Ratio 1.6 Phosphorus Level 3.8 mg/dl (2.5-4.9) Total Bilirubin 1.7 mg/dl (0.2-1) Aspartate Amino Transf (AST/SGOT) 33 U/L (15-37) Alanine Aminotransferase (ALT/SGPT) 21 U/L (12-78) Alkaline Phosphatase 114 U/L (45-117) C-Reactive Protein 15.50 mg/dl (0-0.29) Total Protein 6.7 gm/dl (6.4-8.2) Albumin 2.3 gm/dl (3.4-5.0) Globulin 4.4 gm/dl (2.5-4.0) Albumin/Globulin Ratio 0.5 (0.9-2) Procalcitonin 3.10 ng/ml (0-0.5) Venous Blood pH 7.36 (7.36-7.41) Venous Blood Partial Pressure CO2 36 mmHg (38.0-50.0) Venous Blood Partial Pressure O2 40 mmHg Venous Blood HCO3 20 mmol/L Venous Blood Oxygen Saturation 68.7 % Venous Blood Base Excess -5.1 mEq/L Magnesium Level 2.1 mg/dl (1.8-2.4) Test 06/10/17 23:20 06/11/17 06:41 06/11/17 11:41 06/12/17 07:05 Urine Color DK YELLOW Urine Appearance CLOUDY (CLEAR) Urine pH 5.0 (4.5-7.5) Urine Specific [place] 1.015 (1.000-1.030) Urine Protein TRACE (NEG) Urine Glucose (UA) NEG (NEG) Urine Ketones NEG (NEG) Urine Occult Blood NEG (NEG) Urine Nitrite NEG (NEG) Urine Bilirubin NEG (NEG) Urine Urobilinogen NEG (NEG) Urine Leukocyte Esterase MODERATE (NEG) Urine WBC (Auto) 5-10 /hpf (0-5) Urine RBC (Auto) 0-4 /hpf (0-4) Urine Hyaline Casts (Auto) 10-30 /lpf (0-5) Urine Epithelial Cells (Auto) >30 /lpf (0-5) Urine Bacteria (Auto) 3+ (NEG) Urine Renal Epithelial Cells /lpf (0-5) Immature Granulocyte % (Auto) 0.4 % White Blood Count 12.63 K/uL (4.8-10.8) Red Blood Count 4.37 M/uL (4.2-5.4) 4.47 M/uL (4.2-5.4) Hemoglobin 9.5 g/dL (12.0-16.0) Hematocrit 30.6 % (37-47) Mean Corpuscular Volume 70.0 fL (80-100) 70.9 fL (80-100) Mean Corpuscular Hemoglobin 21.7 pg (25-34) 21.9 pg (25-34) Mean Corpuscular Hemoglobin Concent 31.0 g/dl (32-36) 30.9 g/dl (32-36) Platelet Count 218 K/uL (130-400) Mean Platelet Volume 9.2 fL (7.4-10.4) 9.3 fL (7.4-10.4) Neutrophils (%) (Auto) 86.5 % Lymphocytes (%) (Auto) 6.7 % Monocytes (%) (Auto) 6.0 % Eosinophils (%) (Auto) 0.2 % Basophils (%) (Auto) 0.2 % Neutrophils # (Auto) 10.93 K/uL (1.4-6.5) Lymphocytes # (Auto) 0.85 K/uL (1.2-3.4) Monocytes # (Auto) 0.76 K/uL (0.11-0.59) Eosinophils # (Auto) 0.02 K/uL (0-0.5) Basophils # (Auto) 0.02 K/uL (0-0.2) Immature Granulocyte # (Auto) 0.05 K/uL (0.00-0.02) Hypochromasia PRESENT Anisocytosis PRESENT Microcytosis PRESENT Echinocytes 1+ Estimated Average Glucose 249 mg/dl Hemoglobin A1c 10.3 % (4.5-5.6) Lactic Acid Level 2.0 mmol/L (0.4-2.0) RDW Standard Deviation 48.8 fL (36.4-46.3) RDW Coefficient of Variation 20.5 % (11.5-14.5) Prothrombin Time 31.5 SECONDS (9.0-12.0) Prothromb Time International Ratio 3.1 (0.9-1.1) Anion Gap 8.0 mmol/L (3-11) Est Creatinine Clear Calc Drug Dose 20.6 ml/min Estimated GFR () 25.0 Estimated GFR (Non- 21.5 BUN/Creatinine Ratio 24.9 (10-20) Calcium Level 8.2 mg/dl (8.5-10.1) Random Vancomycin Level 11.7 mcg/ml Test 06/12/17 16:08 Bedside Glucose 175 mg/dl (70-90) Date/Time Source Procedure Growth Status 06/10/17 17:18 Blood Blood Culture - Preliminary NO GROWTH TO DATE. Resulted 06/10/17 23:20 Urine,Catheterized Urine Culture - Preliminary Escherichia Coli Resulted 06/10/17 16:40 Ulcer Thigh , Right Gram Stain - Final Resulted 06/10/17 16:40 Wound Culture - Preliminary Group G Beta Strep Corynebacterium Species Coag Neg Staphylococcus Resulted Last 24 Hours Test 06/11/17 16:05 06/11/17 19:47 06/12/17 06:52 06/12/17 07:05 Bedside Glucose 170 mg/dl 152 mg/dl 79 mg/dl White Blood Count 9.92 K/uL Red Blood Count 4.47 M/uL Hemoglobin 9.8 g/dL Hematocrit 31.7 % Mean Corpuscular Volume 70.9 fL Mean Corpuscular Hemoglobin 21.9 pg Mean Corpuscular Hemoglobin Concent 30.9 g/dl RDW Standard Deviation 48.8 fL RDW Coefficient of Variation 20.5 % Platelet Count 246 K/uL Mean Platelet Volume 9.3 fL Prothrombin Time 31.5 SECONDS Prothromb Time International Ratio 3.1 Sodium Level 132 mmol/L Potassium Level 4.5 mmol/L Chloride Level 101 mmol/L Carbon Dioxide Level 22 mmol/L Anion Gap 8.0 mmol/L Blood Urea Nitrogen 51 mg/dl Creatinine 2.04 mg/dl Est Creatinine Clear Calc Drug Dose 20.6 ml/min Estimated GFR () 25.0 Estimated GFR (Non- 21.5 BUN/Creatinine Ratio 24.9 Random Glucose 68 mg/dl Calcium Level 8.2 mg/dl Random Vancomycin Level 11.7 mcg/ml Test 06/12/17 11:15 Bedside Glucose 133 mg/dl Assessment & Plan 87 yo F with apparent sepsis 2/2 cellulitis of the R leg. On further exam she was found to have multiple areas of Stg II ulcerations on her sacral region when cleaned up on admission-these wounds reportedly had fecal matter and urine around them. She was also found to have a UTI. She has been resuscitated with a normal lactate and improvement in her hemodynamic stability, and is clinically better overall. She denies any pain in her legs and states that she doesn't feel weak or in pain, however, her L knee is painful to touch. She denies any SOB or chest pain and reports eating very well today and is still hungry. Wilson catheter remains in place for now. No other complaints 1. Acute hypoxic respiratory failure in setting of severe sepsis treated and resolved with O2 and fluid resuscitation-etiologies include but are not limited to UTI, infected sacral wound or LLE cellulitis. Resuscitated with resolution of hypoxia. Cont broad spectrum abx until sensitivities return. Awaiting wound care nurse evaluation and recs for sacral decub as well as PT/OT evaluations. Telemetry reviewed and afib overnight with normal heart rate. 2. DMII-ISS/glargine with carb coverage. At goal. Cont current coverage. 3. Atrial fibrillation with RVR-HR stable overnight. Will cont home dose metoprolol, restarted coumadin today. Trend INR daily. 4. MARGOT in CKD III-cont calcitriol twice weekly per home regimen. Persistently elevated creatinine but improved-poss ATN post sepsis. Cont to monitor PRP and treat UTI. Cont to hold diuretics. 5. Chronic diastolic heart failure-compensated, holding diuretic in setting of MARGOT. 6. Hyponatremia-improved with IVF resuscitation. 7. Anemia-stable at her baseline. No evidence of bleeding or need for transfusion at this time. Poss some hemodilution effect from IVF administration this admission 8. Stage II sacral decubiti-POA. Covered with Optifoam, wound care consulted. 12. L knee pain 2/2 OA-family requesting Ortho evaluation of knee while admitted. Knee injection recommended as outpatient when sepsis and infections are cleared up. DVT proph-coumadin Full Code Dispo-transfer to med/surg. She will need exterminator wound care for her sacral decub and PT/OT assessment to ensure that she is safe to go home. Ofelia Sims DO [facility] Hospitalist Current Inpatient Medications: Current Inpatient Medications Medications (Trade) Dose Ordered Sig/Gustavo Route Start Time Stop Time Status Last Admin Dose Admin Miscellaneous Information (Consult) 1 ea UD PRN N/A 06/10/17 19:45 07/10/17 19:44 Acetaminophen (Tylenol Tab) 650 mg Q4H PRN PO 06/10/17 19:45 07/10/17 19:44 Ondansetron HCl (Zofran Inj) 4 mg Q6H PRN IV 06/10/17 19:45 07/10/17 19:44 Polyethylene (Miralax Powder Packet) 17 gm DAILY PRN PO 06/10/17 19:45 07/10/17 19:44 Insulin Glargine (Lantus Solostar Pen) 14 units Q12 SC 06/10/17 21:00 07/10/17 20:59 06/12/17 08:39 14 UNITS Insulin Aspart (novoLOG ASPART) SLIDING SCALE If C... ACHS SC 06/10/17 21:00 07/10/17 20:59 06/12/17 08:39 1 UNITS Glucose (Glucose 40% Gel) 15-30 GRAMS 15 GRAMS... UD PRN PO 06/10/17 19:45 07/10/17 19:44 Glucose (Glucose Chew Tab) 4-8 Tablets 4 Tabl... UD PRN PO 06/10/17 19:45 07/10/17 19:44 Dextrose (Dextrose 50% 50ML Syringe) 25-50ML OF 50% DW IV FOR... UD PRN IV 06/10/17 19:45 07/10/17 19:44 Glucagon (Glucagon Inj) 1 mg UD PRN SQ 06/10/17 19:45 07/10/17 19:44 Miscellaneous Information (Consult) 1 ea UD PRN N/A 06/10/17 20:00 07/10/17 19:59 Aspirin (Ecotrin Tab) 81 mg DAILY PO 06/11/17 09:00 07/11/17 08:59 06/12/17 07:40 81 MG Calcitriol (Rocaltrol Cap) 0.25 mcg MoTh@0900 PO 06/12/17 09:00 07/12/17 08:59 06/12/17 07:40 0.25 MCG Cholecalciferol (Vitamin D Tab) 1,000 inter.unit DAILY PO 06/11/17 09:00 07/11/17 08:59 06/12/17 07:40 1,000 INTER.UNIT Metoprolol Tartrate (Lopressor Tab) 50 mg QPM PO 06/10/17 21:00 07/10/17 20:59 06/11/17 21:09 50 MG Metoprolol Tartrate (Lopressor Tab) 75 mg QAM PO 06/11/17 09:00 07/11/17 08:59 06/12/17 07:39 75 MG Pantoprazole Sodium (Protonix Tab) 40 mg QAM PO 06/11/17 09:00 07/11/17 08:59 06/12/17 07:40 40 MG Piperacillin Sod/ Tazobactam Sod 3.375 gm/Dextrose 115 ml @ 28.75 mls/ hr Q12H IV 06/11/17 00:00 06/25/17 00:00 06/11/17 23:53 28.75 MLS/HR Miconazole Nitrate (Desenex Powder) 1 appln PRN PRN EXT 06/10/17 22:00 07/10/17 21:59 Vancomycin HCl 1250 mg/Sodium Chloride 275 ml @ 125 mls/hr TODAY@1000 IV 06/12/17 10:00 06/12/17 12:11 06/12/17 10:06 125 MLS/HR
[2017-06-13 00:14] VITALS: BP 128/77; PULSE 92; TEMP 36.3; O2SAT 93
[2017-06-13 07:00] LABS: INR 2.5 (0.9-1.1)
[2017-06-13 07:19] VITALS: BP 107/66; PULSE 69; TEMP 36.3; O2SAT 97
[2017-06-13 07:29] LABS: CREATININE 1.88 mg/dl (0.60-1.20)
[2017-06-13] MEDS: METOPROLOL TARTRATE 50 MG TAB PO SCH ×2 (08:27→20:25)
[2017-06-13] MEDS: CHOLECALCIFEROL 1000 INTER.UNIT TAB PO SCH (08:28)
[2017-06-13] MEDS: PANTOprazole SOD 40 MG TAB PO SCH (08:28)
[2017-06-13] MEDS: ASPIRIN 81 MG ECTAB PO SCH (08:28)
[2017-06-13] MEDS: INSULIN GLARGINE SOLOSTAR 100 UNITS/ML 3 ML PEN SC SCH ×2 (08:33→21:19)
[2017-06-13] MEDS: INSULIN ASPART 100 UNITS/ML 3 ML PEN SC SCH ×4 (08:33→20:17)
[2017-06-13] MEDS: PIPERACILL/TAZOBAC IV 3.375 GM in DEXTROSE 5% 100ML IV SCH ×2 (12:01→20:16)
[2017-06-13] MEDS ORDERED: VANCOMYCIN INJ 750 MG in SODIUM CHLORIDE 0.9% 250ML 250 ML IV STA (14:58)
--- NOTE | 2017-06-13 15:06 | Pharmacy Progress Note ---
Pharmacy Abx Dose Short Note Date of Service Jun 13, 2017. Assessment & Plan Assessment Ms. Ahmadi's random lvl came back therapeutic at 17.4 today. She is being treated with Vanco/Zosyn for multiple infectious sources. UTI vs sacral wound vs LLE cellulitis. Renal fxn approaching her baseline but t1/2 still close to 30hrs. Will hold off on de-escalating given the multiple infectious etiologies and clinical status of Ms. Ahmadi Plan * Will order Vanco 750mg X1 now and order a random lvl for 06/14/17 @ 0444 * Adjusted Zosyn dosing interval from q12-->q8, due to renal fxn improving. Pharmacy will continue to follow and will adjust dose/frequency as necessary. Thank you.
[2017-06-13] MEDS: WARFARIN SOD 1 MG TAB PO SCH (15:25)
[2017-06-13 16:09] VITALS: BP 117/80; PULSE 102; TEMP 36.2; O2SAT 97
--- NOTE | 2017-06-13 16:36 | Progress Note ---
Internal Med Progress Note Date of Service: Jun 13, 2017. Provider Documentation: SUBJECTIVE: Seen and examined at bedside Feels well Overall No complaints Family at bedside Leg erythema much improved OBJECTIVE: Vital Signs-as noted below Physical Exam: General Appearance:Moderately built and nourished, no apparent distress Head: normocephalic, Atraumatic Eyes: normal inspection, EOMI, PERRL Neck: supple, Trachea midline Respiratory/Chest: Normal breath sounds, Basal Creps Cardiovascular: S1, S2, No murmur Abdomen/GI:Soft, Non tender, Bowel sounds present Back:BACK: sacral decubitus ulcer Extremities/Musculoskelatal:normal inspection, B/L LE edema R > L Neurologic/Psych:grossly no focal neurological deficits Skin: normal color, warm Lab data as noted below. ASSESSMENT & PLAN: Patient is an 87 yr female with apparent sepsis 2/2 cellulitis of the R leg, multiple areas of Stage II ulcerations on her sacral region and UTI Acute hypoxic respiratory failure in setting of severe sepsis Resolved Sepsis: 2/2 UTI, infected sacral wound or LLE cellulitis. Continue broad spectrum antibiotics Follow up Cultures Continue wound care Needs follow up with wound clinic upon discharge PT/OT DM II Continue ISS, Lantus Monitor BGs Atrial fibrillation with RVR continue metoprolol Continue coumadin INR:2.5 today MARGOT in CKD III continue calcitriol twice weekly Cr levels slowly improving monitor renal function Plan to resume diuretics as able Chronic diastolic heart failure: compensated holding diuretic in setting of MARGOT Hyponatremia: S/P IVF monitor Anemia stable No acute bleeding issues Stage II sacral decubitus-POA Continue wound care L knee pain 2/2 OA Appreciate Ortho Input Need Knee injection as outpatient DVT pX: On coumadin Code Status: Full Code Disposition: Needs follow up with wound care and Orthopedics upon discharge PT/OT Vital Signs: Date Time Temp Pulse Resp B/P (MAP) Pulse Ox O2 Delivery O2 Flow Rate FiO2 06/13/17 16:09 36.2 102 18 117/80 (92) 97 Room Air 06/13/17 15:30 Room Air 06/13/17 07:19 36.3 69 16 107/66 (80) 97 Room Air 06/13/17 07:15 Room Air 06/13/17 00:14 36.3 92 16 128/77 (94) 93 Room Air 06/13/17 00:00 Room Air 06/12/17 19:00 Room Air Lab Results: Results Past 24 Hours Test 06/12/17 20:29 06/13/17 06:42 06/13/17 07:39 06/13/17 11:23 Range/Units Bedside Glucose 174 81 95 70-90 mg/dl Prothrombin Time 26.1 9.0-12.0 SECONDS Prothromb Time International Ratio 2.5 0.9-1.1 Creatinine 1.88 0.60-1.20 mg/dl Est Creatinine Clear Calc Drug Dose 22.3 ml/min Estimated GFR () 27.5 Estimated GFR (Non- 23.8 Random Vancomycin Level 17.4 mcg/ml Test 06/13/17 16:31 Range/Units Bedside Glucose 108 70-90 mg/dl
[2017-06-13 20:23] VITALS: BP 122/78; PULSE 97; TEMP 36.2; O2SAT 97
[2017-06-14] VITALS (8 sets, daily range): BP systolic 106–152; BP diastolic 71–90; PULSE 86–107; TEMP 31.9–36.7; O2SAT 91–97
[2017-06-14] MEDS: PIPERACILL/TAZOBAC IV 3.375 GM in DEXTROSE 5% 100ML IV SCH (05:25)
[2017-06-14 08:23] LABS: HEMATOCRIT 32.9 % (37-47); HEMOGLOBIN 10.3 g/dL (12.0-16.0); MEAN CELL VOLUME 71.2 fL (80-100); MEAN CORPUSCULAR HEMOGLOBIN 22.3 pg (25-34); MEAN CORPUSCULAR HGB CONC 31.3 g/dl (32-36); MEAN PLATELET VOLUME 9.3 fL (7.4-10.4); PLATELET COUNT 246 K/uL (130-400); RED CELL DISTRIBUTION WIDTH CV 21.5 % (11.5-14.5); RED CELL DISTRIBUTION WIDTH SD 50.9 fL (36.4-46.3); WHITE BLOOD COUNT 9.63 K/uL (4.8-10.8)
[2017-06-14] MEDS: ASPIRIN 81 MG ECTAB PO SCH (08:30)
[2017-06-14] MEDS: METOPROLOL TARTRATE 50 MG TAB PO SCH ×2 (08:32→21:06)
[2017-06-14] MEDS: PANTOprazole SOD 40 MG TAB PO SCH (08:36)
[2017-06-14] MEDS: CHOLECALCIFEROL 1000 INTER.UNIT TAB PO SCH (08:37)
[2017-06-14 08:39] LABS: INR 1.9 (0.9-1.1)
[2017-06-14 08:49] LABS: CALCIUM 8.3 mg/dl (8.5-10.1); CREATININE 1.86 mg/dl (0.60-1.20); POTASSIUM 4.3 mmol/L (3.5-5.1)
[2017-06-14] MEDS: INSULIN ASPART 100 UNITS/ML 3 ML PEN SC SCH ×4 (09:01→21:13)
[2017-06-14] MEDS: INSULIN GLARGINE SOLOSTAR 100 UNITS/ML 3 ML PEN SC SCH ×2 (09:02→21:14)
[2017-06-14] MEDS: CEFDINIR 300 MG CAP PO SCH (11:09)
--- NOTE | 2017-06-14 14:25 | Progress Note ---
Internal Med Progress Note Date of Service: Jun 14, 2017. Provider Documentation: SUBJECTIVE: Seen and examined at bedside No complaints Doing well Leg erythema much improved patient agreeable to rehab placement OBJECTIVE: Vital Signs-as noted below Physical Exam: General Appearance:Moderately built and nourished, no apparent distress Head: normocephalic, Atraumatic Eyes: normal inspection, EOMI, PERRL Neck: supple, Trachea midline Respiratory/Chest: Normal breath sounds, Basal Creps Cardiovascular: S1, S2, No murmur Abdomen/GI:Soft, Non tender, Bowel sounds present Back:BACK: sacral decubitus ulcer Extremities/Musculoskelatal:normal inspection, B/L LE edema R > L Neurologic/Psych:grossly no focal neurological deficits Skin: normal color, warm Lab data as noted below. ASSESSMENT & PLAN: Patient is an 87 yr female with apparent sepsis 2/2 cellulitis of the R leg, multiple areas of Stage II ulcerations on her sacral region and UTI Acute hypoxic respiratory failure in setting of severe sepsis Resolved Sepsis: 2/2 UTI, infected sacral wound or LLE cellulitis. Was on Vanco and Zosyn >> Omnicef Wound Culture: Group B Strep, Coag negative Staph Urine culture:E.coli Continue wound care Needs follow up with wound clinic upon discharge PT/OT DM II Continue ISS, Lantus Monitor BGs Atrial fibrillation with RVR continue metoprolol Continue coumadin INR:1.9 today MARGOT in CKD III continue calcitriol twice weekly Cr levels near baseline monitor renal function Resume diuretics Chronic diastolic heart failure: compensated Resume diuretics Hyponatremia: S/P IVF monitor Anemia stable No acute bleeding issues Stage II sacral decubitus-POA Continue wound care L knee pain 2/2 OA Appreciate Ortho Input Need Knee injection as outpatient DVT Px: On Coumadin Code Status: Full Code Disposition: Needs follow up with wound care and Orthopedics upon discharge PT/OT: Needs Rehab placement Vital Signs: Date Time Temp Pulse Resp B/P (MAP) Pulse Ox O2 Delivery O2 Flow Rate FiO2 06/14/17 11:56 36.2 105 16 124/80 (95) 91 Room Air 06/14/17 10:48 36.2 06/14/17 08:01 94 Room Air 06/14/17 08:00 94 Room Air 06/14/17 07:56 105 16 128/82 (97) 94 Room Air 06/14/17 00:15 Room Air 06/14/17 00:08 36.7 107 18 106/71 (83) 95 Room Air 06/13/17 20:23 36.2 97 18 122/78 (93) 97 Room Air 06/13/17 16:09 36.2 102 18 117/80 (92) 97 Room Air 06/13/17 15:30 Room Air Lab Results: Results Past 24 Hours Test 06/13/17 16:31 06/13/17 20:03 06/14/17 07:25 06/14/17 07:47 Range/Units Bedside Glucose 108 121 161 70-90 mg/dl White Blood Count 9.63 4.8-10.8 K/uL Red Blood Count 4.62 4.2-5.4 M/uL Hemoglobin 10.3 12.0-16.0 g/dL Hematocrit 32.9 37-47 % Mean Corpuscular Volume 71.2 80-100 fL Mean Corpuscular Hemoglobin 22.3 25-34 pg Mean Corpuscular Hemoglobin Concent 31.3 32-36 g/dl RDW Standard Deviation 50.9 36.4-46.3 fL RDW Coefficient of Variation 21.5 11.5-14.5 % Platelet Count 246 130-400 K/uL Mean Platelet Volume 9.3 7.4-10.4 fL Prothrombin Time 19.8 9.0-12.0 SECONDS Prothromb Time International Ratio 1.9 0.9-1.1 Sodium Level 132 136-145 mmol/L Potassium Level 4.3 3.5-5.1 mmol/L Chloride Level 100 98-107 mmol/L Carbon Dioxide Level 23 21-32 mmol/L Anion Gap 8.0 3-11 mmol/L Blood Urea Nitrogen 38 7-18 mg/dl Creatinine 1.86 0.60-1.20 mg/dl Est Creatinine Clear Calc Drug Dose 22.6 ml/min Estimated GFR () 27.9 Estimated GFR (Non- 24.1 BUN/Creatinine Ratio 20.2 10-20 Random Glucose 147 70-99 mg/dl Calcium Level 8.3 8.5-10.1 mg/dl Random Vancomycin Level 20.0 mcg/ml Test 06/14/17 11:22 Range/Units Bedside Glucose 190 70-90 mg/dl
[2017-06-14] MEDS ORDERED: FUROSEMIDE 20 MG TAB PO ONE (14:30)
[2017-06-14] MEDS: WARFARIN SOD 1 MG TAB PO SCH (15:59)
[2017-06-14] MEDS: FUROSEMIDE 20 MG TAB PO SCH (15:59)
[2017-06-15 00:20] VITALS: BP 139/79; PULSE 99; TEMP 36.2
[2017-06-15 07:12] VITALS: BP 102/66; PULSE 90; TEMP 36.3; O2SAT 95
[2017-06-15 08:08] LABS: INR 1.9 (0.9-1.1)
[2017-06-15 08:31] LABS: CALCIUM 8.2 mg/dl (8.5-10.1); CREATININE 1.69 mg/dl (0.60-1.20); POTASSIUM 4.1 mmol/L (3.5-5.1)
[2017-06-15] MEDS: CALCITRIOL 0.25 MCG CAP PO SCH ×2 (08:48→09:00)
[2017-06-15] MEDS: CHOLECALCIFEROL 1000 INTER.UNIT TAB PO SCH ×2 (08:48→09:00)
[2017-06-15] MEDS: CEFDINIR 300 MG CAP PO SCH ×2 (08:48→09:00)
[2017-06-15] MEDS: PANTOprazole SOD 40 MG TAB PO SCH ×2 (08:48→09:00)
[2017-06-15] MEDS: ASPIRIN 81 MG ECTAB PO SCH ×2 (08:49→09:00)
[2017-06-15] MEDS: METOPROLOL TARTRATE 50 MG TAB PO SCH ×3 (08:49→21:04)
[2017-06-15] MEDS: FUROSEMIDE 40 MG TAB PO SCH ×2 (08:50→09:00)
[2017-06-15] MEDS: INSULIN GLARGINE SOLOSTAR 100 UNITS/ML 3 ML PEN SC SCH ×2 (08:55→21:08)
[2017-06-15] MEDS: INSULIN ASPART 100 UNITS/ML 3 ML PEN SC SCH ×4 (08:55→21:09)
[2017-06-15 10:43] VITALS: O2SAT 95
--- NOTE | 2017-06-15 14:37 | Progress Note ---
Internal Med Progress Note Date of Service: Jun 15, 2017. Provider Documentation: SUBJECTIVE: Seen and examined at bedside Refused all medications this morning, she is upset with staff "I changed my mind" No other complaints, denies pain Daughter at bedside Will to take medications after counselling OBJECTIVE: Vital Signs-as noted below Physical Exam: General Appearance:Moderately built and nourished, no apparent distress Head: normocephalic, Atraumatic Eyes: normal inspection, EOMI, PERRL Neck: supple, Trachea midline Respiratory/Chest: Normal breath sounds, Basal Creps Cardiovascular: S1, S2, No murmur Abdomen/GI:Soft, Non tender, Bowel sounds present Back:BACK: sacral decubitus ulcer Extremities/Musculoskelatal:normal inspection, B/L LE edema R > L Neurologic/Psych:grossly no focal neurological deficits Skin: normal color, warm Lab data as noted below. ASSESSMENT & PLAN: Patient is an 87 yr female with apparent sepsis 2/2 cellulitis of the R leg, multiple areas of Stage II ulcerations on her sacral region and UTI Acute hypoxic respiratory failure in setting of severe sepsis Resolved Sepsis: 2/2 UTI, infected sacral wound or LLE cellulitis. Was on Vanco and Zosyn >> Omnicef Wound Culture: Group B Strep, Coag negative Staph Urine culture:E.coli Continue wound care Needs follow up with wound clinic upon discharge PT/OT DM II Continue ISS, Lantus Monitor BGs Atrial fibrillation with RVR continue metoprolol Continue coumadin INR:1.9 today MARGOT in CKD III continue calcitriol twice weekly Cr levels near baseline Cr:1.69 today monitor renal function Resumed diuretics Chronic diastolic heart failure: compensated Continue current medications Hyponatremia: S/P IVF monitor Anemia stable No acute bleeding issues Stage II sacral decubitus-POA Continue wound care L knee pain 2/2 OA Appreciate Ortho Input Need Knee injection as outpatient DVT Px: On Coumadin Code Status: Full Code Disposition: Needs follow up with wound care and Orthopedics upon discharge PT/OT: Needs Rehab placement donor services manager consulted Vital Signs: Date Time Temp Pulse Resp B/P (MAP) Pulse Ox O2 Delivery O2 Flow Rate FiO2 06/15/17 10:43 95 Room Air 06/15/17 07:12 36.3 90 18 102/66 (78) 95 Room Air 06/15/17 00:20 36.2 99 18 139/79 (99) Room Air 06/15/17 00:00 Room Air 06/14/17 21:01 97 129/90 (103) 06/14/17 15:45 Room Air 06/14/17 15:21 36.2 86 20 152/84 (106) 97 Room Air Lab Results: Results Past 24 Hours Test 06/14/17 16:33 06/14/17 20:01 06/15/17 07:24 06/15/17 07:29 Range/Units Bedside Glucose 216 197 143 70-90 mg/dl Prothrombin Time 19.7 9.0-12.0 SECONDS Prothromb Time International Ratio 1.9 0.9-1.1 Sodium Level 134 136-145 mmol/L Potassium Level 4.1 3.5-5.1 mmol/L Chloride Level 103 98-107 mmol/L Carbon Dioxide Level 22 21-32 mmol/L Anion Gap 8.0 3-11 mmol/L Blood Urea Nitrogen 41 7-18 mg/dl Creatinine 1.69 0.60-1.20 mg/dl Est Creatinine Clear Calc Drug Dose 24.8 ml/min Estimated GFR () 31.3 Estimated GFR (Non- 27.0 BUN/Creatinine Ratio 24.0 10-20 Random Glucose 127 70-99 mg/dl Calcium Level 8.2 8.5-10.1 mg/dl Magnesium Level 2.2 1.8-2.4 mg/dl Test 06/15/17 11:33 Range/Units Bedside Glucose 151 70-90 mg/dl
[2017-06-15 14:52] VITALS: BP 145/81; PULSE 87; TEMP 36.3
[2017-06-15 14:59] VITALS: O2SAT 100
[2017-06-15] MEDS: WARFARIN SOD 1 MG TAB PO SCH (16:49)
[2017-06-15] MEDS: FUROSEMIDE 20 MG TAB PO SCH (16:49)
[2017-06-16 00:59] VITALS: BP 134/62; PULSE 125; TEMP 36.5; O2SAT 95
[2017-06-16 07:25] VITALS: BP 104/63; PULSE 103; TEMP 36.9; O2SAT 97
[2017-06-16 08:25] LABS: HEMATOCRIT 31.3 % (37-47); HEMOGLOBIN 9.9 g/dL (12.0-16.0); MEAN CELL VOLUME 70.5 fL (80-100); MEAN CORPUSCULAR HEMOGLOBIN 22.3 pg (25-34); MEAN CORPUSCULAR HGB CONC 31.6 g/dl (32-36); MEAN PLATELET VOLUME 8.5 fL (7.4-10.4); PLATELET COUNT 235 K/uL (130-400); RED CELL DISTRIBUTION WIDTH CV 22.2 % (11.5-14.5); RED CELL DISTRIBUTION WIDTH SD 53.5 fL (36.4-46.3); WHITE BLOOD COUNT 6.57 K/uL (4.8-10.8)
[2017-06-16 08:31] LABS: INR 2.2 (0.9-1.1)
[2017-06-16 08:51] LABS: CALCIUM 8.7 mg/dl (8.5-10.1); CREATININE 1.49 mg/dl (0.60-1.20); POTASSIUM 3.9 mmol/L (3.5-5.1)
[2017-06-16] MEDS: METOPROLOL TARTRATE 50 MG TAB PO SCH (09:34)
[2017-06-16] MEDS: PANTOprazole SOD 40 MG TAB PO SCH (09:35)
[2017-06-16] MEDS: CEFDINIR 300 MG CAP PO SCH (09:35)
[2017-06-16] MEDS: CHOLECALCIFEROL 1000 INTER.UNIT TAB PO SCH (09:35)
[2017-06-16] MEDS: FUROSEMIDE 40 MG TAB PO SCH (09:35)
[2017-06-16] MEDS: ASPIRIN 81 MG ECTAB PO SCH (09:36)
[2017-06-16] MEDS: INSULIN GLARGINE SOLOSTAR 100 UNITS/ML 3 ML PEN SC SCH (09:39)
[2017-06-16] MEDS: INSULIN ASPART 100 UNITS/ML 3 ML PEN SC SCH ×2 (09:40→12:45)
--- NOTE | 2017-06-16 15:52 | Progress Note ---
Internal Med Progress Note Date of Service: Jun 16, 2017. Provider Documentation: SUBJECTIVE: Seen and examined at bedside Feels tired but otherwise doing well HR labile but asymptomatic No other complaints, denies pain OBJECTIVE: Vital Signs-as noted below Physical Exam: General Appearance:Moderately built and nourished, no apparent distress Head: normocephalic, Atraumatic Eyes: normal inspection, EOMI, PERRL Neck: supple, Trachea midline Respiratory/Chest: Normal breath sounds, CTA Cardiovascular: Irregularly irregular, No murmur Abdomen/GI:Soft, Non tender, Bowel sounds present Back:BACK: sacral decubitus ulcer Extremities/Musculoskelatal:normal inspection, B/L LE edema R > L Neurologic/Psych:grossly no focal neurological deficits Skin: normal color, warm Lab data as noted below. ASSESSMENT & PLAN: Patient is an 87 yr female with apparent sepsis 2/2 cellulitis of the R leg, multiple areas of Stage II ulcerations on her sacral region and UTI Acute hypoxic respiratory failure in setting of severe sepsis Resolved Sepsis: 2/2 UTI, infected sacral wound or LLE cellulitis. Was on Vanco and Zosyn >> Omnicef Day # 2 Wound Culture: Group B Strep, Coag negative Staph Urine culture:E.coli Continue wound care Needs follow up with wound clinic upon discharge PT/OT DM II Continue ISS, Lantus Monitor BGs Atrial fibrillation with RVR continue metoprolol Will increase BB to 75mg BID for better HR control Continue coumadin INR:1.9 today MARGOT in CKD III continue calcitriol twice weekly Cr levels near baseline Cr:1.49 today monitor renal function Resumed diuretics Chronic diastolic heart failure: compensated Continue current medications Hyponatremia: S/P IVF monitor Anemia stable No acute bleeding issues Stage II sacral decubitus-POA Continue wound care L knee pain 2/2 OA Appreciate Ortho Input Need Knee injection as outpatient DVT Px: On Coumadin Code Status: Full Code Disposition: Plan to discharge to SNF today Follow up with your PCP in 1 week after being discharged from rehab facility Follow up with your Orthopedic Surgeon (Sachin Lombardi DO) for possible Knee Injections in 2 weeks Follow up with wound clinic as advised Complete the antibiotic course as prescribed Continue to get Wound Care Seek immediate medical attention if your symptoms reoccur or worsen Vital Signs: Date Time Temp Pulse Resp B/P (MAP) Pulse Ox O2 Delivery O2 Flow Rate FiO2 06/16/17 08:00 Room Air 06/16/17 07:25 36.9 103 18 104/63 (77) 97 06/16/17 00:59 36.5 125 16 134/62 (86) 95 06/16/17 00:00 Room Air 06/15/17 17:18 Room Air Lab Results: Results Past 24 Hours Test 06/15/17 16:54 06/15/17 20:13 06/16/17 07:52 06/16/17 08:15 Range/Units Bedside Glucose 107 218 161 70-90 mg/dl White Blood Count 6.57 4.8-10.8 K/uL Red Blood Count 4.44 4.2-5.4 M/uL Hemoglobin 9.9 12.0-16.0 g/dL Hematocrit 31.3 37-47 % Mean Corpuscular Volume 70.5 80-100 fL Mean Corpuscular Hemoglobin 22.3 25-34 pg Mean Corpuscular Hemoglobin Concent 31.6 32-36 g/dl RDW Standard Deviation 53.5 36.4-46.3 fL RDW Coefficient of Variation 22.2 11.5-14.5 % Platelet Count 235 130-400 K/uL Mean Platelet Volume 8.5 7.4-10.4 fL Prothrombin Time 22.4 9.0-12.0 SECONDS Prothromb Time International Ratio 2.2 0.9-1.1 Sodium Level 133 136-145 mmol/L Potassium Level 3.9 3.5-5.1 mmol/L Chloride Level 103 98-107 mmol/L Carbon Dioxide Level 22 21-32 mmol/L Anion Gap 8.0 3-11 mmol/L Blood Urea Nitrogen 35 7-18 mg/dl Creatinine 1.49 0.60-1.20 mg/dl Est Creatinine Clear Calc Drug Dose 28.1 ml/min Estimated GFR () 36.5 Estimated GFR (Non- 31.5 BUN/Creatinine Ratio 23.2 10-20 Random Glucose 197 70-99 mg/dl Calcium Level 8.7 8.5-10.1 mg/dl Magnesium Level 2.2 1.8-2.4 mg/dl Test 06/16/17 11:34 Range/Units Bedside Glucose 215 70-90 mg/dl
[2017-06-16] MEDS: FUROSEMIDE 20 MG TAB PO SCH (15:55)
[2017-06-16] MEDS ORDERED: METO-551 PO (15:56)
[2017-06-16] MEDS: WARFARIN SOD 1 MG TAB PO SCH (15:56)
[2017-06-16] MEDS ORDERED: CEFD300C3 PO (15:56)
--- NOTE | 2017-06-16 15:58 | Discharge Summary ---
Discharge Summary Date of Service Jun 16, 2017. Discharge Summary Admission Date: Jun 10, 2017 at 21:19 Discharge Date: Jun 16, 2017 Discharge Disposition: assisted facility Principal Diagnosis: Sepsis, Sacral wounds, LE cellulitis, MARGOT Procedures: CT head: No acute intracranial findings CXR: Persistent but decreasing bilateral pleural effusions. Associated right basilar airspace opacities, likely atelectatic although a superimposed pneumonia could appear similar. LE doppler: No evidence of right lower extremity DVT. Consultations: Orthopedics Pending Studies/Follow-Up: Follow up with your PCP in 1 week after being discharged from rehab facility Follow up with your Orthopedic Surgeon (Sachin Lombardi DO) for possible Knee Injections in 2 weeks Follow up with wound clinic as advised Complete the antibiotic course as prescribed Continue to get Wound Care Seek immediate medical attention if your symptoms reoccur or worsen Medication Reconciliation New Medications: Cefdinir (Cefdinir) 300 Mg Cap 300 MG PO DAILY for 7 Days, #7 CAP Changed Medications: Metoprolol Tartrate (Lopressor) 50 Mg Tab 75 MG PO BID for 30 Days, #90 TAB (Changed from: QAM) Continued Medications: Aspirin (Aspirin Ec) 81 Mg Tab 81 MG PO DAILY Calcitriol (Rocaltrol Cap) 0.25 Mcg Cap 0.25 MCG PO 2XWK TAKE THIS MEDICATION EVERY MONDAY AND MONDAY Cholecalciferol (Vitamin D3) 1,000 Unit Tab 1000 INTER.UNIT PO DAILY Furosemide (Lasix) 20 Mg Tab 40 MG PO QAM, TAB Furosemide (Lasix) 20 Mg Tab 20 MG PO AFTERNOON, TAB ADDITIONAL 20 MG MAY BE TAKEN FOR INCREASED EDEMA Insulin Human Isophan/Regular (Novolin 70/30) Inj 24 UNITS SC QAM, BTL Insulin Isophan/Regular (Novolin 70/30) Susp 12 UNITS SQ QPM Iron-Vitamin C (Vitron-C) 1 Tab Tab 1 TAB PO DAILY Omeprazole (Prilosec) 40 Mg Cap 40 MG PO QAM TAKE THIS MEDICATION ONCE DAILY 30 MINUTES BEFORE BREAKFAST Oxybutynin Chloride (Oxybutynin Chloride ER) 10 Mg Tabcr 10 MG PO DAILY Potassium Ext Rel (Klor-Con) 20 Meq Tabcr 20 MEQ PO QAM, TAB Simvastatin (Zocor) 10 Mg Tab 10 MG PO HS Timolol Maleate (Ophth) (Timoptic-Xe 0.5% Oph) 0.5 % Piedad 1 DROP OPL DAILY Warfarin Sodium (Warfarin Sodium) 1 Mg Tab 1 MG PO QPM, TAB TAKE 1 MG EVERY DAY OR OTHERWISE DIRECTED TO TAKE BY ANTICOAGULATION CLINIC/MD Discontinued Medications: Metoprolol Tartrate (Lopressor) 50 Mg Tab 50 MG PO QPM, TAB Admission Information HPI (per Admitting provider): 87 yo diabetic F with chronic R knee pain presents with worsening pain in her R leg, generalized weakness and malaise. Per family she was mobile and more independent until around one month ago when she underwent a physical therapy, became very tired, and began to appear more weak. The patient is alert and appropriate and is not in respiratory distress. she denies any coughing, fevers , or chills. She denies abdominal pain, diarrhea, painful urination. She has been reportedly eating and drinking well per family members who have been trying to care for her. Today they were trying to help clean her up and her daughter reported that she slid nontraumatically to the floor and was unable to be moved both because she was heavy but also because her R leg was hurting her too much. The patient and family both deny any redness in her R leg until today and state there is some swelling present. On exam there is a small coin- sized area of epidermal skin loss without any drainage. This area is in her medial upper thigh and is erythematous and painful to the touch. She also has some erythema in her inguinal regions bilaterally within the skin folds. Workup in the ER includes a normal head CT, CXR revealing persistent pleural effusions that have improved from prior imaging studies and a possible superimposed infiltrate, and there is no DVT in her leg on ultrasound. EKG revealed afib with RVR in the 130s with her heart rate improving after 2L of IVF. She also had a BP in the 60s systolic which also responded well to IVF. She was given broad spectrum antibiotics. Her WBC count was 13K, lactate was around 6 and she was found to have an MARGOT on labs. Physical Exam (per Admitting): General Appearance: + mild distress (from pain), + obese Head: normocephalic, atraumatic, + pertinent finding (missing teeth) Eyes: normal inspection, sclerae normal ENT: hearing grossly normal Neck: no JVD, trachea midline Respiratory/Chest: lungs clear, normal breath sounds, no respiratory distress, no accessory muscle use Cardiovascular: no edema, no murmur, normal peripheral pulses, + tachycardia , + irregularly irregular Abdomen/GI: normal bowel sounds, non tender, soft Genitourinary - Female: + pertinent finding (inguinal area seen to have erythema in skin folds, but pt would not allow full evaluation 2/2 pain) Back: + pertinent finding (could not evaluate her back as she was in too much pain) Extremities/Musculoskelatal: no pedal edema, + pertinent finding ( restriction flexion/extension of her knees, no knee effusions, medial upper R thigh erythematous with small epidermal level abrasion like a rug burn, RLE with warmth and erythema to mid [place], skin normal on LLE.) 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 Was on Vanco and Zosyn >> Omnicef Day # 2 Wound Culture: Group B Strep, Coag negative Staph Urine culture:E.coli Continue wound care Needs follow up with wound clinic upon discharge PT/OT DM II Continue ISS, Lantus Monitor BGs Atrial fibrillation with RVR continue metoprolol Will increase BB to 75mg BID for better HR control Continue coumadin INR:1.9 today MARGOT in CKD III continue calcitriol twice weekly Cr levels near baseline Cr:1.49 today monitor renal function Resumed diuretics Chronic diastolic heart failure: compensated Continue current medications Hyponatremia: S/P IVF monitor Anemia stable No acute bleeding issues Stage II sacral decubitus-POA Continue wound care L knee pain 2/2 OA Appreciate Ortho Input Need Knee injection as outpatient DVT Px: On Coumadin Code Status: Full Code Disposition: Plan to discharge to SNF today Follow up with your PCP in 1 week after being discharged from rehab facility Follow up with your Orthopedic Surgeon (Sachin Lombardi DO) for possible Knee Injections in 2 weeks Follow up with wound clinic as advised Complete the antibiotic course as prescribed Continue to get Wound Care Seek immediate medical attention if your symptoms reoccur or worsen Total time spent on discharge = 37 minutes This includes examination of the patient, discharge planning, medication reconciliation, and communication with other providers. Discharge Instructions Discharge Instructions Date of Service Jun 16, 2017. Admission Reason for Admission: Sepsis Discharge Discharge Diagnosis / Problem: Sepsis, Sacral wounds, LE cellulitis, MARGOT Discharge Goals Goal(s): Decrease discomfort, Improve function Activity Recommendations Activity Limitations: resume your previous activity Exercise/Sports Limitations: as tolerated . Instructions / Follow-Up Instructions / Follow-Up Follow up with your PCP in 1 week after being discharged from rehab facility Follow up with your Orthopedic Surgeon (Sachin Lombardi DO) for possible Knee Injections in 2 weeks Follow up with wound clinic as advised Complete the antibiotic course as prescribed Continue to get Wound Care Seek immediate medical attention if your symptoms reoccur or worsen Current Hospital Diet Patient's current hospital diet: Diabetes Type 2 Diet Discharge Diet Recommended Diet: Diabetes Type 2 Diet Pending Studies Studies pending at discharge: no Laboratory Results Hemoglobin A1c Test 06/11/17 06:41 Range/Units Estimated Average Glucose 249 mg/dl Hemoglobin A1c 10.3 H 4.5-5.6 % Lipid Panel Test 04/13/17 03:46 Range/Units Triglycerides Level 79 0-150 mg/dl Cholesterol Level 75 0-200 mg/dl HDL Cholesterol 38 mg/dl Cholesterol/HDL Ratio 2.0 LDL Cholesterol, Calculated 21 mg/dl Medical Emergencies . Who to Call and When: Medical Emergencies: If at any time you feel your situation is an emergency, please call 911 immediately. . Non-Emergent Contact Non-Emergency issues call your: Primary Care Provider, Surgeon, Specialist ( Wound Clinic) Call Non-Emergent contact if: you have a fever, your pain is not controlled, your pain is worsening, your pain is unusual for you, your pain is concerning you, wound has increased drainage, wound has increased redness, wound has increased pain, you have any medication questions Seek immediate medical attention if your symptoms reoccur or worsen . . "Provider Documentation" section prepared by Errol Rowan. . <Electronically signed by Errol Rowan MD> Signed: 06/16/17 [id number] Signed: The status of this report is Signed * If report status is Draft, the document has not been finalized by the responsible provider.
[2017-06-16 16:12] VITALS: BP 104/63; PULSE 103; TEMP 36.9; O2SAT 97
[2017-06-16] MEDS ORDERED: METOPROLOL TARTRATE 50 MG TAB PO SCH (21:00)
== END 2017-06-16 17:40 | DRG 871 ==
LOC: EDBD 16:08 → C.EDD 16:10 → C.2T 21:19 → ENRESERV 21:28 → C.MS2W 06-12 16:28
PROVIDERS: ADMIT Hospitalist; ATTEND Internal Medicine
DX: A41.89 Other specified sepsis (principal); J96.01 Acute respiratory failure with hypoxia; L03.115 Cellulitis of right lower limb; N17.9 Acute kidney failure, unspecified; E87.1 Hypo-osmolality and hyponatremia; I50.32 Chronic diastolic (congestive) heart failure; N39.0 Urinary tract infection, site not specified; B96.20 Unspecified Escherichia coli [E. coli] as the cause of diseases classified elsewhere; L89.152 Pressure ulcer of sacral region, stage 2; L08.9 Local infection of the skin and subcutaneous tissue, unspecified; B95.1 Streptococcus, group B, as the cause of diseases classified elsewhere; B95.7 Other staphylococcus as the cause of diseases classified elsewhere; R79.1 Abnormal coagulation profile; M17.11 Unilateral primary osteoarthritis, right knee; I48.91 Unspecified atrial fibrillation; E11.22 Type 2 diabetes mellitus with diabetic chronic kidney disease; N18.3 Chronic kidney disease, stage 3 (moderate); D64.9 Anemia, unspecified; Z53.29 Procedure and treatment not carried out because of patient's decision for other reasons; Z79.82 Long term (current) use of aspirin; Z79.4 Long term (current) use of insulin; Z79.01 Long term (current) use of anticoagulants; Z79.899 Other long term (current) drug therapy

== ENCOUNTER → 2017-06-20 | Outpatient (CLI) | payer OTHER ==
[~2017-06-20] MED LIST changes: +ACET-1311 PO; +AMOX875T PO; +ASPI81TA28 PO; +CALC0.2510 PO; +CEFD300C3 PO; -CHLO5CAP19 PO; +CHOL1000 PO; -CMD25 PO; +DTRSR/10 PO; +FERRTAB18 PO; +INSU100I SQ; +INSU70IN2 SC; +INSU70IN2 SQ; +IPRASOL4 INH; +LORA-741 PO; -LPR25 PO; +MCRK20 PO; +METO-551 PO; +METO-722 PO; +OMEP40CA41 PO; +OXGN; +SIMV10TA2 PO; +TIMO0.5S2 OPL; +WARF4TAB44 PO
[2017-06-20 08:29] LABS: BLOOD UREA NITROGEN 52 mg/dl (7-18); CALCIUM 8.8 mg/dl (8.5-10.1); CARBON DIOXIDE 23 mmol/L (21-32); CREATININE 1.66 mg/dl (0.60-1.20); GLUCOSE 135 mg/dl (70-99); POTASSIUM 4.4 mmol/L (3.5-5.1); SODIUM 132 mmol/L (136-145)
[2017-06-20 08:30] LABS: INR 2.4 (0.9-1.1)
== END ==
LOC: C.LABCC 07:50
PROVIDERS: ATTEND Internal Medicine
DX: I48.91 Unspecified atrial fibrillation (principal); N18.3 Chronic kidney disease, stage 3 (moderate)

== ENCOUNTER 2017-06-23 23:41 | Inpatient (IN) | payer OTHER ==
[~2017-06-23] VITALS: Ht 162.6 cm; Wt 74.8 kg
[~2017-06-23 23:41] MED LIST changes: -ACET-1311 PO; -IPRASOL4 INH; -MCRK20 PO; -METO-722 PO; -OXGN
[2017-06-24] VITALS (9 sets, daily range): BP systolic 116–153; BP diastolic 61–79; PULSE 59–108; TEMP 36.3–36.8; O2SAT 91–100; BMI 31.5
--- NOTE | 2017-06-24 00:04 | EMERGENCY ROOM VISIT NOTE ---
History Report prepared by Sonido: Derek Thorpe Under the Supervision of: Dr. Fabrice Julian M.D. First contact with patient: 23:47 Chief Complaint: ALTERED MENTAL STATUS Stated Complaint: ALMS/Low O2 Saturation History of Present Illness The patient is a 87 year old female who presents to the Emergency Room with complaints of altered mental status that began 1 day ago. Per the daughter, the patient's blood sugar was low (58) after not eating the entire day. The daughter reports increased leg swelling and SOB (oxygen saturation in the 70's) . Per nursing staff, the patient has crackles in the lung romero. The patient was recently admitted to [facility] with sepsis. The patient's daughter denies nebulizer use, history of asthma, COPD, and wheezing. The patient was brought in by the daughter for her increased confusion. Of note, the patient has an irregular heart beat. 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 Review of Systems See HPI for pertinent positives & negatives. A total of 10 systems reviewed and were otherwise negative. Past Medical & Surgical Medical Problems: (1) Afib (2) Anticoagulated on warfarin (3) Aortic stenosis (4) Atrial fibrillation (5) Bacon esophagus (6) CHF exacerbation (7) Chronic diastolic (congestive) heart failure (8) CKD (chronic kidney disease), stage III (9) DM type 2 (diabetes mellitus, type 2) (10) Dyslipidemia (11) Ear lobe laceration (12) Fall (13) GERD (gastroesophageal reflux disease) (14) Glaucoma (15) Heart disease (16) HTN (hypertension) (17) Kidney disease (18) Mitral valve insufficiency (19) Sepsis (20) T2DM (type 2 diabetes mellitus) Surgical Problems: (1) Hx of tubal ligation Family History Diabetes mellitus Social History Smoking Status: Never Smoker Alcohol Use: none Drug Use: none Housing Status: lives with family Occupation Status: unemployed Current/Historical Medications Scheduled Amoxicillin & Pot Clavulanate (Augmentin 875-125 mg), 1 TAB PO BID Aspirin (Aspirin Ec), 81 MG PO DAILY Calcitriol (Rocaltrol Cap), 0.25 MCG PO 2XWK Cefdinir (Cefdinir), 300 MG PO DAILY Cholecalciferol (Vitamin D3), 1,000 INTER.UNIT PO DAILY Furosemide (Lasix), 40 MG PO QAM Furosemide (Lasix), 20 MG PO AFTERNOON Home O2 Therapy (Oxygen), 2 LITERS NA CONTINOUS Insulin Human Isophan/Regular (Novolin 70/30), 24 UNITS SC QAM Insulin Isophan/Regular (Novolin 70/30), 12 UNITS SQ QPM Insulin Lispro (Human) (Humalog), UNIT SQ ACHS Iron-Vitamin C (Vitron-C), 1 TAB PO DAILY Metoprolol Tartrate (Metoprolol Tartrate), 75 MG PO BID Omeprazole (Prilosec), 40 MG PO QAM Oxybutynin Chloride (Oxybutynin Chloride ER), 10 MG PO DAILY Potassium Chloride (Klor-Con M20), 20 MEQ PO QAM Simvastatin (Zocor), 10 MG PO HS Timolol Maleate (Ophth) (Timoptic-Xe 0.5% Oph), 1 DROP OPL DAILY Warfarin Sodium (Warfarin Sodium), 1 MG PO QPM Scheduled PRN Acetaminophen (Tylenol), 650 MG PO Q6H PRN for Mild Pain Acetaminophen (Tylenol), 650 MG PO Q6 PRN for TEMP>100 Ipratropium-Albuterol (Duoneb), 1 TREATMENT INH Q4H PRN for SOB/Wheezing Lorazepam (Ativan), 0.5 MG PO Q8 PRN for Anxiety Allergies Coded Allergies: No Known Allergies (Unverified , 06/24/17) Physical Exam Vital Signs Date Time Temp Pulse Resp B/P (MAP) Pulse Ox O2 Delivery O2 Flow Rate FiO2 06/24/17 01:25 36.9 107 23 06/24/17 01:03 153/141 06/24/17 00:55 28 06/24/17 00:25 94 20 06/23/17 23:57 98 06/23/17 23:55 100 24 06/23/17 23:50 77 Room Air 06/23/17 23:50 98 Nasal Cannula 4.0 06/23/17 23:50 85 24 117/93 98 Nasal Cannula 4.0 Physical Exam GENERAL: Patient is unwell and ill appearing and in moderate distress. EYES: No scleral icterus, unremarkable pupils. ENT: Mucous membranes moist, no nasal congestion. NECK: No masses appreciated, no meningismus, trachea is midline. RESPIRATORY: Dyspneic with labored breathing. Diffuse crackles and wet lung sounds. Mild wheezing through right lung. No rhonchi. CARDIOVASCULAR: Regular rate and rhythm. No murmurs, rubs, gallops appreciated. GASTROINTESTINAL: Abdomen soft, nontender, no peritonitis. Bowel sounds positive. No masses appreciated. BACK: No midline tenderness, no CVA tenderness EXTREMITIES: 3+ pitting edema of bilateral lower legs. Normal motion all extremities, no cyanosis. NEUROLOGIC: Tired, answers in yes or no. Oriented, no acute motor or sensory deficits, no focal weakness, cranial nerves grossly intact. SKIN: No rash, no jaundice, no diaphoresis. Medical Decision & Procedures ER Provider Diagnostic Interpretation: Radiology results and stated below per my review and interpretation: CHEST ONE VIEW Bilateral congestive findings, with right worse than left. Laboratory Results 06/24/17 00:48 Red Blood Count 4.94, Mean Corpuscular Volume 72.3, Mean Corpuscular Hemoglobin 22.5, Mean Corpuscular Hemoglobin Concent 31.1, Mean Platelet Volume 9.6, Neutrophils (%) (Auto) 69.5, Lymphocytes (%) (Auto) 15.3, Monocytes (%) (Auto) 13.4, Eosinophils (%) (Auto) 0.0, Basophils (%) (Auto) 0.9, Neutrophils # (Auto ) 4.78, Lymphocytes # (Auto) 1.05, Monocytes # (Auto) 0.92, Eosinophils # (Auto ) 0.00, Basophils # (Auto) 0.06 06/24/17 00:48 Test 06/24/17 00:45 06/24/17 00:48 06/24/17 01:05 Bedside Lactic Acid Venous 2.80 mmol/L (0.90-1.70) White Blood Count 6.87 K/uL (4.8-10.8) Red Blood Count 4.94 M/uL (4.2-5.4) Hemoglobin 11.1 g/dL (12.0-16.0) Hematocrit 35.7 % (37-47) Mean Corpuscular Volume 72.3 fL (80-100) Mean Corpuscular Hemoglobin 22.5 pg (25-34) Mean Corpuscular Hemoglobin Concent 31.1 g/dl (32-36) Platelet Count 347 K/uL (130-400) Mean Platelet Volume 9.6 fL (7.4-10.4) Neutrophils (%) (Auto) 69.5 % Lymphocytes (%) (Auto) 15.3 % Monocytes (%) (Auto) 13.4 % Eosinophils (%) (Auto) 0.0 % Basophils (%) (Auto) 0.9 % Neutrophils # (Auto) 4.78 K/uL (1.4-6.5) Lymphocytes # (Auto) 1.05 K/uL (1.2-3.4) Monocytes # (Auto) 0.92 K/uL (0.11-0.59) Eosinophils # (Auto) 0.00 K/uL (0-0.5) Basophils # (Auto) 0.06 K/uL (0-0.2) RDW Standard Deviation 57.5 fL (36.4-46.3) RDW Coefficient of Variation 23.2 % (11.5-14.5) Immature Granulocyte % (Auto) 0.9 % Immature Granulocyte # (Auto) 0.06 K/uL (0.00-0.02) Nucleated RBC Absolute Count (auto) 0.04 K/uL (0-0) Nucleated Red Blood Cells % 0.6 % Hypogranular Neutrophils 1+ Echinocytes 1+ Prothrombin Time 57.4 SECONDS (9.0-12.0) Prothromb Time International Ratio 5.7 (0.9-1.1) Anion Gap 8.0 mmol/L (3-11) Estimated GFR () 28.6 Estimated GFR (Non- 24.7 BUN/Creatinine Ratio 28.6 (10-20) Calcium Level 8.3 mg/dl (8.5-10.1) Magnesium Level 2.3 mg/dl (1.8-2.4) Total Bilirubin 0.9 mg/dl (0.2-1) Direct Bilirubin 0.4 mg/dl (0-0.2) Aspartate Amino Transf (AST/SGOT) 123 U/L (15-37) Alanine Aminotransferase (ALT/SGPT) 75 U/L (12-78) Alkaline Phosphatase 144 U/L (45-117) Total Creatine Kinase 41 U/L (26-192) Creatine Kinase MB 1.7 ng/ml (0.5-3.6) Creatine Kinase MB Ratio 4.1 (0-3.0) Pro-B-Type Natriuretic Peptide 9124 pg/ml (0-1800) Total Protein 7.1 gm/dl (6.4-8.2) Albumin 2.2 gm/dl (3.4-5.0) Urine Color YELLOW Urine Appearance CLEAR (CLEAR) Urine pH 5.0 (4.5-7.5) Urine Specific [place] 1.013 (1.000-1.030) Urine Protein NEG (NEG) Urine Glucose (UA) NEG (NEG) Urine Ketones NEG (NEG) Urine Occult Blood NEG (NEG) Urine Nitrite NEG (NEG) Urine Bilirubin NEG (NEG) Urine Urobilinogen NEG (NEG) Urine Leukocyte Esterase NEG (NEG) Urine WBC (Auto) 1-5 /hpf (0-5) Urine RBC (Auto) 0-4 /hpf (0-4) Urine Hyaline Casts (Auto) 1-5 /lpf (0-5) Urine Epithelial Cells (Auto) 10-20 /lpf (0-5) Urine Bacteria (Auto) NEG (NEG) Urine Yeast (Auto) BUDDING (NONE PRSENT) Laboratory results as reviewed by me. Medications Administered Medications (Trade) Dose Ordered Sig/Gustavo Route Start Time Stop Time Status Last Admin Dose Admin Albuterol/ Ipratropium (Duoneb) 3 ml NOW STAT INH 06/24/17 00:33 06/24/17 00:34 DC 06/24/17 01:08 3 ML Furosemide (Lasix Inj) 40 mg NOW STAT IV 06/24/17 01:34 06/24/17 01:35 DC 06/24/17 01:42 40 MG ECG Per My Interpretation Indication: altered mental status Rate (beats per minute): 89 Rhythm: atrial fibrillation Findings: no acute ischemic change, other (QTc of 467; poor baseline) ED Course 2347: The patient was evaluated in room A12. A complete history and physical exam was performed. 0134: I checked on the patient and she has very wet lung sounds. Her wheezing has improved. 0141: I discussed the patient's case with Dr. Sims. The patient will be evaluated for further treatment and disposition. 0150: Upon reevaluation, the patient is doing well. Discussed results and treatment plan with the patient. She verbalized understanding and agreement with the treatment plan. The patient will be evaluated for further management. Medical Decision Differential: Toxicological, Infectious, Stroke, SAH, Trauma, Electrolyte Abnormality, Hypoglycemia, Alcohol Intoxication, Drug Intoxication, Cardiac Abnormality, Sepsis, Meningitis/Encephalitis, Trauma, Excited Delirium, Serotonin Syndrome, Psychiatric, amongst other pathologies entertained. 87 yr old female arrives with worsening mental status over the last 12 hours. Arrives in quite poor respiratory status sating mid 70s on RA. Placed on 4L with good improvement. Some wheezing resolved with single neb. CXR with congestive failure, similar to previous. BNP bumped from previous baseline. Mild lactic acidosis likely secondary to hypoxia. Suspect hypoglycemia secondary to not eating all day. I feel with normal wbc, normal temp and just finished multiple rounds abx this is unlikely sepsis. Given IV lasix and unable to ambulate thus required stein. Will clearly need to come back in for her respiratory failure. Medication Reconcilliation Current Medication List: was personally reviewed by me Blood Pressure Screening Patient's blood pressure: Elevated blood pressure Blood pressure disposition: Elevated BP felt to be situational Consults Time Called: 0134 Consulting Physician: Dr. Sims Returned Call: [phone] Discussed the patient's case. The patient will be evaluated for further treatment and disposition. Impression Primary Impression: Acute congestive heart failure Additional Impression: Respiratory failure Scribe Attestation The scribe's documentation has been prepared under my direction and personally reviewed by me in its entirety. I confirm that the note above accurately reflects all work, treatment, procedures, and medical decision making performed by me. Departure Information Dispostion Being Evaluated By Hospitalist Referrals [place] (PCP) Patient Instructions My [facility] Problem Qualifiers
[2017-06-24] MEDS ORDERED: ALBUT/IPRATROP 3MG/0.5MG NEB 3 ML VIAL INH STA (00:33)
[2017-06-24 00:59] LABS: HEMATOCRIT 35.7 % (37-47); HEMOGLOBIN 11.1 g/dL (12.0-16.0); MEAN CELL VOLUME 72.3 fL (80-100); MEAN CORPUSCULAR HEMOGLOBIN 22.5 pg (25-34); MEAN CORPUSCULAR HGB CONC 31.1 g/dl (32-36); MEAN PLATELET VOLUME 9.6 fL (7.4-10.4); NUCLEATED RED BLOOD CELL ABS 0.04 K/uL (0-0); PLATELET COUNT 347 K/uL (130-400); RED CELL DISTRIBUTION WIDTH CV 23.2 % (11.5-14.5); RED CELL DISTRIBUTION WIDTH SD 57.5 fL (36.4-46.3); WHITE BLOOD COUNT 6.87 K/uL (4.8-10.8)
[2017-06-24 01:16] LABS: ALBUMIN 2.2 gm/dl (3.4-5.0); ALT/SGPT 75 U/L (12-78); AST/SGOT 123 U/L (15-37); BLOOD UREA NITROGEN 52 mg/dl (7-18); CALCIUM 8.3 mg/dl (8.5-10.1); CARBON DIOXIDE 23 mmol/L (21-32); CREATININE 1.82 mg/dl (0.60-1.20); GLUCOSE 111 mg/dl (70-99); POTASSIUM 4.3 mmol/L (3.5-5.1); SODIUM 136 mmol/L (136-145)
[2017-06-24 01:22] LABS: ALKALINE PHOSPHATASE 144 U/L (45-117); CKMB 1.7 ng/ml (0.5-3.6); TOTAL PROTEIN 7.1 gm/dl (6.4-8.2)
[2017-06-24 01:23] LABS: INR 5.7 (0.9-1.1)
[2017-06-24] MEDS ORDERED: MCRK20 PO (01:25)
[2017-06-24] MEDS ORDERED: OXGN (01:28)
[2017-06-24] MEDS ORDERED: METO-722 PO (01:31)
[2017-06-24] MEDS ORDERED: ACET-1311 PO ×2 (01:33)
[2017-06-24] MEDS ORDERED: FUROSEMIDE 40 MG/4 ML VIAL IV STA (01:34)
[2017-06-24] MEDS ORDERED: IPRASOL4 INH (01:35)
[2017-06-24 01:41] LABS: BASO % 0.9 %; BASO ABS # 0.06 K/uL (0-0.2); IG# 0.06 K/uL (0.00-0.02); LYMPH % 15.3 %; LYMPH ABS # 1.05 K/uL (1.2-3.4); MONO % 13.4 %; MONO ABS # 0.92 K/uL (0.11-0.59); NEUT % 69.5 %; NEUT ABS # 4.78 K/uL (1.4-6.5)
[2017-06-24] MEDS ORDERED: POLYETHYLENE (MIRALAX) 17 GM PACK PO PRN (06:00)
[2017-06-24] MEDS ORDERED: ALBUT/IPRATROP 3MG/0.5MG NEB 3 ML VIAL INH PRN (06:00)
[2017-06-24] MEDS ORDERED: ONDANSETRON INJ 2 MG/ML 2 ML VIAL IV PRN (06:00)
[2017-06-24] MEDS ORDERED: ACETAMINOPHEN 325 MG TAB PO PRN (06:00)
[2017-06-24] MEDS ORDERED: LORAZEPAM 0.5 MG TAB PO PRN (06:00)
--- NOTE | 2017-06-24 06:14 | History and Physical ---
History & Physical Date & Time of Service: Jun 24, 2017 at 06:00 Chief Complaint: Chf Exacerbation Primary Care Physician: Ian Churchill History of Present Illness Source: patient, clinic records, hospital records The patient is an 87-year-old female with history of aortic stenosis, atrial fibrillation and, chronic diastolic heart failure who presents with worsening shortness of breath and confusion per daughter the began 1 day ago. Daughter is not present at the time of this interview therefore, history is obtained from records. Patient unable to give a history at this time secondary to confusion and possible dementia. The daughter reported increased leg swelling and shortness of breath with an oxygen saturation in the 70s in the last day. The patient lives at [facility], and per nursing staff, the patient had crackles in the lung romero. She was notably recently admitted to [facility] with sepsis. Review of systems is unobtainable secondary to dementia and confusion. Past Medical/Surgical History Medical Problems: (1) Anticoagulated on warfarin Status: Chronic (2) Aortic stenosis Status: Chronic (3) Atrial fibrillation Status: Chronic (4) Bacon esophagus Status: Chronic (5) Chronic diastolic (congestive) heart failure Status: Chronic (6) CKD (chronic kidney disease), stage III Status: Chronic (7) DM type 2 (diabetes mellitus, type 2) Status: Chronic (8) Dyslipidemia Status: Chronic (9) GERD (gastroesophageal reflux disease) Status: Chronic (10) Glaucoma Status: Chronic (11) Heart disease Status: Chronic (12) HTN (hypertension) Status: Chronic (13) Mitral valve insufficiency Status: Chronic (14) T2DM (type 2 diabetes mellitus) Status: Chronic Surgical Problems: (1) Hx of tubal ligation Status: Resolved Family History Diabetes mellitus Social History Social history unobtainable secondary to dementia and altered mental status Smoking Status: Unknown if Ever Smoked Drug Use: none Housing status: lives with family Occupational Status: unemployed Immunizations History of Influenza Vaccine: Yes History of Tetanus Vaccine?: Yes History of Pneumococcal: Yes History of Hepatitis B Vaccine: No Allergies Coded Allergies: No Known Allergies (Unverified , 06/24/17) Home Medications Scheduled Amoxicillin & Pot Clavulanate (Augmentin 875-125 mg), 1 TAB PO BID Aspirin (Aspirin Ec), 81 MG PO DAILY Calcitriol (Rocaltrol Cap), 0.25 MCG PO 2XWK Cefdinir (Cefdinir), 300 MG PO DAILY Cholecalciferol (Vitamin D3), 1,000 INTER.UNIT PO DAILY Furosemide (Lasix), 40 MG PO QAM Furosemide (Lasix), 20 MG PO AFTERNOON Home O2 Therapy (Oxygen), 2 LITERS NA CONTINOUS Insulin Human Isophan/Regular (Novolin 70/30), 24 UNITS SC QAM Insulin Isophan/Regular (Novolin 70/30), 12 UNITS SQ QPM Insulin Lispro (Human) (Humalog), UNIT SQ ACHS Iron-Vitamin C (Vitron-C), 1 TAB PO DAILY Metoprolol Tartrate (Metoprolol Tartrate), 75 MG PO BID Omeprazole (Prilosec), 40 MG PO QAM Oxybutynin Chloride (Oxybutynin Chloride ER), 10 MG PO DAILY Potassium Chloride (Klor-Con M20), 20 MEQ PO QAM Simvastatin (Zocor), 10 MG PO HS Timolol Maleate (Ophth) (Timoptic-Xe 0.5% Oph), 1 DROP OPL DAILY Warfarin Sodium (Warfarin Sodium), 1 MG PO QPM Scheduled PRN Acetaminophen (Tylenol), 650 MG PO Q6H PRN for Mild Pain Acetaminophen (Tylenol), 650 MG PO Q6 PRN for TEMP>100 Ipratropium-Albuterol (Duoneb), 1 TREATMENT INH Q4H PRN for SOB/Wheezing Lorazepam (Ativan), 0.5 MG PO Q8 PRN for Anxiety Review of Systems Review of systems is unobtainable secondary to confusion, dementia, and fatigue. Physical Exam Vital Signs Date Time Temp Pulse Resp B/P (MAP) Pulse Ox O2 Delivery O2 Flow Rate FiO2 06/24/17 02:45 36.8 97 25 142/79 Nasal Cannula 4.0 06/24/17 02:15 100 23 92/63 94 06/24/17 01:25 36.9 107 23 06/24/17 01:03 153/141 06/24/17 00:55 28 06/24/17 00:25 94 20 06/23/17 23:57 98 06/23/17 23:55 100 24 06/23/17 23:50 77 Room Air 06/23/17 23:50 98 Nasal Cannula 4.0 06/23/17 23:50 85 24 117/93 98 Nasal Cannula 4.0 General Appearance: WD/WN, + mild distress (With movement, no distress at rest. ) Head: normocephalic, atraumatic Eyes: normal inspection, PERRL, sclerae normal ENT: pharynx normal Neck: trachea midline Respiratory/Chest: + respiratory distress (With movement), + accessory muscle use (With movement), + rhonchi, + pertinent finding (No wheezing) Cardiovascular: regular rate, rhythm, no edema, no JVD, normal peripheral pulses, + pertinent finding (Murmur difficult to appreciate secondary to adventitial sounds and lungs and patient trying to speak.) Abdomen/GI: normal bowel sounds, non tender, soft Extremities/Musculoskelatal: normal inspection, no calf tenderness, no pedal edema (.), normal range of motion, pelvis stable, + pertinent finding (Pain in lower legs especially on shins) Neurologic/Psych: + disoriented ( is demented confused and tired), + pertinent finding (Limited exam as patient) Skin: + pertinent finding (2 areas of breakdown on sacral area one area of breakdown on left medial thigh) Diagnostics Laboratory Results 06/24/17 00:48 Red Blood Count 4.94, Mean Corpuscular Volume 72.3, Mean Corpuscular Hemoglobin 22.5, Mean Corpuscular Hemoglobin Concent 31.1, Mean Platelet Volume 9.6, Neutrophils (%) (Auto) 69.5, Lymphocytes (%) (Auto) 15.3, Monocytes (%) (Auto) 13.4, Eosinophils (%) (Auto) 0.0, Basophils (%) (Auto) 0.9, Neutrophils # (Auto ) 4.78, Lymphocytes # (Auto) 1.05, Monocytes # (Auto) 0.92, Eosinophils # (Auto ) 0.00, Basophils # (Auto) 0.06 06/24/17 00:48 Test 06/24/17 00:45 06/24/17 00:48 06/24/17 01:05 06/24/17 01:45 Bedside Lactic Acid Venous 2.80 mmol/L (0.90-1.70) White Blood Count 6.87 K/uL (4.8-10.8) Red Blood Count 4.94 M/uL (4.2-5.4) Hemoglobin 11.1 g/dL (12.0-16.0) Hematocrit 35.7 % (37-47) Mean Corpuscular Volume 72.3 fL (80-100) Mean Corpuscular Hemoglobin 22.5 pg (25-34) Mean Corpuscular Hemoglobin Concent 31.1 g/dl (32-36) Platelet Count 347 K/uL (130-400) Mean Platelet Volume 9.6 fL (7.4-10.4) Neutrophils (%) (Auto) 69.5 % Lymphocytes (%) (Auto) 15.3 % Monocytes (%) (Auto) 13.4 % Eosinophils (%) (Auto) 0.0 % Basophils (%) (Auto) 0.9 % Neutrophils # (Auto) 4.78 K/uL (1.4-6.5) Lymphocytes # (Auto) 1.05 K/uL (1.2-3.4) Monocytes # (Auto) 0.92 K/uL (0.11-0.59) Eosinophils # (Auto) 0.00 K/uL (0-0.5) Basophils # (Auto) 0.06 K/uL (0-0.2) RDW Standard Deviation 57.5 fL (36.4-46.3) RDW Coefficient of Variation 23.2 % (11.5-14.5) Immature Granulocyte % (Auto) 0.9 % Immature Granulocyte # (Auto) 0.06 K/uL (0.00-0.02) Nucleated RBC Absolute Count (auto) 0.04 K/uL (0-0) Nucleated Red Blood Cells % 0.6 % Hypogranular Neutrophils 1+ Echinocytes 1+ Prothrombin Time 57.4 SECONDS (9.0-12.0) Prothromb Time International Ratio 5.7 (0.9-1.1) Anion Gap 8.0 mmol/L (3-11) Estimated GFR () 28.6 Estimated GFR (Non- 24.7 BUN/Creatinine Ratio 28.6 (10-20) Calcium Level 8.3 mg/dl (8.5-10.1) Magnesium Level 2.3 mg/dl (1.8-2.4) Total Bilirubin 0.9 mg/dl (0.2-1) Direct Bilirubin 0.4 mg/dl (0-0.2) Aspartate Amino Transf (AST/SGOT) 123 U/L (15-37) Alanine Aminotransferase (ALT/SGPT) 75 U/L (12-78) Alkaline Phosphatase 144 U/L (45-117) Total Creatine Kinase 41 U/L (26-192) Creatine Kinase MB 1.7 ng/ml (0.5-3.6) Creatine Kinase MB Ratio 4.1 (0-3.0) Pro-B-Type Natriuretic Peptide 9124 pg/ml (0-1800) Total Protein 7.1 gm/dl (6.4-8.2) Albumin 2.2 gm/dl (3.4-5.0) Urine Color YELLOW Urine Appearance CLEAR (CLEAR) Urine pH 5.0 (4.5-7.5) Urine Specific Be[place]ley 1.013 (1.000-1.030) Urine Protein NEG (NEG) Urine Glucose (UA) NEG (NEG) Urine Ketones NEG (NEG) Urine Occult Blood NEG (NEG) Urine Nitrite NEG (NEG) Urine Bilirubin NEG (NEG) Urine Urobilinogen NEG (NEG) Urine Leukocyte Esterase NEG (NEG) Urine WBC (Auto) 1-5 /hpf (0-5) Urine RBC (Auto) 0-4 /hpf (0-4) Urine Hyaline Casts (Auto) 1-5 /lpf (0-5) Urine Epithelial Cells (Auto) 10-20 /lpf (0-5) Urine Bacteria (Auto) NEG (NEG) Urine Yeast (Auto) BUDDING (NONE PRSENT) Bedside Glucose 78 mg/dl (70-90) Test 06/24/17 05:58 Date/Time Source Procedure Growth Status 06/24/17 00:48 Blood Blood Culture Pending Received 06/24/17 02:46 Nasal MRSA DNA Surveillance Screen Pending Received 06/24/17 01:05 Urine,Catheterized Urine Culture Pending Received Results Past 24 Hours Test 06/24/17 00:45 06/24/17 00:48 06/24/17 01:05 06/24/17 01:45 Range/Units Bedside Lactic Acid Venous 2.80 0.90-1.70 mmol/L White Blood Count 6.87 4.8-10.8 K/uL Red Blood Count 4.94 4.2-5.4 M/uL Hemoglobin 11.1 12.0-16.0 g/dL Hematocrit 35.7 37-47 % Mean Corpuscular Volume 72.3 80-100 fL Mean Corpuscular Hemoglobin 22.5 25-34 pg Mean Corpuscular Hemoglobin Concent 31.1 32-36 g/dl Platelet Count 347 130-400 K/uL Mean Platelet Volume 9.6 7.4-10.4 fL Neutrophils (%) (Auto) 69.5 % Lymphocytes (%) (Auto) 15.3 % Monocytes (%) (Auto) 13.4 % Eosinophils (%) (Auto) 0.0 % Basophils (%) (Auto) 0.9 % Neutrophils # (Auto) 4.78 1.4-6.5 K/uL Lymphocytes # (Auto) 1.05 1.2-3.4 K/uL Monocytes # (Auto) 0.92 0.11-0.59 K/uL Eosinophils # (Auto) 0.00 0-0.5 K/uL Basophils # (Auto) 0.06 0-0.2 K/uL RDW Standard Deviation 57.5 36.4-46.3 fL RDW Coefficient of Variation 23.2 11.5-14.5 % Immature Granulocyte % (Auto) 0.9 % Immature Granulocyte # (Auto) 0.06 0.00-0.02 K/uL Nucleated RBC Absolute Count (auto) 0.04 0-0 K/uL Nucleated Red Blood Cells % 0.6 % Hypogranular Neutrophils 1+ Echinocytes 1+ Prothrombin Time 57.4 9.0-12.0 SECONDS Prothromb Time International Ratio 5.7 0.9-1.1 Sodium Level 136 136-145 mmol/L Potassium Level 4.3 3.5-5.1 mmol/L Chloride Level 105 98-107 mmol/L Carbon Dioxide Level 23 21-32 mmol/L Anion Gap 8.0 3-11 mmol/L Blood Urea Nitrogen 52 7-18 mg/dl Creatinine 1.82 0.60-1.20 mg/dl Estimated GFR () 28.6 Estimated GFR (Non- 24.7 BUN/Creatinine Ratio 28.6 10-20 Random Glucose 111 70-99 mg/dl Calcium Level 8.3 8.5-10.1 mg/dl Magnesium Level 2.3 1.8-2.4 mg/dl Total Bilirubin 0.9 0.2-1 mg/dl Direct Bilirubin 0.4 0-0.2 mg/dl Aspartate Amino Transf (AST/SGOT) 123 15-37 U/L Alanine Aminotransferase (ALT/SGPT) 75 12-78 U/L Alkaline Phosphatase 144 45-117 U/L Total Creatine Kinase 41 26-192 U/L Creatine Kinase MB 1.7 0.5-3.6 ng/ml Creatine Kinase MB Ratio 4.1 0-3.0 Troponin I 0.032 0-0.045 ng/ml Pro-B-Type Natriuretic Peptide 9124 0-1800 pg/ml Total Protein 7.1 6.4-8.2 gm/dl Albumin 2.2 3.4-5.0 gm/dl Urine Color YELLOW Urine Appearance CLEAR CLEAR Urine pH 5.0 4.5-7.5 Urine Specific Be[place]ley 1.013 1.000-1.030 Urine Protein NEG NEG Urine Glucose (UA) NEG NEG Urine Ketones NEG NEG Urine Occult Blood NEG NEG Urine Nitrite NEG NEG Urine Bilirubin NEG NEG Urine Urobilinogen NEG NEG Urine Leukocyte Esterase NEG NEG Urine WBC (Auto) 1-5 0-5 /hpf Urine RBC (Auto) 0-4 0-4 /hpf Urine Hyaline Casts (Auto) 1-5 0-5 /lpf Urine Epithelial Cells (Auto) 10-20 0-5 /lpf Urine Bacteria (Auto) NEG NEG Urine Yeast (Auto) BUDDING NONE PRSENT Bedside Glucose 78 70-90 mg/dl Test 06/24/17 05:58 Range/Units Microbiology Results 06/24/17 Blood Culture, Received Pending 06/23/17 Blood Culture, Received Pending 06/24/17 MRSA DNA Surveillance Screen, Received Pending 06/24/17 Urine Culture, Received Pending Diagnostic Radiology Chest x-ray reveals venous congestion, pending read by radiology today. EKG Atrial fibrillation Impression Assessment and Plan 87-year-old female presents with CHF exacerbation 1. CHF diastolic exacerbation-known history of chronic diastolic congestive heart failure, clinical picture consistent with acute exacerbation. No current respiratory distress unless patient moves. Lasix was given in the ER 40 mg IV with 1200 cc output into Wilson bag. Lasix 20 IV twice daily was continued to be adjusted by cardiology as needed tomorrow. Consult cardiology. Defer to cardiology for repeat echocardiogram which was just performed 3 months ago. 2. Possible HCAP-patient recently discharged on 06/16 after treatment for sepsis secondary to pneumonia. Patient with excessive coughing and adventitial sounds on lung exam. Chest x-ray reveals pleural effusion with possible pneumonia. It is unclear if this is the same process as 7 days ago. Blood cultures sputum culture is pending. Empiric broad-spectrum antibiotic therapy begun with thank and Zosyn. Monitor for clinical progression. 3. Atrial fibrillation-anticoagulated on warfarin with a supratherapeutic INR, no bleeding. Rate control with metoprolol. Continue baby aspirin. Holding warfarin pending INR decrease. Trend INR daily. 4. Diabetes type 2-hold NPH. Continue insulin sliding scale. Patient hypoglycemic overnight. No carb coverage or Lantus at this time. Requested pharmacy inpatient glycemic consult. 5. Bacon's esophagus-continue PPI daily 6. CKD stage III-at baseline DVT prophylaxis-Coumadin, currently on hold with supratherapeutic INR Full code Dispo-telemetry Ofelia Sims DO [facility] Advanced Directives Existing Living Will: No Existing Power of Tie Inspector: No Resuscitation Status VTE Prophylaxis Will order VTE Prophylaxis: Yes
--- NOTE | 2017-06-24 06:26 | DIAGNOSTIC IMAGING REPORT ---
CHEST ONE VIEW PORTABLE HISTORY: 87 years-old Female fever acute fever COMPARISON: Chest radiograph 06/11/2017 TECHNIQUE: Portable AP view of the chest FINDINGS: Cardiac silhouette is again enlarged. Mitral annular calcifications are noted in addition to calcifications of the aorta. No pneumothorax. Small bilateral pleural effusions with bibasilar subsegmental opacities, right greater than left. Pulmonary vascular congestion with interstitial coarsening. No pneumothorax. Linear subsegmental opacity of the right midlung suggests fluid within the minor fissure, possibly with associated atelectasis/scarring. Degenerative changes noted within the shoulders and spine. IMPRESSION: 1. Cardiomegaly with mild pulmonary edema. 2. Small bilateral pleural effusions with right greater than left bibasilar opacities suggesting atelectasis or pneumonia. The above report was generated using voice recognition software. It may contain grammatical, syntax or spelling errors. Electronically signed by: Desmond Jovel M.D. 06/24/2017 6:25 AM Dictated Date/Time: 06/24/2017 6:23 AM
[2017-06-24] MEDS ORDERED: GLUCAGON FOR INJ 1 MG VIAL SQ PRN ×2 (07:45→08:45)
[2017-06-24] MEDS ORDERED: GLUCOSE 40% GEL 15 GM TUBE PO PRN ×2 (07:45→08:45)
[2017-06-24] MEDS ORDERED: DEXTROSE 50% 50 ML SYR IV PRN ×2 (07:45→08:45)
[2017-06-24] MEDS ORDERED: GLUCOSE 10 TABS/TUBE PO PRN ×2 (07:45→08:45)
[2017-06-24] MEDS: TIMOLOL GFS 0.5% OPH SOLN 74 DROPS/5 ML BTL OPL SCH (08:21)
[2017-06-24] MEDS: ASPIRIN 81 MG ECTAB PO SCH (08:21)
[2017-06-24] MEDS: POTASSIUM CHLORIDE 20 MEQ TABCR PO SCH (08:22)
[2017-06-24] MEDS: CHOLECALCIFEROL 1000 INTER.UNIT TAB PO SCH (08:22)
[2017-06-24] MEDS: METOPROLOL TARTRATE 25 MG TAB PO SCH ×2 (08:22→20:50)
[2017-06-24] MEDS: PANTOprazole SOD 40 MG TAB PO SCH (08:22)
[2017-06-24] MEDS ORDERED: FUROSEMIDE INJ 20 MG in SYRINGE 0 ML IV SCH (09:00)
[2017-06-24] MEDS ORDERED: POTASSIUM CHLORIDE 20 MEQ TABCR PO SCH (09:00)
[2017-06-24] MEDS ORDERED: VANCOMYCIN CONSULT ACTIVE PRN (09:15)
[2017-06-24] MEDS ORDERED: PIPERACILL/TAZOBAC CONSULT ACTIVE PRN (09:15)
[2017-06-24] MEDS ORDERED: PIPERACILL/TAZOBAC IV 3.375 GM in DEXTROSE 5% 100ML IV ONE (09:30)
[2017-06-24] MEDS ORDERED: PHARMACY GLYCEMIC MGMT CONSULT SCH (09:47)
[2017-06-24 09:51] LABS: HEMOGLOBIN A1C 9.4 % (4.5-5.6)
--- NOTE | 2017-06-24 11:42 | Pharmacy Progress Note ---
Glycemic Control Intl Consult Date of Service Jun 24, 2017. Scope Glycemic Pharmacist consulted by Dr Sims on 06/24/17 for glycemic control and to write orders per [facility] inpatient glycemic control protocol Objective Weight (Kilograms): 83.300 Accuchecks BSG (last 24hrs): Test 06/24/17 00:48 06/24/17 01:45 06/24/17 06:42 06/24/17 06:46 Random Glucose 111 mg/dl (70-99) Bedside Glucose 78 mg/dl (70-90) 62 mg/dl (70-90) 68 mg/dl (70-90) Test 06/24/17 07:10 06/24/17 08:15 06/24/17 09:33 Bedside Glucose 73 mg/dl (70-90) 86 mg/dl (70-90) 145 mg/dl (70-90) Laboratory Data (last 24hrs) Test 06/24/17 00:48 06/24/17 06:22 Anion Gap 8.0 mmol/L BUN/Creatinine Ratio 28.6 Blood Urea Nitrogen 52 mg/dl Creatinine 1.82 mg/dl Potassium Level 4.3 mmol/L Sodium Level 136 mmol/L White Blood Count 6.87 K/uL Red Blood Count 4.94 M/uL Hemoglobin 11.1 g/dL Hematocrit 35.7 % Mean Corpuscular Volume 72.3 fL Mean Corpuscular Hemoglobin 22.5 pg Mean Corpuscular Hemoglobin Concent 31.1 g/dl Platelet Count 347 K/uL Mean Platelet Volume 9.6 fL Neutrophils (%) (Auto) 69.5 % Lymphocytes (%) (Auto) 15.3 % Monocytes (%) (Auto) 13.4 % Eosinophils (%) (Auto) 0.0 % Basophils (%) (Auto) 0.9 % Neutrophils # (Auto) 4.78 K/uL Lymphocytes # (Auto) 1.05 K/uL Monocytes # (Auto) 0.92 K/uL Eosinophils # (Auto) 0.00 K/uL Basophils # (Auto) 0.06 K/uL Hemoglobin A1c 9.4 % HbA1c Test 06/24/17 06:22 Hemoglobin A1c 9.4 % (4.5-5.6) H Recent Pertinent Medications Outpatient Anti-diabetic Regimen: * Novolin 70/30 - 24 units QAM, 12 units QPM * Humalog Sliding scale * A1c = 9.4 % 06/24/17 Risk Factors for Insulin Resistance: * Infection: HCAP - IV Vancomycin and Zosyn * Diet: Type 2 DM Assessment & Plan ASSESSMENT: * 87 year old female type 2 diabetic admitted with CHF exacerbation and HCAP ( recent admission in May) * Uncontrolled DM per A1c, admitted with hypoglycemia * Outpatient regimen is premixed basal/prandial insulin of Novolin 70/30 mix insulin. * Pre-mixed insulin is difficult to titrate since it is already in a fixed distribution of basal:prandial insulin. Continuing pre-mixed insulin for admission typically lead to hypoglycemia d/t changing PO status but rapid acting insulin is unable to be held. * Home regimen will be held for admission per pharmacy consult. Will utilize recommended regimen of SQ basal bolus insulin regimen with Lantus + NovoLog (CF+ CR) * Due to hypoglycemia upon admission, start with lower doses of Lantus than basal dose at home and loose CR and CF and titrate to goal BSG * Will use a higher goal range for patient's age, A1c, and hypoglycemia on admission PLAN FOR INPATIENT GLYCEMIC CONTROL: * Basal insulin with LANTUS SQ daily * 5 units for BSG < 120mg/dl * 15 units for BSG 120-180mg/dl * 20 units for BSG > 180mg/dl * Correctional Insulin with NOVOLOG per scale ACHS or Q6hrs while NPO * Goal Range: Low 120 mg/dL - High 150 mg/dL * Correction Factor: 30 mg/dL/unit * Nutritional / Prandial insulin per carb ratio of 1 unit per 12 grams CHO consumed * Please note that the plan above was derived based on current level of insulin resistance and hospital stress. These recommendations are appropriate for inpatient admission only. Plan of care upon discharge will need to be reassessed to avoid potential outpatient hypo/hyperglycemia. Thank you.
[2017-06-24] MEDS: INSULIN ASPART 100 UNITS/ML 3 ML PEN SC SCH ×3 (12:33→20:54)
[2017-06-24] MEDS: PIPERACILL/TAZOBAC IV 3.375 GM in DEXTROSE 5% 100ML IV SCH ×2 (13:53→21:28)
[2017-06-24] MEDS: FUROSEMIDE INJ 60 MG in SYRINGE 0 ML IV SCH (17:10)
[2017-06-24] MEDS: INSULIN GLARGINE SOLOSTAR 100 UNITS/ML 3 ML PEN SC SCH (17:13)
--- NOTE | 2017-06-24 18:20 | Progress Note ---
Internal Med Progress Note Date of Service: Jun 24, 2017. Provider Documentation: SUBJECTIVE: Patient is very lethargic, somnolent Course breath sound Patient wakes up with verbal cue not oriented to time. Place and person pulse oximetry shows saturation 97% on 4 L via nasal cannula OBJECTIVE: Vital Signs-as noted below Exam: General-elderly female, lethargic Eyes-sclerae nonicteric ENT-moist oral mucosa Neck-no JVD noted Lungs- coarse breath sounds all over lung field, diffuse rales prominent at base Heart-irregular Abdomen-soft nontender Extremities-+1-2 bilateral pitting edema Neuro-advanced dementia, lethargy no focal neurological deficit noted Lab data as noted below. ASSESSMENT & PLAN: 1. Acute decompensated congestive heart failure/diastolic dysfunction -Presents with increased shortness of breath at, hypoxia, Requiring increased supplemental O2 Chest x-ray shows pulmonary congestion, increased bilateral lower extremity swelling, proBNP elevated more than 2000 Patient admitted to telemetry Continued with IV diuretics Lasix 60 mg twice daily Appreciate input from cardiology recent echocardiogram 03/2017 shows Stiff left ventricle with ejection fraction 60-65% grade 1 diastolic dysfunction 2. Increased somnolence lethargy/metabolic encephalopathy -Possible metabolic encephalopathy secondary to hypoxia/pneumonia infection Has baseline dementia Patient is continued with IV diuretics and empiric antibiotic with Zosyn for pneumonia Continue to monitor neuro continue to monitor neuro status Fall precaution Increase risk for sundowning Benzodiazepines and sedatives should be avoided as possible 3. Acute kidney kidney injury with underlying CKD stage 4 -Possibly due to dehydration poor p.o. intake, infection Patient is requiring excessive takes for decompensated CHF Continue to monitor renal function we will adjust Lasix dose as needed Avoid NSAIDs/nephrotoxins/contrast studies 4. Hyperlipidemia On statin 5. Left lower lobe pneumonia Empiric antibiotic with Zosyn AFIB : on Beta aydin INR elevated Coumadin on hold 6. Dementia Mental status is worsened secondary to metabolic encephalopathy Continue to provide supportive care CODE STATUS: Full code DVT PROPHYLAXIS INR is elevated DISPOSITION Expected to returned back to [facility] when medical stable Vital Signs: Date Time Temp Pulse Resp B/P (MAP) Pulse Ox O2 Delivery O2 Flow Rate FiO2 06/25/17 11:06 78 16 92 Room Air 06/25/17 08:00 Nasal Cannula 2.0 06/25/17 07:51 36.4 93 18 122/71 (88) 94 Room Air 06/25/17 07:13 87 16 96 Room Air 06/25/17 04:07 36.5 72 18 106/58 (74) 100 Nasal Cannula 2.0 06/25/17 04:00 100 Nasal Cannula 2.0 06/25/17 03:19 84 16 100 Nasal Cannula 2.0 06/25/17 00:00 100 Nasal Cannula 3.0 06/24/17 23:10 89 16 100 Nasal Cannula 2.0 06/24/17 23:03 36.7 93 18 116/76 (89) 100 Nasal Cannula 3.0 06/24/17 20:40 36.8 59 18 153/75 (101) 91 Nasal Cannula 4.0 06/24/17 20:29 88 16 100 Nasal Cannula 3.0 06/24/17 20:00 Nasal Cannula 3.0 98 06/24/17 16:43 36.3 86 20 119/63 (81) 95 Nasal Cannula 4.0 06/24/17 16:00 Nasal Cannula 4.0 06/24/17 15:51 108 16 94 Nasal Cannula 4.0 06/24/17 12:00 Nasal Cannula 4.0 06/24/17 11:37 36.8 72 20 119/61 (80) 100 Nasal Cannula 4.0 Lab Results: Results Past 24 Hours Test 06/24/17 11:48 06/24/17 16:14 06/24/17 20:05 06/25/17 05:33 Range/Units Troponin I 0.033 0-0.045 ng/ml Bedside Glucose 137 169 70-90 mg/dl White Blood Count 5.97 4.8-10.8 K/uL Red Blood Count 4.28 4.2-5.4 M/uL Hemoglobin 9.6 12.0-16.0 g/dL Hematocrit 30.9 37-47 % Mean Corpuscular Volume 72.2 80-100 fL Mean Corpuscular Hemoglobin 22.4 25-34 pg Mean Corpuscular Hemoglobin Concent 31.1 32-36 g/dl RDW Standard Deviation 57.2 36.4-46.3 fL RDW Coefficient of Variation 23.7 11.5-14.5 % Platelet Count 250 130-400 K/uL Mean Platelet Volume 8.9 7.4-10.4 fL Prothrombin Time 46.2 9.0-12.0 SECONDS Prothromb Time International Ratio 4.5 0.9-1.1 Sodium Level 140 136-145 mmol/L Potassium Level 3.1 3.5-5.1 mmol/L Chloride Level 105 98-107 mmol/L Carbon Dioxide Level 26 21-32 mmol/L Anion Gap 9.0 3-11 mmol/L Blood Urea Nitrogen 42 7-18 mg/dl Creatinine 1.58 0.60-1.20 mg/dl Est Creatinine Clear Calc Drug Dose 26.1 ml/min Estimated GFR () 34.0 Estimated GFR (Non- 29.3 BUN/Creatinine Ratio 26.3 10-20 Random Glucose 178 70-99 mg/dl Calcium Level 8.1 8.5-10.1 mg/dl Magnesium Level 1.9 1.8-2.4 mg/dl Test 06/25/17 05:54 Range/Units Bedside Glucose 169 70-90 mg/dl
--- NOTE | 2017-06-24 19:47 | CARDIOLOGY CONSULTATION ---
DATE OF CONSULTATION: 06/24/2017 CONSULTATION REQUESTED BY: Ofelia Sims DO REASON FOR CONSULTATION: Acute diastolic heart failure. HISTORY OF PRESENT ILLNESS: Mrs. Ahmadi is a very pleasant yet significantly demented 87-year-old woman who follows very closely in our cardiology clinic for history of diastolic heart failure with Dr. Yepez and Shabana Hamilton PA-C. She presented to [facility] late in the evening of 06/23/2017 with her daughter and the daughter reported patient has been having increasing lower extremity swelling and shortness of breath with oxygen saturations down in the 70s at the skilled nursing. Reportedly, the nursing staff at [facility] also reported hearing crackles in her lung romero. The patient is not able to provide her own history. She is not answering questions appropriately at this time and is significantly lethargic. History obtained through review of medical records, through both [facility] and [employer] systems. The patient was most recently seen in the cardiology clinic on 05/25/2017 in the CHF clinic with Shabana Hamilton PA-C, at which time patient was found to be diuresing well with relatively well controlled heart rates. It was noted that patient was having difficulty taking her afternoon and evening meds but was compliant with her morning meds without issue. PAST SURGICAL HISTORY: 1. Tubal ligation. 2. Laser eye surgery. MEDICAL ILLNESSES: 1. Persistent atrial fibrillation, on chronic anticoagulation. 2. Chronic diastolic heart failure. 3. Hypertensive heart disease. 4. Dyslipidemia. 5. Vkpn-po-ypsujzuj aortic stenosis. 6. Dementia. 7. Stage III chronic kidney disease. 8. Diabetes. 9. Anemia. FAMILY HISTORY: Noncontributory. SOCIAL HISTORY: No alcohol, tobacco or recreational drug use. She is currently residing at [facility]. REVIEW OF SYSTEMS: Unobtainable given patient's mental status. ALLERGIES: No known drug allergies. MEDICATIONS AN OUTPATIENT: 1. Metoprolol tartrate 75 mg b.i.d. 2. Aspirin 81 mg daily. 3. Coumadin 0.5 and 1 mg alternating doses as directed by the [facility]. 4. Simvastatin 10 mg daily. 5. Lasix 40 mg q.a.m., 20 mg q.p.m. 6. Insulin as directed. 7. Ditropan daily. PHYSICAL EXAMINATION: VITALS: Temperature 36.8, pulse 72, respiratory rate 12, blood pressure 119/61. GENERAL: Significantly lethargic, confused, not responding appropriately to questioning. HEENT: Normocephalic, atraumatic. Pupils equal, round, react to light and accommodation. Extraocular muscles intact. Anicteric sclerae. Moist mucous membranes. Poor dentition. NECK: No JVD, no bruit. CARDIOVASCULAR: Irregularly irregular with a 3/6 mid-to-late systolic ejection murmur greatest at the right sternal border second intercostal space without radiation, no rubs. PULMONARY: Scant bibasilar crackles. No rhonchi or wheezing. ABDOMEN: Bowel sounds x4, soft. No rebound, guarding, tenderness. No organomegaly. EXTREMITIES: No clubbing or cyanosis. +1 bilateral lower extremity pitting edema. +2 pedal pulses bilaterally. SKIN: Warm and dry. TEST RESULTS: A 12-lead EKG performed in the Emergency Department, independently reviewed at this time shows atrial fibrillation at 89 beats per minute, low voltage study. No signs of active ischemia. Most recent echocardiogram on 04/05/2017 showed small left ventricular cavity size with severe concentric LVH, EF 60% to 65%, severe biatrial enlargement, uvjk-sg-kwvjdeig aortic stenosis, severe mitral annular calcification with slqv-ez-lwtmuuta mitral regurgitation, moderate tricuspid regurgitation. IMPRESSION: 1. Acute decompensated diastolic heart failure. 2. Stage III chronic kidney disease. 3. Increasing lethargy, unclear if possible mental status change. 4. Severe underlying dementia. RECOMMENDATIONS: It was my pleasure to see Mrs. Ahmadi in consultation today. At this point, the patient does not examine as significantly as profoundly volume overloaded, but she does still have significant lower extremity edema. So at this point, I will increase her Lasix to 60 mg IV b.i.d. given her renal function and I will continue to follow her volume status clinically. Otherwise, she has been having difficulty taking her afternoon medications, so for ease of use I will change her metoprolol tartrate to metoprolol succinate 150 mg q.a.m. and we will follow her heart rates and adjust the medication as necessary.
[2017-06-24] MEDS ORDERED: LEVALBUTEROL/IPRATROPIUM NEB INH SCH (20:00)
[2017-06-24] MEDS: LEVALBUTEROL 1.25MG/0.5ML NEB INH SCH ×2 (20:25→23:10)
[2017-06-24] MEDS: IPRATROPIUM BROMIDE NEB SOLN 0.02% 2.5 ML VIAL INH SCH ×2 (20:26→23:10)
[2017-06-24] MEDS: GUAIFENESIN 600 MG TABCR PO SCH (20:49)
[2017-06-24] MEDS: SIMVASTATIN 10 MG TAB PO SCH (20:50)
--- NOTE | 2017-06-24 21:27 | DIAGNOSTIC IMAGING REPORT ---
CHEST ONE VIEW PORTABLE HISTORY: 87 years-old Female coarse breath sounds with hypoxia acute hypoxia COMPARISON: Chest radiograph 06/24/2017 at 12:48 AM, chest radiograph 06/11/2017 TECHNIQUE: Portable AP view of the chest FINDINGS: Cardiac silhouette is mildly enlarged. Mitral annular calcifications are noted in addition to calcifications of the aorta. No pneumothorax. Small bilateral pleural effusions with bibasilar subsegmental opacities, right greater than left. Pulmonary vascular congestion with interstitial coarsening. No pneumothorax. Hazy bibasilar opacities with mildly improved aeration of the lung bases. Degenerative changes noted within the shoulders and spine. IMPRESSION: 1. Cardiomegaly with mild pulmonary edema. 2. Small bilateral pleural effusions with subsegmental bibasilar opacities suggesting atelectasis or pneumonitis, mildly improved from comparison. The above report was generated using voice recognition software. It may contain grammatical, syntax or spelling errors. Electronically signed by: Desmond Jovel M.D. 06/24/2017 9:26 PM Dictated Date/Time: 06/24/2017 9:24 PM
[2017-06-25] VITALS (12 sets, daily range): BP systolic 106–122; BP diastolic 58–73; PULSE 72–95; TEMP 36.3–36.7; O2SAT 91–100
[2017-06-25] MEDS ORDERED: INSULIN ASPART 100 UNITS/ML 3 ML PEN SC SCH (02:00)
[2017-06-25] MEDS: LEVALBUTEROL 1.25MG/0.5ML NEB INH SCH ×6 (03:19→23:29)
[2017-06-25] MEDS: IPRATROPIUM BROMIDE NEB SOLN 0.02% 2.5 ML VIAL INH SCH ×6 (03:19→23:28)
[2017-06-25] MEDS: PIPERACILL/TAZOBAC IV 3.375 GM in DEXTROSE 5% 100ML IV SCH (06:02)
[2017-06-25 06:14] LABS: HEMATOCRIT 30.9 % (37-47); HEMOGLOBIN 9.6 g/dL (12.0-16.0); MEAN CELL VOLUME 72.2 fL (80-100); MEAN CORPUSCULAR HEMOGLOBIN 22.4 pg (25-34); MEAN CORPUSCULAR HGB CONC 31.1 g/dl (32-36); MEAN PLATELET VOLUME 8.9 fL (7.4-10.4); PLATELET COUNT 250 K/uL (130-400); RED CELL DISTRIBUTION WIDTH CV 23.7 % (11.5-14.5); RED CELL DISTRIBUTION WIDTH SD 57.2 fL (36.4-46.3); WHITE BLOOD COUNT 5.97 K/uL (4.8-10.8)
[2017-06-25 06:44] LABS: CALCIUM 8.1 mg/dl (8.5-10.1); CREATININE 1.58 mg/dl (0.60-1.20); POTASSIUM 3.1 mmol/L (3.5-5.1)
[2017-06-25 07:16] LABS: INR 4.5 (0.9-1.1)
[2017-06-25] MEDS: INSULIN ASPART 100 UNITS/ML 3 ML PEN SC SCH ×4 (08:08→20:23)
[2017-06-25] MEDS: INSULIN GLARGINE SOLOSTAR 100 UNITS/ML 3 ML PEN SC SCH (08:09)
[2017-06-25] MEDS: POTASSIUM CHLORIDE 20 MEQ TABCR PO SCH (08:36)
[2017-06-25] MEDS: GUAIFENESIN 600 MG TABCR PO SCH ×2 (08:36→20:23)
[2017-06-25] MEDS: TIMOLOL GFS 0.5% OPH SOLN 74 DROPS/5 ML BTL OPL SCH (08:36)
[2017-06-25] MEDS: ASPIRIN 81 MG ECTAB PO SCH (08:36)
[2017-06-25] MEDS: FUROSEMIDE INJ 60 MG in SYRINGE 0 ML IV SCH ×2 (08:36→17:19)
[2017-06-25] MEDS: CHOLECALCIFEROL 1000 INTER.UNIT TAB PO SCH (08:37)
[2017-06-25] MEDS: PANTOprazole SOD 40 MG TAB PO SCH (08:37)
[2017-06-25] MEDS: METOPROLOL SUCC 50MG EXT REL TAB PO SCH (08:37)
--- NOTE | 2017-06-25 08:48 | Progress Note ---
Internal Med Progress Note Date of Service: Jun 25, 2017. Provider Documentation: SUBJECTIVE: Patient is alert and awake today sitting up On bed finished breakfast No sign of respiratory distress, not requiring oxygen Able to answer questions appropriately OBJECTIVE: Vital Signs-as noted below Exam: General-elderly female, no sign of discomfort Eyes-sclerae nonicteric ENT-moist oral mucosa Neck-no JVD noted Lungs-improved auscultation from prior, positive rales at base Heart-irregular Abdomen-soft nontender Extremities-+1-2 bilateral pitting edema Neuro-awake and alert oriented to person only, no focal neurological deficit Lab data as noted below. ASSESSMENT & PLAN: 1. Acute decompensated congestive heart failure/diastolic dysfunction Clinical improvement noted, no orthopnea or respiratory distress -Resolution of hypoxia Adequate diuresis with IV Lasix 60 mg twice daily Chest x-ray improvement of congestion shows -Presented with increased shortness of breath at, hypoxia, Requiring increased supplemental O2 Chest x-ray showed pulmonary congestion, had increased bilateral lower extremity swelling, proBNP elevated more than 2000 Appreciate input from cardiology We will adjust diuretics as per cardiology recommendation Echo Most recent echocardiogram on 04/05/2017 showed small left ventricular cavity size with severe concentric LVH, EF 60% to 65%, severe biatrial enlargement, poql-kt-glrtsoiv aortic stenosis, severe mitral annular calcification with vhbr-cq-gjtcqdaf mitral regurgitation, moderate tricuspid regurgitation. 2. Increased somnolence lethargy/metabolic encephalopathy Resolved Mental status improved to approximate baseline Able to have conversation, oriented to place and person -Presented with metabolic encephalopathy secondary to hypoxia/pneumonia infection Has baseline dementia Patient Treated with IV diuretics and empiric antibiotic with Zosyn for pneumonia Fall precaution Increase risk for sundowning Benzodiazepines and sedatives should be avoided as possible 3. Acute kidney kidney injury with underlying CKD stage 20 Creatinine improved 1.8-1.5 -Possibly due to dehydration poor p.o. intake, infection Continue to monitor renal function , as patient is on diuretics Avoid NSAIDs/nephrotoxins/contrast studies Hypokalemia K-3.1 Due to IV Lasix -On replacement of 40 meq p.o.daily -Ordered for 20 meq one-time dose -Repeat PRP at 1400 4. Hyperlipidemia On statin 5. Left lower lobe pneumonia Empiric antibiotic with Zosyn -Transition to oral antibiotic 6. Dementia -Mental status improved to baseline Mental status is worsened secondary to metabolic encephalopathy Continue to provide supportive care CODE STATUS: Full code DVT PROPHYLAXIS INR is elevated Continue to hold Coumadin DISPOSITION PT OT evaluation Will need rehab on discharge from hospital Vital Signs: Date Time Temp Pulse Resp B/P (MAP) Pulse Ox O2 Delivery O2 Flow Rate FiO2 06/27/17 08:00 98 Room Air 96 06/27/17 07:36 36.5 86 20 129/80 (96) 98 Room Air 06/27/17 07:06 93 16 93 Room Air 06/27/17 04:00 97 Room Air 06/27/17 03:31 36.4 89 16 139/91 (107) 97 Room Air 06/26/17 23:59 100 Room Air 06/26/17 23:12 36.3 82 18 140/72 (94) 98 Room Air 06/26/17 20:30 36.4 84 18 134/77 (96) 100 Room Air 06/26/17 20:00 94 Room Air 06/26/17 19:28 88 16 94 Room Air 06/26/17 16:33 36.3 84 16 127/80 (96) 98 Room Air 06/26/17 16:00 Room Air Lab Results: Results Past 24 Hours Test 06/26/17 16:04 06/26/17 20:28 06/27/17 05:13 06/27/17 06:38 Range/Units Bedside Glucose 156 226 139 70-90 mg/dl Prothrombin Time 50.5 9.0-12.0 SECONDS Prothromb Time International Ratio 5.0 0.9-1.1 Sodium Level 141 136-145 mmol/L Potassium Level 2.9 3.5-5.1 mmol/L Chloride Level 101 98-107 mmol/L Carbon Dioxide Level 32 21-32 mmol/L Anion Gap 7.0 3-11 mmol/L Blood Urea Nitrogen 29 7-18 mg/dl Creatinine 1.32 0.60-1.20 mg/dl Est Creatinine Clear Calc Drug Dose 30.0 ml/min Estimated GFR () 42.2 Estimated GFR (Non- 36.4 BUN/Creatinine Ratio 21.7 10-20 Random Glucose 151 70-99 mg/dl Calcium Level 8.4 8.5-10.1 mg/dl Magnesium Level 1.6 1.8-2.4 mg/dl Test 06/27/17 11:46 06/27/17 12:00 Range/Units Bedside Glucose 137 70-90 mg/dl
[2017-06-25] MEDS ORDERED: POTASSIUM CHLORIDE 10 MEQ TABCR PO ONE (09:30)
--- NOTE | 2017-06-25 11:44 | Cardiology Follow-Up ---
Subjective Subjective Date of Service: Jun 25, 2017. Pt evaluation today including: conversation w/ patient, physical exam, chart review, lab review, review of studies, review of inpatient medication list Additional Details: Pt seen and examined, oob in chair, much more alert today. Responding to questions appropriately. Denies cp, sob, palpitations, lightheadedness or dizziness. Tele reviewed: atrial fibrillation, rate controlled. Problem List Medical Problems: (1) Acute congestive heart failure Status: Acute (2) Acute kidney injury superimposed on CKD Status: Acute (3) Atrial fibrillation with rapid ventricular response Status: Acute (4) Cellulitis of right lower extremity Status: Acute (5) CHF (congestive heart failure) Status: Acute (6) Chronic kidney disease Status: Acute (7) Dyspnea Status: Acute (8) Epistaxis Status: Acute (9) Fall Status: Acute (10) Hyperglycemia Status: Acute (11) Lower extremity edema Status: Acute (12) Respiratory failure Status: Acute (13) Supratherapeutic INR Status: Acute Review of Systems Respiratory: No see HPI, No cough, No sputum, No wheezing, No shortness of breath, No dyspnea on exertion, No dyspnea at rest, No hemoptysis, No problem reported Cardiac: No see HPI, No chest pain, No orthopnea, No PND, No edema, No claudication, No palpitations, No problem reported Endo: + see HPI Objective Vital Signs Last Vital Signs Documentation Date Time Temp Pulse Resp B/P (MAP) Pulse Ox O2 Delivery O2 Flow Rate FiO2 06/25/17 11:26 36.7 95 18 117/73 (88) 96 Room Air 06/25/17 08:00 2.0 06/24/17 20:00 98 Physical Exam: General Appearance: WD/WN, no apparent distress Eyes: bilateral eyes normal inspection, bilateral eyes PERRL, bilateral eyes EOMI ENT: normal ENT inspection, hearing grossly normal, pharynx normal Neck: supple, no adenopathy, thyroid normal, no JVD, no carotid bruits, trachea midline Respiratory/Chest: chest non-tender, normal breath sounds, no respiratory distress, no accessory muscle use, + rhonchi Cardiovascular: + irregularly irregular Abdomen: normal bowel sounds, non tender, soft, no organomegaly, no pulsatile mass Extremities: normal inspection, no calf tenderness, + pedal edema (+1 b/l pitting edema) Neurologic/Psychiatric: dog bather II-XII nml as tested, no motor/sensory deficits, alert, normal mood/affect Skin: normal color, warm/dry, no rash Lymphatic: no adenopathy Assessment and Plan 1. acute decompensated diastolic heart failure improved diuresed very well overnight still with lower extremity edema, unclear if chronic issue will give PM dose of lasix today and then hold for AM will assess volume status clinically and titrate diuretics as needed 2. atrial fibrillation persistent rates controlled INR supratherapeutic today, coumadin to be held 3. encephalopathy resolved unclear baseline cont to monitor on tele
--- NOTE | 2017-06-25 14:24 | Pharmacy Progress Note ---
Glycemic Control Progress Note Date of Service Jun 25, 2017. Scope Glycemic Pharmacist consulted for glycemic control to write orders per [facility] inpatient glycemic control protocol. Objective Accuchecks BSG (last 24hrs): Test 06/24/17 16:14 06/24/17 20:05 06/25/17 05:33 06/25/17 05:54 Bedside Glucose 137 mg/dl (70-90) 169 mg/dl (70-90) 169 mg/dl (70-90) Random Glucose 178 mg/dl (70-99) Test 06/25/17 11:42 06/25/17 14:01 Bedside Glucose 153 mg/dl (70-90) HbA1c: Test 06/24/17 06:22 Hemoglobin A1c 9.4 % (4.5-5.6) H Recent Pertinent Medications Outpatient Anti-diabetic Regimen: * Novolin 70/30 - 24 units QAM, 12 units QPM * Humalog Sliding scale * A1c = 9.4 % 06/24/17 Risk Factors for Insulin Resistance: * Infection: Doxycycline PO * Diet: Type 2 DM Assessment & Plan ASSESSMENT: 06/25/17 * Blood sugars at goal, no changes at this time * Of note, Patient only received 5 units of insulin yesterday, dose should have been 15 units, but correctional insulin brought blood sugar back into range. * IV antibiotics --> PO 06/24/17 * 87 year old female type 2 diabetic admitted with CHF exacerbation and HCAP ( recent admission in May) * Uncontrolled DM per A1c, admitted with hypoglycemia * Outpatient regimen is premixed basal/prandial insulin of Novolin 70/30 mix insulin. * Pre-mixed insulin is difficult to titrate since it is already in a fixed distribution of basal:prandial insulin. Continuing pre-mixed insulin for admission typically lead to hypoglycemia d/t changing PO status but rapid acting insulin is unable to be held. * Home regimen will be held for admission per pharmacy consult. Will utilize recommended regimen of SQ basal bolus insulin regimen with Lantus + NovoLog (CF+ CR) * Due to hypoglycemia upon admission, start with lower doses of Lantus than basal dose at home and loose CR and CF and titrate to goal BSG * Will use a higher goal range for patient's age, A1c, and hypoglycemia on admission PLAN FOR INPATIENT GLYCEMIC CONTROL: * Basal insulin with LANTUS SQ daily * 5 units for BSG < 120mg/dl * 15 units for BSG 120-180mg/dl * 20 units for BSG > 180mg/dl * Correctional Insulin with NOVOLOG per scale ACHS or Q6hrs while NPO * Goal Range: Low 120 mg/dL - High 150 mg/dL * Correction Factor: 30 mg/dL/unit * Nutritional / Prandial insulin per carb ratio of 1 unit per 12 grams CHO consumed * Please note that the plan above was derived based on current level of insulin resistance and hospital stress. These recommendations are appropriate for inpatient admission only. Plan of care upon discharge will need to be reassessed to avoid potential outpatient hypo/hyperglycemia. Thank you.
[2017-06-25 14:39] LABS: CALCIUM 8.4 mg/dl (8.5-10.1); CREATININE 1.74 mg/dl (0.60-1.20); POTASSIUM 3.7 mmol/L (3.5-5.1)
--- NOTE | 2017-06-25 17:47 | Progress Note ---
Progress Note Date of Service Jun 25, 2017. Progress Note 1400 lab reviewed: Hypokalemia adequately corrected to 3.7 Continue scheduled dose of 40 M EQ potassium tablet daily AK I on CKD stage III Creatinine elevated from 1.5-1.74 Secondary to diuresis- P.m. dose of Lasix will be given today and then hold for AM 60 milligrams IV Lasix-per cardiology Repeat-BMP in a.m.
[2017-06-25] MEDS: SIMVASTATIN 10 MG TAB PO SCH (20:23)
[2017-06-25] MEDS: DOXYCYCLINE HYCLATE 100 MG CAP PO SCH (20:23)
[2017-06-26] VITALS (12 sets, daily range): BP systolic 120–140; BP diastolic 62–80; PULSE 81–90; TEMP 36.3–36.5; O2SAT 94–100; Ht 162.6 cm; Wt 74.8 kg
[2017-06-26] MEDS: IPRATROPIUM BROMIDE NEB SOLN 0.02% 2.5 ML VIAL INH SCH ×6 (03:42→23:44)
[2017-06-26] MEDS: LEVALBUTEROL 1.25MG/0.5ML NEB INH SCH ×6 (03:42→23:44)
[2017-06-26 07:21] LABS: INR 4.9 (0.9-1.1)
[2017-06-26 08:21] LABS: CREATININE 1.54 mg/dl (0.60-1.20)
[2017-06-26 08:22] LABS: POTASSIUM 3.2 mmol/L (3.5-5.1)
[2017-06-26 08:23] LABS: CALCIUM 8.5 mg/dl (8.5-10.1)
[2017-06-26] MEDS: GUAIFENESIN 600 MG TABCR PO SCH ×2 (08:44→20:42)
[2017-06-26] MEDS: PANTOprazole SOD 40 MG TAB PO SCH (08:44)
[2017-06-26] MEDS: CALCITRIOL 0.25 MCG CAP PO SCH (08:44)
[2017-06-26] MEDS: CHOLECALCIFEROL 1000 INTER.UNIT TAB PO SCH (08:44)
[2017-06-26] MEDS: METOPROLOL SUCC 50MG EXT REL TAB PO SCH (08:45)
[2017-06-26] MEDS: ASPIRIN 81 MG ECTAB PO SCH (08:45)
[2017-06-26] MEDS: DOXYCYCLINE HYCLATE 100 MG CAP PO SCH ×2 (08:45→20:42)
[2017-06-26] MEDS: TIMOLOL GFS 0.5% OPH SOLN 74 DROPS/5 ML BTL OPL SCH (08:45)
[2017-06-26] MEDS: INSULIN ASPART 100 UNITS/ML 3 ML PEN SC SCH ×4 (08:48→20:44)
[2017-06-26] MEDS: INSULIN GLARGINE SOLOSTAR 100 UNITS/ML 3 ML PEN SC SCH (08:49)
[2017-06-26] MEDS ORDERED: POTASSIUM CHLORIDE 20 MEQ TABCR PO ONE (09:30)
--- NOTE | 2017-06-26 10:08 | DIAGNOSTIC IMAGING REPORT ---
CHEST ONE VIEW PORTABLE CLINICAL HISTORY: Congestive heart failure exacerbation. COMPARISON STUDY: Chest radiograph June 24, 2017 at 9:06 PM. FINDINGS: There is no pneumothorax. There are trace bilateral pleural effusions which have decreased since prior exam. Bibasilar opacities favor atelectasis. There is no evidence for pulmonary edema. Cardiomediastinal silhouette is stable. IMPRESSION: 1. Interval resolution of pulmonary edema and improvement in trace bilateral pleural effusions. 2. Mild bibasilar opacities which favor atelectasis. Electronically signed by: Michele Sanders M.D. 06/26/2017 10:06 AM Dictated Date/Time: 06/26/2017 10:05 AM
[2017-06-26] MEDS ORDERED: FUROSEMIDE INJ 60 MG in SYRINGE 0 ML IV ONE (10:50)
--- NOTE | 2017-06-26 11:17 | Pharmacy Progress Note ---
Pharmacy Glycemic Short Note 2 Date of Service Jun 26, 2017. OUTPATIENT ANTIDIABETIC REGIMEN: * Novolin 70/30 - 24 units QAM, 12 units QPM * Humalog Sliding scale * A1c = 9.4 % 06/24/17 Item Value Date Time Bedside Glucose 169 mg/dl H 06/25/17 0554 Bedside Glucose 153 mg/dl H 06/25/17 1142 Bedside Glucose 206 mg/dl H 06/25/17 1614 Bedside Glucose 303 mg/dl H 06/25/172003 Bedside Glucose 178 mg/dl H 06/26/17 0635 ASSESSMENT: * 87yo T2DM female with poor outpatient control per recent A1c of 9.4% on * Pt is maintained on pre-mixed insulin regimen as an outpatient. This was held on admission since premixed insulins are difficult to titrate for acute situations as they are already in a fixed basal:prandial ratio. Currently using SQ basal bolus insulin reigmen with Lantus + NovoLog * Pt has been receiving ~ 32 units of insulin per day with near adequate control * 15 units of basal insulin * 17 units of prandial/correctional insulin * AM Fasting BSG = 178 mg/dl therefore Basal insulin needs increased slightly * Post-prandial BSGs are elevated/BSGs rise throughout the day therefore Tighten CR PLAN FOR INPATIENT GLYCEMIC CONTROL: * Hold outpatient oral diabetes medications * Basal insulinL increase dosing slightly * Lantus 18 units SQ daily in AM * Bolus insulin * NovoLog per scale ACHS or Q6hrs while NPO * Goal Range: Low 120 mg/dL - High 150 mg/dL * Correction Factor: 30 mg/dL/unit * Nutritional / Prandial insulin per carb ratio of 1 unit per 9 grams CHO consumed PLAN FOR DISCHARGE: * Reasonable to continue outpatient insulin regimen but doses may need increased /titrated to achieve A1c of ~ 8.5%
--- NOTE | 2017-06-26 11:29 | Cardiology Follow-Up ---
Subjective General Date of Service: Jun 26, 2017. Chief Complaint: SOB Pt evaluation today including: conversation w/ patient, physical exam, chart review, lab review, review of studies, review of inpatient medication list History of Present Illness Patient feeling ok. Notes ongoing cough and dyspnea. Edema improving but not yet at baseline according to patient. Denies chest pain or dizziness. No syncope or near syncope. Slept well. No specific orthopnea. Allergies Coded Allergies: No Known Allergies (Unverified , 06/24/17) Social History Smoking Status: Unknown if Ever Smoked Hx Tobacco Use In Past Year?: No Hx Alcohol Use - Type And Amou: No Hx Substance Use - Type And Am: No Problem List Medical Problems: (1) Acute congestive heart failure Status: Acute (2) Acute kidney injury superimposed on CKD Status: Acute (3) Atrial fibrillation with rapid ventricular response Status: Acute (4) Cellulitis of right lower extremity Status: Acute (5) CHF (congestive heart failure) Status: Acute (6) Chronic kidney disease Status: Acute (7) Dyspnea Status: Acute (8) Epistaxis Status: Acute (9) Fall Status: Acute (10) Hyperglycemia Status: Acute (11) Lower extremity edema Status: Acute (12) Respiratory failure Status: Acute (13) Supratherapeutic INR Status: Acute Review of Systems Respiratory: + cough, + sputum, + dyspnea on exertion, + dyspnea at rest, No wheezing, No hemoptysis Cardiac: + edema, No chest pain, No orthopnea, No PND, No palpitations Physical Exam Vital Signs Last Vital Signs Documentation Date Time Temp Pulse Resp B/P (MAP) Pulse Ox O2 Delivery O2 Flow Rate FiO2 06/26/17 08:00 Room Air 06/26/17 07:51 36.5 90 18 120/75 (90) 98 06/25/17 16:00 2.0 06/24/17 20:00 98 Physical Exam Constitutional: General Apperance: obese Level of Distress: NAD, acutely ill, chronically ill Psychiatric: Mental Status: active & alert Orientation: to time, to place, to person Eyes: Pupils: PERRLA Neck: supple Lungs: Respiratory effort: no dyspnea Auscultation: wet rales/crackles (b/l at bases) Cardiovascular: Heart Auscultation: II/ ERICA, irregular rate rhythm Abdomen: Bowel Sounds: normal Inspection & Palpation: soft, non-distended Extremities: edema (2+ edema to knees. Chronic stasis changes. ) Assessment and Plan Assessment and Plan 1. acute decompensated diastolic heart failure -still with cough, bibasilar rales, but improving. -LE edema, ? chronic. -continue IV diuresis for one additional day. 2. atrial fibrillation persistent rates controlled INR supratherapeutic today, coumadin to be held 3. encephalopathy resolved unclear baseline 4. Hypokalemia -supplement. DVT proph - Coumadin on hold, INR elevated. Case discussed with Dr. Clarke. Will follow. CARDIOLOGY ATTENDING ADDENDUM: The patient was seen and personally examined. Agree with Shabana Hamilton PA-C's findings and plans as documented above. Subjective: Patient feeling improved Exam: Bibasilar Rales Extremities, 1-2+ ankle edema Impression: As above Plan. Continue IV furosemide. Hold Coumadin for INR 4.9. Recheck INR in morning. Laboratory Results Last 24 Hours Test 06/25/17 11:42 06/25/17 14:01 06/25/17 16:14 06/25/17 20:04 Bedside Glucose 153 mg/dl 206 mg/dl 303 mg/dl Sodium Level 139 mmol/L Potassium Level 3.7 mmol/L Chloride Level 102 mmol/L Carbon Dioxide Level 30 mmol/L Anion Gap 7.4 mmol/L Blood Urea Nitrogen 38 mg/dl Creatinine 1.74 mg/dl Est Creatinine Clear Calc Drug Dose 23.7 ml/min Estimated GFR () 30.2 Estimated GFR (Non- 26.1 BUN/Creatinine Ratio 21.6 Random Glucose 165 mg/dl Calcium Level 8.4 mg/dl Test 06/26/17 05:23 06/26/17 06:35 06/26/17 07:56 Prothrombin Time 49.8 SECONDS Prothromb Time International Ratio 4.9 Bedside Glucose 178 mg/dl Sodium Level 141 mmol/L Potassium Level 3.2 mmol/L Chloride Level 102 mmol/L Carbon Dioxide Level 31 mmol/L Anion Gap 8.0 mmol/L Blood Urea Nitrogen 31 mg/dl Creatinine 1.54 mg/dl Est Creatinine Clear Calc Drug Dose 26.5 ml/min Estimated GFR () 35.1 Estimated GFR (Non- 30.2 BUN/Creatinine Ratio 20.1 Random Glucose 166 mg/dl Calcium Level 8.5 mg/dl
[2017-06-26] MEDS: FUROSEMIDE INJ 60 MG in SYRINGE 0 ML IV SCH (17:35)
--- NOTE | 2017-06-26 19:08 | Progress Note ---
Internal Med Progress Note Date of Service: Jun 26, 2017. Provider Documentation: SUBJECTIVE: Patient appears to be comfortable, awake and alert Sitting on chair Improvement of cough No shortness of breath orthopnea Chest x-ray shows improvement of pulmonary congestion Persistent lower extremity edema noted per Family that has been chronic OBJECTIVE: Vital Signs-as noted below Exam: General-elderly female, no sign of discomfort Eyes-sclerae nonicteric ENT-moist oral mucosa Neck-no JVD noted Lungs-improved auscultation from prior, minimum rales at bases Heart-irregular Abdomen-soft nontender Extremities-+2 bilateral pitting edema Neuro-awake and alert oriented to person only, no focal neurological deficit Lab data as noted below. ASSESSMENT & PLAN: 1. Acute decompensated congestive heart failure/diastolic dysfunction -Patient appears to be compensated, volume was -No respiratory distress, hypoxia resolved in room air, chest x-ray shows improving pulmonary congestion -Appreciate input from cardiology -Presented with increased shortness of breath at, hypoxia, Requiring increased supplemental O2 Chest x-ray shows pulmonary congestion, increased bilateral lower extremity swelling, proBNP elevated more than 2000 Patient admitted to telemetry IV diuretics Lasix 60 mg twice daily Appreciate input from cardiology recent echocardiogram 03/2017 shows Stiff left ventricle with ejection fraction 60-65% grade 1 diastolic dysfunction 2. Increased somnolence lethargy/metabolic encephalopathy -Resolved mental status improved to baseline -Awake and alert, able to answer questions, participate in conversation, -Possible metabolic encephalopathy secondary to hypoxia/pneumonia infection Has baseline dementia Fall precaution Increase risk for sundowning Benzodiazepines and sedatives should be avoided as possible 3. Acute kidney kidney injury with underlying CKD stage 4 -Resolved Creatinine improved to approximately baseline of 1.3 Continue diuresis as per cardiology Monitor basic metabolic panel Avoid NSAIDs and contrast studies - 4. Hyperlipidemia On statin 5. Left lower lobe pneumonia Empiric antibiotic with Zosyn -Changed to p.o. doxycycline complete 7 days course AFIB : on Beta aydin INR elevated Coumadin on hold 6. Dementia -Improved to baseline Mental status was worsened secondary to metabolic encephalopathy Continue to provide supportive care CODE STATUS: Full code DVT PROPHYLAXIS INR is elevated DISPOSITION PT OT eval requested -Patient will need rehab -Family does not want patient to return back to [facility] -Case management aware, referral made to [facility]. Vital Signs: Date Time Temp Pulse Resp B/P (MAP) Pulse Ox O2 Delivery O2 Flow Rate FiO2 06/27/17 08:00 98 Room Air 96 06/27/17 07:36 36.5 86 20 129/80 (96) 98 Room Air 06/27/17 07:06 93 16 93 Room Air 06/27/17 04:00 97 Room Air 06/27/17 03:31 36.4 89 16 139/91 (107) 97 Room Air 06/26/17 23:59 100 Room Air 06/26/17 23:12 36.3 82 18 140/72 (94) 98 Room Air 06/26/17 20:30 36.4 84 18 134/77 (96) 100 Room Air 06/26/17 20:00 94 Room Air 06/26/17 19:28 88 16 94 Room Air 06/26/17 16:33 36.3 84 16 127/80 (96) 98 Room Air 06/26/17 16:00 Room Air Lab Results: Results Past 24 Hours Test 06/26/17 16:04 06/26/17 20:28 06/27/17 05:13 06/27/17 06:38 Range/Units Bedside Glucose 156 226 139 70-90 mg/dl Prothrombin Time 50.5 9.0-12.0 SECONDS Prothromb Time International Ratio 5.0 0.9-1.1 Sodium Level 141 136-145 mmol/L Potassium Level 2.9 3.5-5.1 mmol/L Chloride Level 101 98-107 mmol/L Carbon Dioxide Level 32 21-32 mmol/L Anion Gap 7.0 3-11 mmol/L Blood Urea Nitrogen 29 7-18 mg/dl Creatinine 1.32 0.60-1.20 mg/dl Est Creatinine Clear Calc Drug Dose 30.0 ml/min Estimated GFR () 42.2 Estimated GFR (Non- 36.4 BUN/Creatinine Ratio 21.7 10-20 Random Glucose 151 70-99 mg/dl Calcium Level 8.4 8.5-10.1 mg/dl Magnesium Level 1.6 1.8-2.4 mg/dl Test 06/27/17 11:46 06/27/17 12:00 Range/Units Bedside Glucose 137 70-90 mg/dl
[2017-06-26] MEDS: SIMVASTATIN 10 MG TAB PO SCH (20:42)
[2017-06-27] VITALS (12 sets, daily range): BP systolic 126–139; BP diastolic 75–91; PULSE 78–105; TEMP 36.4–36.6; O2SAT 93–98
[2017-06-27] MEDS: IPRATROPIUM BROMIDE NEB SOLN 0.02% 2.5 ML VIAL INH SCH ×6 (03:14→23:09)
[2017-06-27] MEDS: LEVALBUTEROL 1.25MG/0.5ML NEB INH SCH ×6 (03:14→23:09)
[2017-06-27 06:30] LABS: CALCIUM 8.4 mg/dl (8.5-10.1); CREATININE 1.32 mg/dl (0.60-1.20); POTASSIUM 2.9 mmol/L (3.5-5.1)
[2017-06-27] MEDS ORDERED: POTASSIUM CHLORIDE 20 MEQ TABCR PO ONE (07:30)
[2017-06-27] MEDS ORDERED: POTASSIUM CHLORIDE IV SCH (07:30)
[2017-06-27] MEDS ORDERED: MAG SULFATE IV SCH (07:30)
[2017-06-27] MEDS ORDERED: [UNRECOGNIZED DRUG - OTHER] IV SCH (07:30)
[2017-06-27] MEDS: FUROSEMIDE INJ 60 MG in SYRINGE 0 ML IV SCH (07:54)
[2017-06-27] MEDS: ASPIRIN 81 MG ECTAB PO SCH (07:55)
[2017-06-27] MEDS: GUAIFENESIN 600 MG TABCR PO SCH ×2 (07:55→21:04)
[2017-06-27] MEDS: PANTOprazole SOD 40 MG TAB PO SCH (07:55)
[2017-06-27] MEDS: DOXYCYCLINE HYCLATE 100 MG CAP PO SCH ×2 (07:55→21:04)
[2017-06-27] MEDS: CHOLECALCIFEROL 1000 INTER.UNIT TAB PO SCH (07:55)
[2017-06-27] MEDS: METOPROLOL SUCC 50MG EXT REL TAB PO SCH (07:55)
[2017-06-27] MEDS: TIMOLOL GFS 0.5% OPH SOLN 74 DROPS/5 ML BTL OPL SCH (07:56)
[2017-06-27] MEDS: INSULIN ASPART 100 UNITS/ML 3 ML PEN SC SCH ×4 (07:58→21:00)
[2017-06-27] MEDS: INSULIN GLARGINE SOLOSTAR 100 UNITS/ML 3 ML PEN SC SCH (07:59)
--- NOTE | 2017-06-27 09:15 | Pharmacy Progress Note ---
Pharmacy Glycemic Short Note 2 Date of Service Jun 27, 2017. OUTPATIENT ANTIDIABETIC REGIMEN: * Novolin 70/30 - 24 units QAM, 12 units QPM * Humalog Sliding scale * A1c = 9.4 % 06/24/17 Item Value Date Time Bedside Glucose 169 mg/dl H 06/25/17 0554 Bedside Glucose 153 mg/dl H 06/25/17 1142 Bedside Glucose 206 mg/dl H 06/25/17 1614 Bedside Glucose 303 mg/dl H 06/25/172003 Bedside Glucose 178 mg/dl H 06/26/17 0635 Bedside Glucose 147 mg/dl H 06/26/17 1125 Bedside Glucose 156 mg/dl H 06/26/17 1604 Bedside Glucose 226 mg/dl H 06/26/17 2028 Bedside Glucose 139 mg/dl H 06/27/17 0638 ASSESSMENT: * 87yo T2DM female with poor outpatient control per recent A1c of 9.4% on * Pt is maintained on pre-mixed insulin regimen as an outpatient. This was held on admission since premixed insulins are difficult to titrate for acute situations as they are already in a fixed basal:prandial ratio. Currently using SQ basal bolus insulin reigmen with Lantus + NovoLog * Pt has been receiving ~ 32 units of insulin per day with near adequate control * 18 units of basal insulin * 10-15 units of prandial/correctional insulin * AM Fasting BSG = 139 mg/dl. This is in goal range. No changes needed to basal insulin * Post-prandial BSGs are in goal range with tightened CR yesterday. However, HS BSG remains elevated. May consider tightening CR for dinner only. However, only 5g CHO documented as consumed at dinner. It is possible that all CHO from dinner were not covered (difficult to calcultate acula amount with minimal consumption). Will consider this change tomorrow if this pattern continues. PLAN FOR INPATIENT GLYCEMIC CONTROL: * Hold outpatient oral diabetes medications * Basal insulin: no change * Lantus 18 units SQ daily in AM * Bolus insulin: no change * NovoLog per scale ACHS or Q6hrs while NPO * Goal Range: Low 120 mg/dL - High 150 mg/dL * Correction Factor: 30 mg/dL/unit * Nutritional / Prandial insulin per carb ratio of 1 unit per 9 grams CHO consumed PLAN FOR DISCHARGE: * Reasonable to continue outpatient insulin regimen but doses may need increased /titrated to achieve A1c of ~ 8.5% * Suspect non-adherence to outpatient regimen since inpatient regimen is similar total daily dose as outpatient regimen but BSGs well controlled. * Pt will need f/u with PCP in the next 1-2 weeks for A1c >9%
--- NOTE | 2017-06-27 12:00 | Cardiology Follow-Up ---
Subjective General Date of Service: Jun 27, 2017. Chief Complaint: SOB Pt evaluation today including: conversation w/ patient, physical exam, chart review, lab review, review of studies, review of inpatient medication list History of Present Illness Patient feeling good. Offers no acute complaints. Denies chest pain. SOB improved. Cough improved. Edema improving, at baseline No orthopnea, PND. No dizziness. Allergies Coded Allergies: No Known Allergies (Unverified , 06/24/17) Social History Smoking Status: Unknown if Ever Smoked Hx Tobacco Use In Past Year?: No Hx Alcohol Use - Type And Amou: No Hx Substance Use - Type And Am: No Problem List Medical Problems: (1) Acute congestive heart failure Status: Acute (2) Acute kidney injury superimposed on CKD Status: Acute (3) Atrial fibrillation with rapid ventricular response Status: Acute (4) Cellulitis of right lower extremity Status: Acute (5) CHF (congestive heart failure) Status: Acute (6) Chronic kidney disease Status: Acute (7) Dyspnea Status: Acute (8) Epistaxis Status: Acute (9) Fall Status: Acute (10) Hyperglycemia Status: Acute (11) Lower extremity edema Status: Acute (12) Respiratory failure Status: Acute (13) Supratherapeutic INR Status: Acute Review of Systems Respiratory: + cough, + wheezing, No shortness of breath, No dyspnea at rest Cardiac: + edema, No chest pain, No orthopnea, No PND, No palpitations Physical Exam Vital Signs Last Vital Signs Documentation Date Time Temp Pulse Resp B/P (MAP) Pulse Ox O2 Delivery O2 Flow Rate FiO2 06/27/17 08:00 98 Room Air 96 06/27/17 07:36 36.5 86 20 129/80 (96) 06/25/17 16:00 2.0 Physical Exam Constitutional: General Apperance: obese Level of Distress: NAD, chronically ill Psychiatric: Mental Status: active & alert Orientation: to time, to place, to person Eyes: Pupils: PERRLA Neck: supple Lungs: Auscultation: deminished air movement, expiratory wheezing Cardiovascular: Heart Auscultation: II/ ERICA, irregular rate rhythm Abdomen: Bowel Sounds: normal Inspection & Palpation: soft, non-distended Extremities: edema (1+ edema to knees, chronic stasis changes. SCD's on hold) Assessment and Plan Assessment and Plan 1. acute decompensated diastolic heart failure -improved symptoms. Excellent diuresis overnight. -at baseline, transition to oral furosemide 40 mg BID (home dose) 2. atrial fibrillation persistent rates controlled INR remains supratherapeutic despite holding coumadin. monitor 3. encephalopathy resolved unclear baseline 4. Hypokalemia and hypomagnesia -supplement. -recheck at noon. DVT proph - Coumadin on hold, INR elevated. Case discussed with Dr. Clarke. CARDIOLOGY ATTENDING ADDENDUM: The patient was seen and personally examined. Agree with Shabana Hamilton PA-C's findings and plans as documented above with additions as noted below. Patient feeling improved. She has good appetite. Exam: Mild persistent lower extremity edema, likely chronic Data Potassium this morning was 2.9 and increased to 3.3 on repeat at 1430: Magnesium was 1.6 and she is received IV magnesium replacement. INR continues to be elevated off of Coumadin Impression: As noted above Plan: Administer additional potassium replacement, 20 mEq ordered. I am going to ask for the patient to receive a vitamin K rich snack. If her INR continues to trend upward tomorrow we will likely administer medical vitamin K. Transition oral diuretic therapy. Laboratory Results Last 24 Hours Test 06/26/17 16:04 06/26/17 20:28 06/27/17 05:13 06/27/17 06:38 Bedside Glucose 156 mg/dl 226 mg/dl 139 mg/dl Prothrombin Time 50.5 SECONDS Prothromb Time International Ratio 5.0 Sodium Level 141 mmol/L Potassium Level 2.9 mmol/L Chloride Level 101 mmol/L Carbon Dioxide Level 32 mmol/L Anion Gap 7.0 mmol/L Blood Urea Nitrogen 29 mg/dl Creatinine 1.32 mg/dl Est Creatinine Clear Calc Drug Dose 30.0 ml/min Estimated GFR () 42.2 Estimated GFR (Non- 36.4 BUN/Creatinine Ratio 21.7 Random Glucose 151 mg/dl Calcium Level 8.4 mg/dl Magnesium Level 1.6 mg/dl
--- NOTE | 2017-06-27 12:20 | Progress Note ---
Subjective Date of Service: Jun 27, 2017. Subjective Pt evaluation today including: conversation w/ patient, physical exam, lab review, review of studies, review of inpatient medication list Saw/examined the patient in room 230 she is awake, alert, answering questions appropriately she is oriented to person and place - tells me she is doing fine, denies chest pain/shortness of breath denies palpitations states she had leg swelling, which is now improving Problem List Medical Problems: (1) Acute congestive heart failure Status: Acute (2) Acute kidney injury superimposed on CKD Status: Acute (3) Atrial fibrillation with rapid ventricular response Status: Acute (4) Cellulitis of right lower extremity Status: Acute (5) CHF (congestive heart failure) Status: Acute (6) Chronic kidney disease Status: Acute (7) Dyspnea Status: Acute (8) Epistaxis Status: Acute (9) Fall Status: Acute (10) Hyperglycemia Status: Acute (11) Lower extremity edema Status: Acute (12) Respiratory failure Status: Acute (13) Supratherapeutic INR Status: Acute Review of Systems Respiratory: No cough, No sputum, No shortness of breath Cardiac: + edema, No chest pain, No palpitations Abdomen: No pain, No nausea, No vomiting, No diarrhea Medications Current Inpatient Medications Medications (Trade) Dose Ordered Sig/Gustavo Route Start Time Stop Time Status Last Admin Dose Admin Aspirin (Ecotrin Tab) 81 mg DAILY PO 06/24/17 09:00 07/24/17 08:59 06/27/17 07:55 81 MG Calcitriol (Rocaltrol Cap) 0.25 mcg MoTh@0900 PO 06/26/17 09:00 07/26/17 08:59 06/26/17 08:44 0.25 MCG Cholecalciferol (Vitamin D Tab) 1,000 inter.unit DAILY PO 06/24/17 09:00 07/24/17 08:59 06/27/17 07:55 1,000 INTER.UNIT Simvastatin (Zocor Tab) 10 mg HS PO 06/24/17 21:00 07/24/17 20:59 06/26/17 20:42 10 MG Timolol Maleate (Timoptic-Xe 0.5% Oph Soln) 1 drops DAILY OPL 06/24/17 09:00 07/24/17 08:59 06/27/17 07:56 1 DROPS Pantoprazole Sodium (Protonix Tab) 40 mg QAM PO 06/24/17 09:00 07/24/17 08:59 06/27/17 07:55 40 MG Acetaminophen (Tylenol Tab) 650 mg Q4H PRN PO 06/24/17 06:00 07/24/17 05:59 Ondansetron HCl (Zofran Inj) 4 mg Q6H PRN IV 06/24/17 06:00 07/24/17 05:59 Polyethylene (Miralax Powder Packet) 17 gm DAILY PRN PO 06/24/17 06:00 07/24/17 05:59 Glucose (Glucose 40% Gel) 15-30 GRAMS 15 GRAMS... UD PRN PO 06/24/17 07:45 07/24/17 07:44 Glucose (Glucose Chew Tab) 4-8 Tablets 4 Tabl... UD PRN PO 06/24/17 07:45 07/24/17 07:44 Dextrose (Dextrose 50% 50ML Syringe) 25-50ML OF 50% DW IV FOR... UD PRN IV 06/24/17 07:45 07/24/17 07:44 06/24/17 08:36 50 ML Glucagon (Glucagon Inj) 1 mg UD PRN SQ 06/24/17 07:45 07/24/17 07:44 Insulin Aspart (novoLOG ASPART) SLIDING SCALE If C... ACHS SC 06/24/17 11:00 07/24/17 10:59 06/27/17 07:58 6 UNITS Miscellaneous Information (Consult Glycemic Management Pharmacy) 1 ea UD N/A 06/24/17 09:47 07/24/17 09:46 Metoprolol Succinate (Toprol Xl Tab) 100 mg QAM PO 06/25/17 09:00 07/25/17 08:59 06/27/17 07:55 100 MG Guaifenesin (Mucinex Contr Rel Tab) 600 mg Q12 PO 06/24/17 19:46 07/24/17 19:45 06/27/17 07:55 600 MG Levalbuterol (Xopenex 1.25MG/ 0.5ML Neb) 1.25 mg Q4R INH 06/24/17 20:00 07/24/17 19:59 06/27/17 07:02 1.25 MG Ipratropium [place] (Atrovent 0.02% 0.5MG/2.5ML Neb) 0.5 mg Q4R INH 06/24/17 20:00 07/24/17 19:59 06/27/17 07:02 0.5 MG Doxycycline Hyclate (Vibramycin Cap) 100 mg BID PO 06/25/17 21:00 07/02/17 20:59 06/27/17 07:55 100 MG Furosemide 60 mg/ Syringe 6 ml @ 4 mls/min BID17 IV 06/26/17 17:00 07/26/17 16:59 06/27/17 07:54 4 MLS/MIN Insulin Glargine (Lantus Solostar Pen) 18 units DAILY SC 06/27/17 09:00 07/27/17 08:59 06/27/17 07:59 18 UNITS Objective Vital Signs Date Time Temp Pulse Resp B/P (MAP) Pulse Ox O2 Delivery O2 Flow Rate FiO2 06/27/17 08:00 98 Room Air 96 06/27/17 07:36 36.5 86 20 129/80 (96) 98 Room Air 06/27/17 07:06 93 16 93 Room Air 06/27/17 04:00 97 Room Air 06/27/17 03:31 36.4 89 16 139/91 (107) 97 Room Air 06/26/17 23:59 100 Room Air 06/26/17 23:12 36.3 82 18 140/72 (94) 98 Room Air 06/26/17 20:30 36.4 84 18 134/77 (96) 100 Room Air 06/26/17 20:00 94 Room Air 06/26/17 19:28 88 16 94 Room Air 06/26/17 16:33 36.3 84 16 127/80 (96) 98 Room Air 06/26/17 16:00 Room Air 06/26/17 12:00 Room Air Physical Exam General Appearance: no apparent distress Respiratory/Chest: no respiratory distress, no accessory muscle use, + decreased breath sounds, + rales Cardiovascular: + systolic murmur (+2/6 systolic murmur), + irregularly irregular Extremities: + swelling (+1 pitting edema b/l LE), + pertinent finding Neurologic/Psychiatric: no motor/sensory deficits, alert, normal mood/affect Laboratory Results Last 24 Hours Test 06/26/17 16:04 06/26/17 20:28 06/27/17 05:13 06/27/17 06:38 Bedside Glucose 156 mg/dl 226 mg/dl 139 mg/dl Prothrombin Time 50.5 SECONDS Prothromb Time International Ratio 5.0 Sodium Level 141 mmol/L Potassium Level 2.9 mmol/L Chloride Level 101 mmol/L Carbon Dioxide Level 32 mmol/L Anion Gap 7.0 mmol/L Blood Urea Nitrogen 29 mg/dl Creatinine 1.32 mg/dl Est Creatinine Clear Calc Drug Dose 30.0 ml/min Estimated GFR () 42.2 Estimated GFR (Non- 36.4 BUN/Creatinine Ratio 21.7 Random Glucose 151 mg/dl Calcium Level 8.4 mg/dl Magnesium Level 1.6 mg/dl Assessment and Plan This is an 87 year old female with a PMH of underlying dementia, atrial fibrillation on long-term anticoagulation, valvular heart disease including moderate aortic stenosis and severe mitral calcification, chronic diastolic CHF , HTN, LVH, insulin dependent DM2, CKD stage 3 - presents with shortness of breath, lower extremity edema. Acute on Chronic Diastolic CHF 06/27 * patient presented with shortness of breath, hypoxia, lower extremity edema * diuresed with IV Lasix at high doses with good urine output and good clinical response on 06/24, 06/25, and 06/26 * as per cardiology, will transition to oral Lasix today (06/27) * rales still appreciated on exam, but patient not complaining of shortness of breath/chest pain or palpitations * replace K and monitor Metabolic Encephalopathy possibly secondary to HCAP 06/27 * clinically now at baseline; underlying dementia noted * initially started on IV Zosyn/Vanco, both of which have been discontinued * last CXR suggested more of a fluid overload/atelectasis picture * will continue doxycycline for now Acute Kidney Injury superimposed on CKD stage 4 - resolved 06/27 * creatinine is improving, presented with 1.8 * baseline creatinine around 1.4-1.5 * monitor kidney function with diuretic use and avoid nephrotoxic agents if able Chronic Atrial Fibrillation * rate is controlled, continue b-aydin (switched from BID dosing to once a day dosing) * hold Coumadin, supratherapeutic INR DVT ppx * INR is elevated FULL CODE
[2017-06-27] MEDS: FUROSEMIDE 40 MG TAB PO SCH (16:59)
[2017-06-27] MEDS ORDERED: POTASSIUM CHLORIDE 10 MEQ TABCR PO STA (17:54)
[2017-06-27] MEDS: SIMVASTATIN 10 MG TAB PO SCH (21:04)
[2017-06-28 03:10] VITALS: BP 129/82; PULSE 97; TEMP 36.5; O2SAT 99
[2017-06-28 05:42] LABS: HEMATOCRIT 34.8 % (37-47); HEMOGLOBIN 10.5 g/dL (12.0-16.0); MEAN CELL VOLUME 72.3 fL (80-100); MEAN CORPUSCULAR HEMOGLOBIN 21.8 pg (25-34); MEAN CORPUSCULAR HGB CONC 30.2 g/dl (32-36); PLATELET COUNT 240 K/uL (130-400); RED CELL DISTRIBUTION WIDTH CV 24.3 % (11.5-14.5); RED CELL DISTRIBUTION WIDTH SD 59.7 fL (36.4-46.3)
[2017-06-28 06:00] LABS: INR 3.6 (0.9-1.1)
[2017-06-28 06:13] LABS: CALCIUM 8.3 mg/dl (8.5-10.1); CREATININE 1.16 mg/dl (0.60-1.20)
[2017-06-28] MEDS: LEVALBUTEROL 1.25MG/0.5ML NEB INH SCH (07:12)
[2017-06-28] MEDS: IPRATROPIUM BROMIDE NEB SOLN 0.02% 2.5 ML VIAL INH SCH (07:12)
[2017-06-28 07:50] VITALS: BP 147/84; PULSE 89; TEMP 36.9; O2SAT 92
[2017-06-28] MEDS: METOPROLOL SUCC 50MG EXT REL TAB PO SCH (07:55)
[2017-06-28] MEDS: GUAIFENESIN 600 MG TABCR PO SCH ×2 (07:55→20:07)
[2017-06-28] MEDS: TIMOLOL GFS 0.5% OPH SOLN 74 DROPS/5 ML BTL OPL SCH (07:56)
[2017-06-28] MEDS: PANTOprazole SOD 40 MG TAB PO SCH (07:56)
[2017-06-28] MEDS: FUROSEMIDE 40 MG TAB PO SCH ×2 (07:56→18:00)
[2017-06-28] MEDS: DOXYCYCLINE HYCLATE 100 MG CAP PO SCH ×2 (07:56→20:06)
[2017-06-28] MEDS: ASPIRIN 81 MG ECTAB PO SCH (07:56)
[2017-06-28] MEDS: CHOLECALCIFEROL 1000 INTER.UNIT TAB PO SCH (07:56)
[2017-06-28] MEDS: INSULIN ASPART 100 UNITS/ML 3 ML PEN SC SCH ×4 (07:59→20:59)
[2017-06-28] MEDS: INSULIN GLARGINE SOLOSTAR 100 UNITS/ML 3 ML PEN SC SCH (07:59)
[2017-06-28] MEDS ORDERED: POTASSIUM CHLORIDE 10 MEQ TABCR PO ONE (08:00)
--- NOTE | 2017-06-28 08:30 | NEPHROLOGY CONSULTATION ---
DATE OF CONSULTATION: 06/28/2017 ATTENDING OF RECORD: Richelle Llanes DO. REASON FOR CONSULTATION: MARGOT. HISTORY OF PRESENT ILLNESS: This is an 87-year-old female with CKD stage III with baseline creatinine of 1.2 with 600 mg of proteinuria from advanced age, diabetes and hypertension. The patient has been a diabetic for over 20 years with underlying retinopathy with well controlled hemoglobin A1c as well as hypertension for many years. The patient also had a history of edema in the legs which has been well controlled, history of hypercalcemia in the past which was attributed to excessive Tums, which eventually normalized. Last time I saw the patient was in November of last year. At that time, labs were stable with no significant changes noted and I was following the patient once a year. The patient comes in during this hospitalization on the with a CHF exacerbation, worsening shortness of breath as well as MARGOT with a creatinine up to 1.82. The patient was subsequently diuresed and now creatinine in the setting of diuresis actually improved back down to baseline and is below baseline of 1.16. Currently on Lasix 40 mg p.o. b.i.d., was receiving Lasix 60 IV b.i.d. and now transitioned over to orals. The patient is negative 11 kilos and breathing much better with a good appetite. PAST MEDICAL AND SURGICAL HISTORY: Aortic stenosis, CKD stage III, type 2 diabetes, hypertension, GERD, atrial fibrillation on anticoagulation, tubal ligation. FAMILY HISTORY: Significant for diabetes. SOCIAL HISTORY: No smoking, no alcohol, no drugs. Lives at home. MEDICATIONS: Significant for Lasix 40 mg in the morning, 20 mg in the afternoon. Currently on Lasix 40 mg p.o. b.i.d., Lantus 18 units subQ daily, calcitriol 0.25 mcg twice a week, doxycycline 100 mg p.o. b.i.d., Toprol-XL 100 mg daily, Zocor 10 mg at night, albuterol and Atrovent inhalers, aspirin 81 mg a day, vitamin D 1000 units a day. REVIEW OF SYSTEMS: No headaches, no blurry vision. Positive shortness of breath with overexertion. No chest pain, no nausea, vomiting, no diarrhea or constipation, no dysuria. All other review of systems otherwise negative. PHYSICAL EXAMINATION: VITAL SIGNS: Temperature 36.5, pulse 97, respiratory rate 18, blood pressure 129/82, satting 90% on room air. GENERAL: Awake, alert, oriented x3. EYES: No scleral icterus. ENT: Moist mucous membranes. NECK: Supple. PULMONARY: Basilar rales. CARDIAC: Irregularly irregular. ABDOMEN: Bowel sounds positive, soft, nontender. EXTREMITIES: No significant clubbing, cyanosis or edema. Positive tender legs to palpation. NEUROLOGICALLY: Nonfocal. DERMATOLOGIC: No rash or ulcers noted. LABORATORY DATA: Sodium level is 137, potassium is 3, chloride is 100, bicarbonate is 32, BUN 28, creatinine is 1.16, glucose is 120, calcium is 8.3, mag is 2.0. White count is 4.7, H&H 10.5 and 35, platelet count is 240. UA is bland. INR was elevated at 5.7 and is now down to 3.6. Chest x-ray from the 12th showed interval resolution of pulmonary edema and improvement in the trace bilateral pleural effusions. ASSESSMENT AND PLAN: 1. Acute kidney injury on chronic kidney disease stage III with underlying congestive heart failure. The patient was diuresed appropriately. I greatly appreciate cardiology's help in the management of this complicated patient. The patient's breathing much better, continues to have basilar rales but not requiring oxygen and appears much more comfortable, has transitioned over to oral Lasix 40 mg p.o. b.i.d. which is a higher dose than what she came in on which was 40 mg in the morning and 20 mg in the afternoon. We will need to follow the patient as an outpatient to make sure patient does not start to reaccumulate the fluid that we took off through appropriate IV diuresis. The patient is currently at her baseline kidney function and is stable from the renal perspective for discharge once medically cleared by cardiology and the primary hospitalist. 2. Hypokalemia. Potassium levels have been low in the setting of diuresis and have been repleting p.r.n. We will go ahead and give 40 mEq of oral potassium again this morning since. We are transitioning from IV to oral Lasix likely will not need as much potassium supplementation as an outpatient; however, will need that followed up as an outpatient to make sure electrolytes and volume status and kidney function remains stable. Appreciate consultation. PUMA
[2017-06-28 11:07] VITALS: BP 120/68; PULSE 74; TEMP 36.4; O2SAT 98
[2017-06-28] MEDS ORDERED: LEVALBUTEROL 1.25MG/0.5ML NEB INH PRN (12:00)
[2017-06-28] MEDS ORDERED: IPRATROPIUM BROMIDE NEB SOLN 0.02% 2.5 ML VIAL INH PRN (12:00)
[2017-06-28] MEDS ORDERED: POTASSIUM CHLORIDE 20 MEQ TABCR PO STA (13:29)
--- NOTE | 2017-06-28 14:52 | Cardiology Follow-Up ---
Subjective General Date of Service: Jun 28, 2017. Chief Complaint: SOB Pt evaluation today including: conversation w/ patient, physical exam, chart review, lab review, review of studies, review of inpatient medication list History of Present Illness Patient with ongoing cough, but improved since admission. SOB at baseline. Edema at baseline. No orthopnea. No chest pain. Allergies Coded Allergies: No Known Allergies (Unverified , 06/24/17) Social History Smoking Status: Unknown if Ever Smoked Hx Tobacco Use In Past Year?: No Hx Alcohol Use - Type And Amou: No Hx Substance Use - Type And Am: No Problem List Medical Problems: (1) Acute congestive heart failure Status: Acute (2) Acute kidney injury superimposed on CKD Status: Acute (3) Atrial fibrillation with rapid ventricular response Status: Acute (4) Cellulitis of right lower extremity Status: Acute (5) CHF (congestive heart failure) Status: Acute (6) Chronic kidney disease Status: Acute (7) Dyspnea Status: Acute (8) Epistaxis Status: Acute (9) Fall Status: Acute (10) Hyperglycemia Status: Acute (11) Lower extremity edema Status: Acute (12) Respiratory failure Status: Acute (13) Supratherapeutic INR Status: Acute Review of Systems Respiratory: + cough, + sputum, + dyspnea on exertion, No wheezing, No dyspnea at rest Cardiac: + edema, No chest pain, No orthopnea, No PND, No palpitations Physical Exam Vital Signs Last Vital Signs Documentation Date Time Temp Pulse Resp B/P (MAP) Pulse Ox O2 Delivery O2 Flow Rate FiO2 06/28/17 12:00 Room Air 06/28/17 11:07 36.4 74 20 120/68 (85) 98 06/27/17 12:00 96 06/25/17 16:00 2.0 Physical Exam Constitutional: General Apperance: obese Level of Distress: NAD, chronically ill Psychiatric: Mental Status: active & alert Orientation: to time, to place, to person Eyes: Pupils: PERRLA Neck: supple Lungs: Auscultation: deminished air movement, expiratory wheezing Cardiovascular: Heart Auscultation: II/ ERICA, irregular rate rhythm Abdomen: Bowel Sounds: normal Inspection & Palpation: soft, non-distended Extremities: edema (1+ edema to knees, chronic stasis changes. SCD's on hold) Assessment and Plan Assessment and Plan 1. acute decompensated diastolic heart failure -improved symptoms. Good diuresis. -Furosemide 40 mg BID resumed (prior home dose) 2. atrial fibrillation persistent rates controlled INR remains supratherapeutic despite holding coumadin. Down to 3.6 today with Vit K rich snack. monitor 3. encephalopathy resolved unclear baseline 4. Hypokalemia and hypomagnesia -supplement 40 meq given this AM. -potassium 20 meq BID ordered as regular dose -recheck at noon. DVT proph - Coumadin on hold, INR elevated. Case discussed with Dr. Clarke. Likely discharge home later today or tomorrow AM pending recheck of labs. CARDIOLOGY ATTENDING ADDENDUM: The patient was seen and personally examined. Agree with Shabana Hamilton PA-C's findings and plans as documented above. Laboratory Results Last 24 Hours Test 06/27/17 16:35 06/27/17 20:51 06/28/17 05:19 06/28/17 06:49 Bedside Glucose 87 mg/dl 127 mg/dl 122 mg/dl White Blood Count 4.70 K/uL Red Blood Count 4.81 M/uL Hemoglobin 10.5 g/dL Hematocrit 34.8 % Mean Corpuscular Volume 72.3 fL Mean Corpuscular Hemoglobin 21.8 pg Mean Corpuscular Hemoglobin Concent 30.2 g/dl RDW Standard Deviation 59.7 fL RDW Coefficient of Variation 24.3 % Platelet Count 240 K/uL Mean Platelet Volume 9.0 fL Prothrombin Time 37.0 SECONDS Prothromb Time International Ratio 3.6 Sodium Level 137 mmol/L Potassium Level 3.0 mmol/L Chloride Level 100 mmol/L Carbon Dioxide Level 32 mmol/L Anion Gap 6.0 mmol/L Blood Urea Nitrogen 28 mg/dl Creatinine 1.16 mg/dl Est Creatinine Clear Calc Drug Dose 34.7 ml/min Estimated GFR () 49.4 Estimated GFR (Non- 42.6 BUN/Creatinine Ratio 23.8 Random Glucose 120 mg/dl Calcium Level 8.3 mg/dl Magnesium Level 2.0 mg/dl Test 06/28/17 11:05 06/28/17 12:56 Bedside Glucose 228 mg/dl Potassium Level 3.3 mmol/L
[2017-06-28 16:05] VITALS: BP 119/53; PULSE 86; TEMP 36.5; O2SAT 99
--- NOTE | 2017-06-28 17:40 | Progress Note ---
Subjective Date of Service: Jun 28, 2017. Subjective Pt evaluation today including: conversation w/ patient, physical exam, lab review, review of studies, review of inpatient medication list Saw/examined the patient in room 230 She's doing well today no shortness of breath son and daughter at bedside Problem List Medical Problems: (1) Acute congestive heart failure Status: Acute (2) Acute kidney injury superimposed on CKD Status: Acute (3) Atrial fibrillation with rapid ventricular response Status: Acute (4) Cellulitis of right lower extremity Status: Acute (5) CHF (congestive heart failure) Status: Acute (6) Chronic kidney disease Status: Acute (7) Dyspnea Status: Acute (8) Epistaxis Status: Acute (9) Fall Status: Acute (10) Hyperglycemia Status: Acute (11) Lower extremity edema Status: Acute (12) Respiratory failure Status: Acute (13) Supratherapeutic INR Status: Acute Review of Systems Respiratory: No cough, No sputum, No shortness of breath Cardiac: No chest pain, No edema, No palpitations Medications Current Inpatient Medications Medications (Trade) Dose Ordered Sig/Gustavo Route Start Time Stop Time Status Last Admin Dose Admin Aspirin (Ecotrin Tab) 81 mg DAILY PO 06/24/17 09:00 07/24/17 08:59 06/28/17 07:56 81 MG Calcitriol (Rocaltrol Cap) 0.25 mcg MoTh@0900 PO 06/26/17 09:00 07/26/17 08:59 06/26/17 08:44 0.25 MCG Cholecalciferol (Vitamin D Tab) 1,000 inter.unit DAILY PO 06/24/17 09:00 07/24/17 08:59 06/28/17 07:56 1,000 INTER.UNIT Simvastatin (Zocor Tab) 10 mg HS PO 06/24/17 21:00 07/24/17 20:59 06/27/17 21:04 10 MG Timolol Maleate (Timoptic-Xe 0.5% Oph Soln) 1 drops DAILY OPL 06/24/17 09:00 07/24/17 08:59 06/28/17 07:56 1 DROPS Pantoprazole Sodium (Protonix Tab) 40 mg QAM PO 06/24/17 09:00 07/24/17 08:59 06/28/17 07:56 40 MG Acetaminophen (Tylenol Tab) 650 mg Q4H PRN PO 06/24/17 06:00 07/24/17 05:59 Ondansetron HCl (Zofran Inj) 4 mg Q6H PRN IV 06/24/17 06:00 07/24/17 05:59 Polyethylene (Miralax Powder Packet) 17 gm DAILY PRN PO 06/24/17 06:00 07/24/17 05:59 Glucose (Glucose 40% Gel) 15-30 GRAMS 15 GRAMS... UD PRN PO 06/24/17 07:45 07/24/17 07:44 Glucose (Glucose Chew Tab) 4-8 Tablets 4 Tabl... UD PRN PO 06/24/17 07:45 07/24/17 07:44 Dextrose (Dextrose 50% 50ML Syringe) 25-50ML OF 50% DW IV FOR... UD PRN IV 06/24/17 07:45 07/24/17 07:44 06/24/17 08:36 50 ML Glucagon (Glucagon Inj) 1 mg UD PRN SQ 06/24/17 07:45 07/24/17 07:44 Insulin Aspart (novoLOG ASPART) SLIDING SCALE If C... ACHS SC 06/24/17 11:00 07/24/17 10:59 06/28/17 11:57 10 UNITS Miscellaneous Information (Consult Glycemic Management Pharmacy) 1 ea UD N/A 06/24/17 09:47 07/24/17 09:46 Metoprolol Succinate (Toprol Xl Tab) 100 mg QAM PO 06/25/17 09:00 07/25/17 08:59 06/28/17 07:55 100 MG Guaifenesin (Mucinex Contr Rel Tab) 600 mg Q12 PO 06/24/17 19:46 07/24/17 19:45 06/28/17 07:55 600 MG Doxycycline Hyclate (Vibramycin Cap) 100 mg BID PO 06/25/17 21:00 07/02/17 20:59 06/28/17 07:56 100 MG Insulin Glargine (Lantus Solostar Pen) 18 units DAILY SC 06/27/17 09:00 07/27/17 08:59 06/28/17 07:59 18 UNITS Furosemide (Lasix Tab) 40 mg BID17 PO 06/27/17 17:00 07/27/17 16:59 06/28/17 07:56 40 MG Potassium Chloride (Klor-Con Tab) 20 meq BID PO 06/28/17 21:00 07/28/17 20:59 Ipratropium [place] (Atrovent 0.02% 0.5MG/2.5ML Neb) 0.5 mg Q4 PRN INH 06/28/17 12:00 07/28/17 11:59 Levalbuterol (Xopenex 1.25MG/ 0.5ML Neb) 1.25 mg Q4 PRN INH 06/28/17 12:00 07/28/17 11:59 Objective Vital Signs Date Time Temp Pulse Resp B/P (MAP) Pulse Ox O2 Delivery O2 Flow Rate FiO2 06/28/17 16:05 36.5 86 20 119/53 (75) 99 Room Air 06/28/17 16:00 Room Air 06/28/17 12:00 Room Air 06/28/17 11:07 36.4 74 20 120/68 (85) 98 Room Air 06/28/17 08:00 Room Air 06/28/17 07:50 36.9 89 20 147/84 (105) 92 Room Air 06/28/17 04:00 Room Air 06/28/17 03:10 36.5 97 18 129/82 (98) 99 Room Air 06/28/17 00:10 Room Air 06/27/17 23:15 36.5 105 18 136/81 (99) 95 Room Air 06/27/17 22:15 36.5 105 18 136/81 (99) 95 Room Air 06/27/17 20:00 Room Air 06/27/17 19:58 36.4 92 135/77 (96) 97 Room Air 06/27/17 19:51 78 16 95 Room Air Physical Exam General Appearance: no apparent distress Respiratory/Chest: no respiratory distress, no accessory muscle use, + crackles Cardiovascular: no edema, no murmur, + irregularly irregular Laboratory Results Last 24 Hours Test 06/27/17 20:51 06/28/17 05:19 06/28/17 06:49 06/28/17 11:05 Bedside Glucose 127 mg/dl 122 mg/dl 228 mg/dl White Blood Count 4.70 K/uL Red Blood Count 4.81 M/uL Hemoglobin 10.5 g/dL Hematocrit 34.8 % Mean Corpuscular Volume 72.3 fL Mean Corpuscular Hemoglobin 21.8 pg Mean Corpuscular Hemoglobin Concent 30.2 g/dl RDW Standard Deviation 59.7 fL RDW Coefficient of Variation 24.3 % Platelet Count 240 K/uL Mean Platelet Volume 9.0 fL Prothrombin Time 37.0 SECONDS Prothromb Time International Ratio 3.6 Sodium Level 137 mmol/L Potassium Level 3.0 mmol/L Chloride Level 100 mmol/L Carbon Dioxide Level 32 mmol/L Anion Gap 6.0 mmol/L Blood Urea Nitrogen 28 mg/dl Creatinine 1.16 mg/dl Est Creatinine Clear Calc Drug Dose 34.7 ml/min Estimated GFR () 49.4 Estimated GFR (Non- 42.6 BUN/Creatinine Ratio 23.8 Random Glucose 120 mg/dl Calcium Level 8.3 mg/dl Magnesium Level 2.0 mg/dl Test 06/28/17 12:56 Potassium Level 3.3 mmol/L Assessment and Plan This is an 87 year old female with a PMH of underlying dementia, atrial fibrillation on long-term anticoagulation, valvular heart disease including moderate aortic stenosis and severe mitral calcification, chronic diastolic CHF , HTN, LVH, insulin dependent DM2, CKD stage 3 - presents with shortness of breath, lower extremity edema. Acute on Chronic Diastolic CHF 06/28 * appreciate cardiology input * currently on Lasix 40mg BID, which will likely be the discharge dose * monitor K - may need 20meq KCl BID - outpatient labs * plan to d/c to [facility] 06/27 * patient presented with shortness of breath, hypoxia, lower extremity edema * diuresed with IV Lasix at high doses with good urine output and good clinical response on 06/24, 06/25, and 06/26 * as per cardiology, will transition to oral Lasix today (06/27) * rales still appreciated on exam, but patient not complaining of shortness of breath/chest pain or palpitations * replace K and monitor Metabolic Encephalopathy possibly secondary to HCAP 06/27 * clinically now at baseline; underlying dementia noted * initially started on IV Zosyn/Vanco, both of which have been discontinued * last CXR suggested more of a fluid overload/atelectasis picture * will continue doxycycline for now Acute Kidney Injury superimposed on CKD stage 4 - resolved 06/27 * creatinine is improving, presented with 1.8 * baseline creatinine around 1.4-1.5 * monitor kidney function with diuretic use and avoid nephrotoxic agents if able Chronic Atrial Fibrillation * rate is controlled, continue b-aydin (switched from BID dosing to once a day dosing) * hold Coumadin, supratherapeutic INR DVT ppx * INR is elevated FULL CODE
[2017-06-28 19:07] VITALS: BP 124/65; PULSE 95; TEMP 36.3; O2SAT 99
[2017-06-28] MEDS: POTASSIUM CHLORIDE 20 MEQ TABCR PO SCH (20:06)
[2017-06-28] MEDS: SIMVASTATIN 10 MG TAB PO SCH (20:07)
[2017-06-29] VITALS (7 sets, daily range): BP systolic 115–146; BP diastolic 68–87; PULSE 95–118; TEMP 36.3–36.7; O2SAT 96–98
[2017-06-29 07:55] LABS: INR 2.9 (0.9-1.1)
[2017-06-29 08:23] LABS: CALCIUM 8.5 mg/dl (8.5-10.1); CREATININE 1.22 mg/dl (0.60-1.20); POTASSIUM 3.4 mmol/L (3.5-5.1)
[2017-06-29] MEDS: INSULIN ASPART 100 UNITS/ML 3 ML PEN SC SCH ×4 (08:32→21:33)
[2017-06-29] MEDS: INSULIN GLARGINE SOLOSTAR 100 UNITS/ML 3 ML PEN SC SCH (08:32)
[2017-06-29] MEDS: CHOLECALCIFEROL 1000 INTER.UNIT TAB PO SCH (08:33)
[2017-06-29] MEDS: CALCITRIOL 0.25 MCG CAP PO SCH (08:33)
[2017-06-29] MEDS: GUAIFENESIN 600 MG TABCR PO SCH ×2 (08:33→21:20)
[2017-06-29] MEDS: PANTOprazole SOD 40 MG TAB PO SCH (08:33)
[2017-06-29] MEDS: DOXYCYCLINE HYCLATE 100 MG CAP PO SCH ×2 (08:33→21:21)
[2017-06-29] MEDS: POTASSIUM CHLORIDE 20 MEQ TABCR PO SCH ×2 (08:33→21:20)
[2017-06-29] MEDS: FUROSEMIDE 40 MG TAB PO SCH ×3 (08:33→19:38)
[2017-06-29] MEDS: ASPIRIN 81 MG ECTAB PO SCH (08:33)
[2017-06-29] MEDS: METOPROLOL SUCC 50MG EXT REL TAB PO SCH (08:34)
[2017-06-29] MEDS: TIMOLOL GFS 0.5% OPH SOLN 74 DROPS/5 ML BTL OPL SCH (08:35)
[2017-06-29] MEDS ORDERED: POTASSIUM CHLORIDE 20 MEQ TABCR PO STA (08:47)
--- NOTE | 2017-06-29 11:52 | Cardiology Follow-Up ---
Subjective General Date of Service: Jun 29, 2017. Chief Complaint: SOB Pt evaluation today including: conversation w/ patient, physical exam, chart review, lab review, review of studies, conversation w/ principal consultant, review of inpatient medication list History of Present Illness Patient feeling well. Denies SOB. Cough remains present, but improved and at baseline. No dizziness. No chest pain. No fever or chills. Edema improving. Allergies Coded Allergies: No Known Allergies (Unverified , 06/24/17) Social History Smoking Status: Unknown if Ever Smoked Hx Tobacco Use In Past Year?: No Hx Alcohol Use - Type And Amou: No Hx Substance Use - Type And Am: No Problem List Medical Problems: (1) Acute congestive heart failure Status: Acute (2) Acute kidney injury superimposed on CKD Status: Acute (3) Atrial fibrillation with rapid ventricular response Status: Acute (4) Cellulitis of right lower extremity Status: Acute (5) CHF (congestive heart failure) Status: Acute (6) Chronic kidney disease Status: Acute (7) Dyspnea Status: Acute (8) Epistaxis Status: Acute (9) Fall Status: Acute (10) Hyperglycemia Status: Acute (11) Lower extremity edema Status: Acute (12) Respiratory failure Status: Acute (13) Supratherapeutic INR Status: Acute Review of Systems Respiratory: + cough, No sputum, No wheezing, No shortness of breath, No dyspnea at rest Cardiac: + edema, No chest pain, No orthopnea, No PND, No palpitations Physical Exam Vital Signs Last Vital Signs Documentation Date Time Temp Pulse Resp B/P (MAP) Pulse Ox O2 Delivery O2 Flow Rate FiO2 06/29/17 11:38 36.3 95 18 132/73 (92) 96 Room Air 06/27/17 12:00 96 06/25/17 16:00 2.0 Physical Exam Constitutional: General Apperance: obese Level of Distress: NAD, chronically ill Psychiatric: Mental Status: active & alert Orientation: to time, to place, to person Eyes: Pupils: PERRLA Neck: supple Lungs: Auscultation: deminished air movement, expiratory wheezing, rhonchi Cardiovascular: Heart Auscultation: II/ ERICA, irregular rate rhythm Abdomen: Bowel Sounds: normal Inspection & Palpation: soft, non-distended Extremities: edema (1+ edema to knees, chronic stasis changes. SCD's on hold) Assessment and Plan Assessment and Plan 1. Acute decompensated diastolic heart failure -improved symptoms. Good diuresis. -Furosemide 40 mg BID resumed (prior home dose) 2. atrial fibrillation persistent metoprolol increased for better rate control by hospitalist. INR improved. resume coumadin and monitor closely. 3. encephalopathy resolved unclear baseline 4. Hypokalemia and hypomagnesia -potassium 20 meq BID ordered as regular dose -monitor closely upon discharge. DVT proph - Coumadin on hold, INR elevated. Resume on discharge. Recommend close f/u labs including BMP, mag and PT/INR. Stable for discharge from cardiovascular perspective. CARDIOLOGY ATTENDING ADDENDUM: The patient was seen and personally examined. Agree with Shabana Hamilton PA-C's findings and plans as documented above. Laboratory Results Last 24 Hours Test 06/28/17 12:56 06/28/17 17:06 06/28/17 20:49 06/29/17 06:57 Potassium Level 3.3 mmol/L Bedside Glucose 125 mg/dl 188 mg/dl 133 mg/dl Test 06/29/17 07:06 06/29/17 11:03 Prothrombin Time 29.8 SECONDS Prothromb Time International Ratio 2.9 Sodium Level 139 mmol/L Potassium Level 3.4 mmol/L Chloride Level 101 mmol/L Carbon Dioxide Level 34 mmol/L Anion Gap 4.0 mmol/L Blood Urea Nitrogen 27 mg/dl Creatinine 1.22 mg/dl Est Creatinine Clear Calc Drug Dose 32.8 ml/min Estimated GFR () 46.5 Estimated GFR (Non- 40.1 BUN/Creatinine Ratio 22.1 Random Glucose 96 mg/dl Calcium Level 8.5 mg/dl Magnesium Level 2.0 mg/dl Bedside Glucose 157 mg/dl
--- NOTE | 2017-06-29 13:55 | Pharmacy Progress Note ---
Pharmacy Glycemic Short Note 2 Date of Service Jun 29, 2017. OUTPATIENT ANTIDIABETIC REGIMEN: * Novolin 70/30 - 24 units QAM, 12 units QPM * Humalog Sliding scale * A1c = 9.4 % 06/24/17 ASSESSMENT: * 87yo T2DM female with poor outpatient control per recent A1c of 9.4% on * BSGs have been relatively well-controlled on current regimen. * No changes required at this time. PLAN FOR INPATIENT GLYCEMIC CONTROL: * Hold outpatient oral diabetes medications * Basal insulin: no change * Lantus 18 units SQ daily in AM * Bolus insulin: no change * NovoLog per scale ACHS or Q6hrs while NPO * Goal Range: Low 120 mg/dL - High 150 mg/dL * Correction Factor: 30 mg/dL/unit * Nutritional / Prandial insulin per carb ratio of 1 unit per 9 grams CHO consumed PLAN FOR DISCHARGE: * Reasonable to continue outpatient insulin regimen but doses may need increased /titrated to achieve A1c of ~ 8.5% * Suspect non-adherence to outpatient regimen since inpatient regimen is similar total daily dose as outpatient regimen but BSGs well controlled. * Pt will need f/u with PCP in the next 1-2 weeks for A1c >9%
--- NOTE | 2017-06-29 16:05 | Progress Note ---
Subjective Date of Service: Jun 29, 2017. Subjective Pt evaluation today including: conversation w/ patient, physical exam, lab review, review of studies, conversation w/ delivery consultant, review of inpatient medication list Saw/examined the patient in room 230 Had epistaxis episode later in the afternoon; during the day, no issues to note on monitor, mildly tachycardic Problem List Medical Problems: (1) Acute congestive heart failure Status: Acute (2) Acute kidney injury superimposed on CKD Status: Acute (3) Atrial fibrillation with rapid ventricular response Status: Acute (4) Cellulitis of right lower extremity Status: Acute (5) CHF (congestive heart failure) Status: Acute (6) Chronic kidney disease Status: Acute (7) Dyspnea Status: Acute (8) Epistaxis Status: Acute (9) Fall Status: Acute (10) Hyperglycemia Status: Acute (11) Lower extremity edema Status: Acute (12) Respiratory failure Status: Acute (13) Supratherapeutic INR Status: Acute Review of Systems Constitutional: + weakness, No fever, No chills Respiratory: No cough, No sputum, No shortness of breath Cardiac: No chest pain, No edema, No palpitations Medications Current Inpatient Medications Medications (Trade) Dose Ordered Sig/Gustavo Route Start Time Stop Time Status Last Admin Dose Admin Aspirin (Ecotrin Tab) 81 mg DAILY PO 06/24/17 09:00 07/24/17 08:59 Future Hold 06/29/17 08:33 81 MG Calcitriol (Rocaltrol Cap) 0.25 mcg MoTh@0900 PO 06/26/17 09:00 07/26/17 08:59 06/29/17 08:33 0.25 MCG Cholecalciferol (Vitamin D Tab) 1,000 inter.unit DAILY PO 06/24/17 09:00 07/24/17 08:59 06/29/17 08:33 1,000 INTER.UNIT Simvastatin (Zocor Tab) 10 mg HS PO 06/24/17 21:00 07/24/17 20:59 06/28/17 20:07 10 MG Timolol Maleate (Timoptic-Xe 0.5% Oph Soln) 1 drops DAILY OPL 06/24/17 09:00 07/24/17 08:59 06/29/17 08:35 1 DROPS Pantoprazole Sodium (Protonix Tab) 40 mg QAM PO 06/24/17 09:00 07/24/17 08:59 06/29/17 08:33 40 MG Acetaminophen (Tylenol Tab) 650 mg Q4H PRN PO 06/24/17 06:00 07/24/17 05:59 Ondansetron HCl (Zofran Inj) 4 mg Q6H PRN IV 06/24/17 06:00 07/24/17 05:59 Polyethylene (Miralax Powder Packet) 17 gm DAILY PRN PO 06/24/17 06:00 07/24/17 05:59 Glucose (Glucose 40% Gel) 15-30 GRAMS 15 GRAMS... UD PRN PO 06/24/17 07:45 07/24/17 07:44 Glucose (Glucose Chew Tab) 4-8 Tablets 4 Tabl... UD PRN PO 06/24/17 07:45 07/24/17 07:44 Dextrose (Dextrose 50% 50ML Syringe) 25-50ML OF 50% DW IV FOR... UD PRN IV 06/24/17 07:45 07/24/17 07:44 06/24/17 08:36 50 ML Glucagon (Glucagon Inj) 1 mg UD PRN SQ 06/24/17 07:45 07/24/17 07:44 Insulin Aspart (novoLOG ASPART) SLIDING SCALE If C... ACHS SC 06/24/17 11:00 07/24/17 10:59 06/29/17 12:32 7 UNITS Miscellaneous Information (Consult Glycemic Management Pharmacy) 1 ea UD N/A 06/24/17 09:47 07/24/17 09:46 Guaifenesin (Mucinex Contr Rel Tab) 600 mg Q12 PO 06/24/17 19:46 07/24/17 19:45 06/29/17 08:33 600 MG Doxycycline Hyclate (Vibramycin Cap) 100 mg BID PO 06/25/17 21:00 07/02/17 20:59 06/29/17 08:33 100 MG Insulin Glargine (Lantus Solostar Pen) 18 units DAILY SC 06/27/17 09:00 07/27/17 08:59 06/29/17 08:32 18 UNITS Furosemide (Lasix Tab) 40 mg BID17 PO 06/27/17 17:00 07/27/17 16:59 06/29/17 08:33 40 MG Potassium Chloride (Klor-Con Tab) 20 meq BID PO 06/28/17 21:00 07/28/17 20:59 06/29/17 08:33 20 MEQ Ipratropium [place] (Atrovent 0.02% 0.5MG/2.5ML Neb) 0.5 mg Q4 PRN INH 06/28/17 12:00 07/28/17 11:59 Levalbuterol (Xopenex 1.25MG/ 0.5ML Neb) 1.25 mg Q4 PRN INH 06/28/17 12:00 07/28/17 11:59 Metoprolol Succinate (Toprol Xl Tab) 125 mg QAM PO 06/29/17 09:00 07/25/17 08:59 06/29/17 08:34 125 MG Objective Vital Signs Date Time Temp Pulse Resp B/P (MAP) Pulse Ox O2 Delivery O2 Flow Rate FiO2 06/29/17 12:00 Room Air 06/29/17 11:38 36.3 95 18 132/73 (92) 96 Room Air 06/29/17 08:00 Room Air 06/29/17 08:00 36.7 118 16 125/83 (97) 97 Room Air 06/29/17 04:00 Room Air 06/29/17 03:45 36.6 102 16 137/87 (104) 96 Room Air 06/29/17 00:01 36.5 104 18 146/74 (98) 96 Room Air 06/28/17 23:59 Room Air 06/28/17 20:00 Room Air 06/28/17 19:07 36.3 95 20 124/65 (84) 99 Room Air 06/28/17 16:05 36.5 86 20 119/53 (75) 99 Room Air Physical Exam General Appearance: no apparent distress Respiratory/Chest: no respiratory distress, no accessory muscle use, + decreased breath sounds Cardiovascular: no edema, no murmur, + irregularly irregular Extremities: normal inspection, no pedal edema Neurologic/Psychiatric: no motor/sensory deficits, alert, normal mood/affect Laboratory Results Last 24 Hours Test 06/28/17 17:06 06/28/17 20:49 06/29/17 06:57 06/29/17 07:06 Bedside Glucose 125 mg/dl 188 mg/dl 133 mg/dl Prothrombin Time 29.8 SECONDS Prothromb Time International Ratio 2.9 Sodium Level 139 mmol/L Potassium Level 3.4 mmol/L Chloride Level 101 mmol/L Carbon Dioxide Level 34 mmol/L Anion Gap 4.0 mmol/L Blood Urea Nitrogen 27 mg/dl Creatinine 1.22 mg/dl Est Creatinine Clear Calc Drug Dose 32.8 ml/min Estimated GFR () 46.5 Estimated GFR (Non- 40.1 BUN/Creatinine Ratio 22.1 Random Glucose 96 mg/dl Calcium Level 8.5 mg/dl Magnesium Level 2.0 mg/dl Test 06/29/17 11:03 Bedside Glucose 157 mg/dl Assessment and Plan This is an 87 year old female with a PMH of underlying dementia, atrial fibrillation on long-term anticoagulation, valvular heart disease including moderate aortic stenosis and severe mitral calcification, chronic diastolic CHF , HTN, LVH, insulin dependent DM2, CKD stage 3 - presents with shortness of breath, lower extremity edema. Acute on Chronic Diastolic CHF 06/29 * doing well, stable for discharge * will continue 40mg of PO Lasix twice daily 06/28 * appreciate cardiology input * currently on Lasix 40mg BID, which will likely be the discharge dose * monitor K - may need 20meq KCl BID - outpatient labs * plan to d/c to [facility] 06/27 * patient presented with shortness of breath, hypoxia, lower extremity edema * diuresed with IV Lasix at high doses with good urine output and good clinical response on 06/24, 06/25, and 06/26 * as per cardiology, will transition to oral Lasix today (06/27) * rales still appreciated on exam, but patient not complaining of shortness of breath/chest pain or palpitations * replace K and monitor Metabolic Encephalopathy possibly secondary to HCAP 06/27 * clinically now at baseline; underlying dementia noted * initially started on IV Zosyn/Vanco, both of which have been discontinued * last CXR suggested more of a fluid overload/atelectasis picture * will continue doxycycline for now Acute Kidney Injury superimposed on CKD stage 4 - resolved 06/27 * creatinine is improving, presented with 1.8 * baseline creatinine around 1.4-1.5 * monitor kidney function with diuretic use and avoid nephrotoxic agents if able Chronic Atrial Fibrillation 06/29 * increase Toprol to 125mg due to tachycardia * rate is controlled, continue b-aydin (switched from BID dosing to once a day dosing) * hold Coumadin, supratherapeutic INR DVT ppx * INR is elevated FULL CODE
[2017-06-29] MEDS: SIMVASTATIN 10 MG TAB PO SCH (21:20)
[2017-06-30 00:16] VITALS: BP 121/71; PULSE 107; TEMP 36.4; O2SAT 95
[2017-06-30 04:50] VITALS: BP 122/64; PULSE 104; TEMP 36.5; O2SAT 96
[2017-06-30 07:52] LABS: CALCIUM 8.9 mg/dl (8.5-10.1); CREATININE 1.22 mg/dl (0.60-1.20); POTASSIUM 3.7 mmol/L (3.5-5.1)
[2017-06-30 07:56] VITALS: BP 103/62; PULSE 77; TEMP 36.7; O2SAT 95
[2017-06-30] MEDS: TIMOLOL GFS 0.5% OPH SOLN 74 DROPS/5 ML BTL OPL SCH (07:59)
[2017-06-30] MEDS: PANTOprazole SOD 40 MG TAB PO SCH (08:00)
[2017-06-30] MEDS: GUAIFENESIN 600 MG TABCR PO SCH (08:00)
[2017-06-30] MEDS: METOPROLOL SUCC 50MG EXT REL TAB PO SCH (08:00)
[2017-06-30] MEDS: CHOLECALCIFEROL 1000 INTER.UNIT TAB PO SCH (08:00)
[2017-06-30] MEDS: DOXYCYCLINE HYCLATE 100 MG CAP PO SCH (08:01)
[2017-06-30] MEDS: POTASSIUM CHLORIDE 20 MEQ TABCR PO SCH (08:01)
[2017-06-30] MEDS: INSULIN ASPART 100 UNITS/ML 3 ML PEN SC SCH ×2 (08:05→12:02)
[2017-06-30] MEDS: FUROSEMIDE 40 MG TAB PO SCH (08:55)
[2017-06-30] MEDS ORDERED: INSULIN GLARGINE SOLOSTAR 100 UNITS/ML 3 ML PEN SC SCH (09:00)
[2017-06-30 11:01] LABS: INR 2.7 (0.9-1.1)
[2017-06-30 11:19] VITALS: BP 124/70; PULSE 106; TEMP 36.4; O2SAT 94
--- NOTE | 2017-06-30 12:03 | Cardiology Follow-Up ---
Subjective General Date of Service: Jun 30, 2017. Chief Complaint: SOB Pt evaluation today including: conversation w/ patient, physical exam, chart review, lab review, review of studies, review of inpatient medication list History of Present Illness Patient mildly agitated this AM. Wants to leave. Angry that no family is present. Wonders where children are. Does not want to go to rehab. Waiting on placement approval. States her cough has improved. No SOB. Edema improving. No chest pain. Allergies Coded Allergies: No Known Allergies (Unverified , 06/24/17) Social History Smoking Status: Unknown if Ever Smoked Hx Tobacco Use In Past Year?: No Hx Alcohol Use - Type And Amou: No Hx Substance Use - Type And Am: No Problem List Medical Problems: (1) Acute congestive heart failure Status: Acute (2) Acute kidney injury superimposed on CKD Status: Acute (3) Atrial fibrillation with rapid ventricular response Status: Acute (4) Cellulitis of right lower extremity Status: Acute (5) CHF (congestive heart failure) Status: Acute (6) Chronic kidney disease Status: Acute (7) Dyspnea Status: Acute (8) Epistaxis Status: Acute (9) Fall Status: Acute (10) Hyperglycemia Status: Acute (11) Lower extremity edema Status: Acute (12) Respiratory failure Status: Acute (13) Supratherapeutic INR Status: Acute Review of Systems Respiratory: + cough, No shortness of breath, No dyspnea on exertion, No dyspnea at rest, No hemoptysis Cardiac: + edema, No chest pain, No orthopnea, No PND, No palpitations Physical Exam Vital Signs Last Vital Signs Documentation Date Time Temp Pulse Resp B/P (MAP) Pulse Ox O2 Delivery O2 Flow Rate FiO2 06/30/17 11:19 36.4 106 18 124/70 (88) 94 Room Air 06/27/17 12:00 96 06/25/17 16:00 2.0 Physical Exam Constitutional: General Apperance: obese Level of Distress: NAD, chronically ill Psychiatric: Mental Status: active & alert, anxious, agitated Orientation: to time, to place, to person Eyes: Pupils: PERRLA Neck: supple Lungs: Auscultation: deminished air movement, expiratory wheezing, rhonchi Cardiovascular: Heart Auscultation: II/ ERICA, irregular rate rhythm Abdomen: Bowel Sounds: normal Inspection & Palpation: soft, non-distended Extremities: edema (1+ edema to knees, chronic stasis changes. SCD's on hold) Assessment and Plan Assessment and Plan 1. Acute decompensated diastolic heart failure -improved symptoms. Good diuresis. -Furosemide 40 mg BID resumed (prior home dose) 2. atrial fibrillation persistent metoprolol increased for better rate control by hospitalist. INR improved. Recheck this AM and resume coumadin. 3. encephalopathy resolved unclear baseline? -agitated this morning 4. Hypokalemia and hypomagnesia -potassium 20 meq BID ordered as regular dose -monitor closely upon discharge. DVT proph - Chronic coumadin. recheck INR. To be resumed. Recommend close f/u labs including BMP, mag and PT/INR. Stable for discharge from cardiovascular perspective. CARDIOLOGY ATTENDING ADDENDUM: Case discussed with Colleen Hamilton PA-C. Unfortunately, patient was discharged prior to when I had the opportunity to examine her. Agree with Shabana Hamilton PA-C's findings and plans as documented above. Laboratory Results Last 24 Hours Test 06/29/17 16:35 06/29/17 16:50 06/29/17 17:02 06/29/17 17:22 Bedside Glucose 59 mg/dl 51 mg/dl 66 mg/dl 67 mg/dl Test 06/29/17 20:58 06/30/17 06:29 06/30/17 06:54 06/30/17 10:36 Bedside Glucose 171 mg/dl 116 mg/dl Sodium Level 140 mmol/L Potassium Level 3.7 mmol/L Chloride Level 101 mmol/L Carbon Dioxide Level 31 mmol/L Anion Gap 7.0 mmol/L Blood Urea Nitrogen 23 mg/dl Creatinine 1.22 mg/dl Est Creatinine Clear Calc Drug Dose 32.8 ml/min Estimated GFR () 46.5 Estimated GFR (Non- 40.1 BUN/Creatinine Ratio 18.9 Random Glucose 125 mg/dl Calcium Level 8.9 mg/dl Magnesium Level 2.0 mg/dl Prothrombin Time 27.8 SECONDS Prothromb Time International Ratio 2.7 Test 06/30/17 11:15 Bedside Glucose 190 mg/dl
--- NOTE | 2017-06-30 13:05 | Progress Note ---
Subjective Date of Service: Jun 30, 2017. Subjective Pt evaluation today including: conversation w/ patient, conversation w/ family , physical exam, lab review, review of studies, review of inpatient medication list Saw/examined the patient in room 230 No problems/issues at this time She is not happy about going to [facility], but son is at bedside and agreeable that patient may need this She agrees to go Denies chest pain/palpitations/shortness of breath Problem List Medical Problems: (1) Acute congestive heart failure Status: Acute (2) Acute kidney injury superimposed on CKD Status: Acute (3) Atrial fibrillation with rapid ventricular response Status: Acute (4) Cellulitis of right lower extremity Status: Acute (5) CHF (congestive heart failure) Status: Acute (6) Chronic kidney disease Status: Acute (7) Dyspnea Status: Acute (8) Epistaxis Status: Acute (9) Fall Status: Acute (10) Hyperglycemia Status: Acute (11) Lower extremity edema Status: Acute (12) Respiratory failure Status: Acute (13) Supratherapeutic INR Status: Acute Review of Systems Respiratory: No shortness of breath Cardiac: + edema, No chest pain, No palpitations Medications Current Inpatient Medications Medications (Trade) Dose Ordered Sig/Gustavo Route Start Time Stop Time Status Last Admin Dose Admin Aspirin (Ecotrin Tab) 81 mg DAILY PO 06/24/17 09:00 07/24/17 08:59 Future Hold 06/29/17 08:33 81 MG Calcitriol (Rocaltrol Cap) 0.25 mcg MoTh@0900 PO 06/26/17 09:00 07/26/17 08:59 06/29/17 08:33 0.25 MCG Cholecalciferol (Vitamin D Tab) 1,000 inter.unit DAILY PO 06/24/17 09:00 07/24/17 08:59 06/30/17 08:00 1,000 INTER.UNIT Simvastatin (Zocor Tab) 10 mg HS PO 06/24/17 21:00 07/24/17 20:59 06/29/17 21:20 10 MG Timolol Maleate (Timoptic-Xe 0.5% Oph Soln) 1 drops DAILY OPL 06/24/17 09:00 07/24/17 08:59 06/30/17 07:59 1 DROPS Pantoprazole Sodium (Protonix Tab) 40 mg QAM PO 06/24/17 09:00 07/24/17 08:59 06/30/17 08:00 40 MG Acetaminophen (Tylenol Tab) 650 mg Q4H PRN PO 06/24/17 06:00 07/24/17 05:59 Ondansetron HCl (Zofran Inj) 4 mg Q6H PRN IV 06/24/17 06:00 07/24/17 05:59 Polyethylene (Miralax Powder Packet) 17 gm DAILY PRN PO 06/24/17 06:00 07/24/17 05:59 Glucose (Glucose 40% Gel) 15-30 GRAMS 15 GRAMS... UD PRN PO 06/24/17 07:45 07/24/17 07:44 Glucose (Glucose Chew Tab) 4-8 Tablets 4 Tabl... UD PRN PO 06/24/17 07:45 07/24/17 07:44 Dextrose (Dextrose 50% 50ML Syringe) 25-50ML OF 50% DW IV FOR... UD PRN IV 06/24/17 07:45 07/24/17 07:44 06/24/17 08:36 50 ML Glucagon (Glucagon Inj) 1 mg UD PRN SQ 06/24/17 07:45 07/24/17 07:44 Insulin Aspart (novoLOG ASPART) SLIDING SCALE If C... ACHS SC 06/24/17 11:00 07/24/17 10:59 06/30/17 12:02 8 UNITS Miscellaneous Information (Consult Glycemic Management Pharmacy) 1 ea UD N/A 06/24/17 09:47 07/24/17 09:46 Guaifenesin (Mucinex Contr Rel Tab) 600 mg Q12 PO 06/24/17 19:46 07/24/17 19:45 06/30/17 08:00 600 MG Doxycycline Hyclate (Vibramycin Cap) 100 mg BID PO 06/25/17 21:00 07/02/17 20:59 06/30/17 08:01 100 MG Furosemide (Lasix Tab) 40 mg BID17 PO 06/27/17 17:00 07/27/17 16:59 06/30/17 08:55 40 MG Potassium Chloride (Klor-Con Tab) 20 meq BID PO 06/28/17 21:00 07/28/17 20:59 06/30/17 08:01 20 MEQ Ipratropium [place] (Atrovent 0.02% 0.5MG/2.5ML Neb) 0.5 mg Q4 PRN INH 06/28/17 12:00 07/28/17 11:59 Levalbuterol (Xopenex 1.25MG/ 0.5ML Neb) 1.25 mg Q4 PRN INH 06/28/17 12:00 07/28/17 11:59 Metoprolol Succinate (Toprol Xl Tab) 125 mg QAM PO 06/29/17 09:00 07/25/17 08:59 06/30/17 08:00 125 MG Insulin Glargine (Lantus Solostar Pen) 16 units DAILY SC 06/30/17 09:00 07/30/17 08:59 06/30/17 08:05 16 UNITS Objective Vital Signs Date Time Temp Pulse Resp B/P (MAP) Pulse Ox O2 Delivery O2 Flow Rate FiO2 06/30/17 12:00 Room Air 06/30/17 11:19 36.4 106 18 124/70 (88) 94 Room Air 06/30/17 08:00 Room Air 06/30/17 07:56 36.7 77 18 103/62 (76) 95 Room Air 06/30/17 04:50 36.5 104 16 122/64 (83) 96 Room Air 06/30/17 04:00 Room Air 06/30/17 00:16 36.4 107 16 121/71 (88) 95 Room Air 06/29/17 23:59 Room Air 06/29/17 20:19 36.6 97 20 136/79 (98) 96 Room Air 06/29/17 20:00 Room Air 06/29/17 17:01 114 126/80 (95) 06/29/17 16:00 Room Air 06/29/17 15:39 36.5 101 20 115/68 (84) 98 Room Air Physical Exam General Appearance: no apparent distress Respiratory/Chest: no respiratory distress, no accessory muscle use, + decreased breath sounds Cardiovascular: no edema, no murmur, + irregularly irregular Extremities: + swelling, + pertinent finding (+1 pitting edema b/l LE) Neurologic/Psychiatric: no motor/sensory deficits, alert, normal mood/affect Laboratory Results Last 24 Hours Test 06/29/17 16:35 06/29/17 16:50 06/29/17 17:02 06/29/17 17:22 Bedside Glucose 59 mg/dl 51 mg/dl 66 mg/dl 67 mg/dl Test 06/29/17 20:58 06/30/17 06:29 06/30/17 06:54 06/30/17 10:36 Bedside Glucose 171 mg/dl 116 mg/dl Sodium Level 140 mmol/L Potassium Level 3.7 mmol/L Chloride Level 101 mmol/L Carbon Dioxide Level 31 mmol/L Anion Gap 7.0 mmol/L Blood Urea Nitrogen 23 mg/dl Creatinine 1.22 mg/dl Est Creatinine Clear Calc Drug Dose 32.8 ml/min Estimated GFR () 46.5 Estimated GFR (Non- 40.1 BUN/Creatinine Ratio 18.9 Random Glucose 125 mg/dl Calcium Level 8.9 mg/dl Magnesium Level 2.0 mg/dl Prothrombin Time 27.8 SECONDS Prothromb Time International Ratio 2.7 Test 06/30/17 11:15 Bedside Glucose 190 mg/dl Assessment and Plan This is an 87 year old female with a PMH of underlying dementia, atrial fibrillation on long-term anticoagulation, valvular heart disease including moderate aortic stenosis and severe mitral calcification, chronic diastolic CHF , HTN, LVH, insulin dependent DM2, CKD stage 3 - presents with shortness of breath, lower extremity edema. Acute on Chronic Diastolic CHF 06/30 * plan to d/c to [facility] today * Lasix 40mg BID, Potassium 20meq BID, Toprol XL 125mg daily * stop antibiotics on discharge * restart Coumadin, recheck INR and BMP on Monday, 07/03 06/29 * doing well, stable for discharge * will continue 40mg of PO Lasix twice daily 06/28 * appreciate cardiology input * currently on Lasix 40mg BID, which will likely be the discharge dose * monitor K - may need 20meq KCl BID - outpatient labs * plan to d/c to [facility] aware 06/27 * patient presented with shortness of breath, hypoxia, lower extremity edema * diuresed with IV Lasix at high doses with good urine output and good clinical response on 06/24, 06/25, and 06/26 * as per cardiology, will transition to oral Lasix today (06/27) * rales still appreciated on exam, but patient not complaining of shortness of breath/chest pain or palpitations * replace K and monitor Metabolic Encephalopathy possibly secondary to HCAP 06/27 * clinically now at baseline; underlying dementia noted * initially started on IV Zosyn/Vanco, both of which have been discontinued * last CXR suggested more of a fluid overload/atelectasis picture * will continue doxycycline for now Acute Kidney Injury superimposed on CKD stage 4 - resolved 06/27 * creatinine is improving, presented with 1.8 * baseline creatinine around 1.4-1.5 * monitor kidney function with diuretic use and avoid nephrotoxic agents if able Chronic Atrial Fibrillation 06/29 * increase Toprol to 125mg due to tachycardia 06/28 * rate is controlled, continue b-aydin (switched from BID dosing to once a day dosing) * hold Coumadin, supratherapeutic INR DVT ppx * INR is elevated FULL CODE
[2017-06-30] MEDS ORDERED: LSX40 PO (13:22)
[2017-06-30] MEDS ORDERED: MCRK20 PO (13:22)
[2017-06-30] MEDS ORDERED: TPRSR50 PO (13:22)
--- NOTE | 2017-06-30 13:30 | Discharge Instructions ---
Discharge Instructions Date of Service Jun 30, 2017. Admission Reason for Admission: Chf Exacerbation Discharge Discharge Diagnosis / Problem: congestive heart failure; lower extremity swelling Discharge Goals Goal(s): Decrease discomfort, Improve function, Diagnostic testing, Therapeutic intervention Activity Recommendations Activity Level: Up Ad Amarilys . Additional Information Patient informed of condition: Yes Advance Directives: No DNR: No Level of Care: Skilled Communicable Disease: No Prognosis: Improving Wilson Catheter: No Instructions / Follow-Up Instructions / Follow-Up Please follow-up with your primary care doctor and the in shop service technician after your stay at [facility] * At the facility, they should recheck your INR and electrolytes/kidney function (BMP) - on Monday, 07/03 * Your dose of Lasix is changed to 40mg twice a day - take potassium supplements while on Lasix * You will stop taking Lopressor and start taking Toprol once a day Current Hospital Diet Patient's current hospital diet: Low Sodium Diet (2gm Na), Diabetes Type 2 Diet Discharge Diet Recommended Diet: Low Sodium Diet (2gm Na), Diabetes Type 2 Diet Pending Studies Studies pending at discharge: no Laboratory Results Hemoglobin A1c Test 06/24/17 06:22 Range/Units Estimated Average Glucose 223 mg/dl Hemoglobin A1c 9.4 H 4.5-5.6 % Lipid Panel Test 04/13/17 03:46 Range/Units Triglycerides Level 79 0-150 mg/dl Cholesterol Level 75 0-200 mg/dl HDL Cholesterol 38 mg/dl Cholesterol/HDL Ratio 2.0 LDL Cholesterol, Calculated 21 mg/dl Medical Emergencies . Who to Call and When: Medical Emergencies: If at any time you feel your situation is an emergency, please call 911 immediately. . Non-Emergent Contact Non-Emergency issues call your: Primary Care Provider, Stockbroker . . "Provider Documentation" section prepared by Richelle Llanes. . Core Measure Problem Core Measures: None
--- NOTE | 2017-06-30 13:34 | Discharge Summary ---
Discharge Summary Date of Service Jun 30, 2017. Discharge Summary Admission Date: Jun 24, 2017 at 01:45 Discharge Date: Jun 30, 2017 Discharge Disposition: assisted facility Principal Diagnosis: Acute on Chronic Diastolic CHF Metabolic Encephalopathy possibly secondary to HCAP Acute Kidney Injury superimposed on CKD stage 4 - resolved Chronic Atrial Fibrillation Medication Reconciliation New Medications: Furosemide (Furosemide) 40 Mg Tab 40 MG PO BID for 30 Days, #60 TAB Metoprolol Succinate (Metoprolol Succinate ER) 50 Mg Tabcr 125 MG PO QAM for 30 Days, #75 TABS Potassium Chloride (Klor-Con M20) 20 Meq Tabcr 20 MEQ PO BID for 30 Days, #60 TABS Continued Medications: Acetaminophen (Tylenol) 325 Mg Tab 650 MG PO Q6H PRN for Mild Pain DO NOT EXCEED 3GM/24HR Acetaminophen (Tylenol) 325 Mg Tab 650 MG PO Q6 PRN for TEMP>100 DO NOT EXCEED 3GM/24HR Aspirin (Aspirin Ec) 81 Mg Tab 81 MG PO DAILY Calcitriol (Rocaltrol Cap) 0.25 Mcg Cap 0.25 MCG PO 2XWK TAKE THIS MEDICATION EVERY MONDAY AND MONDAY Cholecalciferol (Vitamin D3) 1,000 Unit Tab 1000 INTER.UNIT PO DAILY Home O2 Therapy (Oxygen) Gas 2 LITERS NA CONTINOUS, BTL Insulin Human Isophan/Regular (Novolin 70/30) Inj 24 UNITS SC QAM, BTL Insulin Isophan/Regular (Novolin 70/30) Susp 12 UNITS SQ QPM Insulin Lispro (Human) (Humalog) 100 Unit/Ml Inj UNIT SQ ACHS for 7 Days SLIDING SCALE ACHS FOR 7 DAYS THEN BID BSG INSULIN UNITS 350-400 = 8 UNITS 401-450 = 12 UNITS 451-500 = 16 UNITS 501-550 = 18 UNITS RECHECK BSG IN 2 HRS Ipratropium-Albuterol (Duoneb) 3 Ml Nebu 1 TREATMENT INH Q4H PRN for SOB/Wheezing, INHA Iron-Vitamin C (Vitron-C) 1 Tab Tab 1 TAB PO DAILY Lorazepam (Ativan) 0.5 Mg Tab 0.5 MG PO Q8 PRN for Anxiety for 14 Days Omeprazole (Prilosec) 40 Mg Cap 40 MG PO QAM TAKE THIS MEDICATION ONCE DAILY 30 MINUTES BEFORE BREAKFAST Oxybutynin Chloride (Oxybutynin Chloride ER) 10 Mg Tabcr 10 MG PO DAILY Potassium Chloride (Klor-Con M20) 20 Meq Tabcr 20 MEQ PO QAM Simvastatin (Zocor) 10 Mg Tab 10 MG PO HS Timolol Maleate (Ophth) (Timoptic-Xe 0.5% Oph) 0.5 % Piedad 1 DROP OPL DAILY Warfarin Sodium (Warfarin Sodium) 1 Mg Tab 1 MG PO QPM, TAB TAKE 1 MG EVERY DAY OR OTHERWISE DIRECTED TO TAKE BY ANTICOAGULATION CLINIC/MD Discontinued Medications: Amoxicillin & Pot Clavulanate (Augmentin 875-125 mg) 1 Tab Tab 1 TAB PO BID for 7 Days, #14 TAB complete 06/25/17 Cefdinir (Cefdinir) 300 Mg Cap 300 MG PO DAILY for 7 Days, #7 CAP Furosemide (Lasix) 20 Mg Tab 40 MG PO QAM, TAB Furosemide (Lasix) 20 Mg Tab 20 MG PO AFTERNOON, TAB ADDITIONAL 20 MG MAY BE TAKEN FOR INCREASED EDEMA Metoprolol Tartrate (Metoprolol Tartrate) 75 Mg Tab 75 MG PO BID give until 07/18/17 23;59 Admission Information HPI (per Admitting provider): The patient is an 87-year-old female with history of aortic stenosis, atrial fibrillation and, chronic diastolic heart failure who presents with worsening shortness of breath and confusion per daughter the began 1 day ago. Daughter is not present at the time of this interview therefore, history is obtained from records. Patient unable to give a history at this time secondary to confusion and possible dementia. The daughter reported increased leg swelling and shortness of breath with an oxygen saturation in the 70s in the last day. The patient lives at [facility], and per nursing staff, the patient had crackles in the lung romero. She was notably recently admitted to [facility] with sepsis. Review of systems is unobtainable secondary to dementia and confusion. Physical Exam (per Admitting): General Appearance: WD/WN, + mild distress (With movement, no distress at rest.) Head: normocephalic, atraumatic Eyes: normal inspection, PERRL, sclerae normal ENT: pharynx normal Neck: trachea midline Respiratory/Chest: + respiratory distress (With movement), + accessory muscle use (With movement), + rhonchi, + pertinent finding (No wheezing) Cardiovascular: regular rate, rhythm, no edema, no JVD, normal peripheral pulses, + pertinent finding (Murmur difficult to appreciate secondary to adventitial sounds and lungs and patient trying to speak.) Abdomen/GI: normal bowel sounds, non tender, soft Extremities/Musculoskelatal: normal inspection, no calf tenderness, no pedal edema (.), normal range of motion, pelvis stable, + pertinent finding ( Pain in lower legs especially on shins) Neurologic/Psych: + disoriented ( is demented confused and tired), + pertinent finding (Limited exam as patient) Skin: + pertinent finding (2 areas of breakdown on sacral area one area of breakdown on left medial thigh) Hospital Course This is an 87 year old female with a PMH of underlying dementia, atrial fibrillation on long-term anticoagulation, valvular heart disease including moderate aortic stenosis and severe mitral calcification, chronic diastolic CHF , HTN, LVH, insulin dependent DM2, CKD stage 3 - presents with shortness of breath, lower extremity edema. Acute on Chronic Diastolic CHF 06/30 * plan to [facility] * Lasix 40mg BID, Potassium 20meq BID, Toprol XL 125mg daily * stop antibiotics on discharge * restart Coumadin, recheck INR and BMP on Monday, 07/03 06/29 * doing well, stable for discharge * will continue 40mg of PO Lasix twice daily 06/28 * appreciate cardiology input * currently on Lasix 40mg BID, which will likely be the discharge dose * monitor K - may need 20meq KCl BID - outpatient labs * plan to d/c to [facility] 06/27 * patient presented with shortness of breath, hypoxia, lower extremity edema * diuresed with IV Lasix at high doses with good urine output and good clinical response on 06/24, 06/25, and 06/26 * as per cardiology, will transition to oral Lasix today (06/27) * rales still appreciated on exam, but patient not complaining of shortness of breath/chest pain or palpitations * replace K and monitor Metabolic Encephalopathy possibly secondary to HCAP 06/27 * clinically now at baseline; underlying dementia noted * initially started on IV Zosyn/Vanco, both of which have been discontinued * last CXR suggested more of a fluid overload/atelectasis picture * will continue doxycycline for now Acute Kidney Injury superimposed on CKD stage 4 - resolved 06/27 * creatinine is improving, presented with 1.8 * baseline creatinine around 1.4-1.5 * monitor kidney function with diuretic use and avoid nephrotoxic agents if able Chronic Atrial Fibrillation 06/29 * increase Toprol to 125mg due to tachycardia 06/28 * rate is controlled, continue b-aydin (switched from BID dosing to once a day dosing) * hold Coumadin, supratherapeutic INR DVT ppx * INR is elevated FULL CODE Total time spent on discharge = 45 minutes This includes examination of the patient, discharge planning, medication reconciliation, and communication with other providers. Discharge Instructions Please follow-up with your primary care doctor and the training and development director after your stay at [facility] * At the facility, they should recheck your INR and electrolytes/kidney function (BMP) - on Monday, 07/03 * Your dose of Lasix is changed to 40mg twice a day - take potassium supplements while on Lasix * You will stop taking Lopressor and start taking Toprol once a day
[2017-06-30 14:20] VITALS: BP 124/70; PULSE 106; TEMP 36.4; O2SAT 94
== END 2017-06-30 14:50 | DRG 291 ==
LOC: EDBD 23:41 → C.EDA 23:43 → C.2T 06-24 01:45 → ENRESERV 06-24 02:00
PROVIDERS: ADMIT Hospitalist; ATTEND Family Medicine
DX: I13.0 Hypertensive heart and chronic kidney disease with heart failure and stage 1 through stage 4 chronic kidney disease, or unspecified chronic kidney disease (principal); I50.33 Acute on chronic diastolic (congestive) heart failure; J18.9 Pneumonia, unspecified organism; G93.41 Metabolic encephalopathy; N17.9 Acute kidney failure, unspecified; I48.1 Persistent atrial fibrillation; R09.02 Hypoxemia; E11.649 Type 2 diabetes mellitus with hypoglycemia without coma; E87.6 Hypokalemia; N18.3 Chronic kidney disease, stage 3 (moderate); F03.90 Unspecified dementia, unspecified severity, without behavioral disturbance, psychotic disturbance, mood disturbance, and anxiety; E11.22 Type 2 diabetes mellitus with diabetic chronic kidney disease; E78.5 Hyperlipidemia, unspecified; K22.70 Barrett's esophagus without dysplasia; H40.9 Unspecified glaucoma; Z79.899 Other long term (current) drug therapy; Z79.01 Long term (current) use of anticoagulants; Z79.4 Long term (current) use of insulin; Z79.82 Long term (current) use of aspirin; Z83.3 Family history of diabetes mellitus

== ENCOUNTER → 2017-07-03 | Outpatient (CLI) | payer OTHER ==
[~2017-07-03] MED LIST changes: +ACET-1311 PO; -AMOX875T PO; -CEFD300C3 PO; -FURO-85 PO; +IPRASOL4 INH; +LSX40 PO; +MCRK20 PO; -METO-551 PO; +OXGN; -POTA20TA16 PO; +TPRSR50 PO
[2017-07-03 09:28] LABS: INR 3.2 (0.9-1.1)
== END | disposition home or self-care (01) ==
LOC: C.LABUPNIT 08:43
PROVIDERS: ATTEND Nurse Practitioner Family
DX: I48.2 Chronic atrial fibrillation (principal)

== ENCOUNTER → 2017-07-04 | Outpatient (CLI) | payer OTHER | END | disposition home or self-care (01) | LOC: C.LABUPNIT 08:25 | PROVIDERS: ATTEND Nurse Practitioner Family | DX: Z87.440 Personal history of urinary (tract) infections (principal) ==

== ENCOUNTER → 2017-07-05 | Outpatient (CLI) | payer OTHER ==
[2017-07-05 10:03] LABS: BASO % 0.5 %; BASO ABS # 0.04 K/uL (0-0.2); EOS % 1.3 %; EOS ABS # 0.11 K/uL (0-0.5); HEMATOCRIT 34.5 % (37-47); HEMOGLOBIN 10.5 g/dL (12.0-16.0); IG# 0.03 K/uL (0.00-0.02); LYMPH % 11.7 %; MEAN CELL VOLUME 73.1 fL (80-100); MEAN CORPUSCULAR HEMOGLOBIN 22.2 pg (25-34); MEAN CORPUSCULAR HGB CONC 30.4 g/dl (32-36); MEAN PLATELET VOLUME 10.1 fL (7.4-10.4); MONO % 12.2 %; MONO ABS # 1.05 K/uL (0.11-0.59); NEUT ABS # 6.35 K/uL (1.4-6.5); PLATELET COUNT 276 K/uL (130-400); RED CELL DISTRIBUTION WIDTH CV 24.9 % (11.5-14.5); RED CELL DISTRIBUTION WIDTH SD 63.9 fL (36.4-46.3); WHITE BLOOD COUNT 8.58 K/uL (4.8-10.8)
[2017-07-05 11:10] LABS: BLOOD UREA NITROGEN 43 mg/dl (7-18); CALCIUM 9.1 mg/dl (8.5-10.1); CARBON DIOXIDE 28 mmol/L (21-32); CREATININE 1.74 mg/dl (0.60-1.20); GLUCOSE 54 mg/dl (70-99); POTASSIUM 4.2 mmol/L (3.5-5.1); SODIUM 136 mmol/L (136-145)
== END ==
LOC: C.LABUPNIT 09:23
PROVIDERS: ATTEND Nurse Practitioner Family
DX: I10 Essential (primary) hypertension (principal)

== ENCOUNTER → 2017-07-06 | Outpatient (CLI) | payer OTHER ==
[2017-07-06 08:43] LABS: INR 2.2 (0.9-1.1)
== END ==
LOC: C.LABUPNIT 08:15
PROVIDERS: ATTEND Nurse Practitioner Family
DX: R41.82 Altered mental status, unspecified (principal); I48.2 Chronic atrial fibrillation

== ENCOUNTER → 2017-07-09 | Outpatient (CLI) | payer OTHER ==
[~2017-07-09] MED LIST changes: +ACET-1256 PO; +CALC500T72 PO; +FRS/40 PO; +FURO80TA63 PO; +INSDGI SQ; +INSPMPHMLG SQ; +METO50TA8 PO; +WARF1TAB6 PO
== END ==
LOC: C.LABUPNIT 03:40
PROVIDERS: ATTEND Nurse Practitioner Family
DX: R41.82 Altered mental status, unspecified (principal)

== ENCOUNTER → 2017-07-10 | Outpatient (CLI) | payer OTHER ==
[2017-07-10 08:46] LABS: BASO % 0.7 %; BASO ABS # 0.04 K/uL (0-0.2); EOS ABS # 0.06 K/uL (0-0.5); HEMOGLOBIN 10.3 g/dL (12.0-16.0); IG# 0.02 K/uL (0.00-0.02); LYMPH % 15.1 %; LYMPH ABS # 0.89 K/uL (1.2-3.4); MEAN CELL VOLUME 72.3 fL (80-100); MEAN CORPUSCULAR HEMOGLOBIN 21.9 pg (25-34); MEAN CORPUSCULAR HGB CONC 30.3 g/dl (32-36); MEAN PLATELET VOLUME 9.7 fL (7.4-10.4); MONO % 18.3 %; MONO ABS # 1.08 K/uL (0.11-0.59); NEUT % 64.6 %; NEUT ABS # 3.81 K/uL (1.4-6.5); PLATELET COUNT 292 K/uL (130-400); RED CELL DISTRIBUTION WIDTH CV 24.8 % (11.5-14.5); RED CELL DISTRIBUTION WIDTH SD 64.1 fL (36.4-46.3)
[2017-07-10 08:53] LABS: INR 2.8 (0.9-1.1)
[2017-07-10 08:54] LABS: BLOOD UREA NITROGEN 43 mg/dl (7-18); CALCIUM 8.7 mg/dl (8.5-10.1); CARBON DIOXIDE 35 mmol/L (21-32); CREATININE 1.58 mg/dl (0.60-1.20); GLUCOSE 350 mg/dl (70-99); POTASSIUM 2.6 mmol/L (3.5-5.1); SODIUM 127 mmol/L (136-145)
== END ==
LOC: C.LABUPNIT 08:29
PROVIDERS: ATTEND Nurse Practitioner Family
DX: I48.91 Unspecified atrial fibrillation (principal); I10 Essential (primary) hypertension

== ENCOUNTER → 2017-07-11 | Outpatient (CLI) | payer OTHER ==
[~2017-07-11] MED LIST changes: -ACET-1256 PO; -CALC500T72 PO; -FRS/40 PO; -FURO80TA63 PO; -INSDGI SQ; -INSPMPHMLG SQ; -METO50TA8 PO; -WARF1TAB6 PO
[2017-07-11 08:57] LABS: BLOOD UREA NITROGEN 41 mg/dl (7-18); CALCIUM 9.1 mg/dl (8.5-10.1); CARBON DIOXIDE 35 mmol/L (21-32); CREATININE 1.41 mg/dl (0.60-1.20); GLUCOSE 162 mg/dl (70-99); POTASSIUM 2.9 mmol/L (3.5-5.1); SODIUM 130 mmol/L (136-145)
== END ==
LOC: C.LABUPNIT 08:24
PROVIDERS: ATTEND Nurse Practitioner Family
DX: N18.3 Chronic kidney disease, stage 3 (moderate) (principal); E56.8 Deficiency of other vitamins

== ENCOUNTER → 2017-07-12 | Outpatient (CLI) | payer OTHER ==
[2017-07-12 09:34] LABS: BASO % 0.6 %; BASO ABS # 0.04 K/uL (0-0.2); EOS % 1.8 %; EOS ABS # 0.12 K/uL (0-0.5); HEMATOCRIT 32.7 % (37-47); HEMOGLOBIN 9.9 g/dL (12.0-16.0); IG# 0.03 K/uL (0.00-0.02); LYMPH % 10.9 %; LYMPH ABS # 0.71 K/uL (1.2-3.4); MEAN CELL VOLUME 72.3 fL (80-100); MEAN CORPUSCULAR HEMOGLOBIN 21.9 pg (25-34); MEAN CORPUSCULAR HGB CONC 30.3 g/dl (32-36); MEAN PLATELET VOLUME 9.5 fL (7.4-10.4); MONO % 14.6 %; MONO ABS # 0.95 K/uL (0.11-0.59); NEUT % 71.6 %; NEUT ABS # 4.66 K/uL (1.4-6.5); PLATELET COUNT 281 K/uL (130-400); RED CELL DISTRIBUTION WIDTH CV 24.5 % (11.5-14.5); RED CELL DISTRIBUTION WIDTH SD 64.2 fL (36.4-46.3); WHITE BLOOD COUNT 6.51 K/uL (4.8-10.8)
== END ==
LOC: C.LABUPNIT 09:14
PROVIDERS: ATTEND Nurse Practitioner Family
DX: E87.6 Hypokalemia (principal); B37.41 Candidal cystitis and urethritis

== ENCOUNTER → 2017-07-13 | Outpatient (CLI) | payer OTHER ==
[2017-07-13 10:12] LABS: INR 2.7 (0.9-1.1)
[2017-07-13 10:15] LABS: BLOOD UREA NITROGEN 46 mg/dl (7-18); CALCIUM 8.7 mg/dl (8.5-10.1); CARBON DIOXIDE 33 mmol/L (21-32); CREATININE 1.46 mg/dl (0.60-1.20); GLUCOSE 237 mg/dl (70-99); POTASSIUM 3.1 mmol/L (3.5-5.1); SODIUM 129 mmol/L (136-145)
== END ==
LOC: C.LABUPNIT 09:21
PROVIDERS: ATTEND Nurse Practitioner Family
DX: N18.3 Chronic kidney disease, stage 3 (moderate) (principal); I48.2 Chronic atrial fibrillation

== ENCOUNTER → 2017-07-15 | Outpatient (CLI) | payer OTHER ==
[~2017-07-15] MED LIST changes: +ACET-1256 PO; +AFRIN; +CALC500T72 PO; +FRS/40 PO; +FURO80TA63 PO; +INSDGI SQ; +INSPMPHMLG SQ; +METO50TA8 PO; +NUTR-7 PO; +WARF1TAB6 PO
[2017-07-15 06:55] LABS: INR 3.3 (0.9-1.1)
--- NOTE | 2017-07-26 14:35 | CODING QUERY MEDICAL NECESSITY ---
SUPPORTING DIAGNOSIS NEEDED A supporting diagnosis is required for the test/procedure performed on this patient in order for us to be reimbursed by the patient's insurance. Please provide a supporting diagnosis for the following test/procedure listed below next to the test name along with your signature. *If there is no additional diagnosis for this patient that would support the following test/procedure please document that below next to the test/procedure. Test(s)/Procedure(s) that require a supporting diagnosis: DOS: 07/15/17 * PT/INR DIAGNOSIS: Provider Signature: Date: Thank you Karina Chapman [id number] Information Management Once completed, please kindly fax back to [phone] For questions please call [phone]
== END ==
LOC: C.LABUPNIT 10:06
PROVIDERS: ATTEND Nurse Practitioner Family
DX: I48.92 Unspecified atrial flutter (principal)

== ENCOUNTER → 2017-07-19 | Outpatient (CLI) | payer OTHER ==
[~2017-07-19] MED LIST changes: -AFRIN; -NUTR-7 PO
[2017-07-19 10:15] LABS: INR 3.8 (0.9-1.1)
== END ==
LOC: C.LABUPNIT 08:46
PROVIDERS: ATTEND Nurse Practitioner Family
DX: I48.2 Chronic atrial fibrillation (principal)

== ENCOUNTER → 2017-07-20 | Outpatient (CLI) | payer OTHER ==
[2017-07-20 09:44] LABS: BLOOD UREA NITROGEN 48 mg/dl (7-18); CALCIUM 9.2 mg/dl (8.5-10.1); CARBON DIOXIDE 29 mmol/L (21-32); CREATININE 1.49 mg/dl (0.60-1.20); GLUCOSE 40 mg/dl (70-99); POTASSIUM 5.1 mmol/L (3.5-5.1); SODIUM 132 mmol/L (136-145)
== END ==
LOC: C.LABUPNIT 07:57
PROVIDERS: ATTEND Nurse Practitioner Family
DX: N18.3 Chronic kidney disease, stage 3 (moderate) (principal); E87.6 Hypokalemia

== ENCOUNTER 2017-07-27 20:11 | Inpatient (IN) | payer OTHER ==
[~2017-07-27] VITALS: Ht 162.6 cm; Wt 71.7 kg
[~2017-07-27 20:11] MED LIST changes: -ACET-1256 PO; -AFRIN; -ASPI81TA28 PO; -CALC0.2510 PO; -CALC500T72 PO; -DTRSR/10 PO; -FRS/40 PO; -FURO80TA63 PO; -INSDGI SQ; -INSPMPHMLG SQ; -METO50TA8 PO; -NUTR-7 PO; -OMEP40CA41 PO; -SIMV10TA2 PO; -WARF1TAB6 PO
[2017-07-27] MEDS ORDERED: OXYMETAZOLINE HCL 0.05% NA SPR 15 ML BTL ONE (20:35)
--- NOTE | 2017-07-27 20:42 | EMERGENCY ROOM VISIT NOTE ---
History Report prepared by Sonido: Sultana Lott Under the Supervision of: Dr. Thee Murillo M.D. First contact with patient: 20:31 Chief Complaint: NOSE BLEED (MINOR) Stated Complaint: BLOOD THINNER IS TO STRONG History of Present Illness The patient is an 87 year old female who presents to the Emergency Room with complaints of a persistent nose bleed that started one hour ago. The patient is on Coumadin. She had vitamin K 2 hours ago. The patient is having trouble breathing. Patient's blood thinner is too high. The patient has a history of heart problems. Source of History: family Onset: one hour ago Position: nose Timing: other (persistent) Associated Symptoms: + SOB Review of Systems See HPI for pertinent positives & negatives. A total of 10 systems reviewed and were otherwise negative. Past Medical & Surgical Medical Problems: (1) Afib (2) Anticoagulated on warfarin (3) Aortic stenosis (4) Atrial fibrillation (5) Bacon esophagus (6) CHF exacerbation (7) Chronic diastolic (congestive) heart failure (8) CKD (chronic kidney disease), stage III (9) DM type 2 (diabetes mellitus, type 2) (10) Dyslipidemia (11) Ear lobe laceration (12) Fall (13) GERD (gastroesophageal reflux disease) (14) Glaucoma (15) Heart disease (16) HTN (hypertension) (17) Kidney disease (18) Mitral valve insufficiency (19) Sepsis (20) T2DM (type 2 diabetes mellitus) Surgical Problems: (1) Hx of tubal ligation Old medical records were reviewed. Nurse's notes were reviewed and I agree with. Family History Diabetes mellitus Social History Smoking Status: Never Smoker Alcohol Use: none Drug Use: none Housing Status: lives with family Occupation Status: unemployed Current/Historical Medications Scheduled Aspirin (Aspirin Ec), 81 MG PO DAILY Calcitriol (Rocaltrol Cap), 0.25 MCG PO 2XWK Calcium Ascorbate (Vitamin C), 500 MG PO DAILY Cholecalciferol (Vitamin D3), 1,000 INTER.UNIT PO DAILY Furosemide (Lasix), 80 MG PO QAM Furosemide (Lasix), 40 MG PO QPM Insulin Glargine (Lantus), 5 UNIT SQ DAILY Insulin Human Lispro (Humalog), UNITS SQ AC Metoprolol Succ (Toprol Xl) (Toprol-Xl), 50 MG PO DAILY Omeprazole (Prilosec), 40 MG PO QAM Oxybutynin Chloride (Oxybutynin Chloride ER), 10 MG PO DAILY Potassium Chloride (Klor-Con M20), 20 MEQ PO DAILY Simvastatin (Zocor), 10 MG PO HS Timolol Maleate (Ophth) (Timoptic-Xe 0.5% Oph), 1 DROPS OPL DAILY Warfarin Sod (Jantoven), 0.5-1 MG PO DAILY Scheduled PRN Acetaminophen (Tylenol), 500-1,000 MG PO Q6 PRN for Pain Allergies Coded Allergies: No Known Allergies (Unverified , 06/24/17) Physical Exam Vital Signs Date Time Temp Pulse Resp B/P (MAP) Pulse Ox O2 Delivery O2 Flow Rate FiO2 07/27/17 21:48 70 123/42 97 Room Air 07/27/17 20:14 36.9 60 20 126/58 95 Room Air Physical Exam General: Anxious appearing older female in no acute distress. Nasal clamp in place. HEENT: Normal cephalic atraumatic. Pupils are equal round and reactive to light. Extraocular movements are intact. Oropharynx is pink with moist mucous membranes. No swelling of the mouth lips or tongue. Small amount of blood trickling from left naris, blood on oropharynx. Neck: Supple with a midline trachea. No meningeal signs or stiffness, no JVD or bruits. No Stridor. Chest: Clear to auscultation bilaterally. No wheezes or rhonchi. No increased work of breathing. Heart: regular rate and rhythm. Abdomen: Soft nontender, nondistended without rebound guarding or rigidity. Extremities: No cyanosis clubbing or edema. No calf tenderness or assymetry Spine/Back. Non tender to palpation. No CVA tenderness Skin: Good turgor without rashes. Neurologic exam: Cranial nerves two through 12 are intact. Motor and sensation are intact and symmetrical throughout. Medical Decision & Procedures Laboratory Results 07/27/17 20:48 Red Blood Count 4.42, Mean Corpuscular Volume 72.2, Mean Corpuscular Hemoglobin 23.1, Mean Corpuscular Hemoglobin Concent 32.0, Mean Platelet Volume 9.2, Neutrophils (%) (Auto) 80.8, Lymphocytes (%) (Auto) 7.1, Monocytes (%) (Auto) 10.7, Eosinophils (%) (Auto) 0.9, Basophils (%) (Auto) 0.1, Neutrophils # (Auto ) 8.48, Lymphocytes # (Auto) 0.75, Monocytes # (Auto) 1.12, Eosinophils # (Auto ) 0.09, Basophils # (Auto) 0.01 07/27/17 20:48 Test 07/27/17 20:48 White Blood Count 10.49 K/uL (4.8-10.8) Red Blood Count 4.42 M/uL (4.2-5.4) Hemoglobin 10.2 g/dL (12.0-16.0) Hematocrit 31.9 % (37-47) Mean Corpuscular Volume 72.2 fL (80-100) Mean Corpuscular Hemoglobin 23.1 pg (25-34) Mean Corpuscular Hemoglobin Concent 32.0 g/dl (32-36) Platelet Count 281 K/uL (130-400) Mean Platelet Volume 9.2 fL (7.4-10.4) Neutrophils (%) (Auto) 80.8 % Lymphocytes (%) (Auto) 7.1 % Monocytes (%) (Auto) 10.7 % Eosinophils (%) (Auto) 0.9 % Basophils (%) (Auto) 0.1 % Neutrophils # (Auto) 8.48 K/uL (1.4-6.5) Lymphocytes # (Auto) 0.75 K/uL (1.2-3.4) Monocytes # (Auto) 1.12 K/uL (0.11-0.59) Eosinophils # (Auto) 0.09 K/uL (0-0.5) Basophils # (Auto) 0.01 K/uL (0-0.2) RDW Standard Deviation 67.2 fL (36.4-46.3) RDW Coefficient of Variation 25.5 % (11.5-14.5) Immature Granulocyte % (Auto) 0.4 % Immature Granulocyte # (Auto) 0.04 K/uL (0.00-0.02) Nucleated RBC Absolute Count (auto) 0.02 K/uL (0-0) Nucleated Red Blood Cells % 0.2 % Polychromasia 1+ Hypochromasia PRESENT Poikilocytosis PRESENT Anisocytosis PRESENT Prothrombin Time > 100.0 SECONDS Prothromb Time International Ratio > 10.0 (0.9-1.1) Activated Partial Thromboplast Time 70.0 SECONDS (21.0-31.0) Partial Thromboplastin Ratio 2.7 Anion Gap 7.0 mmol/L (3-11) Est Creatinine Clear Calc Drug Dose 13.3 ml/min Estimated GFR () 18.1 Estimated GFR (Non- 15.6 BUN/Creatinine Ratio 28.6 (10-20) Calcium Level 8.5 mg/dl (8.5-10.1) Total Bilirubin 1.2 mg/dl (0.2-1) Direct Bilirubin 0.6 mg/dl (0-0.2) Aspartate Amino Transf (AST/SGOT) 28 U/L (15-37) Alanine Aminotransferase (ALT/SGPT) 32 U/L (12-78) Alkaline Phosphatase 154 U/L (45-117) Total Protein 7.4 gm/dl (6.4-8.2) Albumin 2.2 gm/dl (3.4-5.0) Lipase 42 U/L (73-393) Laboratory studies as stated above per my review. Medications Administered Medications (Trade) Dose Ordered Sig/Gustavo Route Start Time Stop Time Status Last Admin Dose Admin Oxymetazoline HCl (Afrin 0.05% Nasal [place]) 75 sprays STK-MED ONCE .ROUTE 07/27/17 20:35 07/27/17 20:36 DC 07/27/17 20:35 75 SPRAYS Phytonadione 10 mg/Sodium Chloride 51 ml @ 102 mls/hr ONE ONCE IV 07/27/17 22:15 07/27/17 22:44 DC 07/27/17 22:24 102 MLS/HR ED Course 2030: Past medical records reviewed. The patient was evaluated in room A11B, and a complete history and physical examination were performed. 2034: Oxymetazoline HCl 75 sprays .ROUTE. 2057: The patient has no active bleeding from her nose. 2204: I spoke with DENISE Soler and she recommends giving another 10 IV. 2209: I spoke with DENISE Ching and he agrees with the treatment plan and will evaluate the patient for further management. Medical Decision Differentials include, but are not limited to; nose bleed, anticoagulation, anemia, infection, trauma. This patient comes in as described above. she has a nosebleed from her left nares. She is on Coumadin for A. fib. She had blood work done at her doctor's office today and got a call that her INR is greater than 10 and they called in 5 mg of p.o. vitamin K which took around 6 PM. She was told that she had a nosebleeds or any bleeding and she should go to the ER she started having a nosebleed about 45 minutes prior to arrival. She seems very anxious when I walk in the room and the nose clamp is on which seems to be causing most of her anxiety. She has blood in the back of her throat as well. we applied Afrin spray and the nasal clamp and the bleeding stopped quickly. The nasal clamp seem to really bother her so I remove this after it was clear she will had no further bleeding she tolerated this well. I do not think she would tolerate a nasal packing very well. Her hemoglobin is stable at 10. her INR was still greater than 10 however she took this less than 4 hours ago with a vitamin K. I did discuss case with Dr. Henson who recommend given her another 10 mg IV vitamin K which was done. Given her age and her comorbidities and the elevated INR, Diloln think she needs to be observed overnight. I have consulted the hospitalist see the patient in the ER for these measures. Medication Reconcilliation Current Medication List: was personally reviewed by me Blood Pressure Screening Patient's blood pressure: Normal blood pressure Consults Time Called: 2157 Consulting Physician: DENISE Soler Returned Call: 2204 I spoke with DENISE Soler and she recommends giving another 10 IV. Additional Consults: Time Called: 2206 Consulted Physician: DENISE Ching Returned Call: 2209 Additional Comments: I spoke with DENISE Ching and he agrees with the treatment plan and will evaluate the patient for further management. Impression Primary Impression: Bleeding nose Additional Impressions: Elevated INR Current use of rn long term care anticoagulation Scribe Attestation The scribe's documentation has been prepared under my direction and personally reviewed by me in its entirety. I confirm that the note above accurately reflects all work, treatment, procedures, and medical decision making performed by me. Departure Information Referrals Nilo Parks M.D. (PCP) Patient Instructions My [facility] Problem Qualifiers
[2017-07-27 21:03] LABS: BASO % 0.1 %; BASO ABS # 0.01 K/uL (0-0.2); EOS % 0.9 %; EOS ABS # 0.09 K/uL (0-0.5); HEMATOCRIT 31.9 % (37-47); HEMOGLOBIN 10.2 g/dL (12.0-16.0); IG# 0.04 K/uL (0.00-0.02); LYMPH % 7.1 %; LYMPH ABS # 0.75 K/uL (1.2-3.4); MEAN CELL VOLUME 72.2 fL (80-100); MEAN CORPUSCULAR HEMOGLOBIN 23.1 pg (25-34); MEAN PLATELET VOLUME 9.2 fL (7.4-10.4); MONO % 10.7 %; MONO ABS # 1.12 K/uL (0.11-0.59); NEUT % 80.8 %; NEUT ABS # 8.48 K/uL (1.4-6.5); NUCLEATED RED BLOOD CELL ABS 0.02 K/uL (0-0); PLATELET COUNT 281 K/uL (130-400); RED CELL DISTRIBUTION WIDTH CV 25.5 % (11.5-14.5); RED CELL DISTRIBUTION WIDTH SD 67.2 fL (36.4-46.3); WHITE BLOOD COUNT 10.49 K/uL (4.8-10.8)
[2017-07-27] MEDS ORDERED: OMEP40CA41 PO (21:28)
[2017-07-27 21:29] LABS: CALCIUM 8.5 mg/dl (8.5-10.1); CREATININE 2.66 mg/dl (0.60-1.20); POTASSIUM 4.1 mmol/L (3.5-5.1)
[2017-07-27 21:30] LABS: INR > 10.0 (0.9-1.1)
[2017-07-27] MEDS ORDERED: SIMV10TA2 PO (21:31)
[2017-07-27] MEDS ORDERED: DTRSR/10 PO (21:36)
[2017-07-27] MEDS ORDERED: CALC0.2510 PO (21:36)
[2017-07-27] MEDS ORDERED: ASPI81TA28 PO (21:37)
[2017-07-27 21:57] LABS: ALBUMIN 2.2 gm/dl (3.4-5.0); TOTAL PROTEIN 7.4 gm/dl (6.4-8.2)
--- NOTE | 2017-07-27 22:11 | History and Physical ---
History & Physical Date & Time of Service: Jul 27, 2017 at 22:11 Chief Complaint: Blood Thinner Is To Strong Primary Care Physician: Nilo Parks M.D. History of Present Illness Source: patient, family, other (ER physician) Patient is an 87-year-old female with past medical history of CKD stage III, DM II, atrial fibrillation on anticoagulation therapy, glaucoma, Bacon's esophagus, GERD, hyperlipidemia, chronic diastolic heart failure and other problems presents with history of nosebleed from left nares which started today. Patient received vitamin K 5 mg secondary to increased INR on recommendations by her PCP. Patient is a very poor historian. She admits to picking her nose which initiated the bleeding. Patient received Afrin spray and IV vitamin K 10 mg in the ED. Epistaxis stopped after nasal clamping. Her INR is greater than 10 and hemoglobin is at baseline. Her blood sugar levels are elevated secondary to missing her insulin today. Patient is on aspirin and warfarin and her last dose was this morning. She denies any use of NSAIDs. She also reports having nosebleed 7-10 days ago as well. Denies any history of blood in stools, hematuria, melena. She is anxious during my encounter in ED. Denies any history of chest pain, SOB, dizziness, cough, fever, chills, nausea, vomiting, abdominal pain, diarrhea, dysuria. Past Medical/Surgical History Medical Problems: (1) Acute congestive heart failure (2) Acute kidney injury superimposed on CKD (3) Afib (4) Anticoagulated on warfarin (5) Aortic stenosis (6) Atrial fibrillation (7) Atrial fibrillation with rapid ventricular response (8) Bacon esophagus (9) Cellulitis of right lower extremity (10) CHF (congestive heart failure) (11) CHF exacerbation (12) Chronic diastolic (congestive) heart failure (13) Chronic kidney disease (14) CKD (chronic kidney disease), stage III (15) DM type 2 (diabetes mellitus, type 2) (16) Dyslipidemia (17) Dyspnea (18) Ear lobe laceration (19) Epistaxis (20) Fall (21) Fall (22) GERD (gastroesophageal reflux disease) (23) Glaucoma (24) Heart disease (25) HTN (hypertension) (26) Hyperglycemia (27) Kidney disease (28) Lower extremity edema (29) Mitral valve insufficiency (30) Respiratory failure (31) Sepsis (32) Supratherapeutic INR (33) T2DM (type 2 diabetes mellitus) Surgical Problems: (1) Hx of tubal ligation Family History Diabetes mellitus Not contributory. Social History Smoking Status: Never Smoker Alcohol Use: none Drug Use: none Housing status: lives with family Occupational Status: unemployed Immunizations History of Influenza Vaccine: Yes History of Tetanus Vaccine?: Yes History of Pneumococcal: Yes History of Hepatitis B Vaccine: No Allergies Coded Allergies: No Known Allergies (Unverified , 06/24/17) Home Medications Scheduled Aspirin (Aspirin Ec), 81 MG PO DAILY Calcitriol (Rocaltrol Cap), 0.25 MCG PO 2XWK Calcium Ascorbate (Vitamin C), 500 MG PO DAILY Cholecalciferol (Vitamin D3), 1,000 INTER.UNIT PO DAILY Furosemide (Lasix), 80 MG PO QAM Furosemide (Lasix), 40 MG PO QPM Insulin Glargine (Lantus), 5 UNIT SQ DAILY Insulin Human Lispro (Humalog), UNITS SQ AC Metoprolol Succ (Toprol Xl) (Toprol-Xl), 50 MG PO DAILY Omeprazole (Prilosec), 40 MG PO QAM Oxybutynin Chloride (Oxybutynin Chloride ER), 10 MG PO DAILY Potassium Chloride (Klor-Con M20), 20 MEQ PO DAILY Simvastatin (Zocor), 10 MG PO HS Timolol Maleate (Ophth) (Timoptic-Xe 0.5% Oph), 1 DROPS OPL DAILY Warfarin Sod (Jantoven), 0.5-1 MG PO DAILY Scheduled PRN Acetaminophen (Tylenol), 500-1,000 MG PO Q6 PRN for Pain Lorazepam (Ativan), 0.5 MG PO Q8H PRN for anxiety Review of Systems See HPI for pertinent positives & negatives. A total of 10 systems reviewed and were otherwise negative. Physical Exam Vital Signs Date Time Temp Pulse Resp B/P (MAP) Pulse Ox O2 Delivery O2 Flow Rate FiO2 07/27/17 21:48 70 123/42 97 Room Air 07/27/17 20:14 36.9 60 20 126/58 95 Room Air General Appearance: WD/WN, no apparent distress, + pertinent finding (anxious) Head: normocephalic, atraumatic Eyes: normal inspection, PERRL, EOMI, sclerae normal ENT: normal ENT inspection, hearing grossly normal, + pertinent finding (Blood in left nares.) Neck: supple, trachea midline Respiratory/Chest: chest non-tender, lungs clear, normal breath sounds, no respiratory distress, no accessory muscle use Cardiovascular: regular rate, rhythm, no murmur, + pertinent finding (1+ b/l edema) Abdomen/GI: normal bowel sounds, non tender, soft Back: normal inspection Extremities/Musculoskelatal: normal inspection, + pedal edema, + pertinent finding (Left ankle wound) Neurologic/Psych: installer inspector final II-XII nml as tested, no motor/sensory deficits, alert, oriented x 3 Skin: normal color, warm/dry Diagnostics Laboratory Results Results Past 24 Hours Test 07/27/17 20:48 Range/Units White Blood Count 10.49 4.8-10.8 K/uL Red Blood Count 4.42 4.2-5.4 M/uL Hemoglobin 10.2 12.0-16.0 g/dL Hematocrit 31.9 37-47 % Mean Corpuscular Volume 72.2 80-100 fL Mean Corpuscular Hemoglobin 23.1 25-34 pg Mean Corpuscular Hemoglobin Concent 32.0 32-36 g/dl Platelet Count 281 130-400 K/uL Mean Platelet Volume 9.2 7.4-10.4 fL Neutrophils (%) (Auto) 80.8 % Lymphocytes (%) (Auto) 7.1 % Monocytes (%) (Auto) 10.7 % Eosinophils (%) (Auto) 0.9 % Basophils (%) (Auto) 0.1 % Neutrophils # (Auto) 8.48 1.4-6.5 K/uL Lymphocytes # (Auto) 0.75 1.2-3.4 K/uL Monocytes # (Auto) 1.12 0.11-0.59 K/uL Eosinophils # (Auto) 0.09 0-0.5 K/uL Basophils # (Auto) 0.01 0-0.2 K/uL RDW Standard Deviation 67.2 36.4-46.3 fL RDW Coefficient of Variation 25.5 11.5-14.5 % Immature Granulocyte % (Auto) 0.4 % Immature Granulocyte # (Auto) 0.04 0.00-0.02 K/uL Nucleated RBC Absolute Count (auto) 0.02 0-0 K/uL Nucleated Red Blood Cells % 0.2 % Polychromasia 1+ Hypochromasia PRESENT Poikilocytosis PRESENT Anisocytosis PRESENT Prothrombin Time > 100.0 9.0-12.0 SECONDS Prothromb Time International Ratio > 10.0 0.9-1.1 Activated Partial Thromboplast Time 70.0 21.0-31.0 SECONDS Partial Thromboplastin Ratio 2.7 Sodium Level 135 136-145 mmol/L Potassium Level 4.1 3.5-5.1 mmol/L Chloride Level 102 98-107 mmol/L Carbon Dioxide Level 26 21-32 mmol/L Anion Gap 7.0 3-11 mmol/L Blood Urea Nitrogen 76 7-18 mg/dl Creatinine 2.66 0.60-1.20 mg/dl Est Creatinine Clear Calc Drug Dose 13.3 ml/min Estimated GFR () 18.1 Estimated GFR (Non- 15.6 BUN/Creatinine Ratio 28.6 10-20 Random Glucose 235 70-99 mg/dl Calcium Level 8.5 8.5-10.1 mg/dl Total Bilirubin 1.2 0.2-1 mg/dl Direct Bilirubin 0.6 0-0.2 mg/dl Aspartate Amino Transf (AST/SGOT) 28 15-37 U/L Alanine Aminotransferase (ALT/SGPT) 32 12-78 U/L Alkaline Phosphatase 154 45-117 U/L Total Protein 7.4 6.4-8.2 gm/dl Albumin 2.2 3.4-5.0 gm/dl Lipase 42 73-393 U/L Impression Assessment and Plan Epistaxis 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 Therapy INR> 10 Received Vit K 10mg in ED Hb at baseline Monitor H&H Hold Aspirin, Coumadin Avoid NSAIDs Afrin PRN monitor INR MARGOT on CKD IV Baseline Cr:1.5 Cr:2.66 today Avoid nephro toxic agents Gentle IV fluids given H/O CHF Hold diuretics Monitor renal function Consider Nephrology consult if no improvement DM Type II: Poorly controlled Last A1c:9.4 in June 2017 ISS, basal Insulin, Accu checks, Diabetic diet Atrial fibrillation: Hold Coumadin secondary to supratherapeutic INR/Epistaxis monitor INR continue Metoprolol H/O Bacon's esophagus GERD continue PPI Hyperlipidemia: Continue zocor H/O chronic diastolic heart failure No signs of exacerbation Diuretics held secondary to MARGOT Monitor for volume overload as on IV fluids DVT Px: SCDs Re: INR >10, epistaxis Code Status: Full Code Disposition: Expect to discharge home with Home Health when stable Resuscitation Status VTE Prophylaxis Will order VTE Prophylaxis: Yes
[2017-07-27] MEDS ORDERED: PHYTONADIONE INJ 10 MG in SODIUM CHLORIDE 0.9% 50ML 50 ML IV ONE (22:15)
[2017-07-27] MEDS ORDERED: ACET-1256 PO (22:25)
[2017-07-27] MEDS ORDERED: FURO80TA63 PO (22:25)
[2017-07-27] MEDS ORDERED: LORA-741 PO ×3 (22:25→23:43)
[2017-07-27] MEDS ORDERED: TIMO0.5S2 OPL (22:25)
[2017-07-27] MEDS ORDERED: METO50TA8 PO ×2 (22:25→23:26)
[2017-07-27] MEDS ORDERED: MCRK20 PO (22:25)
[2017-07-27] MEDS ORDERED: INSDGI SQ (22:25)
[2017-07-27] MEDS ORDERED: INSPMPHMLG SQ (22:25)
[2017-07-27] MEDS ORDERED: FRS/40 PO (22:25)
[2017-07-27] MEDS ORDERED: CALC500T72 PO (22:25)
[2017-07-27] MEDS ORDERED: WARF1TAB6 PO (22:27)
[2017-07-27] MEDS ORDERED: ONDANSETRON INJ 2 MG/ML 2 ML VIAL IV PRN (23:15)
[2017-07-27] MEDS ORDERED: GLUCOSE 40% GEL 15 GM TUBE PO PRN (23:15)
[2017-07-27] MEDS ORDERED: DEXTROSE 50% 50 ML SYR IV PRN (23:15)
[2017-07-27] MEDS ORDERED: GLUCOSE 10 TABS/TUBE PO PRN (23:15)
[2017-07-27] MEDS ORDERED: OXYMETAZOLINE HCL 0.05% NA SPR 15 ML BTL PRN (23:15)
[2017-07-27] MEDS ORDERED: GLUCAGON FOR INJ 1 MG VIAL SQ PRN (23:15)
[2017-07-27] MEDS ORDERED: ACETAMINOPHEN 325 MG TAB PO PRN (23:15)
[2017-07-27] MEDS ORDERED: LORAZEPAM 0.5 MG TAB PO PRN (23:30)
[2017-07-27] MEDS ORDERED: IV FLUIDS COMPLETED PRN (23:45)
[2017-07-27 23:51] VITALS: BP 113/54; PULSE 64; TEMP 36.4; O2SAT 96; Ht 162.6 cm; Wt 71.7 kg
[2017-07-28] VITALS (8 sets, daily range): BP systolic 100–129; BP diastolic 60–75; PULSE 57–92; TEMP 36.3–36.6; O2SAT 93–98
[2017-07-28] MEDS ORDERED: SODIUM CHLORIDE 0.9% 1000ML 1,000 ML IV ONE (00:30)
[2017-07-28] MEDS: INSULIN ASPART 100 UNITS/ML 3 ML PEN SC SCH ×5 (01:07→20:53)
[2017-07-28 05:54] LABS: MEAN CELL VOLUME 72.3 fL (80-100); MEAN CORPUSCULAR HEMOGLOBIN 21.7 pg (25-34); MEAN PLATELET VOLUME 8.7 fL (7.4-10.4); PLATELET COUNT 238 K/uL (130-400); RED CELL DISTRIBUTION WIDTH CV 25.4 % (11.5-14.5); RED CELL DISTRIBUTION WIDTH SD 66.8 fL (36.4-46.3)
[2017-07-28 06:06] LABS: INR 2.3 (0.9-1.1)
[2017-07-28 06:27] LABS: CALCIUM 8.2 mg/dl (8.5-10.1); CREATININE 2.41 mg/dl (0.60-1.20); POTASSIUM 4.2 mmol/L (3.5-5.1)
[2017-07-28] MEDS: INSULIN GLARGINE SOLOSTAR 100 UNITS/ML 3 ML PEN SQ SCH (08:10)
[2017-07-28] MEDS: [UNRECOGNIZED DRUG - OTHER] PO SCH (08:28)
[2017-07-28] MEDS: TIMOLOL GFS 0.5% OPH SOLN 74 DROPS/5 ML BTL OPL SCH (08:29)
[2017-07-28] MEDS: METOPROLOL SUCC 25MG EXT REL TAB PO SCH (08:29)
[2017-07-28] MEDS: CHOLECALCIFEROL 1000 INTER.UNIT TAB PO SCH (08:29)
[2017-07-28] MEDS: OXYBUTYNIN CHLORIDE 5 MG TABCR PO SCH (08:30)
[2017-07-28] MEDS: PANTOprazole SOD 40 MG TAB PO SCH (08:30)
[2017-07-28] MEDS ORDERED: COUGH DROP (SUGAR FREE) LOZ 24 LOZ/1 BOX LOZ PRN (14:30)
[2017-07-28] MEDS ORDERED: NURSING VERBAL MED ORDER ONE (14:30)
--- NOTE | 2017-07-28 15:24 | Progress Note ---
Internal Med Progress Note Date of Service: Jul 28, 2017. Provider Documentation: SUBJECTIVE: resting comfortably somewhat upset that she has to stay in the hospital afebrile no more nose bleeds denies any chest pain or sob denies headaches somewhat drowsy OBJECTIVE: Vital Signs-as noted below Exam: General-alert and awake. Not in distress ENT-normal hearing. Neck-No neck masses Lungs-CTA b/l no wheezing or crackles Heart-S1 and S2 heard regular rate and rhythm no murmurs Abdomen-soft Bowels sounds present non tender no distension Extremities-no edema no erythema Neuro-alert and oriented moves extremities Lab data as noted below. ASSESSMENT & PLAN: Epistaxis INR> 10 on presentation Received Vit K 10mg in ED Hb stable Holding Aspirin, Coumadin Afrin PRN INR today 2.3 currently stable MARGOT on CKD IV Baseline Cr:1.5 presented with Cr:2.66 today Holding diuretics cr 2.4 today will f/u labs DM Type II: Poorly controlled Last A1c:9.4 in June 2017 on lantus and iss will monitor Atrial fibrillation: Holding Coumadin secondary to above INR 2.3 on Metoprolol will monitor H/O Bacon's esophagus GERD On PPI Hyperlipidemia: On zocor H/O chronic diastolic heart failure stable currently Diuretics held secondary to MARGOT will monitor for volume overload DVT Px: SCDs Code Status: Full Code Disposition: pt/ot social service for d/c planning Expect to discharge home with Home Health when stable Vital Signs: Date Time Temp Pulse Resp B/P (MAP) Pulse Ox O2 Delivery O2 Flow Rate FiO2 07/28/17 12:00 Room Air 07/28/17 11:42 36.4 57 16 114/75 (88) 96 Room Air 07/28/17 08:10 36.3 62 16 129/66 (87) 97 Room Air 07/28/17 08:00 Room Air 07/28/17 04:45 36.6 81 19 100/69 (79) 94 CPAP 07/28/17 04:00 Room Air 07/28/17 00:04 96 07/27/17 23:51 36.4 64 24 113/54 96 Room Air 07/27/17 23:44 60 20 141/61 95 Room Air 07/27/17 21:48 70 123/42 97 Room Air 07/27/17 20:14 36.9 60 20 126/58 95 Room Air Lab Results: Results Past 24 Hours Test 07/27/17 20:48 07/27/17 23:02 07/28/17 00:41 07/28/17 05:23 Range/Units White Blood Count 10.49 10.10 4.8-10.8 K/uL Red Blood Count 4.42 4.15 4.2-5.4 M/uL Hemoglobin 10.2 9.0 12.0-16.0 g/dL Hematocrit 31.9 30.0 37-47 % Mean Corpuscular Volume 72.2 72.3 80-100 fL Mean Corpuscular Hemoglobin 23.1 21.7 25-34 pg Mean Corpuscular Hemoglobin Concent 32.0 30.0 32-36 g/dl Platelet Count 281 238 130-400 K/uL Mean Platelet Volume 9.2 8.7 7.4-10.4 fL Neutrophils (%) (Auto) 80.8 % Lymphocytes (%) (Auto) 7.1 % Monocytes (%) (Auto) 10.7 % Eosinophils (%) (Auto) 0.9 % Basophils (%) (Auto) 0.1 % Neutrophils # (Auto) 8.48 1.4-6.5 K/uL Lymphocytes # (Auto) 0.75 1.2-3.4 K/uL Monocytes # (Auto) 1.12 0.11-0.59 K/uL Eosinophils # (Auto) 0.09 0-0.5 K/uL Basophils # (Auto) 0.01 0-0.2 K/uL RDW Standard Deviation 67.2 66.8 36.4-46.3 fL RDW Coefficient of Variation 25.5 25.4 11.5-14.5 % Immature Granulocyte % (Auto) 0.4 % Immature Granulocyte # (Auto) 0.04 0.00-0.02 K/uL Nucleated RBC Absolute Count (auto) 0.02 0-0 K/uL Nucleated Red Blood Cells % 0.2 % Polychromasia 1+ Hypochromasia PRESENT Poikilocytosis PRESENT Anisocytosis PRESENT Prothrombin Time > 100.0 23.8 9.0-12.0 SECONDS Prothromb Time International Ratio > 10.0 2.3 0.9-1.1 Activated Partial Thromboplast Time 70.0 21.0-31.0 SECONDS Partial Thromboplastin Ratio 2.7 Sodium Level 135 137 136-145 mmol/L Potassium Level 4.1 4.2 3.5-5.1 mmol/L Chloride Level 102 104 98-107 mmol/L Carbon Dioxide Level 26 29 21-32 mmol/L Anion Gap 7.0 4.0 3-11 mmol/L Blood Urea Nitrogen 76 70 7-18 mg/dl Creatinine 2.66 2.41 0.60-1.20 mg/dl Est Creatinine Clear Calc Drug Dose 13.3 16.3 ml/min Estimated GFR () 18.1 20.4 Estimated GFR (Non- 15.6 17.6 BUN/Creatinine Ratio 28.6 29.1 10-20 Random Glucose 235 214 70-99 mg/dl Calcium Level 8.5 8.2 8.5-10.1 mg/dl Total Bilirubin 1.2 0.2-1 mg/dl Direct Bilirubin 0.6 0-0.2 mg/dl Aspartate Amino Transf (AST/SGOT) 28 15-37 U/L Alanine Aminotransferase (ALT/SGPT) 32 12-78 U/L Alkaline Phosphatase 154 45-117 U/L Total Protein 7.4 6.4-8.2 gm/dl Albumin 2.2 3.4-5.0 gm/dl Lipase 42 73-393 U/L Bedside Glucose 251 233 70-90 mg/dl Magnesium Level 2.2 1.8-2.4 mg/dl Test 07/28/17 07:57 07/28/17 11:20 Range/Units Bedside Glucose 221 224 70-90 mg/dl
[2017-07-28] MEDS: BOOST GLUCOSE CONTROL PO SCH (17:20)
[2017-07-28] MEDS: SIMVASTATIN 10 MG TAB PO SCH (20:41)
[2017-07-28] MEDS: METOPROLOL SUCC 50MG EXT REL TAB PO SCH (20:41)
[2017-07-29] VITALS (7 sets, daily range): BP systolic 116–133; BP diastolic 22–71; PULSE 73–105; TEMP 36.6–36.9; O2SAT 89–100
[2017-07-29 06:48] LABS: BASO % 0.1 %; BASO ABS # 0.01 K/uL (0-0.2); EOS ABS # 0.15 K/uL (0-0.5); HEMATOCRIT 29.6 % (37-47); HEMOGLOBIN 9.1 g/dL (12.0-16.0); IG# 0.03 K/uL (0.00-0.02); LYMPH % 10.1 %; LYMPH ABS # 0.74 K/uL (1.2-3.4); MEAN CORPUSCULAR HEMOGLOBIN 22.1 pg (25-34); MEAN CORPUSCULAR HGB CONC 30.7 g/dl (32-36); MEAN PLATELET VOLUME 9.4 fL (7.4-10.4); MONO % 9.8 %; MONO ABS # 0.72 K/uL (0.11-0.59); NEUT % 77.6 %; NEUT ABS # 5.69 K/uL (1.4-6.5); PLATELET COUNT 248 K/uL (130-400); RED CELL DISTRIBUTION WIDTH CV 25.2 % (11.5-14.5); WHITE BLOOD COUNT 7.34 K/uL (4.8-10.8)
[2017-07-29 07:18] LABS: CALCIUM 8.1 mg/dl (8.5-10.1); CREATININE 1.8 mg/dl (0.60-1.20); POTASSIUM 3.6 mmol/L (3.5-5.1)
[2017-07-29] MEDS: TIMOLOL GFS 0.5% OPH SOLN 74 DROPS/5 ML BTL OPL SCH (07:48)
[2017-07-29] MEDS: BOOST GLUCOSE CONTROL PO SCH ×2 (07:48→17:03)
[2017-07-29] MEDS: [UNRECOGNIZED DRUG - OTHER] PO SCH (07:48)
[2017-07-29] MEDS: OXYBUTYNIN CHLORIDE 5 MG TABCR PO SCH (07:49)
[2017-07-29] MEDS: CHOLECALCIFEROL 1000 INTER.UNIT TAB PO SCH (07:49)
[2017-07-29] MEDS: PANTOprazole SOD 40 MG TAB PO SCH (07:49)
[2017-07-29] MEDS: METOPROLOL SUCC 25MG EXT REL TAB PO SCH (07:49)
[2017-07-29 07:52] LABS: INR 1.3 (0.9-1.1)
[2017-07-29] MEDS: INSULIN ASPART 100 UNITS/ML 3 ML PEN SC SCH ×3 (08:19→17:54)
[2017-07-29] MEDS: INSULIN GLARGINE SOLOSTAR 100 UNITS/ML 3 ML PEN SQ SCH (08:20)
[2017-07-29] MEDS ORDERED: AZITHROMYCIN 250 MG TAB PO ONE (15:30)
[2017-07-29] MEDS ORDERED: LORAZEPAM 0.5 MG TAB PO PRN (16:00)
[2017-07-29] MEDS ORDERED: WARFARIN SOD 0.5 MG TAB PO SCH (16:00)
[2017-07-29] MEDS: NYSTATIN SUSP 500,000 U/5 ML UDC PO SCH ×2 (17:03→21:56)
--- NOTE | 2017-07-29 17:13 | Progress Note ---
Internal Med Progress Note Date of Service: Jul 29, 2017. Provider Documentation: SUBJECTIVE: resting comfortably on and off crying and wants to go home denies chest pain or sob no nausea afebrile family visiting son says patient has cough for some time and also some sore throat family ants to take patient home and says she does poorly in nursing homes they like o have more help and open for palliative care consult OBJECTIVE: Vital Signs-as noted below Exam: General-alert and awake. crying ENT-normal hearing. Neck-No neck masses Lungs-CTA b/l no wheezing or crackles Heart-S1 and S2 heard regular rate and rhythm no murmurs Abdomen-soft Bowels sounds present non tender no distension Extremities-no edema no erythema Neuro-alert and awake moves extremities Lab data as noted below. 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 Baseline Cr:1.5 presented with Cr:2.66 today Holding diuretics cr 1.8 today will f/u labs DM Type II: Poorly controlled Last A1c:9.4 in June 2017 on lantus and iss will monitor Atrial fibrillation: Holding Coumadin secondary to above INR 1.3 on Metoprolol restart Coumadin from am will monitor H/O Bacon's esophagus GERD On PPI Hyperlipidemia: On zocor H/O chronic diastolic heart failure stable currently Diuretics held secondary to MARGOT will monitor for volume overload Ambulatory dysfunction not much mobile at home as per family cough cough spells at home bronchitis started on azithromycin Sore throat recently had abx nystatin swish and swallow and monitor DVT Px: SCDs Code Status: Full Code Disposition: pt/ot social service for d/c planning Son and daughter says patient does poorly in nursing homes and like to take patient back home and like to have more help Family ok talking to palliative care and director social welfare for options Vital Signs: Date Time Temp Pulse Resp B/P (MAP) Pulse Ox O2 Delivery O2 Flow Rate FiO2 07/29/17 16:13 36.6 105 22 120/22 (54) 89 07/29/17 12:44 36.6 73 18 126/64 (84) 100 Room Air 07/29/17 12:00 Room Air 07/29/17 08:00 Room Air 07/29/17 07:43 36.6 87 18 116/58 (77) 91 Room Air 07/29/17 04:00 Room Air 07/29/17 04:00 Room Air 07/29/17 00:00 Room Air 07/28/17 23:00 36.5 70 18 94 Room Air 07/28/17 20:00 93 Room Air 07/28/17 19:36 36.6 92 22 109/60 (76) 93 Room Air Lab Results: Results Past 24 Hours Test 07/28/17 20:04 07/29/17 06:34 07/29/17 07:26 07/29/17 07:28 Range/Units Bedside Glucose 226 198 70-90 mg/dl White Blood Count 7.34 4.8-10.8 K/uL Red Blood Count 4.11 4.2-5.4 M/uL Hemoglobin 9.1 12.0-16.0 g/dL Hematocrit 29.6 37-47 % Mean Corpuscular Volume 72.0 80-100 fL Mean Corpuscular Hemoglobin 22.1 25-34 pg Mean Corpuscular Hemoglobin Concent 30.7 32-36 g/dl Platelet Count 248 130-400 K/uL Mean Platelet Volume 9.4 7.4-10.4 fL Neutrophils (%) (Auto) 77.6 % Lymphocytes (%) (Auto) 10.1 % Monocytes (%) (Auto) 9.8 % Eosinophils (%) (Auto) 2.0 % Basophils (%) (Auto) 0.1 % Neutrophils # (Auto) 5.69 1.4-6.5 K/uL Lymphocytes # (Auto) 0.74 1.2-3.4 K/uL Monocytes # (Auto) 0.72 0.11-0.59 K/uL Eosinophils # (Auto) 0.15 0-0.5 K/uL Basophils # (Auto) 0.01 0-0.2 K/uL RDW Standard Deviation 66.0 36.4-46.3 fL RDW Coefficient of Variation 25.2 11.5-14.5 % Immature Granulocyte % (Auto) 0.4 % Immature Granulocyte # (Auto) 0.03 0.00-0.02 K/uL Hypochromasia PRESENT Anisocytosis PRESENT Sodium Level 138 136-145 mmol/L Potassium Level 3.6 3.5-5.1 mmol/L Chloride Level 106 98-107 mmol/L Carbon Dioxide Level 26 21-32 mmol/L Anion Gap 6.0 3-11 mmol/L Blood Urea Nitrogen 55 7-18 mg/dl Creatinine 1.80 0.60-1.20 mg/dl Est Creatinine Clear Calc Drug Dose 21.8 ml/min Estimated GFR () 29.0 Estimated GFR (Non- 25.0 BUN/Creatinine Ratio 30.4 10-20 Random Glucose 201 70-99 mg/dl Calcium Level 8.1 8.5-10.1 mg/dl Magnesium Level 2.1 1.8-2.4 mg/dl Iron Level 27 35-150 mcg/dl Total Iron Binding Capacity 307 250-450 mcg/dl Transferrin 202 200-360 mg/dl Transferrin % Saturation 10 15-50 % Prothrombin Time 14.0 9.0-12.0 SECONDS Prothromb Time International Ratio 1.3 0.9-1.1 Test 07/29/17 12:07 07/29/17 16:38 Range/Units Bedside Glucose 199 275 70-90 mg/dl
[2017-07-29] MEDS ORDERED: LORAZEPAM 0.5 MG TAB PO SCH (21:00)
[2017-07-29] MEDS ORDERED: PHARMACY GLYCEMIC MGMT CONSULT PRN (21:09)
[2017-07-29] MEDS ORDERED: INSULIN ASPART 100 UNITS/ML 3 ML PEN SC STA (21:37)
[2017-07-29] MEDS ORDERED: INSULIN GLARGINE SOLOSTAR 100 UNITS/ML 3 ML PEN SC STA (21:38)
[2017-07-29] MEDS: METOPROLOL SUCC 50MG EXT REL TAB PO SCH (21:56)
[2017-07-29] MEDS: SIMVASTATIN 10 MG TAB PO SCH (21:56)
[2017-07-30] VITALS (12 sets, daily range): BP systolic 105–141; BP diastolic 51–70; PULSE 63–73; TEMP 36.4–36.8; O2SAT 94–96
[2017-07-30] MEDS: INSULIN ASPART 100 UNITS/ML 3 ML PEN SC SCH ×6 (00:05→21:49)
[2017-07-30 06:01] LABS: BASO % 0.2 %; BASO ABS # 0.02 K/uL (0-0.2); EOS ABS # 0.16 K/uL (0-0.5); HEMATOCRIT 27.6 % (37-47); HEMOGLOBIN 8.7 g/dL (12.0-16.0); IG# 0.04 K/uL (0.00-0.02); LYMPH % 10.4 %; LYMPH ABS # 0.85 K/uL (1.2-3.4); MEAN CELL VOLUME 72.3 fL (80-100); MEAN CORPUSCULAR HEMOGLOBIN 22.8 pg (25-34); MEAN CORPUSCULAR HGB CONC 31.5 g/dl (32-36); MEAN PLATELET VOLUME 8.9 fL (7.4-10.4); MONO % 12.4 %; MONO ABS # 1.01 K/uL (0.11-0.59); NEUT % 74.5 %; NEUT ABS # 6.09 K/uL (1.4-6.5); PLATELET COUNT 266 K/uL (130-400); RED CELL DISTRIBUTION WIDTH CV 25.6 % (11.5-14.5); RED CELL DISTRIBUTION WIDTH SD 67.2 fL (36.4-46.3); WHITE BLOOD COUNT 8.17 K/uL (4.8-10.8)
[2017-07-30 06:11] LABS: INR 1.6 (0.9-1.1)
[2017-07-30 06:28] LABS: CALCIUM 8.2 mg/dl (8.5-10.1); CREATININE 1.53 mg/dl (0.60-1.20); POTASSIUM 3.5 mmol/L (3.5-5.1)
[2017-07-30] MEDS: [UNRECOGNIZED DRUG - OTHER] PO SCH (08:19)
[2017-07-30] MEDS: TIMOLOL GFS 0.5% OPH SOLN 74 DROPS/5 ML BTL OPL SCH (08:21)
[2017-07-30] MEDS: BOOST GLUCOSE CONTROL PO SCH ×2 (08:21→17:29)
[2017-07-30] MEDS: NYSTATIN SUSP 500,000 U/5 ML UDC PO SCH ×4 (08:22→21:46)
[2017-07-30] MEDS: CHOLECALCIFEROL 1000 INTER.UNIT TAB PO SCH (08:22)
[2017-07-30] MEDS: FUROSEMIDE 80 MG TAB PO SCH (08:22)
[2017-07-30] MEDS: POTASSIUM CHLORIDE 20 MEQ TABCR PO SCH (08:22)
[2017-07-30] MEDS: OXYBUTYNIN CHLORIDE 5 MG TABCR PO SCH (08:22)
[2017-07-30] MEDS: METOPROLOL SUCC 25MG EXT REL TAB PO SCH (08:22)
[2017-07-30] MEDS: PANTOprazole SOD 40 MG TAB PO SCH (08:23)
[2017-07-30] MEDS: AZITHROMYCIN 250 MG TAB PO SCH (08:23)
--- NOTE | 2017-07-30 10:51 | Pharmacy Progress Note ---
Glycemic Control Intl Consult Date of Service Jul 30, 2017. Scope Glycemic Pharmacist consulted by Dr Rowan on 07/29/17 for glycemic control and to write orders per [facility] inpatient glycemic control protocol Objective Weight (Kilograms): 77.000 Accuchecks BSG (last 24hrs): Test 07/29/17 12:07 07/29/17 16:38 07/29/17 20:53 07/30/17 00:01 Bedside Glucose 199 mg/dl (70-90) 275 mg/dl (70-90) 339 mg/dl (70-90) 272 mg/dl (70-90) Test 07/30/17 04:04 07/30/17 05:07 07/30/17 07:24 Bedside Glucose 101 mg/dl (70-90) 79 mg/dl (70-90) Random Glucose 76 mg/dl (70-99) Laboratory Data (last 24hrs) Test 07/30/17 05:07 Anion Gap 6.0 mmol/L BUN/Creatinine Ratio 31.1 Blood Urea Nitrogen 48 mg/dl Creatinine 1.53 mg/dl Potassium Level 3.5 mmol/L Sodium Level 138 mmol/L White Blood Count 8.17 K/uL Red Blood Count 3.82 M/uL Hemoglobin 8.7 g/dL Hematocrit 27.6 % Mean Corpuscular Volume 72.3 fL Mean Corpuscular Hemoglobin 22.8 pg Mean Corpuscular Hemoglobin Concent 31.5 g/dl Platelet Count 266 K/uL Mean Platelet Volume 8.9 fL Neutrophils (%) (Auto) 74.5 % Lymphocytes (%) (Auto) 10.4 % Monocytes (%) (Auto) 12.4 % Eosinophils (%) (Auto) 2.0 % Basophils (%) (Auto) 0.2 % Neutrophils # (Auto) 6.09 K/uL Lymphocytes # (Auto) 0.85 K/uL Monocytes # (Auto) 1.01 K/uL Eosinophils # (Auto) 0.16 K/uL Basophils # (Auto) 0.02 K/uL Recent Pertinent Medications Outpatient Anti-diabetic Regimen: * Glargine 5 units SQ daily + Lispro SS AC * A1c = 9.4 % 06/24/17 The patient is currently receiving: * Basal insulin: Lantus 5 units every 24 hours (additional 10 units SQ given last evening) * Correctional Insulin: Novolog Correction per scale ACHS Goal Range: Low 110 mg/dL - High 150 mg/dL Correction Factor: 25 mg/dL/unit * Prandial insulin: Per carb ratio of 1 unit per 9 grams CHO consumed Risk Factors for Insulin Resistance: * Infection: zithromax * Diet: T2DM Assessment & Plan ASSESSMENT: * 87 yr old uncontrolled T2DM female admitted with epistaxis in the setting of anticoagulation for A fib and acute on chronic kidney disease. * Patient has been hyperglycemia since the time of admission with the majority of BSGs being > 200 mg/dL. * During a recent admission (June 2017) she required about 30 units of insulin per day (15-18 units of basal). * Terra was ordered her home dose of Lantus 5 units qAM on admission and was given an additional 10 units last evening, therefore I will not increase basal insulin today. Will attempt to transition patient back to once daily dose in the am since this is how she administers at home. PLAN FOR INPATIENT GLYCEMIC CONTROL: * Basal insulin * Lantus 5 units SQ this evening, then 10 units SQ qam * Reassess basal in am * Bolus Insulin * NOVOLOG per scale ACHS or Q6hrs while NPO * Goal Range: Low 110 mg/dL - High 150 mg/dL * Correction Factor: 25 mg/dL/unit * Nutritional / Prandial insulin per carb ratio of 1 unit per 9 grams CHO consumed * Please note that the plan above was derived based on current level of insulin resistance and hospital stress. These recommendations are appropriate for inpatient admission only. Plan of care upon discharge will need to be reassessed to avoid potential outpatient hypo/hyperglycemia. Thank you.
[2017-07-30] MEDS: OXYMETAZOLINE HCL 0.05% NA SPR 15 ML BTL NAE SCH ×2 (12:54→21:45)
--- NOTE | 2017-07-30 15:04 | Progress Note ---
Internal Med Progress Note Date of Service: Jul 30, 2017. Provider Documentation: SUBJECTIVE: resting comfortably had another episode of epistaxis today which spontaneously resolved denies chest pain or sob afebrile says no nausea or abdominal pain OBJECTIVE: Vital Signs-as noted below Exam: General-alert and awake.not in distress ENT-normal hearing. Neck-No neck masses Lungs-CTA b/l no wheezing or crackles Heart-S1 and S2 heard regular rate and rhythm no murmurs Abdomen-soft Bowels sounds present non tender no distension Extremities-no edema no erythema Neuro-alert and awake moves extremities Lab data as noted below. 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 Baseline Cr:1.5 presented with Cr:2.66 today Held diuretics cr 1.5 today restarting diuretics will f/u labs Anemia of chronic disease baseline hb 9 hb today 8.7 will monitor as patinet having epistaxis DM Type II: Poorly controlled Last A1c:9.4 in June 2017 on lantus and iss will monitor Atrial fibrillation: Holding Coumadin secondary to above INR 1.6 on Metoprolol holding Coumadin as above will monitor H/O Bacon's esophagus GERD On PPI Hyperlipidemia: On zocor H/O chronic diastolic heart failure stable currently restarted diuretics Ambulatory dysfunction not much mobile at home as per family cough cough spells at home bronchitis started on azithromycin Sore throat recently had abx nystatin swish and swallow and monitor DVT Px: SCDs Code Status: Full Code Disposition: pt/ot social service for d/c planning Son and daughter says patient does poorly in nursing homes and like to take patient back home and like to have more help Family ok talking to palliative care and social media director for options plan for home hospice Vital Signs: Date Time Temp Pulse Resp B/P (MAP) Pulse Ox O2 Delivery O2 Flow Rate FiO2 07/30/17 16:43 141/63 (89) 07/30/17 16:09 36.7 20 94 Room Air 07/30/17 13:06 73 16 121/64 (83) 94 Room Air 07/30/17 12:00 Room Air 07/30/17 08:00 Room Air 07/30/17 07:15 36.8 65 16 105/51 (69) 96 Room Air 07/30/17 06:08 36.8 63 20 111/67 (82) 95 Room Air 07/30/17 04:00 96 Room Air 07/30/17 00:15 96 Room Air 07/30/17 00:06 36.5 67 19 119/70 (86) 96 Room Air 07/29/17 21:53 83 133/69 (90) 07/29/17 20:59 36.9 76 18 123/71 (88) 99 Room Air 07/29/17 20:00 100 Room Air Lab Results: Results Past 24 Hours Test 07/29/17 20:53 07/30/17 00:01 07/30/17 04:04 07/30/17 05:07 Range/Units Bedside Glucose 339 272 101 70-90 mg/dl White Blood Count 8.17 4.8-10.8 K/uL Red Blood Count 3.82 4.2-5.4 M/uL Hemoglobin 8.7 12.0-16.0 g/dL Hematocrit 27.6 37-47 % Mean Corpuscular Volume 72.3 80-100 fL Mean Corpuscular Hemoglobin 22.8 25-34 pg Mean Corpuscular Hemoglobin Concent 31.5 32-36 g/dl Platelet Count 266 130-400 K/uL Mean Platelet Volume 8.9 7.4-10.4 fL Neutrophils (%) (Auto) 74.5 % Lymphocytes (%) (Auto) 10.4 % Monocytes (%) (Auto) 12.4 % Eosinophils (%) (Auto) 2.0 % Basophils (%) (Auto) 0.2 % Neutrophils # (Auto) 6.09 1.4-6.5 K/uL Lymphocytes # (Auto) 0.85 1.2-3.4 K/uL Monocytes # (Auto) 1.01 0.11-0.59 K/uL Eosinophils # (Auto) 0.16 0-0.5 K/uL Basophils # (Auto) 0.02 0-0.2 K/uL RDW Standard Deviation 67.2 36.4-46.3 fL RDW Coefficient of Variation 25.6 11.5-14.5 % Immature Granulocyte % (Auto) 0.5 % Immature Granulocyte # (Auto) 0.04 0.00-0.02 K/uL Anisocytosis PRESENT Microcytosis PRESENT Target Cells 1+ Prothrombin Time 16.8 9.0-12.0 SECONDS Prothromb Time International Ratio 1.6 0.9-1.1 Sodium Level 138 136-145 mmol/L Potassium Level 3.5 3.5-5.1 mmol/L Chloride Level 107 98-107 mmol/L Carbon Dioxide Level 25 21-32 mmol/L Anion Gap 6.0 3-11 mmol/L Blood Urea Nitrogen 48 7-18 mg/dl Creatinine 1.53 0.60-1.20 mg/dl Est Creatinine Clear Calc Drug Dose 26.5 ml/min Estimated GFR () 35.3 Estimated GFR (Non- 30.5 BUN/Creatinine Ratio 31.1 10-20 Random Glucose 76 70-99 mg/dl Calcium Level 8.2 8.5-10.1 mg/dl Magnesium Level 2.0 1.8-2.4 mg/dl Test 07/30/17 07:24 07/30/17 12:00 07/30/17 16:34 Range/Units Bedside Glucose 79 166 142 70-90 mg/dl
[2017-07-30] MEDS ORDERED: INSULIN GLARGINE SOLOSTAR 100 UNITS/ML 3 ML PEN SQ ONE (17:00)
[2017-07-30] MEDS: LORAZEPAM 0.5 MG TAB PO SCH (21:00)
[2017-07-30] MEDS: SIMVASTATIN 10 MG TAB PO SCH (21:46)
[2017-07-30] MEDS: FUROSEMIDE 40 MG TAB PO SCH (21:47)
[2017-07-30] MEDS: METOPROLOL SUCC 50MG EXT REL TAB PO SCH (21:47)
[2017-07-31] VITALS (9 sets, daily range): BP systolic 119–187; BP diastolic 58–84; PULSE 63–71; TEMP 36.5–36.9; O2SAT 93–98
[2017-07-31 06:47] LABS: BASO % 0.2 %; BASO ABS # 0.02 K/uL (0-0.2); EOS % 2.4 %; EOS ABS # 0.21 K/uL (0-0.5); HEMATOCRIT 30.4 % (37-47); HEMOGLOBIN 9.4 g/dL (12.0-16.0); IG# 0.03 K/uL (0.00-0.02); LYMPH % 11.2 %; LYMPH ABS # 0.97 K/uL (1.2-3.4); MEAN CELL VOLUME 73.1 fL (80-100); MEAN CORPUSCULAR HEMOGLOBIN 22.6 pg (25-34); MEAN CORPUSCULAR HGB CONC 30.9 g/dl (32-36); MEAN PLATELET VOLUME 8.8 fL (7.4-10.4); MONO % 7.7 %; MONO ABS # 0.67 K/uL (0.11-0.59); NEUT % 78.2 %; NEUT ABS # 6.75 K/uL (1.4-6.5); PLATELET COUNT 277 K/uL (130-400); RED CELL DISTRIBUTION WIDTH CV 25.8 % (11.5-14.5); RED CELL DISTRIBUTION WIDTH SD 68.8 fL (36.4-46.3); WHITE BLOOD COUNT 8.65 K/uL (4.8-10.8)
[2017-07-31 06:54] LABS: INR 1.9 (0.9-1.1)
[2017-07-31 07:18] LABS: CALCIUM 8.3 mg/dl (8.5-10.1); CREATININE 1.43 mg/dl (0.60-1.20); POTASSIUM 3.3 mmol/L (3.5-5.1)
[2017-07-31] MEDS ORDERED: POTASSIUM CHLORIDE 10 MEQ TABCR PO ONE (07:30)
[2017-07-31] MEDS: BOOST GLUCOSE CONTROL PO SCH ×2 (08:00→17:13)
[2017-07-31] MEDS: INSULIN ASPART 100 UNITS/ML 3 ML PEN SC SCH ×4 (08:23→21:44)
[2017-07-31] MEDS: TIMOLOL GFS 0.5% OPH SOLN 74 DROPS/5 ML BTL OPL SCH (08:24)
[2017-07-31] MEDS: OXYMETAZOLINE HCL 0.05% NA SPR 15 ML BTL NAE SCH ×2 (08:24→21:36)
[2017-07-31] MEDS: CHOLECALCIFEROL 1000 INTER.UNIT TAB PO SCH (08:25)
[2017-07-31] MEDS: POTASSIUM CHLORIDE 20 MEQ TABCR PO SCH (08:25)
[2017-07-31] MEDS: PANTOprazole SOD 40 MG TAB PO SCH (08:25)
[2017-07-31] MEDS: NYSTATIN SUSP 500,000 U/5 ML UDC PO SCH ×4 (08:25→21:36)
[2017-07-31] MEDS: OXYBUTYNIN CHLORIDE 5 MG TABCR PO SCH (08:26)
[2017-07-31] MEDS: [UNRECOGNIZED DRUG - OTHER] PO SCH (08:26)
[2017-07-31] MEDS: FUROSEMIDE 80 MG TAB PO SCH (08:26)
[2017-07-31] MEDS: AZITHROMYCIN 250 MG TAB PO SCH (08:26)
[2017-07-31] MEDS: CALCITRIOL 0.25 MCG CAP PO SCH (08:27)
[2017-07-31] MEDS: METOPROLOL SUCC 25MG EXT REL TAB PO SCH (08:27)
[2017-07-31] MEDS ORDERED: INSULIN GLARGINE SOLOSTAR 100 UNITS/ML 3 ML PEN SQ SCH (09:00)
[2017-07-31] MEDS: LORAZEPAM 0.5 MG TAB PO PRN (10:49)
--- NOTE | 2017-07-31 18:08 | Progress Note ---
Internal Med Progress Note Date of Service: Jul 31, 2017. Provider Documentation: SUBJECTIVE: resting comfortably not able to participate in therapy much denies any chest pain or sob' no nausea d/w family patient is currently DNR and plan for home hospice OBJECTIVE: Vital Signs-as noted below Exam: General-alert and awake.not in distress ENT-normal hearing. Neck-No neck masses Lungs-CTA b/l no wheezing or crackles Heart-S1 and S2 heard regular rate and rhythm no murmurs Abdomen-soft Bowels sounds present non tender no distension Extremities-no edema no erythema Neuro-alert and awake moves extremities Lab data as noted below. 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 explained risk of stroke, dvt/pe as patient is mostly immobile if not on Coumadin and risk of bleeding/falls if on Coumadin and also as quality of life is poor and patient may suffer more while on coumadin and also patient seems sensitive to Coumadin as small doses getting inr elevated. family doesn't want Coumadin currently but will decide it later if they want patient to be on it H/O Bacon's esophagus GERD On PPI Hyperlipidemia: On zocor H/O chronic diastolic heart failure stable currently restarted diuretics Ambulatory dysfunction not much mobile at home as per family cough cough spells at home bronchitis started on azithromycin#3 will complete 5 days course Sore throat recently had abx nystatin swish and swallow and monitor DVT Px: SCDs Code Status: DNR. Appreciate palliative care help. Disposition: pt/ot social service for d/c planning Plan for home hospice appreciate palliative care help Vital Signs: Date Time Temp Pulse Resp B/P (MAP) Pulse Ox O2 Delivery O2 Flow Rate FiO2 07/31/17 16:00 94 Room Air 07/31/17 15:35 126/60 (82) 07/31/17 15:02 36.5 63 18 187/63 (104) 94 Room Air 07/31/17 12:03 36.6 68 20 138/71 (93) 98 07/31/17 12:00 Room Air 07/31/17 08:10 36.5 71 20 150/58 (88) 95 07/31/17 08:00 Room Air 07/31/17 05:24 36.6 66 20 148/59 (88) 93 Room Air 07/31/17 04:00 Room Air 07/31/17 01:44 Room Air 07/30/17 23:36 36.5 72 18 127/64 (85) 95 Room Air 07/30/17 20:00 94 Room Air 07/30/17 19:45 36.4 73 20 126/66 (86) 94 Room Air Lab Results: Results Past 24 Hours Test 07/30/17 20:40 07/31/17 06:26 07/31/17 07:46 07/31/17 12:04 Range/Units Bedside Glucose 202 133 228 70-90 mg/dl White Blood Count 8.65 4.8-10.8 K/uL Red Blood Count 4.16 4.2-5.4 M/uL Hemoglobin 9.4 12.0-16.0 g/dL Hematocrit 30.4 37-47 % Mean Corpuscular Volume 73.1 80-100 fL Mean Corpuscular Hemoglobin 22.6 25-34 pg Mean Corpuscular Hemoglobin Concent 30.9 32-36 g/dl Platelet Count 277 130-400 K/uL Mean Platelet Volume 8.8 7.4-10.4 fL Neutrophils (%) (Auto) 78.2 % Lymphocytes (%) (Auto) 11.2 % Monocytes (%) (Auto) 7.7 % Eosinophils (%) (Auto) 2.4 % Basophils (%) (Auto) 0.2 % Neutrophils # (Auto) 6.75 1.4-6.5 K/uL Lymphocytes # (Auto) 0.97 1.2-3.4 K/uL Monocytes # (Auto) 0.67 0.11-0.59 K/uL Eosinophils # (Auto) 0.21 0-0.5 K/uL Basophils # (Auto) 0.02 0-0.2 K/uL RDW Standard Deviation 68.8 36.4-46.3 fL RDW Coefficient of Variation 25.8 11.5-14.5 % Immature Granulocyte % (Auto) 0.3 % Immature Granulocyte # (Auto) 0.03 0.00-0.02 K/uL Hypersegmented Polys 1+ Toxic Granulation 1+ Hypochromasia PRESENT Anisocytosis PRESENT Target Cells 2+ Prothrombin Time 19.7 9.0-12.0 SECONDS Prothromb Time International Ratio 1.9 0.9-1.1 Sodium Level 138 136-145 mmol/L Potassium Level 3.3 3.5-5.1 mmol/L Chloride Level 103 98-107 mmol/L Carbon Dioxide Level 31 21-32 mmol/L Anion Gap 4.0 3-11 mmol/L Blood Urea Nitrogen 43 7-18 mg/dl Creatinine 1.43 0.60-1.20 mg/dl Est Creatinine Clear Calc Drug Dose 28.4 ml/min Estimated GFR () 38.3 Estimated GFR (Non- 33.1 BUN/Creatinine Ratio 29.9 10-20 Random Glucose 133 70-99 mg/dl Calcium Level 8.3 8.5-10.1 mg/dl Magnesium Level 1.9 1.8-2.4 mg/dl Test 07/31/17 17:07 Range/Units Bedside Glucose 144 70-90 mg/dl
--- NOTE | 2017-07-31 18:22 | Palliative Care Consultation ---
Consultation Date of Consultation: Jul 31, 2017. Requesting Physician: Dr Sykes Attending Physician: Dr Sykes Reason for Consultation: Discuss goals of care and CODE STATUS History of Present Illness Patient is an 87-year-old female with a past medical history of Michael lawson on Coumadin, aortic stenosis, Bacon's esophagitis, CHF, chronic kidney disease stage III, diabetes, hyperlipidemia, GERD and anemia who has been in and out of the hospital and rehab for the past several months, patient had just returned home 2 days prior to admission. Patient was admitted on 07/27 for a prolonged nosebleed. Patient had an elevated INR greater than 10 and received a call from her PCP office to take a dose of p.o. vitamin K. Several hours later patient had a nosebleed and was sent to the emergency room. Patient received additional IV vitamin K in the ER. Patient has had 1 additional nosebleed of short duration since admission. Family's goal is to have patient return home. Patient lives in her own home, her son and her grandson lives with her. During exam patient would cough after drinking thin liquids, family reported she had also been doing this at home. Patient voices that she wants to return home and was able to participate in discussion regarding her CODE STATUS and assist in filling out a POLST form. Family states patient does have a living will, and POLST Buck filled out according to her wishes. Patient does have some baseline confusion but was able to make her wishes clear. Patient's INR is 1.9 today. Also of note patient's hemoglobin A1c was 9.4 and June, patient is on insulin for her diabetes. Past Medical/Surgical History Medical History: Michael lawson on Coumadin, aortic stenosis, Bacon's esophagitis, CHF, chronic kidney disease stage III, type 2 diabetes, hyperlipidemia, GERD, glaucoma, hypertension , mitral valve insufficiency, and anemia. Surgical History: Tubal ligation Family History Positive for diabetes Social History Smoking Status: Never Smoker History of Alcohol Use: No Drug Use: none Housing Status: lives with family (Patient lives in her own home, patient's son and grandson live with her) Occupation Status: unemployed Patient has a granddaughter in law who is a nurse that lives across the street from her. Review of Systems Constitutional: No fever, No chills Eyes: No worsening of vision ENT: + unusual epistaxis (Due to elevated INR), + problem reported (Mild hard of hearing) Respiratory: + cough (After thin liquids), No shortness of breath Cardiac: No chest pain Abdomen: No pain, No nausea Musculoskeletal: + joint pain (Complained of right knee pain, improved with repositioning) Female : No dysuria Neurologic: + memory loss Psychiatric: No depression symptoms Heme: + abnormal bleeding/bruising (Elevated INR) Skin: No rash Allergies Coded Allergies: No Known Allergies (Unverified , 06/24/17) Medications Current Inpatient Medications Medications (Trade) Dose Ordered Sig/Gustavo Route Start Time Stop Time Status Last Admin Dose Admin Acetaminophen (Tylenol Tab) 650 mg Q4H PRN PO 07/27/17 23:15 08/26/17 23:14 Ondansetron HCl (Zofran Inj) 4 mg Q6H PRN IV 07/27/17 23:15 08/26/17 23:14 Oxymetazoline HCl (Afrin 0.05% Nasal [place]) 1 sprays BID PRN NA 07/27/17 23:15 08/26/17 23:14 Glucose (Glucose 40% Gel) 15-30 GRAMS 15 GRAMS... UD PRN PO 07/27/17 23:15 08/26/17 23:14 Glucose (Glucose Chew Tab) 4-8 Tablets 4 Tabl... UD PRN PO 07/27/17 23:15 08/26/17 23:14 Dextrose (Dextrose 50% 50ML Syringe) 25-50ML OF 50% DW IV FOR... UD PRN IV 07/27/17 23:15 08/26/17 23:14 Glucagon (Glucagon Inj) 1 mg UD PRN SQ 07/27/17 23:15 08/26/17 23:14 Cholecalciferol (Vitamin D Tab) 1,000 inter.unit DAILY PO 07/28/17 09:00 08/27/17 08:59 07/31/17 08:25 1,000 INTER.UNIT Metoprolol Succinate (Toprol Xl Tab) 50 mg HS PO 07/28/17 21:00 08/27/17 20:59 07/30/17 21:47 50 MG Simvastatin (Zocor Tab) 10 mg HS PO 07/28/17 21:00 08/27/17 20:59 07/30/17 21:46 10 MG Timolol Maleate (Timoptic-Xe 0.5% Oph Soln) 1 drops DAILY OPL 07/28/17 09:00 08/27/17 08:59 07/31/17 08:24 1 DROPS Non-Formulary Medication (Calcium Ascorbate (Vitamin C)) 500 mg DAILY PO 07/28/17 09:00 08/27/17 08:59 Pantoprazole Sodium (Protonix Tab) 40 mg QAM PO 07/28/17 09:00 08/27/17 08:59 07/31/17 08:25 40 MG Oxybutynin Chloride (Ditropan-Xl Tab) 10 mg DAILY PO 07/28/17 09:00 08/27/17 08:59 07/31/17 08:26 10 MG Miscellaneous (Iv Fluids Completed) 1 ea PRN PRN N/A 07/27/17 23:45 07/27/18 23:44 Metoprolol Succinate (Toprol Xl Tab) 75 mg DAILY PO 07/28/17 09:00 08/27/17 08:59 07/31/17 08:27 75 MG Menthol (Nice Eduardo) 1 eduardo PRN PRN EDUARDO 07/28/17 14:30 08/27/17 14:29 Enteral Nutritional Formula (Boost Glucose Control) 1 can BIDM PO 07/28/17 17:00 08/27/17 16:59 07/31/17 17:13 1 CAN Nystatin (Mycostatin Susp) 5 ml QID PO 07/29/17 17:00 08/08/17 16:59 07/31/17 18:01 5 ML Azithromycin (Zithromax Tab) 250 mg QAM PO 07/30/17 09:00 08/06/17 08:59 07/31/17 08:26 250 MG Calcitriol (Rocaltrol Cap) 0.25 mcg MoWeTh@0900 PO 07/31/17 09:00 08/30/17 08:59 07/31/17 08:27 0.25 MCG Warfarin Sodium (Coumadin Tab) 0.5 mg DAILY@16 PO 07/29/17 16:00 08/28/17 15:59 Future Hold 07/29/17 17:47 0.5 MG Miscellaneous Information (Consult Glycemic Management Pharmacy) 1 ea DAILY PRN N/A 07/29/17 21:09 08/28/17 21:08 Insulin Aspart (novoLOG ASPART) SLIDING SCALE ACHS SC 07/30/17 06:30 08/29/17 06:29 07/31/17 12:24 9 UNITS Furosemide (Lasix Tab) 40 mg QPM PO 07/30/17 21:00 08/29/17 20:59 07/30/17 21:47 40 MG Furosemide (Lasix Tab) 80 mg QAM PO 07/30/17 09:00 08/29/17 08:59 07/31/17 08:26 80 MG Potassium Chloride (Klor-Con Tab) 20 meq DAILY PO 07/30/17 09:00 08/29/17 08:59 07/31/17 08:25 20 MEQ Oxymetazoline HCl (Afrin 0.05% Nasal [place]) 2 sprays BID TAJ 07/30/17 11:00 08/02/17 10:59 07/31/17 08:24 2 SPRAYS Insulin Glargine (Lantus Solostar Pen) 10 units DAILY SQ 07/31/17 09:00 08/30/17 08:59 07/31/17 08:23 10 UNITS Lorazepam (Ativan Tab) 0.25 mg Q8H PRN PO 07/30/17 17:15 08/28/17 15:59 07/31/17 10:49 0.25 MG Lorazepam (Ativan Tab) 0.25 mg HS PO 07/30/17 21:00 08/28/17 20:59 Physical Exam Date Time Temp Pulse Resp B/P (MAP) Pulse Ox O2 Delivery O2 Flow Rate FiO2 07/31/17 16:00 94 Room Air 07/31/17 15:35 126/60 (82) 07/31/17 15:02 36.5 63 18 187/63 (104) 94 Room Air 07/31/17 12:03 36.6 68 20 138/71 (93) 98 07/31/17 12:00 Room Air 07/31/17 08:10 36.5 71 20 150/58 (88) 95 07/31/17 08:00 Room Air 07/31/17 05:24 36.6 66 20 148/59 (88) 93 Room Air 07/31/17 04:00 Room Air 07/31/17 01:44 Room Air 07/30/17 23:36 36.5 72 18 127/64 (85) 95 Room Air 07/30/17 20:00 94 Room Air 07/30/17 19:45 36.4 73 20 126/66 (86) 94 Room Air General Appearance: no apparent distress Eyes: EOMI ENT: + pertinent finding (Mild hard of hearing) Neck: supple Respiratory: no respiratory distress Cardiovascular: regular rate, rhythm Abdomen: non tender Musculoskeletal: abnormal strength (Patient was a 2 person heavy assist to transfer to chair) Neurologic/Psychiatric: alert Skin: + pertinent finding (Nursing reports stage II pressure ulcers on buttocks and heels) Laboratory Results Last 24 Hours Test 07/30/17 20:40 07/31/17 06:26 07/31/17 07:46 07/31/17 12:04 Bedside Glucose 202 mg/dl 133 mg/dl 228 mg/dl White Blood Count 8.65 K/uL Red Blood Count 4.16 M/uL Hemoglobin 9.4 g/dL Hematocrit 30.4 % Mean Corpuscular Volume 73.1 fL Mean Corpuscular Hemoglobin 22.6 pg Mean Corpuscular Hemoglobin Concent 30.9 g/dl Platelet Count 277 K/uL Mean Platelet Volume 8.8 fL Neutrophils (%) (Auto) 78.2 % Lymphocytes (%) (Auto) 11.2 % Monocytes (%) (Auto) 7.7 % Eosinophils (%) (Auto) 2.4 % Basophils (%) (Auto) 0.2 % Neutrophils # (Auto) 6.75 K/uL Lymphocytes # (Auto) 0.97 K/uL Monocytes # (Auto) 0.67 K/uL Eosinophils # (Auto) 0.21 K/uL Basophils # (Auto) 0.02 K/uL RDW Standard Deviation 68.8 fL RDW Coefficient of Variation 25.8 % Immature Granulocyte % (Auto) 0.3 % Immature Granulocyte # (Auto) 0.03 K/uL Hypersegmented Polys 1+ Toxic Granulation 1+ Hypochromasia PRESENT Anisocytosis PRESENT Target Cells 2+ Prothrombin Time 19.7 SECONDS Prothromb Time International Ratio 1.9 Sodium Level 138 mmol/L Potassium Level 3.3 mmol/L Chloride Level 103 mmol/L Carbon Dioxide Level 31 mmol/L Anion Gap 4.0 mmol/L Blood Urea Nitrogen 43 mg/dl Creatinine 1.43 mg/dl Est Creatinine Clear Calc Drug Dose 28.4 ml/min Estimated GFR () 38.3 Estimated GFR (Non- 33.1 BUN/Creatinine Ratio 29.9 Random Glucose 133 mg/dl Calcium Level 8.3 mg/dl Magnesium Level 1.9 mg/dl Test 07/31/17 17:07 Bedside Glucose 144 mg/dl Assessment & Plan Palliative Performance Scale: 40 % (1) Palliative care encounter Assessment & Plan: Discuss goals of care with family, completed a POLST form, patient's CODE STATUS is changed to DNR, plan is to return home with family to provide care along with hospice. Discussed services hospice can provide as well as those that need to be provided by family or hired caregivers. Patient was clear in stating she did not want to return to the hospital again. (2) Bleeding nose Status: Acute Assessment & Plan: Resolved, received 5 mg p.o. vitamin K and 10 mg IV vitamin K, INR today was 1.9 (3) Elevated INR Status: Acute Assessment & Plan: Resolved, treated with vitamin K (4) Atrial fibrillation Status: Chronic Assessment & Plan: Attending physician to determine further anticoagulation for patient's A. fib along with her mainly bedbound status (5) T2DM (type 2 diabetes mellitus) Status: Chronic Assessment & Plan: Hemoglobin A1c 9.4 on June, patient on insulin, family reports patient's p.o. intake at home recently has only been a few bites or sips at a time. Case management assisting family with setting up home hospice Counseling and Coordination Total time 70 minutes with greater than 50% of the time spent at bedside discussing goals of care, discussing POLST form, reviewing signs and symptoms of aspiration, and discussing hospice services in the home.
[2017-07-31] MEDS: FUROSEMIDE 40 MG TAB PO SCH (21:36)
[2017-07-31] MEDS: SIMVASTATIN 10 MG TAB PO SCH (21:36)
[2017-07-31] MEDS: METOPROLOL SUCC 50MG EXT REL TAB PO SCH (21:36)
[2017-07-31] MEDS: LORAZEPAM 0.5 MG TAB PO SCH (21:45)
[2017-08-01] VITALS (11 sets, daily range): BP systolic 111–150; BP diastolic 58–77; PULSE 71–99; TEMP 36.3–36.8; O2SAT 92–96
[2017-08-01] MEDS: LORAZEPAM 0.5 MG TAB PO PRN (02:25)
[2017-08-01] MEDS ORDERED: HALOPERIDOL LACTATE 5 MG/ML 1 ML VIAL IM ONE (03:45)
[2017-08-01 06:37] LABS: INR 2.5 (0.9-1.1)
[2017-08-01] MEDS: BOOST GLUCOSE CONTROL PO SCH ×2 (08:00→17:20)
[2017-08-01] MEDS: OXYMETAZOLINE HCL 0.05% NA SPR 15 ML BTL NAE SCH ×2 (08:38→20:48)
[2017-08-01] MEDS: TIMOLOL GFS 0.5% OPH SOLN 74 DROPS/5 ML BTL OPL SCH (08:38)
[2017-08-01] MEDS: METOPROLOL SUCC 25MG EXT REL TAB PO SCH (08:39)
[2017-08-01] MEDS: CHOLECALCIFEROL 1000 INTER.UNIT TAB PO SCH (08:39)
[2017-08-01] MEDS: FUROSEMIDE 80 MG TAB PO SCH (08:39)
[2017-08-01] MEDS: OXYBUTYNIN CHLORIDE 5 MG TABCR PO SCH (08:39)
[2017-08-01] MEDS: [UNRECOGNIZED DRUG - OTHER] PO SCH (08:39)
[2017-08-01] MEDS: POTASSIUM CHLORIDE 20 MEQ TABCR PO SCH (08:41)
[2017-08-01] MEDS: PANTOprazole SOD 40 MG TAB PO SCH (08:41)
[2017-08-01] MEDS: AZITHROMYCIN 250 MG TAB PO SCH (08:42)
[2017-08-01] MEDS: NYSTATIN SUSP 500,000 U/5 ML UDC PO SCH ×4 (08:42→20:44)
[2017-08-01] MEDS: INSULIN GLARGINE SOLOSTAR 100 UNITS/ML 3 ML PEN SQ SCH (09:24)
[2017-08-01] MEDS: INSULIN ASPART 100 UNITS/ML 3 ML PEN SC SCH ×5 (09:24→20:48)
--- NOTE | 2017-08-01 12:18 | Progress Note ---
Internal Med Progress Note Date of Service: Aug 01, 2017. Provider Documentation: SUBJECTIVE: resting comfortably eating lunch afebrile denies chest pain or sob has some cough no more nose bleeds grand son in room patient is pleased that she is going home today OBJECTIVE: Vital Signs-as noted below Exam: General-alert and awake.not in distress ENT-normal hearing. Neck-No neck masses Lungs-CTA b/l no wheezing or crackles Heart-S1 and S2 heard regular rate and rhythm no murmurs Abdomen-soft Bowels sounds present non tender no distension Extremities-no edema no erythema Skin- sacral stage 3 decubitus ulcers Neuro-alert and awake moves extremities Lab data as noted below. ASSESSMENT & PLAN: Epistaxis presented with INR> 10 Received Vit K 10mg in ED Hb stable Holding Aspirin, restarted Coumadin next day which is held again as patient had another episode of epistaxis INR today 2.5 without any doses of Coumadin for last two days afrin bid stable currently MARGOT on CKD IV Baseline Cr:1.5 presented with Cr:2.66 today Held diuretics cr 1.4 restarted diuretics stable Anemia of chronic disease baseline hb 9 hb 9.4 07/31/17 will monitor as patinet having epistaxis DM Type II: Poorly controlled Last A1c:9.4 in June 2017 will d/c on home meds Atrial fibrillation: Holding Coumadin secondary to above INR 2.5 today on Metoprolol hold aspirin and Coumadin. family doesn't want Coumadin at this time and will decide about it later. explained risk of stroke, dvt/pe as patient is mostly immobile if not on Coumadin and risk of bleeding/falls if on Coumadin and also as quality of life is poor and patient may suffer more while on Coumadin and also patient seems sensitive to Coumadin as small doses getting inr elevated. family doesn't want Coumadin currently but will decide it later if they want patient to be on it. Sacra stage 3 decubitus ulcer wound care frequent change in position H/O Bacon's esophagus GERD On PPI Hyperlipidemia: On zocor H/O chronic diastolic heart failure stable currently restarted diuretics Ambulatory dysfunction not much mobile at home as per family cough cough spells at home bronchitis started on azithromycin#4 will complete 5 days course Sore throat recently had abx nystatin swish and swallow and monitor DVT Px: SCDs Code Status: DNR. Appreciate palliative care help. Disposition: pt/ot social service for d/c planning Plan for home hospice appreciate palliative care help awaiting hospice acceptation Vital Signs: Date Time Temp Pulse Resp B/P (MAP) Pulse Ox O2 Delivery O2 Flow Rate FiO2 08/01/17 12:08 36.6 74 20 130/69 (89) 96 08/01/17 12:00 36.4 71 16 92 Room Air 08/01/17 12:00 Room Air 08/01/17 08:37 71 121/70 (87) 08/01/17 08:00 Room Air 08/01/17 07:20 83 16 135/58 (83) 92 Room Air 08/01/17 04:00 94 Room Air 08/01/17 03:57 36.4 99 20 150/74 (99) 95 Room Air 08/01/17 00:45 36.6 75 18 138/59 (85) 94 Room Air 08/01/17 00:20 94 Room Air 07/31/17 21:35 70 148/84 (105) 07/31/17 20:00 94 Room Air 07/31/17 18:25 36.9 68 18 119/70 (86) 96 Room Air 07/31/17 16:00 94 Room Air 07/31/17 15:35 126/60 (82) 07/31/17 15:02 36.5 63 18 187/63 (104) 94 Room Air Lab Results: Results Past 24 Hours Test 07/31/17 17:07 07/31/17 21:06 08/01/17 06:14 08/01/17 06:58 Range/Units Bedside Glucose 144 170 189 70-90 mg/dl Prothrombin Time 25.9 9.0-12.0 SECONDS Prothromb Time International Ratio 2.5 0.9-1.1 Test 08/01/17 11:48 Range/Units Bedside Glucose 186 70-90 mg/dl
[2017-08-01] MEDS: LORAZEPAM 0.5 MG TAB PO SCH (20:42)
[2017-08-01] MEDS: FUROSEMIDE 40 MG TAB PO SCH (20:43)
[2017-08-01] MEDS: METOPROLOL SUCC 50MG EXT REL TAB PO SCH (20:45)
[2017-08-01] MEDS: SIMVASTATIN 10 MG TAB PO SCH (20:45)
[2017-08-02 04:09] VITALS: BP 126/79; PULSE 83; TEMP 36.5; O2SAT 94
[2017-08-02 07:18] VITALS: BP 142/74; PULSE 91; O2SAT 93
[2017-08-02] MEDS ORDERED: LORAZEPAM INJ 0.5 MG in SYRINGE 0.75 ML IV PRN (07:45)
[2017-08-02] MEDS ORDERED: HALOPERIDOL LACTATE 5 MG/ML 1 ML VIAL IM STA (07:47)
[2017-08-02] MEDS: PANTOprazole SOD 40 MG TAB PO SCH (07:56)
[2017-08-02] MEDS: NYSTATIN SUSP 500,000 U/5 ML UDC PO SCH ×2 (07:57→13:13)
[2017-08-02] MEDS: AZITHROMYCIN 250 MG TAB PO SCH (07:57)
[2017-08-02] MEDS: POTASSIUM CHLORIDE 20 MEQ TABCR PO SCH (07:57)
[2017-08-02] MEDS: FUROSEMIDE 80 MG TAB PO SCH (07:57)
[2017-08-02] MEDS: CALCITRIOL 0.25 MCG CAP PO SCH (07:57)
[2017-08-02] MEDS: CHOLECALCIFEROL 1000 INTER.UNIT TAB PO SCH (07:57)
[2017-08-02] MEDS: OXYBUTYNIN CHLORIDE 5 MG TABCR PO SCH (07:58)
[2017-08-02] MEDS: METOPROLOL SUCC 25MG EXT REL TAB PO SCH (07:58)
[2017-08-02] MEDS: OXYMETAZOLINE HCL 0.05% NA SPR 15 ML BTL NAE SCH (07:58)
[2017-08-02] MEDS: TIMOLOL GFS 0.5% OPH SOLN 74 DROPS/5 ML BTL OPL SCH (07:59)
[2017-08-02 08:00] VITALS: O2SAT 93
[2017-08-02] MEDS: INSULIN ASPART 100 UNITS/ML 3 ML PEN SC SCH ×2 (08:11→13:17)
[2017-08-02] MEDS: INSULIN GLARGINE SOLOSTAR 100 UNITS/ML 3 ML PEN SQ SCH (08:12)
[2017-08-02] MEDS: BOOST GLUCOSE CONTROL PO SCH (08:13)
[2017-08-02] MEDS ORDERED: ASCORBIC ACID 500 MG TAB PO SCH (09:00)
[2017-08-02 12:00] VITALS: O2SAT 93
[2017-08-02 12:20] VITALS: BP 112/67; PULSE 77; TEMP 36.5; O2SAT 94
--- NOTE | 2017-08-02 13:41 | Progress Note ---
Medicine Progress Note Date & Time of Visit: Aug 02, 2017 at 13:22. Subjective seen resting in bed, comfortable oriented x 2 no recurrence of epistaxis noted patient states she feels fine overall denies chest pain, dyspnea, palpitations, dizziness no other symptoms states she is ready and would like to be discharged today Objective Last 8 Hrs Date Time Temp Pulse Resp B/P (MAP) Pulse Ox O2 Delivery O2 Flow Rate FiO2 08/02/17 12:20 36.5 77 18 112/67 (82) 94 Room Air 08/02/17 12:00 93 Room Air 08/02/17 08:00 93 Room Air 08/02/17 07:18 91 24 142/74 (96) 93 Room Air Physical Exam: General- oriented x 3, not in distress, speaks in sentences with no effort Head- atraumatic Eyes- anicteric ENT- no epistaxis Neck- supple, no JVD Lungs- clear breath sounds bilaterally, no rales/wheezes Heart- irregularly irregular rhythm; no murmur, normal rate Abdomen- normal bowel sounds, soft, nontender, non distended Extremities- no pretibial edema, no calf tenderness; peripheral pulses intact Neuro- alert, oriented x 2, no gross focal deficits Skin- warm & dry Laboratory Results: Last 24 Hours Test 08/01/17 16:23 08/01/17 20:35 08/02/17 07:49 08/02/17 11:31 Bedside Glucose 138 mg/dl 253 mg/dl 184 mg/dl 238 mg/dl Assessment & Plan EPISTAXIS, IN THE SETTING OF COUMADIN USE presented with INR> 10 Received Vit K 10mg in ED Hb stable Held Aspirin, restarted Coumadin next day but patient had recurrence of epistaxis, so Coumadin held again INR 2.5 without any doses of Coumadin for two days was given Afrin x 3 days no recurrence of epistaxis since -- Coumadin and ASA on hold for now monitor INR as outpatient -- outpatient referral to ENT ACUTE RENAL FAILURE ON CKD IV, RESOLVED Baseline Cr:1.5 presented with Cr:2.66 Held diuretic, Crea improved to 1.4 restarted diuretics stable ANEMIA OF CHRONIC DISEASE baseline hb 9 Hg stable DM TYPE 2 Poorly controlled Last A1c:9.4 in June 2017 outpatient ff up ATRIAL FIBRILLATION Holding Coumadin and ASA secondary to above Metoprolol continued family would like to hold Coumadin at this time and will make further decisions about it later on Dr. Sykes (Hospitalist attending) explained risk of stroke, dvt/pe as patient is mostly immobile if not on Coumadin and risk of bleeding/falls if on Coumadin and also as quality of life is poor and patient may suffer more while on Coumadin patient seems sensitive to Coumadin as small doses getting inr elevated. family doesn't want Coumadin currently but will decide it later if they want patient to be on it. SACRAL DECUBITUS ULCER STAGE 3 wound care frequent change in position HISTORY OF SILVA'S ESOPHAGUS GERD On PPI CHRONIC DIASTOLIC HEART FAILURE stable currently restarted diuretics AMBULATORY DYSFUNCTION not much mobile at home as per family ACUTE BRONCHITIS finished 5 day course of Azithromycin SORE THROAT recently had abx nystatin swish and swallow and monitor Code Status: DNR. Disposition: Palliative care was consulted and evaluated the patient in the hospital plan was to transition to home with hospice but patient does not meet an appropriate diagnosis and was declined hospice services patient to return home with home health services Ff up with Primary Care Physician in 3-5 days Current Inpatient Medications: Current Inpatient Medications Medications (Trade) Dose Ordered Sig/Gustavo Route Start Time Stop Time Status Last Admin Dose Admin Acetaminophen (Tylenol Tab) 650 mg Q4H PRN PO 07/27/17 23:15 08/26/17 23:14 08/02/17 08:50 650 MG Ondansetron HCl (Zofran Inj) 4 mg Q6H PRN IV 07/27/17 23:15 08/26/17 23:14 Oxymetazoline HCl (Afrin 0.05% Nasal [place]) 1 sprays BID PRN NA 07/27/17 23:15 08/26/17 23:14 Glucose (Glucose 40% Gel) 15-30 GRAMS 15 GRAMS... UD PRN PO 07/27/17 23:15 08/26/17 23:14 Glucose (Glucose Chew Tab) 4-8 Tablets 4 Tabl... UD PRN PO 07/27/17 23:15 08/26/17 23:14 Dextrose (Dextrose 50% 50ML Syringe) 25-50ML OF 50% DW IV FOR... UD PRN IV 07/27/17 23:15 08/26/17 23:14 Glucagon (Glucagon Inj) 1 mg UD PRN SQ 07/27/17 23:15 08/26/17 23:14 Cholecalciferol (Vitamin D Tab) 1,000 inter.unit DAILY PO 07/28/17 09:00 08/27/17 08:59 08/02/17 07:57 1,000 INTER.UNIT Metoprolol Succinate (Toprol Xl Tab) 50 mg HS PO 07/28/17 21:00 08/27/17 20:59 08/01/17 20:45 50 MG Simvastatin (Zocor Tab) 10 mg HS PO 07/28/17 21:00 08/27/17 20:59 08/01/17 20:45 10 MG Timolol Maleate (Timoptic-Xe 0.5% Oph Soln) 1 drops DAILY OPL 07/28/17 09:00 08/27/17 08:59 08/02/17 07:59 1 DROPS Pantoprazole Sodium (Protonix Tab) 40 mg QAM PO 07/28/17 09:00 08/27/17 08:59 08/02/17 07:56 40 MG Oxybutynin Chloride (Ditropan-Xl Tab) 10 mg DAILY PO 07/28/17 09:00 08/27/17 08:59 08/02/17 07:58 10 MG Miscellaneous (Iv Fluids Completed) 1 ea PRN PRN N/A 07/27/17 23:45 07/27/18 23:44 Metoprolol Succinate (Toprol Xl Tab) 75 mg DAILY PO 07/28/17 09:00 08/27/17 08:59 08/02/17 07:58 75 MG Menthol (Nice Amina) 1 amina PRN PRN AMINA 07/28/17 14:30 08/27/17 14:29 Enteral Nutritional Formula (Boost Glucose Control) 1 can BIDM PO 07/28/17 17:00 08/27/17 16:59 08/02/17 08:13 1 CAN Nystatin (Mycostatin Susp) 5 ml QID PO 07/29/17 17:00 08/08/17 16:59 08/02/17 13:13 5 ML Azithromycin (Zithromax Tab) 250 mg QAM PO 07/30/17 09:00 08/06/17 08:59 08/02/17 07:57 250 MG Calcitriol (Rocaltrol Cap) 0.25 mcg MoWeTh@0900 PO 07/31/17 09:00 08/30/17 08:59 08/02/17 07:57 0.25 MCG Warfarin Sodium (Coumadin Tab) 0.5 mg DAILY@16 PO 07/29/17 16:00 08/28/17 15:59 Future Hold 07/29/17 17:47 0.5 MG Miscellaneous Information (Consult Glycemic Management Pharmacy) 1 ea DAILY PRN N/A 07/29/17 21:09 08/28/17 21:08 Insulin Aspart (novoLOG ASPART) SLIDING SCALE ACHS SC 07/30/17 06:30 08/29/17 06:29 08/02/17 13:17 3 UNITS Furosemide (Lasix Tab) 40 mg QPM PO 07/30/17 21:00 08/29/17 20:59 08/01/17 20:43 40 MG Furosemide (Lasix Tab) 80 mg QAM PO 07/30/17 09:00 08/29/17 08:59 08/02/17 07:57 80 MG Potassium Chloride (Klor-Con Tab) 20 meq DAILY PO 07/30/17 09:00 08/29/17 08:59 08/02/17 07:57 20 MEQ Lorazepam (Ativan Tab) 0.25 mg Q8H PRN PO 07/30/17 17:15 08/28/17 15:59 08/01/17 02:25 0.25 MG Lorazepam (Ativan Tab) 0.25 mg HS PO 07/30/17 21:00 08/28/17 20:59 08/01/17 20:42 0.25 MG Insulin Glargine (Lantus Solostar Pen) 12 units DAILY SQ 08/01/17 09:00 08/31/17 08:59 08/02/17 08:12 12 UNITS Lorazepam 0.5 mg/ Syringe 1 ml @ 0.5 mls/min Q6H PRN IV 08/02/17 07:45 09/01/17 07:44 08/02/17 08:44 0.5 MLS/MIN Ascorbic Acid (Vitamin C Tab) 500 mg DAILY PO 08/02/17 09:00 09/01/17 08:59 08/02/17 08:05 500 MG
[2017-08-02] MEDS ORDERED: NUTR-7 PO (13:57)
[2017-08-02] MEDS ORDERED: AFRIN (13:57)
--- NOTE | 2017-08-02 14:00 | Discharge Instructions ---
Discharge Instructions Date of Service Aug 02, 2017. Admission Reason for Admission: Bleeding Nose, Elevated Inr Discharge Discharge Diagnosis / Problem: NOSE BLEED, ELEVATED INR LEVEL Discharge Goals Goal(s): Diagnostic testing, Therapeutic intervention Activity Recommendations Activity Limitations: as noted below (RESUME ACTIVITY GRADUALLY TOLERATED) . Instructions / Follow-Up Instructions / Follow-Up PLEASE REVIEW YOUR NEW MEDICATION LIST AND FOLLOW INSTRUCTIONS CAREFULLY. CALL PRIMARY CARE PHYSICIAN OR RETURN TO ER IMMEDIATELY IF WITH RECURRENCE OF SYMPTOMS. FOLLOW UP WITH DR. MIRYAM SOLANO (ASSOCIATE OF DR. FATIMA) ON Monday AT 12:45 PM. Current Hospital Diet Patient's current hospital diet: Diabetes Type 2 Diet Discharge Diet Recommended Diet: AHA Diet (Heart Healthy), Diabetes Type 2 Diet Pending Studies Studies pending at discharge: yes List of pending studies: REPEAT BLOOD WORK C/O PRIMARY CARE PHYSICIAN ON FOLLOW UP Laboratory Results Hemoglobin A1c Test 06/24/17 06:22 Range/Units Estimated Average Glucose 223 mg/dl Hemoglobin A1c 9.4 H 4.5-5.6 % Medical Emergencies . Who to Call and When: Medical Emergencies: If at any time you feel your situation is an emergency, please call 911 immediately. . Non-Emergent Contact Non-Emergency issues call your: Primary Care Provider Call Non-Emergent contact if: you have a fever, wound has increased drainage, wound has increased redness, wound has increased pain, you have any medication questions . . "Provider Documentation" section prepared by Christiano Flores. .
--- NOTE | 2017-08-02 14:07 | Discharge Summary ---
Discharge Summary Date of Service Aug 02, 2017. Discharge Summary Admission Date: Jul 30, 2017 at 12:18 Discharge Date: Aug 02, 2017 Discharge Disposition: Home with services Principal Diagnosis: EPISTAXIS, IN THE SETTING OF COUMADIN USE Secondary Diagnoses/Problems: Please refer to hospital course below. Pending Studies/Follow-Up: Monitor INR. Please refer to hospital course below. Medication Reconciliation New Medications: Nutritional Supplements (Boost) 1 Liq Liq 1 CAN PO BIDM for 30 Days, #60 BTL 2 Refills Oxymetazoline HCl (Afrin Nasal [place]) 75 Sprays/15 Ml [place] 2 SPRAYS NA BID PRN for nosebleed for 3 Days, #1 BTL 0 Refills DO NOT USE FOR MORE THAN THREE DAYS Continued Medications: Acetaminophen (Tylenol) 500 Mg Tab 500-1000 MG PO Q6 PRN for Pain, TAB Calcitriol (Rocaltrol Cap) 0.25 Mcg Cap 0.25 MCG PO 2XWK TAKE THIS MEDICATION EVERY MONDAY AND MONDAY Calcium Ascorbate (Vitamin C) 500 Mg Tab 500 MG PO DAILY Cholecalciferol (Vitamin D3) 1,000 Unit Tab 1000 INTER.UNIT PO DAILY Furosemide (Lasix) 80 Mg Tab 80 MG PO QAM, TAB Furosemide (Lasix) 40 Mg Tab 40 MG PO QPM, TAB Insulin Glargine (Lantus) 100 Unit/Ml Inj 5 UNIT SQ DAILY, VIAL Insulin Human Lispro (Humalog) 1 Ea Inj UNITS SQ AC PER SLIDING SCALE Lorazepam (Ativan) 0.5 Mg Tab 0.5 MG PO Q8H PRN for anxiety, TAB Metoprolol Succ (Toprol Xl) (Toprol-Xl) 50 Mg Tabcr 50 MG PO DAILY, #30 TAB Takes 75 mg AM and 50mg PM Omeprazole (Prilosec) 40 Mg Cap 40 MG PO QAM TAKE THIS MEDICATION ONCE DAILY 30 MINUTES BEFORE BREAKFAST Oxybutynin Chloride (Oxybutynin Chloride ER) 10 Mg Tabcr 10 MG PO DAILY Potassium Chloride (Klor-Con M20) 20 Meq Tabcr 20 MEQ PO DAILY Simvastatin (Zocor) 10 Mg Tab 10 MG PO HS Timolol Maleate (Ophth) (Timoptic-Xe 0.5% Oph) 0.5 % [place] 1 DROPS OPL DAILY, #15 ML 3 Refills Discontinued Medications: Aspirin (Aspirin Ec) 81 Mg Tab 81 MG PO DAILY Warfarin Sod (Jantoven) 1 Mg Tab 0.5-1 MG PO DAILY, TAB UD BY ANTI-COAGULATION CLINIC Admission Information HPI (per Admitting provider): Patient is an 87-year-old female with past medical history of CKD stage III, DM II, atrial fibrillation on anticoagulation therapy, glaucoma, Silva's esophagus, GERD, hyperlipidemia, chronic diastolic heart failure and other problems presents with history of nosebleed from left nares which started today. Patient received vitamin K 5 mg secondary to increased INR on recommendations by her PCP. Patient is a very poor historian. She admits to picking her nose which initiated the bleeding. Patient received Afrin spray and IV vitamin K 10 mg in the ED. Epistaxis stopped after nasal clamping. Her INR is greater than 10 and hemoglobin is at baseline. Her blood sugar levels are elevated secondary to missing her insulin today. Patient is on aspirin and warfarin and her last dose was this morning. She denies any use of NSAIDs. She also reports having nosebleed 7-10 days ago as well. Denies any history of blood in stools, hematuria, melena. She is anxious during my encounter in ED. Denies any history of chest pain, SOB, dizziness, cough, fever, chills, nausea, vomiting, abdominal pain, diarrhea, dysuria. Physical Exam (per Admitting): General Appearance: WD/WN, no apparent distress, + pertinent finding ( anxious) Head: normocephalic, atraumatic Eyes: normal inspection, PERRL, EOMI, sclerae normal ENT: normal ENT inspection, hearing grossly normal, + pertinent finding ( Blood in left nares.) Neck: supple, trachea midline Respiratory/Chest: chest non-tender, lungs clear, normal breath sounds, no respiratory distress, no accessory muscle use Cardiovascular: regular rate, rhythm, no murmur, + pertinent finding (1+ b/ l edema) Abdomen/GI: normal bowel sounds, non tender, soft Back: normal inspection Extremities/Musculoskelatal: normal inspection, + pedal edema, + pertinent finding (Left ankle wound) 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, no motor/sensory deficits, alert , oriented x 3 Skin: normal color, warm/dry Hospital Course EPISTAXIS, IN THE SETTING OF COUMADIN USE presented with INR> 10 Received Vit K 10mg in ED, INR trended down Held Aspirin, restarted Coumadin next day but patient had recurrence of epistaxis, so Coumadin held again INR 2.5 without any doses of Coumadin for two days was given Afrin x 3 days no recurrence of epistaxis since -- Coumadin and ASA on hold for now monitor INR as outpatient -- consider outpatient referral to ENT ATRIAL FIBRILLATION Holding Coumadin and ASA secondary to above Metoprolol continued patient seems sensitive to Coumadin as small doses getting inr elevated. family would like to hold Coumadin at this time and will make further decisions about it later on Dr. Sykes (Hospitalist attending) explained risk of stroke, dvt/pe as patient is mostly immobile, if not on Coumadin, risk of bleeding/falls if on Coumadin ACUTE RENAL FAILURE ON CKD IV, RESOLVED Baseline Cr:1.5 presented with Cr:2.66 Held diuretic, Crea improved to 1.4 restarted diuretics stable ANEMIA OF CHRONIC DISEASE baseline hb 9 Hg stable DM TYPE 2 Poorly controlled Last A1c:9.4 in June 2017 outpatient ff up SACRAL DECUBITUS ULCER STAGE 3 wound care consulted would benefit from hospital bed at home elevated head of the bed 30 deg or less patient would require frequent repositioning while in bed HISTORY OF SILVA'S ESOPHAGUS GERD On PPI CHRONIC DIASTOLIC HEART FAILURE stable currently restarted diuretics AMBULATORY DYSFUNCTION not much mobile at home as per family ACUTE BRONCHITIS finished 5 day course of Azithromycin SORE THROAT recently had abx given nystatin swish and swallow Code Status: DNR. Disposition: Palliative care was consulted and evaluated the patient in the hospital plan was to transition to home with hospice but patient did not meet an appropriate diagnosis for hospice care and was declined hospice services patient to return home with home health services Ff up with Primary Care Physician in 3-5 days Total time spent on discharge = 40 minutes This includes examination of the patient, discharge planning, medication reconciliation, and communication with other providers. Discharge Instructions Discharge Instructions Date of Service Aug 02, 2017. Admission Reason for Admission: Bleeding Nose, Elevated Inr Discharge Discharge Diagnosis / Problem: NOSE BLEED, ELEVATED INR LEVEL Discharge Goals Goal(s): Diagnostic testing, Therapeutic intervention Activity Recommendations Activity Limitations: as noted below (RESUME ACTIVITY GRADUALLY TOLERATED) . Instructions / Follow-Up Instructions / Follow-Up PLEASE REVIEW YOUR NEW MEDICATION LIST AND FOLLOW INSTRUCTIONS CAREFULLY. CALL PRIMARY CARE PHYSICIAN OR RETURN TO ER IMMEDIATELY IF WITH RECURRENCE OF SYMPTOMS. FOLLOW UP WITH DR. MIRYAM SOLANO (ASSOCIATE OF DR. FATIMA) ON Monday AT 12:45 PM. Current Hospital Diet Patient's current hospital diet: Diabetes Type 2 Diet Discharge Diet Recommended Diet: AHA Diet (Heart Healthy), Diabetes Type 2 Diet Pending Studies Studies pending at discharge: yes List of pending studies: REPEAT BLOOD WORK C/O PRIMARY CARE PHYSICIAN ON FOLLOW UP Laboratory Results Hemoglobin A1c Test 06/24/17 06:22 Range/Units Estimated Average Glucose 223 mg/dl Hemoglobin A1c 9.4 H 4.5-5.6 % Medical Emergencies . Who to Call and When: Medical Emergencies: If at any time you feel your situation is an emergency, please call 911 immediately. . Non-Emergent Contact Non-Emergency issues call your: Primary Care Provider Call Non-Emergent contact if: you have a fever, wound has increased drainage, wound has increased redness, wound has increased pain, you have any medication questions . . "Provider Documentation" section prepared by Christiano Flores.
== END 2017-08-02 16:55 | disposition home health service (06) | DRG 150 ==
LOC: C.EDB 20:12 → C.MED 23:12 → ENRESERV 23:34 → OBSVTOIN 07-30 12:18 → C.MED 08-02 00:19
PROVIDERS: ADMIT Internal Medicine; ATTEND Internal Medicine
DX: R04.0 Epistaxis (principal); I50.32 Chronic diastolic (congestive) heart failure; N17.9 Acute kidney failure, unspecified; N18.4 Chronic kidney disease, stage 4 (severe); L89.153 Pressure ulcer of sacral region, stage 3; Z51.5 Encounter for palliative care; I13.0 Hypertensive heart and chronic kidney disease with heart failure and stage 1 through stage 4 chronic kidney disease, or unspecified chronic kidney disease; R79.1 Abnormal coagulation profile; D63.8 Anemia in other chronic diseases classified elsewhere; I48.91 Unspecified atrial fibrillation; J40 Bronchitis, not specified as acute or chronic; J02.9 Acute pharyngitis, unspecified; K22.70 Barrett's esophagus without dysplasia; Z66 Do not resuscitate; E11.9 Type 2 diabetes mellitus without complications; E78.5 Hyperlipidemia, unspecified; K21.9 Gastro-esophageal reflux disease without esophagitis; H40.9 Unspecified glaucoma; I34.0 Nonrheumatic mitral (valve) insufficiency; Z98.51 Tubal ligation status; Z79.82 Long term (current) use of aspirin; Z79.01 Long term (current) use of anticoagulants; Z79.4 Long term (current) use of insulin; Z83.3 Family history of diabetes mellitus

== ENCOUNTER → 2017-07-27 | Outpatient (CLI) | payer OTHER ==
[~2017-07-27] MED LIST changes: +AFRIN; +NUTR-7 PO
[2017-07-27 11:49] LABS: INR > 10.0 (0.9-1.1)
== END | disposition home or self-care (01) ==
LOC: C.LABSPEC 10:43
PROVIDERS: ATTEND Family Medicine
DX: I50.9 Heart failure, unspecified (principal); Z79.01 Long term (current) use of anticoagulants

== ENCOUNTER 2017-08-04 20:54 | Emergency (ER) | payer OTHER ==
[~2017-08-04] VITALS: Ht 162.6 cm; Wt 68.0 kg
[~2017-08-04 20:54] MED LIST changes: +ACET-1256 PO; +AFRIN; +ASPI81TA28 PO; +CALC0.2510 PO; +CALC500T72 PO; +DTRSR/10 PO; +FRS/40 PO; +FURO80TA63 PO; +INSDGI SQ; +INSPMPHMLG SQ; +METO50TA8 PO; +NUTR-7 PO; +OMEP40CA41 PO; +SIMV10TA2 PO; +WARF1TAB6 PO
[2017-08-04 21:01] VITALS: TEMP 36.3; Ht 162.6 cm; Wt 68.0 kg
[2017-08-04] MEDS ORDERED: SODIUM CHLORIDE 0.9% 250ML 250 ML IV STA (22:41)
--- NOTE | 2017-08-04 22:49 | EMERGENCY ROOM VISIT NOTE ---
History Report prepared by Sonido: Jodi Brasher Under the Supervision of: Dr. Carlos Aguirre M.D. First contact with patient: 22:38 Chief Complaint: HYPERGLYCEMIA Stated Complaint: BLOOD SUGAR IN 500'S SINCE 1630 Nursing Triage Summary: 12 units given of novalog at 1700 and 12 more units at 1830 bsg bree been in 500's History of Present Illness The patient is a 87 year old female who presents to the Emergency Room with complaints of hyperglycemia beginning at 1630 today. Her daughter reports that her blood sugar has been in the 500's. She notes she gave her 12 units of Novalog at 1700 and 12 more units at 1830. They also report that she has not eaten anything today. Her daughters note the patient is a Type II diabetic. She was discharged here on the and was her with an INR of 10. They deny the patient having any fevers, congestion, chills, or a cough. They note she is no longer on her blood thinners or Coumadin. Source of History: patient Onset: 1629 today Position: other (global) Quality: other (hyperglycemia) Modifying Factors (Worsening): other (Not taking her medications) Associated Symptoms: No fevers, No chills, No cough Note: Negative congestion. Review of Systems See HPI for pertinent positives and negatives. A total of ten systems were reviewed and were otherwise negative. Past Medical & Surgical Medical Problems: (1) Afib (2) Anticoagulated on warfarin (3) Aortic stenosis (4) Atrial fibrillation (5) Bacon esophagus (6) CHF exacerbation (7) Chronic diastolic (congestive) heart failure (8) CKD (chronic kidney disease), stage III (9) DM type 2 (diabetes mellitus, type 2) (10) Dyslipidemia (11) Ear lobe laceration (12) Fall (13) GERD (gastroesophageal reflux disease) (14) Glaucoma (15) Heart disease (16) HTN (hypertension) (17) Kidney disease (18) Mitral valve insufficiency (19) Palliative care encounter (20) Sepsis (21) T2DM (type 2 diabetes mellitus) Surgical Problems: (1) Hx of tubal ligation Family History Diabetes mellitus Social History Smoking Status: Never Smoker Alcohol Use: none Drug Use: none Housing Status: lives with family Occupation Status: unemployed Current/Historical Medications Scheduled Calcitriol (Rocaltrol Cap), 0.25 MCG PO 2XWK Calcium Ascorbate (Vitamin C), 500 MG PO DAILY Cholecalciferol (Vitamin D3), 1,000 INTER.UNIT PO DAILY Furosemide (Lasix), 80 MG PO QAM Furosemide (Lasix), 40 MG PO QPM Insulin Glargine (Lantus), 5 UNIT SQ DAILY Insulin Human Lispro (Humalog), UNITS SQ AC Metoprolol Succ (Toprol Xl) (Toprol-Xl), 50 MG PO DAILY Nutritional Supplements (Boost), 1 CAN PO BIDM Omeprazole (Prilosec), 40 MG PO QAM Oxybutynin Chloride (Oxybutynin Chloride ER), 10 MG PO DAILY Potassium Chloride (Klor-Con M20), 20 MEQ PO DAILY Simvastatin (Zocor), 10 MG PO HS Timolol Maleate (Ophth) (Timoptic-Xe 0.5% Oph), 1 DROPS OPL DAILY Scheduled PRN Acetaminophen (Tylenol), 500-1,000 MG PO Q6 PRN for Pain Lorazepam (Ativan), 0.5 MG PO Q8H PRN for anxiety Oxymetazoline HCl (Afrin Nasal [place]), 2 SPRAYS NA BID PRN for nosebleed Allergies Coded Allergies: No Known Allergies (Unverified , 08/04/17) Physical Exam Vital Signs Date Time Temp Pulse Resp B/P (MAP) Pulse Ox O2 Delivery O2 Flow Rate FiO2 08/05/17 01:12 90 107/73 08/05/17 00:49 80 16 127/63 95 Room Air 08/04/17 23:55 80 08/04/17 23:46 82 16 146/102 97 Room Air 08/04/17 21:01 36.3 96 18 122/55 96 Room Air Physical Exam GENERAL: Awake, alert, fatigued-appearing, in no distress HENT: Normocephalic, atraumatic. Solomon mucus membranes. EYES: Normal conjunctiva. Sclera non-icteric. NECK: Supple. No nuchal rigidity. FROM. No JVD. RESPIRATORY: Clear to auscultation. CARDIAC: Regular rate, normal rhythm. Extremities warm and well perfused. Pulses equal. ABDOMEN: Soft, non-distended. No tenderness to palpation. No rebound or guarding. No masses. RECTAL: Deferred. MUSCULOSKELETAL: Chest examination reveals no tenderness. The back is symmetrical on inspection without obvious abnormality. There is no CVA tenderness to palpation. No joint edema. LOWER EXTREMITIES: Calves are equal size bilaterally and non-tender. No edema. No discoloration. NEURO: Normal sensorium. No sensory or motor deficits noted. SKIN: No rash or jaundice noted. Medical Decision & Procedures Laboratory Results 08/04/17 22:40 Red Blood Count 4.31, Mean Corpuscular Volume 74.2, Mean Corpuscular Hemoglobin 22.5, Mean Corpuscular Hemoglobin Concent 30.3, Mean Platelet Volume 8.9, Neutrophils (%) (Auto) 65.7, Lymphocytes (%) (Auto) 19.3, Monocytes (%) (Auto) 10.7, Eosinophils (%) (Auto) 3.0, Basophils (%) (Auto) 0.9, Neutrophils # (Auto ) 3.50, Lymphocytes # (Auto) 1.03, Monocytes # (Auto) 0.57, Eosinophils # (Auto ) 0.16, Basophils # (Auto) 0.05 08/04/17 22:40 Test 08/04/17 22:40 08/04/17 23:15 08/04/17 23:22 White Blood Count 5.33 K/uL (4.8-10.8) Red Blood Count 4.31 M/uL (4.2-5.4) Hemoglobin 9.7 g/dL (12.0-16.0) Hematocrit 32.0 % (37-47) Mean Corpuscular Volume 74.2 fL (80-100) Mean Corpuscular Hemoglobin 22.5 pg (25-34) Mean Corpuscular Hemoglobin Concent 30.3 g/dl (32-36) Platelet Count 334 K/uL (130-400) Mean Platelet Volume 8.9 fL (7.4-10.4) Neutrophils (%) (Auto) 65.7 % Lymphocytes (%) (Auto) 19.3 % Monocytes (%) (Auto) 10.7 % Eosinophils (%) (Auto) 3.0 % Basophils (%) (Auto) 0.9 % Neutrophils # (Auto) 3.50 K/uL (1.4-6.5) Lymphocytes # (Auto) 1.03 K/uL (1.2-3.4) Monocytes # (Auto) 0.57 K/uL (0.11-0.59) Eosinophils # (Auto) 0.16 K/uL (0-0.5) Basophils # (Auto) 0.05 K/uL (0-0.2) RDW Standard Deviation 68.2 fL (36.4-46.3) RDW Coefficient of Variation 25.1 % (11.5-14.5) Immature Granulocyte % (Auto) 0.4 % Immature Granulocyte # (Auto) 0.02 K/uL (0.00-0.02) Hypochromasia PRESENT Anisocytosis PRESENT Ovalocytes 1+ Anion Gap 7.0 mmol/L (3-11) Est Creatinine Clear Calc Drug Dose 22.5 ml/min Estimated GFR () 31.1 Estimated GFR (Non- 26.8 BUN/Creatinine Ratio 23.5 (10-20) Bedside Glucose 97 mg/dl (70-90) Calcium Level 9.1 mg/dl (8.5-10.1) Total Bilirubin 0.6 mg/dl (0.2-1) Direct Bilirubin 0.4 mg/dl (0-0.2) Aspartate Amino Transf (AST/SGOT) 24 U/L (15-37) Alanine Aminotransferase (ALT/SGPT) 24 U/L (12-78) Alkaline Phosphatase 137 U/L (45-117) Total Protein 7.7 gm/dl (6.4-8.2) Albumin 2.1 gm/dl (3.4-5.0) Lipase 55 U/L (73-393) Urine Color DK YELLOW Urine Appearance CLEAR (CLEAR) Urine pH >= 9.0 (4.5-7.5) Urine Specific [place] 1.013 (1.000-1.030) Urine Protein NEG (NEG) Urine Glucose (UA) NEG (NEG) Urine Ketones NEG (NEG) Urine Occult Blood NEG (NEG) Urine Nitrite NEG (NEG) Urine Bilirubin NEG (NEG) Urine Urobilinogen NEG (NEG) Urine Leukocyte Esterase LARGE (NEG) Urine WBC (Auto) 1-5 /hpf (0-5) Urine RBC (Auto) 0-4 /hpf (0-4) Urine Hyaline Casts (Auto) 1-5 /lpf (0-5) Urine Epithelial Cells (Auto) 10-20 /lpf (0-5) Urine Bacteria (Auto) 4+ (NEG) Venous Blood pH 7.40 (7.36-7.41) Venous Blood Partial Pressure CO2 52 mmHg (38.0-50.0) Venous Blood Partial Pressure O2 19 mmHg Venous Blood HCO3 31 mmol/L Venous Blood Oxygen Saturation < 60.0 % Venous Blood Base Excess 5.5 mEq/L Laboratory results reviewed by me Medications Administered Medications (Trade) Dose Ordered Sig/Gustavo Route Start Time Stop Time Status Last Admin Dose Admin Sodium Chloride 250 ml @ 999 mls/hr Q16M STAT IV 08/04/17 22:41 08/04/17 22:56 DC 08/04/17 22:41 999 MLS/HR ED Course 2240: The patient was evaluated in room C8. A complete history and physical exam was performed. Medical Decision I reviewed the patient's past medical history, medications, and the nursing notes as described above. Differential diagnosis: Etiologies such as medication noncompliance, pneumonia, bronchitis, UTI, dehydration, electrolyte abnormalities, as well as others were entertained. The patient is an 87-year-old woman who presents emergency department with hyperglycemia in the 500s in the setting of being discharged from a recent admission for epistaxis in the setting of supratherapeutic INR per hpi. Of note , it appears there was confusion among the family about which insulin to give the patient and she may have only received short acting insulin not her long- acting insulin this morning. Otherwise, the family reports that she has been at her baseline since her discharge on 08/02. The family did contact her providers and were counseled on short acting insulin to correct and so upon arrival with the patient's fingerstick was 318 and then subsequently 80s. Labs unremarkable with WBC within normal limits. Creatinine 1.7 near baseline. Chest x-ray with question of aspiration/infiltrate however given that the patient has no respiratory symptoms saturating normally on room air will continue to monitor the patient for development of symptoms to inform treatment. Otherwise, the patient will follow up with her providers for repeat chest x-ray. Given there is a clear reason for the patient's elevated blood sugars related to missing her insulin doses, no indication for further workup or admission at this time. Plan for discharge and outpatient follow-up. Findings and plan for follow-up reviewed with family at bedside. Agreeable and d /c'd per discharge instructions. Medication Reconcilliation Current Medication List: was personally reviewed by me Blood Pressure Screening Patient's blood pressure: Low blood pressure Blood pressure disposition: Did not require urgent referral Impression Primary Impression: Hyperglycemia, unspecified Scribe Attestation The scribe's documentation has been prepared under my direction and personally reviewed by me in its entirety. I confirm that the note above accurately reflects all work, treatment, procedures, and medical decision making performed by me. Departure Information Dispostion Home / Self-Care Referrals Nilo Parks M.D. (PCP) Patient Instructions ED Hyperglycemia Diabetic, My [facility] Additional Instructions Please follow up with your primary care physician next week for re-evaluation and for a repeat chest xray to ensure improvement. Your exam, chest xray, and lab results did not show signs of an emergent condition at this time. Continue your current medications as prescribed. Return to the emergency department for worsening symptoms as described in the accompanying instructions.
[2017-08-04 23:33] LABS: BASO % 0.9 %; BASO ABS # 0.05 K/uL (0-0.2); EOS ABS # 0.16 K/uL (0-0.5); HEMOGLOBIN 9.7 g/dL (12.0-16.0); IG# 0.02 K/uL (0.00-0.02); LYMPH % 19.3 %; LYMPH ABS # 1.03 K/uL (1.2-3.4); MEAN CELL VOLUME 74.2 fL (80-100); MEAN CORPUSCULAR HEMOGLOBIN 22.5 pg (25-34); MEAN CORPUSCULAR HGB CONC 30.3 g/dl (32-36); MEAN PLATELET VOLUME 8.9 fL (7.4-10.4); MONO % 10.7 %; MONO ABS # 0.57 K/uL (0.11-0.59); NEUT % 65.7 %; PLATELET COUNT 334 K/uL (130-400); RED CELL DISTRIBUTION WIDTH CV 25.1 % (11.5-14.5); RED CELL DISTRIBUTION WIDTH SD 68.2 fL (36.4-46.3); WHITE BLOOD COUNT 5.33 K/uL (4.8-10.8)
--- NOTE | 2017-08-04 23:34 | DIAGNOSTIC IMAGING REPORT ---
SINGLE VIEW CHEST CLINICAL HISTORY: Generalized abdominal pain. FINDINGS: An AP, portable, upright chest radiograph is compared to study dated 06/26/2017. The examination is degraded by portable technique and patient rotation. The heart is enlarged and there is atherosclerotic calcification of the thoracic aorta. The pulmonary vasculature is noncongested. Chronic interstitial thickening is similar to previous. There is left basilar consolidation. Small pleural effusions are identified. No pneumothorax is seen. The skeletal structures are osteopenic. The bony thorax is grossly intact. Degenerative change is noted throughout the thoracic spine. IMPRESSION: 1. Cardiomegaly without radiographic evidence of congestive failure. 2. Small pleural effusions. 3. There is left basilar consolidation. This likely represents pneumonia/aspiration pneumonitis. Clinical correlation will be required and radiographic follow-up to resolution is recommended. Electronically signed by: Gumaro Albright M.D. 08/04/2017 11:32 PM Dictated Date/Time: 08/04/2017 11:31 PM
[2017-08-04 23:41] LABS: ALBUMIN 2.1 gm/dl (3.4-5.0); CALCIUM 9.1 mg/dl (8.5-10.1); CREATININE 1.7 mg/dl (0.60-1.20); POTASSIUM 3.2 mmol/L (3.5-5.1)
[2017-08-04 23:43] LABS: TOTAL PROTEIN 7.7 gm/dl (6.4-8.2)
[2017-08-05 00:49] VITALS: O2SAT 95
[2017-08-05 01:12] VITALS: BP 107/73; PULSE 90
--- NOTE | 2017-08-07 14:58 | Pharmacy Progress Note ---
ED Pharmacist Culture FollowUp Date of Service: Aug 07, 2017. Patient's urine culture growing Proteus mirabilis >100,000 CFU/ml resistant to fluoroquinolones. Patient presented with Hyperglycemia (possible insulin mix-up) , UA was negative, no urinary symptoms reported. Recommended no treatment as possible asymptomatic bacteriuria. Discussed case with Dr. Springer who would like treatment with keflex 250 mg BID x 7 days which should cover the proteus. Called patient ~1450 and left message to call back. Prescription to be called into pharmacy of patients preference.
== END 2017-08-05 01:08 | disposition home or self-care (01) ==
LOC: C.EDB 20:55 → C.EDC 08-05 01:08
DX: E11.65 Type 2 diabetes mellitus with hyperglycemia (principal); K22.70 Barrett's esophagus without dysplasia; I13.0 Hypertensive heart and chronic kidney disease with heart failure and stage 1 through stage 4 chronic kidney disease, or unspecified chronic kidney disease; E11.22 Type 2 diabetes mellitus with diabetic chronic kidney disease; N18.3 Chronic kidney disease, stage 3 (moderate); I50.32 Chronic diastolic (congestive) heart failure; E78.5 Hyperlipidemia, unspecified; Z91.81 History of falling; K21.9 Gastro-esophageal reflux disease without esophagitis; H40.9 Unspecified glaucoma; Z98.51 Tubal ligation status; Z83.3 Family history of diabetes mellitus; Z79.4 Long term (current) use of insulin; Z79.899 Other long term (current) drug therapy

== ENCOUNTER → 2017-08-29 | Outpatient (CLI) | payer OTHER ==
[~2017-08-29] MED LIST changes: -ACET-1311 PO; -ASPI81TA28 PO; +DOXY-300 PO; -FERRTAB18 PO; -INSU100I SQ; -INSU70IN2 SC; -INSU70IN2 SQ; -IPRASOL4 INH; -LSX40 PO; -OXGN; -TPRSR50 PO; -WARF1TAB6 PO; -WARF4TAB44 PO
--- NOTE | 2017-08-29 13:09 | DIAGNOSTIC IMAGING REPORT ---
R LOWER EXTREMITY WITHOUT CLINICAL HISTORY: 87 years-old Female presenting with R UPPER LEG- MASS VERSES HEMATOMA. TECHNIQUE: Multidetector CT of the right hip was performed without the use of intravenous contrast. IV contrast: None. A dose lowering technique was used consistent with the principles of ALARA (as low as reasonably achievable). COMPARISON: None. CT DOSE (mGy.cm): The estimated cumulative dose is 255.67 mGy.cm. FINDINGS: Pediatric Pathologist topogram: Unremarkable. Subcutaneous edema noted bilaterally in the lower extremities. Significant atherosclerotic plaque evident. Evaluation for vessel patency cannot be made without intravenous contrast. Limited evaluation of intrapelvic contents demonstrates mildly distended bladder. No gross evidence of a mass, fluid collection, or hematoma. Bilateral hip joints congruent. No advanced degenerative changes of the right hip joint. Joint spaces preserved. Focal sclerosis in the femoral head (series 301 image 35) likely bone island. Visualized portion of the femur is otherwise normal. Visualized portion of the bony pelvis demonstrates degenerative changes of the pubic symphysis. IMPRESSION: 1. No evidence of acute osseous injury. No evidence of mass or hematoma allowing for noncontrast technique. 2. Bilateral lower extremity subcutaneous edema. Electronically signed by: Joe Velásquez M.D. 08/29/2017 1:08 PM Dictated Date/Time: 08/29/2017 1:01 PM
== END | disposition home or self-care (01) ==
LOC: C.CTS 12:44
PROVIDERS: ATTEND Physician Assistant
DX: R60.0 Localized edema (principal)